=== PATIENT | female | born 1950 | race Caucasian/White ===

== ENCOUNTER 2019-05-14 11:18 | Emergency (ER) | payer OTHER ==
--- NOTE | 2019-05-14 11:37 | EDM.PDOC ---
ED HPI GENERAL MEDICAL PROBLEM - General Chief Complaint: Lower Extremity Injury/Pain Stated Complaint: RIGHT UPPER LEG/HIP AND BACK PAIN Time Seen by Provider: 05/14/19 11:37 Source of Information: Reports: Patient, Old Records, RN, RN Notes Reviewed History Limitations: Reports: No Limitations - History of Present Illness INITIAL COMMENTS - FREE TEXT/NARRATIVE: Pt is sent from the [facility] to the ER for x-rays of her low back and hip. Pt is not sure why she was sent to the emergency department for to obtain x-rays. Pt states she tripped 2 weeks ago and fell to the ground and since that time she has had increased pain in the low back, Rt hip, and Rt groin. Pt states that any movement of the right lower extremity seems to make the pain worse. Duration: Week(s): (2), Constant Quality: Reports: Ache Severity: Moderate Improves with: Reports: Immobilization, Rest Worsens with: Reports: Movement Context: Reports: Other (Fell 2 weeks ago.) Associated Symptoms: Reports: No Other Symptoms Right Hip Pain Score (Numeric/FACES): 10 Past Medical History Cardiovascular History: Reports: High Cholesterol, Hypertension Respiratory History: Reports: COPD Musculoskeletal History: Reports: Arthritis, Back Pain, Chronic Endocrine/Metabolic History: Reports: Diabetes, Type II, Obesity/BMI 30+ Social & Family History - Family History Family Medical History: Noncontributory - Tobacco Use Smoking Status *Q: Former Smoker Tobacco Use Within Last Twelve Months: Cigarettes - Living Situation & Occupation Living situation: Reports: with Family Occupation: Retired Review of Systems - Review of Systems Review Of Systems: ROS reveals no pertinent complaints other than HPI. ED EXAM, GENERAL - Physical Exam Exam: See Below Exam Limited By: No Limitations General Appearance: Alert, No Apparent Distress, Obese Head: Atraumatic, Normocephalic Neck: Normal Inspection, Non-Tender, Full Range of Motion Respiratory/Chest: No Respiratory Distress, No Accessory Muscle Use, Chest Non- Tender, Decreased Breath Sounds, Crackles. No: Rales, Rhonchi, Wheezing Cardiovascular: Regular Rate, Rhythm Peripheral Pulses: 0: Posterior Tibial (L), Posterior Tibial (R), 1+: Dorsalis Pedis (L), Dorsalis Pedis (R) GI/Abdominal: Normal Bowel Sounds, Soft, Non-Tender Back Exam: Decreased Range of Motion, Paraspinal Tenderness (lumbar). No: CVA Tenderness (L), CVA Tenderness (R), Muscle Spasm, Vertebral Tenderness Extremities: Pedal Edema (trace B/L), Limited Range of Motion (Rt hip), Other ( Tenderness overlying the Rt pubic rami). No: Joint Swelling, Blossom's Sign, Increased Warmth, Mottled, Pallor, Redness Neurological: Alert, Oriented, No Motor/Sensory Deficits Psychiatric: Normal Mood Skin Exam: Warm, Dry, Intact, Normal Color, No Rash Course - Vital Signs Last Recorded V/S: Last Vital Signs Temp 98.1 F 05/14/19 11:29 Pulse 83 05/14/19 11:29 Resp BP 139/65 05/14/19 11:29 Pulse Ox 92 L 05/14/19 11:29 - Radiology Interpretation Free Text/Narrative:: XR Rt hip and Pelvis: no fractures. XR L-spine: T12 compression fracture with anterior wedging (age uncertain), multilevel DDD, see Rad. report. Departure - Departure Time of Disposition: 12:38 Disposition: Home, Self-Care 01 Condition: Fair Clinical Impression: Right hip pain Wedge compression fracture of T12 vertebra Qualifiers: Encounter type: initial encounter Fracture type: closed Qualified Code(s): S22.080A - Wedge compression fracture of T11-T12 vertebra, initial encounter for closed fracture - Discharge Information *PRESCRIPTION DRUG MONITORING PROGRAM REVIEWED*: No *COPY OF PRESCRIPTION DRUG MONITORING REPORT IN PATIENT ALEJANDRA: No Instructions: Hip Pain, Spinal Compression Fracture Forms: ED Department Discharge Additional Instructions: [facility] for [facility] evaluation and treatment as needed.
--- NOTE | 2019-05-14 12:29 | CR ---
EXAMINATION: AP pelvis/hips and frog lateral view of the right hip SEX: Female AGE: 68 years CLINICAL HISTORY: 68-year-old female injured in fall (Fell 2wks ago) complaining of low back and R hip/groin pain. INTERPRETATION: 1. Homogeneous normal bone mineral density consistent with age and gender. 2. No sign of pathologic skeletal lesion, pelvic or either hip fracture/dislocation. 3. Symmetric spacing normal-appearing SI and hip joints without arthritic degenerative change. CONCLUSION: No fractures.
--- NOTE | 2019-05-14 12:35 | CR ---
EXAMINATION: Lumbar Spine 2 or 3V SEX: Female AGE: 68 years CLINICAL HISTORY: 68-year-old female injured fall 2wks ago, low back, R hip/groin pain. "Negative" pelvis and right hip films. INTERPRETATION: No comparison films immediately available. 1. Greater than 50% compression fracture T12 vertebral body (age of fracture uncertain). 2. Multilevel upper/mid/lower lumbar disc disease i.e. interspace narrowing, dense reactive endplate sclerosis and hypertrophic marginal spondylosis involving L1-2, L2-3, L3-4 and L4-5 levels. 3. No sign of compression fracture or spondylolisthesis lumbar vertebra. CONCLUSION: Abnormal. Compression FRACTURE T12 vertebral body. Chronic multilevel lumbar disc disease with reactive arthritic changes of the spine.
== END 2019-05-14 12:46 | disposition home or self-care (01) ==
LOC: DL.ED 11:18
DX: S22.080A Wedge compression fracture of T11-T12 vertebra, initial encounter for closed fracture (principal); M25.551 Pain in right hip; I10 Essential (primary) hypertension; E66.9 Obesity, unspecified; E11.9 Type 2 diabetes mellitus without complications; E78.00 Pure hypercholesterolemia, unspecified; Z68.34 Body mass index [BMI] 34.0-34.9, adult; Z87.891 Personal history of nicotine dependence; W01.0XXA Fall on same level from slipping, tripping and stumbling without subsequent striking against object, initial encounter
CPT/HCPCS: 72100; 99283-25

== ENCOUNTER 2019-08-16 14:02 | Inpatient (IN) | payer OTHER, MEDICARE ==
[2019-08-16] MEDS ORDERED: methylPREDNISolone Sodium Succinate 125 MG/2 ML SDV IVPUSH ONE (14:19)
[2019-08-16] MEDS ORDERED: Albuterol/Ipratropium 3.0-0.5 MG/3 ML Neb Soln NEB ONE (14:19)
--- NOTE | 2019-08-16 14:38 | CR ---
EXAMINATION: Chest 1V Frontal SEX: Female AGE: 69 years CLINICAL HISTORY: 69-year-old female cough, shortness of breath and COPD. No comparison films immediately available. INTERPRETATION: 1. Large hiatus hernia lower middle mediastinum. Dense calcifications arch of the aorta. 2. Normal cardiac silhouette without vascular congestion, cephalization of flow, alveolar edema or dependent effusion. 3. Coarse accentuation interstitial markings but no focal lobar pneumonia. No air trapping. 4. No lung mass or hilar/mediastinal lymphadenopathy. 5. No pneumothorax, pneumomediastinum or free subdiaphragmatic air. CONCLUSION: Abnormal interstitial pattern consistent with probable smoker. Bronchitis. No signs of heart failure or lobar pneumonia.
[2019-08-16] MEDS: Sodium Chloride 0.9% 10 ML Syringe FLUSH PRN (14:40)
[2019-08-16 15:26] LABS: ANION GAP 19.9
[2019-08-16] MEDS ORDERED: Potassium Chloride 10 MEQ Tab.ER PO ONE ×3 (15:47→21:15)
[2019-08-16] MEDS ORDERED: Potassium Chloride 10 MEQ in Premix Bag 1 BAG IV ONE (15:47)
[2019-08-16] MEDS ORDERED: Lidocaine 1% 30 ML SDV ONE (15:48)
--- NOTE | 2019-08-16 17:03 | EDM.PDOC ---
Scribed by Lashay Palacios 08/16/19 1602 for Ronal Denson MD ED HPI GENERAL MEDICAL PROBLEM - General Chief Complaint: Respiratory Problem Stated Complaint: COUGH Time Seen by Provider: 08/16/19 14:22 Source of Information: Reports: Patient, RN, RN Notes Reviewed History Limitations: Reports: No Limitations - History of Present Illness INITIAL COMMENTS - FREE TEXT/NARRATIVE: Patient presents to ER with increased shortness of breath, cough and fever at home 100.1. This started Saturday. Long-term smoker with history fo COPD and CHF, home oxygen dependent. Has routine Home Health Visits. She has been using nebulizer at home without relief. Denies chest pain or lower extremity edema. Onset: Gradual Onset Date: 08/12/19 Duration: Constant, Getting Worse Location: Reports: Chest Quality: Reports: Other (Denies pain) Severity: Moderate Improves with: Reports: None Worsens with: Reports: None Associated Symptoms: Reports: No Other Symptoms - Related Data Allergies Allergy/AdvReac Type Severity Reaction Status Date / Time allopurinol Allergy Anxiety Verified 08/16/19 14:15 atorvastatin Allergy Cannot Verified 08/16/19 14:15 Remember Home Meds: Home Meds Benzonatate 100 mg PO TID 05/14/19 [History] Citalopram Hydrobromide [Celexa] 20 mg PO DAILY 05/14/19 [History] Cyclobenzaprine HCl 10 mg PO TID 05/14/19 [History] Furosemide 80 mg PO BID 05/14/19 [History] Gabapentin [Neurontin] 200 mg PO BID 05/14/19 [History] Insulin Aspart [NovoLOG] 10 units SUBCUT TIDMEALS 05/14/19 [History] Insulin Glarg,Human.Rec.Analog [Lantus] 30 unit SQ 05/14/19 [History] Levothyroxine Sodium 0.088 mcg PO DAILY 05/14/19 [History] Melatonin/Pyridoxine HCl (B6) [Melatonin 3 mg Tablet] 1 each PO BEDTIME [History] Nicotine Polacrilex [Nicotine Gum] 2 mg PO PRN 05/14/19 [History] Pantoprazole [ProTONIX] 40 mg PO TIDMEALS 05/14/19 [History] Potassium Chloride 10 meq PO TID 05/14/19 [History] Pramipexole Di-HCl [Pramipexole Dihydrochloride] 0.5 mg PO TID 05/14/19 [History ] Pravastatin [Pravachol] 10 mg PO BEDTIME 05/14/19 [History] Sennosides/Docusate Sodium [Docusate Sodium-Senna Tablet] 1 tab PO BEDTIME 05/14 [History] Vit D3 & K/Berberine HCl/Hops [Ostera] 1,000 units PO 05/14/19 [History] metOLazone [Metolazone] 2.5 mg PO DAILY 05/14/19 [History] Past Medical History Cardiovascular History: Reports: High Cholesterol, Hypertension Respiratory History: Reports: Asthma, COPD Musculoskeletal History: Reports: Arthritis, Back Pain, Chronic Endocrine/Metabolic History: Reports: Diabetes, Type II, Obesity/BMI 30+ Social & Family History - Family History Family Medical History: Noncontributory - Caffeine Use Caffeine Use: Reports: Coffee - Living Situation & Occupation Living situation: Reports: with Family Occupation: Retired ED ROS GENERAL - Review of Systems Review Of Systems: Comprehensive ROS is negative, except as noted in HPI. ED EXAM, GENERAL - Physical Exam Exam: See Below Exam Limited By: No Limitations General Appearance: Alert, No Apparent Distress, Obese, Other (Chronically ill appearing) Eye Exam: Bilateral Eye: Normal Inspection Nose: Normal Inspection, Normal Mucosa, No Blood Throat/Mouth: Normal Inspection, Normal Lips, Normal Oropharynx, Normal Voice, No Airway Compromise Head: Atraumatic, Normocephalic Neck: Normal Inspection, Supple, Non-Tender, Full Range of Motion. No: Lymphadenopathy (L), Lymphadenopathy (R) Respiratory/Chest: No Respiratory Distress, No Accessory Muscle Use, Chest Non- Tender, Decreased Breath Sounds, Crackles, Wheezing. No: Rales, Rhonchi, Stridor Cardiovascular: Regular Rate, Rhythm GI/Abdominal: Normal Bowel Sounds, Soft, Non-Tender, No Organomegaly, No Distention, No Abnormal Bruit, No Mass Back Exam: Normal Inspection Extremities: Normal Inspection, Normal Capillary Refill, Pedal Edema Neurological: Alert, Oriented, CN II-XII Intact, Normal Cognition, No Motor/ Sensory Deficits Psychiatric: Normal Mood Skin Exam: Warm, Dry, Intact, Normal Color, No Rash Course - Vital Signs Last Recorded V/S: Last Vital Signs Temp 97.9 F 08/16/19 14:12 Pulse 96 08/16/19 14:12 Resp 24 H 08/16/19 14:12 BP 155/73 H 08/16/19 14:12 Pulse Ox 93 L 08/16/19 14:12 - Orders/Labs/Meds Orders: Active Orders 24 hr Category Date Time Status Peripheral IV Care [RC] . DIRECTED Care 08/16/19 14:20 Active RT Aerosol Therapy [RC] ASDIRECTED Care 08/16/19 14:19 Active CULTURE BLOOD [BC] Stat Lab 08/16/19 14:37 Received CULTURE BLOOD [BC] Stat Lab 08/16/19 14:47 Received UA RFX ALAN AND CULT IF INDIC [URIN] Stat Lab 08/16/19 14:20 Ordered Sodium Chloride 0.9% [Saline Flush] Med 08/16/19 14:19 Active 10 ml FLUSH ASDIRECTED PRN Blood Culture x2 Reflex Set [OM.PC] Stat Oth 08/16/19 14:20 Ordered Peripheral IV Insertion Adult [OM.PC] Stat Oth 08/16/19 14:19 Ordered Medication Orders Sodium Chloride (Saline Flush) 10 ml FLUSH ASDIRECTED PRN PRN Reason: Keep Vein Open Last Admin: 08/16/19 14:40 Dose: 10 ml Labs: Laboratory Tests 08/16/19 08/16/19 08/16/19 Range/Units 14:37 14:37 14:37 WBC 6.9 (5.0-10.0) 10^3/uL RBC 4.87 (4.2-5.4) 10^6/uL Hgb 13.6 (12.0-16.0) g/dL Hct 42.3 (37.0-47.0) % MCV 86.9 (80-100) fL MCH 27.9 (27.0-34.0) pg MCHC 32.2 L (33.0-35.0) g/dL Plt Count 341 (150-450) 10^3/uL Neut % (Auto) 63.6 (42.2-75.2) % Lymph % (Auto) 22.3 (20.5-50.1) % Hardy % (Auto) 12.7 H (2-8) % Eos % (Auto) 1.0 (1.0-3.0) % Baso % (Auto) 0.4 (0.0-1.0) % Sodium 137 (135-145) mmol/L Potassium 2.9 L (3.6-5.0) mmol/L Chloride 87 L (101-111) mmol/L Carbon Dioxide 33.0 H (21.0-31.0) mmol/L Anion Gap 19.9 BUN 42 H (7-18) mg/dL Creatinine 1.7 H (0.6-1.3) mg/dL Est Cr Clr Drug Dosing 22.12 mL/min Estimated GFR (MDRD) 30 BUN/Creatinine Ratio 24.70 Glucose 96 (74-105) mg/dL Lactic Acid 1.9 (0.5-2.0) mmol/L Calcium 9.0 (8.4-10.2) mg/dl Total Bilirubin 0.6 (0.2-1.0) mg/dL AST 31 (10-42) IU/L ALT 17 (10-60) IU/L Alkaline Phosphatase 75 (42-121) IU/L B-Natriuretic Peptide 28 (0-100) pg/ml Total Protein 8.1 (6.7-8.2) g/dl Albumin 4.3 (3.2-5.5) g/dl Globulin 3.8 Albumin/Globulin Ratio 1.13 Influenza A and B: Negative. Meds: Medications Generic Name Dose Route Start Last Admin Trade Name Megan PRN Reason Stop Dose Admin Sodium Chloride 10 ml 08/16/19 14:19 08/16/19 14:40 Saline Flush FLUSH 10 ml ASDIRECTED PRN Administration Keep Vein Open Discontinued Medications Generic Name Dose Route Start Last Admin Trade Name Megan PRN Reason Stop Dose Admin Albuterol/Ipratropium 3 ml 08/16/19 14:19 08/16/19 14:40 Duoneb 3.0-0.5 Mg/3 Ml NEB 08/16/19 14:20 3 ml ONETIME ONE Administration Potassium Chloride 10 meq/ 100 mls @ 100 mls/hr 08/16/19 15:47 08/16/19 16:00 Premix IV 08/16/19 16:46 100 mls/hr ONETIME ONE Administration Lidocaine HCl 1 ml 08/16/19 15:48 08/16/19 16:00 Xylocaine-Mpf 1% .XX 08/16/19 15:49 1 ml ONETIME ONE Administration Methylprednisolone Sodium Succinate 125 mg 08/16/19 14:19 08/16/19 14:40 Solu-Medrol IVPUSH 08/16/19 14:20 125 mg ONETIME ONE Administration Potassium Chloride 40 meq 08/16/19 15:47 08/16/19 16:00 Klor-Con 10 PO 08/16/19 15:48 40 meq ONETIME ONE Administration - Radiology Interpretation Free Text/Narrative:: Chest x-ray: Abnormal interstitial pattern consistent with probable smoker. Bronchitis. No signs of heart failure or lobar pneumonia. See rad report. Departure - Departure Time of Disposition: 17:02 (admitted to Dr. Wheatley) Disposition: Admitted As Inpatient 65 Condition: Fair Clinical Impression: Acute exacerbation of chronic obstructive pulmonary disease (COPD), Hypokalemia Acute on chronic respiratory failure Qualifiers: Respiratory failure complication: hypoxia Qualified Code(s): J96.21 - Acute and chronic respiratory failure with hypoxia - Discharge Information *PRESCRIPTION DRUG MONITORING PROGRAM REVIEWED*: Not Applicable *COPY OF PRESCRIPTION DRUG MONITORING REPORT IN PATIENT ALEJANDRA: Not Applicable Forms: ED Department Discharge Sepsis Event Note - Focused Exam Vital Signs: Vital Signs Temp Pulse Resp BP Pulse Ox 08/16/19 14:12 97.9 F 96 24 H 155/73 H 93 L Date Exam was Performed: 08/16/19 Time Exam was Performed: 17:02 - My Orders Last 24 Hours: My Active Orders 08/16/19 14:19 RT Aerosol Therapy [RC] ASDIRECTED Sodium Chloride 0.9% [Saline Flush] 10 ml FLUSH ASDIRECTED PRN Peripheral IV Insertion Adult [OM.PC] Stat 08/16/19 14:20 Peripheral IV Care [RC] . DIRECTED UA RFX ALAN AND CULT IF INDIC [URIN] Stat Blood Culture x2 Reflex Set [OM.PC] Stat 08/16/19 14:37 CULTURE BLOOD [BC] Stat 08/16/19 14:47 CULTURE BLOOD [BC] Stat - Assessment/Plan Last 24 Hours: My Active Orders 08/16/19 14:19 RT Aerosol Therapy [RC] ASDIRECTED Sodium Chloride 0.9% [Saline Flush] 10 ml FLUSH ASDIRECTED PRN Peripheral IV Insertion Adult [OM.PC] Stat 08/16/19 14:20 Peripheral IV Care [RC] . DIRECTED UA RFX ALAN AND CULT IF INDIC [URIN] Stat Blood Culture x2 Reflex Set [OM.PC] Stat 08/16/19 14:37 CULTURE BLOOD [BC] Stat 08/16/19 14:47 CULTURE BLOOD [BC] Stat I have read and agree with the documentation that has been completed regarding this visit. By signing this record, I attest that the documentation was completed in my physical presence and is an accurate record of the encounter.
[2019-08-16] MEDS ORDERED: Ondansetron 4 MG/2 ML SDV IVPUSH PRN (17:05)
[2019-08-16] MEDS ORDERED: Albuterol 0.083% 2.5 MG/3 ML Neb Soln NEB PRN (17:05)
[2019-08-16] MEDS ORDERED: Sodium Chloride 0.9% 1,000 ML IV SCH (17:15)
--- NOTE | 2019-08-16 17:37 | PCM.HP ---
H&P History of Present Illness - General Date of Service: 08/16/19 Admit Problem/Dx: Admission Diagnosis/Problem Admission Diagnosis/Problem COPD, Severe chronic obstructive pulmonary disease Source of Information: Patient History Limitations: Reports: No Limitations - History of Present Illness Initial Comments - Free Text/Narative: The patient is a 69-year-old female with medical history of diabetes mellitus type 2, hypothyroidism, gastric reflux disease, COPD, chronic hypoxemic respiratory failure. The patient presented to the emergency room with complaint of cough which has been going on for the past one week. It has gradually worsened over time. The cough is mostly dry and the patient has trouble expectorating. She has associated shortness of breath and intermittent fever with chills. Has not had nausea or vomiting. Appetite has been suboptimal. She came to the emergency room and was noted to have COPD exacerbation. - Related Data Allergies/Adverse Reactions: Allergies Allergy/AdvReac Type Severity Reaction Status Date / Time allopurinol Allergy Anxiety Verified 08/16/19 14:15 atorvastatin Allergy Cannot Verified 08/16/19 14:15 Remember Home Medications: Home Meds Benzonatate 100 mg PO TID 05/14/19 [History] Citalopram Hydrobromide [Celexa] 20 mg PO DAILY 05/14/19 [History] Cyclobenzaprine HCl 10 mg PO TID 05/14/19 [History] Furosemide 80 mg PO BID 05/14/19 [History] Gabapentin [Neurontin] 200 mg PO BID 05/14/19 [History] Insulin Aspart [NovoLOG] 10 units SUBCUT TIDMEALS 05/14/19 [History] Insulin Glarg,Human.Rec.Analog [Lantus] 30 unit SQ 05/14/19 [History] Levothyroxine Sodium 0.088 mcg PO DAILY 05/14/19 [History] Melatonin/Pyridoxine HCl (B6) [Melatonin 3 mg Tablet] 1 each PO BEDTIME [History] Nicotine Polacrilex [Nicotine Gum] 2 mg PO PRN 05/14/19 [History] Pantoprazole [ProTONIX] 40 mg PO TIDMEALS 05/14/19 [History] Potassium Chloride 10 meq PO TID 05/14/19 [History] Pramipexole Di-HCl [Pramipexole Dihydrochloride] 0.5 mg PO TID 10/03/19 [History ] Pravastatin [Pravachol] 10 mg PO BEDTIME 05/14/19 [History] Sennosides/Docusate Sodium [Docusate Sodium-Senna Tablet] 1 tab PO BEDTIME 05/14 [History] Vit D3 & K/Berberine HCl/Hops [Ostera] 1,000 units PO 05/14/19 [History] metOLazone [Metolazone] 2.5 mg PO DAILY 05/14/19 [History] Past Medical History HEENT History: Reports: None Cardiovascular History: Reports: High Cholesterol, Hypertension Respiratory History: Reports: Asthma, COPD Gastrointestinal History: Reports: None Genitourinary History: Reports: None [employer] History: Reports: None Musculoskeletal History: Reports: Arthritis, Back Pain, Chronic Neurological History: Reports: None Psychiatric History: Reports: None Endocrine/Metabolic History: Reports: Diabetes, Type II, Obesity/BMI 30+ Hematologic History: Reports: None Immunologic History: Reports: None Oncologic (Cancer) History: Reports: None Dermatologic History: Reports: None - Infectious Disease History Infectious Disease History: Reports: None - Past Surgical History Head Surgeries/Procedures: Reports: None Social & Family History - Family History Family Medical History: Noncontributory - Tobacco Use Smoking Status *Q: Former Smoker Used Tobacco, but Quit: Yes Month/Year Tobacco Last Used: ? - Caffeine Use Caffeine Use: Reports: Coffee - Recreational Drug Use Recreational Drug Use: No - Living Situation & Occupation Living situation: Reports: with Family Occupation: Retired H&P Review of Systems - Review of Systems: Review Of Systems: See Below General: Reports: Chills, Malaise, Weakness HEENT: Reports: Sinus Congestion Pulmonary: Reports: Shortness of Breath, Wheezing, Cough Cardiovascular: Reports: No Symptoms Gastrointestinal: Reports: No Symptoms Genitourinary: Reports: No Symptoms Skin: Reports: No Symptoms Psychiatric: Reports: No Symptoms Exam - Exam Exam: See Below - Vital Signs Vital Signs: Last Vital Signs Temp 36.6 C 08/16/19 14:12 Pulse 96 08/16/19 14:12 Resp 24 H 08/16/19 14:12 BP 155/73 H 08/16/19 14:12 Pulse Ox 93 L 08/16/19 14:12 Weight: 74.389 kg - Exam Quality Assessment: Supplemental Oxygen General: Alert, Oriented, Cooperative HEENT: PERRLA, Hearing Intact, Mucosa Moist & [place], Nares Patent, Normal Nasal Septum, Posterior Pharynx Clear, Conjunctiva Clear, EOMI, EACs Clear, TMs Clear Neck: Supple, Trachea Midline, 2 Lungs: Normal Respiratory Effort, Rales, Rhonchi Cardiovascular: Regular Rate, Regular Rhythm GI/Abdominal Exam: Normal Bowel Sounds, Soft, Non-Tender, No Organomegaly, No Distention, No Abnormal Bruit, No Mass, Pelvis Stable Back Exam: Normal Inspection, Full Range of Motion, NT Extremities: Normal Inspection, Normal Range of Motion, Non-Tender, No Pedal Edema, Normal Capillary Refill - Patient Data Lab Results Last 24 hrs: Laboratory Results - last 24 hr 08/16/19 08/16/19 08/16/19 Range/Units 14:37 14:37 14:37 WBC 6.9 (5.0-10.0) 10^3/uL RBC 4.87 (4.2-5.4) 10^6/uL Hgb 13.6 (12.0-16.0) g/dL Hct 42.3 (37.0-47.0) % MCV 86.9 (80-100) fL MCH 27.9 (27.0-34.0) pg MCHC 32.2 L (33.0-35.0) g/dL Plt Count 341 (150-450) 10^3/uL Neut % (Auto) 63.6 (42.2-75.2) % Lymph % (Auto) 22.3 (20.5-50.1) % Saline % (Auto) 12.7 H (2-8) % Eos % (Auto) 1.0 (1.0-3.0) % Baso % (Auto) 0.4 (0.0-1.0) % Sodium 137 (135-145) mmol/L Potassium 2.9 L (3.6-5.0) mmol/L Chloride 87 L (101-111) mmol/L Carbon Dioxide 33.0 H (21.0-31.0) mmol/L Anion Gap 19.9 BUN 42 H (7-18) mg/dL Creatinine 1.7 H (0.6-1.3) mg/dL Est Cr Clr Drug Dosing 22.12 mL/min Estimated GFR (MDRD) 30 BUN/Creatinine Ratio 24.70 Glucose 96 (74-105) mg/dL Lactic Acid 1.9 (0.5-2.0) mmol/L Calcium 9.0 (8.4-10.2) mg/dl Total Bilirubin 0.6 (0.2-1.0) mg/dL AST 31 (10-42) IU/L ALT 17 (10-60) IU/L Alkaline Phosphatase 75 (42-121) IU/L B-Natriuretic Peptide 28 (0-100) pg/ml Total Protein 8.1 (6.7-8.2) g/dl Albumin 4.3 (3.2-5.5) g/dl Globulin 3.8 Albumin/Globulin Ratio 1.13 Result Diagrams: 08/16/19 14:37 08/16/19 14:37 Yordan Results Last 24 hrs: Microbiology 08/16/19 14:30 Influenza Type A Antigen Screen - Final Nasal, Unspecified NEGATIVE INFLUENZA A VIRUS AG REFERENCE RANGE: NEGATIVE Influenza Type B Antigen Screen - Final NEGATIVE INFLUENZA B VIRUS AG REFERENCE RANGE: NEGATIVE Problem List Initiated/Reviewed/Updated: Yes Orders Last 24hrs: Active Orders 24 hr Category Date Time Status Admission Status [Patient Status] [ADT] Routine ADT 08/16/19 17:01 Active Patient Status [ADT] Routine ADT 08/16/19 17:05 Active Blood Glucose Check, Bedside [RC] QIDACANDBED Care 08/16/19 17:13 Active Oxygen Therapy [RC] PRN Care 08/16/19 17:05 Active Peripheral IV Care [RC] 08,20 Care 08/16/19 14:20 Active Pulse Oximetry [RC] PRN Care 08/16/19 17:07 Active RT Aerosol Therapy [RC] ASDIRECTED Care 08/16/19 14:19 Active RT Aerosol Therapy [RC] ASDIRECTED Care 08/16/19 17:08 Active Up ad Kathia [RC] ASDIRECTED Care 08/16/19 17:05 Active VTE/DVT Education [RC] PER UNIT ROUTINE Care 08/16/19 17:05 Active Vital Signs [RC] Q4H Care 08/16/19 17:05 Active Regular Diet [DIET] Diet 08/16/19 Dinner Active BASIC METABOLIC PANEL,BMP [CHEM] AM Lab 08/17/19 05:11 Ordered CBC W/O DIFF,HEMOGRAM [HEME] AM Lab 08/17/19 05:11 Ordered CULTURE BLOOD [BC] Stat Lab 08/16/19 14:37 Received CULTURE BLOOD [BC] Stat Lab 08/16/19 14:47 Received CULTURE SPUTUM + SMEAR [RM] Stat Lab 08/16/19 17:05 Ordered UA RFX YORDAN AND CULT IF INDIC [URIN] Stat Lab 08/16/19 14:20 Ordered Acetaminophen [Tylenol] Med 08/16/19 17:05 Active 650 mg PO Q4H PRN Albuterol [Proventil Neb Soln] Med 08/16/19 17:05 Active 2.5 mg NEB Q2H PRN Albuterol/Ipratropium [DuoNeb 3.0-0.5 MG/3 ML] Med 08/16/19 17:05 Active 3 ml NEB Q4H PRN Doxycycline [Vibramycin] Med 08/16/19 21:00 Active 100 mg PO BID Heparin Sodium Med 08/16/19 22:00 Ordered 5,000 units SUBCUT Q8HR Insulin Aspart [NovoLOG] Med 08/17/19 08:00 Ordered 10 units SUBCUT TIDMEALS Insulin Glarg,Human.Rec.Analog [LantUS] Med 08/16/19 21:00 Ordered 30 unit SUBCUT BEDTIME Ondansetron [Zofran] Med 08/16/19 17:05 Ordered 4 mg IVPUSH Q6H PRN Pantoprazole [ProTONIX] Med 08/17/19 08:00 Ordered 40 mg PO TIDMEALS Pramipexole Di-HCl [Pramipexole Dihydrochloride] Med 08/16/19 21:00 Ordered 0.5 mg PO TID Sodium Chloride 0.9% [Normal Saline] 1,000 ml Med 08/16/19 17:15 Ordered IV ASDIRECTED Sodium Chloride 0.9% [Saline Flush] Med 08/16/19 14:19 Active 10 ml FLUSH ASDIRECTED PRN methylPREDNISolone Sod Succ [Solu-MEDROL] Med 08/16/19 17:15 Ordered 20 mg IVPUSH Q8H Blood Culture x2 Reflex Set [OM.PC] Stat Oth 08/16/19 14:20 Ordered Peripheral IV Insertion Adult [OM.PC] Stat Oth 08/16/19 14:19 Ordered Resuscitation Status Routine Resus Stat 08/16/19 17:05 Ordered Medication Orders Acetaminophen (Tylenol) 650 mg PO Q4H PRN PRN Reason: Pain (Mild 1-3)/fever Albuterol (Proventil Neb Soln) 2.5 mg NEB Q2H PRN PRN Reason: shortness of breath/wheezing Albuterol/Ipratropium (Duoneb 3.0-0.5 Mg/3 Ml) 3 ml NEB Q4H PRN PRN Reason: shortness of breath/wheezing Doxycycline Hyclate (Vibramycin) 100 mg PO BID [facility] Heparin Sodium (Porcine) (Heparin Sodium) 5,000 units SUBCUT Q8HR [facility] Sodium Chloride (Normal Saline) 1,000 mls @ 50 mls/hr IV ASDIRECTED [facility] Insulin Glargine (Lantus) 30 unit SUBCUT BEDTIME [facility] Methylprednisolone Sodium Succinate (Solu-Medrol) 20 mg IVPUSH Q8H [facility] Non-Formulary Medication (Insulin Aspart [Novolog]) 10 units SUBCUT TIDMEALS [facility] Non-Formulary Medication (Pramipexole Di-Hcl [Pramipexole Dihydrochloride]) 0.5 mg PO TID [facility] Ondansetron HCl (Zofran) 4 mg IVPUSH Q6H PRN PRN Reason: Nausea/Vomiting Pantoprazole Sodium (Protonix) 40 mg PO TIDMEALS [facility] Sodium Chloride (Saline Flush) 10 ml FLUSH ASDIRECTED PRN PRN Reason: Keep Vein Open Last Admin: 08/16/19 14:40 Dose: 10 ml Assessment/Plan Comment:: #. Acute exacerbation of COPD The patient does have chronic COPD Wheezing significantly #. Hypokalemia This is probably due to use of bronchodilators #. Renal failure Serum creatinine is at 1.7 No previous value for comparison #. Diabetes mellitus type 2 On insulin therapy Blood sugar is 181 #. Hypothyroidism Continue levothyroxine #. Gastric surgery reflux disease She patient on proton pump inhibitor #. Chronic hypoxemic respiratory failure Continue supplemental oxygen #. Elevated blood pressure Send does a history of chronic hypertension Plan: Admit patient to medical floor Comments nebulization with DuoNeb every 4 hours Albuterol every 2 hours when necessary Start intravenous Solu Medrol 20 mg every 8 hours Empiric antibiotics with oral doxycycline 100 mg 2 times a day Supplemental oxygen as needed Monitor blood sugar before meals and at bedtime Start patient on insulin Lantus and insulin lispro Patient's medical chart reviewed.
[2019-08-16] MEDS ORDERED: Melatonin 3 MG Tab PO SCH (21:00)
[2019-08-16] MEDS ORDERED: Insulin Glarg,Human.Rec.Analog 100 Unit/ML SUBCUT SCH (21:00)
[2019-08-16] MEDS ORDERED: Cyclobenzaprine 10 MG Tab PO PRN (21:00)
[2019-08-16] MEDS: methylPREDNISolone Sodium Succinate 40 MG/1 ML SDV IVPUSH SCH (21:12)
[2019-08-16] MEDS: Doxycycline 100 MG Cap PO SCH (21:13)
[2019-08-16] MEDS: Albuterol/Ipratropium 3.0-0.5 MG/3 ML Neb Soln NEB PRN (21:13)
[2019-08-16] MEDS: Heparin Sodium 5,000 Units/ML Vial SUBCUT SCH (21:15)
[2019-08-16] MEDS: Gabapentin 100 MG Cap PO SCH ×2 (22:06→22:39)
[2019-08-16] MEDS: Pramipexole 0.125 MG Tab PO SCH (22:39)
[2019-08-16] MEDS: Pravastatin 20 MG Tab PO SCH (22:39)
[2019-08-16] MEDS: Benzonatate 100 MG Cap PO SCH (22:39)
[2019-08-16] MEDS: Insulin Lispro 100 Units/ML 3 ML Vial SUBCUT SCH (22:42)
[2019-08-17] MEDS: Heparin Sodium 5,000 Units/ML Vial SUBCUT SCH ×3 (05:11→22:24)
[2019-08-17] MEDS: methylPREDNISolone Sodium Succinate 40 MG/1 ML SDV IVPUSH SCH ×4 (06:01→22:24)
[2019-08-17] MEDS: Albuterol/Ipratropium 3.0-0.5 MG/3 ML Neb Soln NEB PRN ×2 (06:01→10:46)
[2019-08-17] MEDS: Acetaminophen 325 MG Tab PO PRN (06:08)
[2019-08-17 07:36] LABS: ANION GAP 16.9
[2019-08-17] MEDS ORDERED: Non-Formulary Medication 1 Each (Insulin Aspart [Novolog] 10 UNITS) SUBCUT SCH (08:00)
[2019-08-17] MEDS: Insulin Lispro 100 Units/ML 3 ML Vial SUBCUT SCH ×5 (08:42→22:17)
[2019-08-17] MEDS: Pramipexole 0.125 MG Tab PO SCH ×2 (08:45→16:31)
[2019-08-17] MEDS: Benzonatate 100 MG Cap PO SCH ×4 (08:46→22:23)
[2019-08-17] MEDS: Gabapentin 100 MG Cap PO SCH ×2 (08:46→22:22)
[2019-08-17] MEDS: Doxycycline 100 MG Cap PO SCH ×2 (08:47→22:23)
--- NOTE | 2019-08-17 10:29 | PCM.PN ---
- General Info Date of Service: 08/17/19 Subjective Update: No new complaint today. Still has some shortness of breath. Still has some wheezing Still coughing. Blood sugar has been inadequately controlled most of the values above 200 - Review of Systems General: Reports: Weakness, Malaise Pulmonary: Reports: Shortness of Breath, Cough Cardiovascular: Reports: No Symptoms Gastrointestinal: Reports: No Symptoms Skin: Reports: No Symptoms - Patient Data Vitals - Most Recent: Last Vital Signs Temp 36.6 C 08/17/19 07:43 Pulse 78 08/17/19 07:43 Resp 20 08/17/19 07:43 BP 90/56 L 08/17/19 07:43 Pulse Ox 93 L 08/17/19 07:43 Weight - Most Recent: 74.389 kg I&O - Last 24 Hours: Intake & Output 08/16/19 08/17/19 08/17/19 22:59 06:59 14:59 Intake Total 800 Output Total 100 400 Balance -100 400 Lab Results Last 24 Hours: Laboratory Results - last 24 hr 08/16/19 08/16/19 08/16/19 Range/Units 14:37 14:37 14:37 WBC 6.9 (5.0-10.0) 10^3/uL RBC 4.87 (4.2-5.4) 10^6/uL Hgb 13.6 (12.0-16.0) g/dL Hct 42.3 (37.0-47.0) % MCV 86.9 (80-100) fL MCH 27.9 (27.0-34.0) pg MCHC 32.2 L (33.0-35.0) g/dL Plt Count 341 (150-450) 10^3/uL Neut % (Auto) 63.6 (42.2-75.2) % Lymph % (Auto) 22.3 (20.5-50.1) % [place] % (Auto) 12.7 H (2-8) % Eos % (Auto) 1.0 (1.0-3.0) % Baso % (Auto) 0.4 (0.0-1.0) % Sodium 137 (135-145) mmol/L Potassium 2.9 L (3.6-5.0) mmol/L Chloride 87 L (101-111) mmol/L Carbon Dioxide 33.0 H (21.0-31.0) mmol/L Anion Gap 19.9 BUN 42 H (7-18) mg/dL Creatinine 1.7 H (0.6-1.3) mg/dL Est Cr Clr Drug Dosing 22.12 mL/min Estimated GFR (MDRD) 30 BUN/Creatinine Ratio 24.70 Glucose 96 (74-105) mg/dL POC Glucose (83-110) mg/dl Lactic Acid 1.9 (0.5-2.0) mmol/L Calcium 9.0 (8.4-10.2) mg/dl Total Bilirubin 0.6 (0.2-1.0) mg/dL AST 31 (10-42) IU/L ALT 17 (10-60) IU/L Alkaline Phosphatase 75 (42-121) IU/L B-Natriuretic Peptide 28 (0-100) pg/ml Total Protein 8.1 (6.7-8.2) g/dl Albumin 4.3 (3.2-5.5) g/dl Globulin 3.8 Albumin/Globulin Ratio 1.13 Urine Color (YELLOW) Urine Appearance (CLEAR) Urine pH (5.0-9.0) Ur Specific [place] (1.005-1.030) Urine Protein (NEGATIVE) Urine Glucose (UA) (NEGATIVE) Urine Ketones (NEGATIVE) Urine Occult Blood (NEGATIVE) Urine Nitrite (NEGATIVE) Urine Bilirubin (NEGATIVE) Urine Urobilinogen (0.2-1.0) mg/dL Ur Leukocyte Esterase (NEGATIVE) 08/16/19 08/16/19 08/17/19 Range/Units 21:20 21:27 06:20 WBC 6.8 (5.0-10.0) 10^3/uL RBC 4.69 (4.2-5.4) 10^6/uL Hgb 13.1 (12.0-16.0) g/dL Hct 40.6 (37.0-47.0) % MCV 86.6 (80-100) fL MCH 27.9 (27.0-34.0) pg MCHC 32.3 L (33.0-35.0) g/dL Plt Count 331 (150-450) 10^3/uL Neut % (Auto) (42.2-75.2) % Lymph % (Auto) (20.5-50.1) % [place] % (Auto) (2-8) % Eos % (Auto) (1.0-3.0) % Baso % (Auto) (0.0-1.0) % Sodium (135-145) mmol/L Potassium (3.6-5.0) mmol/L Chloride (101-111) mmol/L Carbon Dioxide (21.0-31.0) mmol/L Anion Gap BUN (7-18) mg/dL Creatinine (0.6-1.3) mg/dL Est Cr Clr Drug Dosing mL/min Estimated GFR (MDRD) BUN/Creatinine Ratio Glucose (74-105) mg/dL POC Glucose 366 H (83-110) mg/dl Lactic Acid (0.5-2.0) mmol/L Calcium (8.4-10.2) mg/dl Total Bilirubin (0.2-1.0) mg/dL AST (10-42) IU/L ALT (10-60) IU/L Alkaline Phosphatase (42-121) IU/L B-Natriuretic Peptide (0-100) pg/ml Total Protein (6.7-8.2) g/dl Albumin (3.2-5.5) g/dl Globulin Albumin/Globulin Ratio Urine Color Yellow (YELLOW) Urine Appearance Clear (CLEAR) Urine pH 7.0 (5.0-9.0) Ur Specific [place] 1.015 (1.005-1.030) Urine Protein Negative (NEGATIVE) Urine Glucose (UA) 500 H (NEGATIVE) Urine Ketones Negative (NEGATIVE) Urine Occult Blood Negative (NEGATIVE) Urine Nitrite Negative (NEGATIVE) Urine Bilirubin Negative (NEGATIVE) Urine Urobilinogen 0.2 (0.2-1.0) mg/dL Ur Leukocyte Esterase Negative (NEGATIVE) 08/17/19 08/17/19 Range/Units 06:20 07:34 WBC (5.0-10.0) 10^3/uL RBC (4.2-5.4) 10^6/uL Hgb (12.0-16.0) g/dL Hct (37.0-47.0) % MCV (80-100) fL MCH (27.0-34.0) pg MCHC (33.0-35.0) g/dL Plt Count (150-450) 10^3/uL Neut % (Auto) (42.2-75.2) % Lymph % (Auto) (20.5-50.1) % [place] % (Auto) (2-8) % Eos % (Auto) (1.0-3.0) % Baso % (Auto) (0.0-1.0) % Sodium 134 L (135-145) mmol/L Potassium 3.9 (3.6-5.0) mmol/L Chloride 90 L (101-111) mmol/L Carbon Dioxide 31.0 (21.0-31.0) mmol/L Anion Gap 16.9 BUN 44 H (7-18) mg/dL Creatinine 1.6 H (0.6-1.3) mg/dL Est Cr Clr Drug Dosing 23.50 mL/min Estimated GFR (MDRD) 32 BUN/Creatinine Ratio Glucose 270 H (74-105) mg/dL POC Glucose 273 H (83-110) mg/dl Lactic Acid (0.5-2.0) mmol/L Calcium 8.6 (8.4-10.2) mg/dl Total Bilirubin (0.2-1.0) mg/dL AST (10-42) IU/L ALT (10-60) IU/L Alkaline Phosphatase (42-121) IU/L B-Natriuretic Peptide (0-100) pg/ml Total Protein (6.7-8.2) g/dl Albumin (3.2-5.5) g/dl Globulin Albumin/Globulin Ratio Urine Color (YELLOW) Urine Appearance (CLEAR) Urine pH (5.0-9.0) Ur Specific [place] (1.005-1.030) Urine Protein (NEGATIVE) Urine Glucose (UA) (NEGATIVE) Urine Ketones (NEGATIVE) Urine Occult Blood (NEGATIVE) Urine Nitrite (NEGATIVE) Urine Bilirubin (NEGATIVE) Urine Urobilinogen (0.2-1.0) mg/dL Ur Leukocyte Esterase (NEGATIVE) Yordan Results Last 24 Hours: Microbiology 08/16/19 19:30 Gram Stain - Final Sputum - Expectorated 08/16/19 14:30 Influenza Type A Antigen Screen - Final Nasal, Unspecified NEGATIVE INFLUENZA A VIRUS AG REFERENCE RANGE: NEGATIVE Influenza Type B Antigen Screen - Final NEGATIVE INFLUENZA B VIRUS AG REFERENCE RANGE: NEGATIVE Med Orders - Current: Current Medications Acetaminophen (Tylenol) 650 mg PO Q4H PRN PRN Reason: Pain (Mild 1-3)/fever Last Admin: 08/17/19 06:08 Dose: 650 mg Albuterol (Proventil Neb Soln) 2.5 mg NEB Q2H PRN PRN Reason: shortness of breath/wheezing Last Admin: 08/16/19 18:35 Dose: 2.5 mg Albuterol/Ipratropium (Duoneb 3.0-0.5 Mg/3 Ml) 3 ml NEB Q4H PRN PRN Reason: shortness of breath/wheezing Last Admin: 08/17/19 06:01 Dose: 3 ml Benzonatate (Tessalon Perles) 100 mg PO TID [facility] Last Admin: 08/17/19 08:46 Dose: 100 mg Cyclobenzaprine HCl (Flexeril) 10 mg PO TID PRN PRN Reason: MUSCLE SPASMS Last Admin: 08/16/19 22:39 Dose: 10 mg Doxycycline Hyclate (Vibramycin) 100 mg PO BID [facility] Last Admin: 08/17/19 08:47 Dose: 100 mg Gabapentin (Neurontin) 200 mg PO BID [facility] Last Admin: 08/17/19 08:46 Dose: 200 mg Heparin Sodium (Porcine) (Heparin Sodium) 5,000 units SUBCUT Q8HR [facility] Last Admin: 08/17/19 05:11 Dose: Not Given Insulin Glargine (Lantus) 35 unit SUBCUT BEDTIME [facility] Insulin Human Lispro (Humalog) 0 unit SUBCUT WITHMEALSANDBED [facility]; Protocol Last Admin: 08/17/19 08:42 Dose: 6 units Levothyroxine Sodium (Synthroid) 0.088 mcg PO DAILY [facility] Melatonin (Melatonin) 3 mg PO BEDTIME [facility] Last Admin: 08/16/19 22:39 Dose: 3 mg Methylprednisolone Sodium Succinate (Solu-Medrol) 20 mg IVPUSH Q8H [facility] Last Admin: 08/17/19 06:01 Dose: 20 mg Non-Formulary Medication (Citalopram Hydrobromide [Celexa]) 20 mg PO DAILY [facility] Non-Formulary Medication (Potassium Chloride [Potassium Chloride]) 10 meq PO TID [facility] Non-Formulary Medication (Insulin Aspart [Novolog]) 14 units SUBCUT TIDMEALS [facility] Ondansetron HCl (Zofran) 4 mg IVPUSH Q6H PRN PRN Reason: Nausea/Vomiting Pantoprazole Sodium (Protonix) 40 mg PO TIDMEALS [facility] Pramipexole Dihydrochloride (Mirapex) 0.5 mg PO TID [facility] Last Admin: 08/17/19 08:45 Dose: 0.5 mg Pravastatin Sodium (Pravachol) 10 mg PO BEDTIME [facility] Last Admin: 08/16/19 22:39 Dose: 10 mg Sodium Chloride (Saline Flush) 10 ml FLUSH ASDIRECTED PRN PRN Reason: Keep Vein Open Last Admin: 08/16/19 14:40 Dose: 10 ml Discontinued Medications Albuterol/Ipratropium (Duoneb 3.0-0.5 Mg/3 Ml) 3 ml NEB ONETIME ONE Stop: 08/16/19 14:20 Last Admin: 08/16/19 14:40 Dose: 3 ml Potassium Chloride 10 meq/ (Premix) 100 mls @ 100 mls/hr IV ONETIME ONE Stop: 08/16/19 16:46 Last Admin: 08/16/19 16:00 Dose: 100 mls/hr Sodium Chloride (Normal Saline) 1,000 mls @ 50 mls/hr IV ASDIRECTED [facility] Last Admin: 08/16/19 20:32 Dose: 50 mls/hr Insulin Glargine (Lantus) 30 unit SUBCUT BEDTIME [facility] Last Admin: 08/16/19 22:39 Dose: 30 units Lidocaine HCl (Xylocaine-Mpf 1%) 1 ml .XX ONETIME ONE Stop: 08/16/19 15:49 Last Admin: 08/16/19 16:00 Dose: 1 ml Methylprednisolone Sodium Succinate (Solu-Medrol) 125 mg IVPUSH ONETIME ONE Stop: 08/16/19 14:20 Last Admin: 08/16/19 14:40 Dose: 125 mg Non-Formulary Medication (Insulin Aspart [Novolog]) 10 units SUBCUT TIDMEALS [facility] Potassium Chloride (Klor-Con 10) 40 meq PO ONETIME ONE Stop: 08/16/19 15:48 Last Admin: 08/16/19 16:00 Dose: 40 meq Potassium Chloride (Klor-Con 10) 40 meq PO ONETIME ONE Stop: 08/16/19 17:38 Last Admin: 08/16/19 21:03 Dose: Not Given Potassium Chloride (Klor-Con 10) 40 meq PO ONETIME ONE Stop: 08/16/19 21:16 Last Admin: 08/16/19 21:13 Dose: 40 meq - Exam Quality Assessment: Supplemental Oxygen General: Alert, Oriented, Cooperative HEENT: Pupils Equal, Pupils Reactive, EOMI, Mucous Membr. Moist/[place] Neck: Supple Lungs: Rhonchi Cardiovascular: Regular Rate, Regular Rhythm Extremities: Normal Inspection, Normal Range of Motion, Non-Tender, No Pedal Edema, Normal Capillary Refill Sepsis Event Note - Evaluation Sepsis Screening Result: No Definite Risk - Focused Exam Vital Signs: Vital Signs Temp Pulse Resp BP Pulse Ox 08/17/19 07:43 36.6 C 78 20 90/56 L 93 L 08/16/19 23:57 36.7 C 81 22 H 115/53 L 95 Date Exam was Performed: 08/17/19 Time Exam was Performed: 10:29 - Problem List Review Problem List Initiated/Reviewed/Updated: Yes - My Orders Last 24 Hours: My Active Orders 08/16/19 17:01 Admission Status [Patient Status] [ADT] Routine 08/16/19 17:05 Patient Status [ADT] Routine Oxygen Therapy [RC] PRN Up ad Kathia [RC] ASDIRECTED VTE/DVT Education [RC] Vital Signs [RC] 00,04,08,12,16,20 Acetaminophen [Tylenol] 650 mg PO Q4H PRN Albuterol [Proventil Neb Soln] 2.5 mg NEB Q2H PRN Albuterol/Ipratropium [DuoNeb 3.0-0.5 MG/3 ML] 3 ml NEB Q4H PRN Ondansetron [Zofran] 4 mg IVPUSH Q6H PRN Resuscitation Status Routine 08/16/19 17:07 Pulse Oximetry [RC] PRN 08/16/19 17:08 RT Aerosol Therapy [RC] ASDIRECTED 08/16/19 17:13 Blood Glucose Check, Bedside [RC] QIDACANDBED 08/16/19 17:38 Telemetry Monitoring [Cardiac Monitoring] [RC] 08,08/16/19 17:45 Citalopram Hydrobromide [Celexa] 20 mg PO DAILY Gabapentin [Neurontin] 200 mg PO BID Levothyroxine [Synthroid] 0.088 mcg PO DAILY 08/16/19 19:30 CULTURE SPUTUM + SMEAR [RM] Stat 08/16/19 21:00 Benzonatate [Tessalon Perles] 100 mg PO TID Cyclobenzaprine [Flexeril] 10 mg PO TID PRN Doxycycline [Vibramycin] 100 mg PO BID Melatonin 3 mg PO BEDTIME Potassium Chloride [Potassium Chloride] 10 meq PO TID Pravastatin [Pravachol] 10 mg PO BEDTIME 08/16/19 22:00 Heparin Sodium 5,000 units SUBCUT Q8HR Insulin Lispro [HumaLOG] See Protocol SUBCUT WITHMEALSANDBED Pramipexole [Mirapex] 0.5 mg PO TID methylPREDNISolone Sod Succ [Solu-MEDROL] 20 mg IVPUSH Q8H 08/16/19 Dinner Regular Diet [DIET] 08/17/19 08:00 Pantoprazole [ProTONIX] 40 mg PO TIDMEALS 08/17/19 12:00 Insulin Aspart [NovoLOG] 14 units SUBCUT TIDMEALS 08/17/19 21:00 Insulin Glarg,Human.Rec.Analog [LantUS] 35 unit SUBCUT BEDTIME - Plan Plan:: #. Acute exacerbation of COPD The patient does have chronic COPD Wheezing significantly #. Hypokalemia Resolved #. Renal failure Serum creatinine is at 1.7 No previous value for comparison #. Diabetes mellitus type 2 On insulin therapy #. Hypothyroidism Continue levothyroxine #. Gastric surgery reflux disease She patient on proton pump inhibitor #. Chronic hypoxemic respiratory failure Continue supplemental oxygen #. Elevated blood pressure Send does a history of chronic hypertension Plan: Patient continues to have hyperglycemia I'll go ahead and increase insulin Lantus to 35 units nightly Increase insulin NovoLog to 14 units 3 times with meals I hypoglycemic protocol Continue nebulization
[2019-08-17] MEDS ORDERED: LEVOTHYROXINE 88 MCG PO SCH (10:45)
[2019-08-17] MEDS ORDERED: DOCUSATE SODIUM 100 MG PO PRN (11:03)
[2019-08-17] MEDS ORDERED: INSULIN ASPART SUBCUT SCH (12:00)
[2019-08-17] MEDS ORDERED: ALBUTEROL NEB PRN ×2 (14:50→16:20)
[2019-08-17] MEDS ORDERED: GABAPENTIN 100 MG PO SCH (14:53)
[2019-08-17] MEDS ORDERED: MELATONIN 3 MG PO SCH (14:56)
[2019-08-17] MEDS ORDERED: CYCLOBENZAPRINE 10 MG PO PRN (15:01)
[2019-08-17] MEDS: CITALOPRAM 20 MG PO SCH ×2 (15:11→16:16)
[2019-08-17] MEDS ORDERED: Benzonatate 100 MG Cap PO SCH (15:30)
[2019-08-17] MEDS ORDERED: FUROSEMIDE 80 MG PO SCH ×2 (16:00→21:00)
[2019-08-17] MEDS ORDERED: NICOTINE POLACRILEX 2 MG PO PRN (16:02)
[2019-08-17] MEDS: Albuterol/Ipratropium 3.0-0.5 MG/3 ML Neb Soln NEB SCH ×2 (16:15→20:08)
[2019-08-17] MEDS ORDERED: Docusate Sodium 100 MG Cap PO PRN (16:24)
[2019-08-17] MEDS ORDERED: Cyclobenzaprine 10 MG Tab PO PRN (16:24)
[2019-08-17] MEDS: Potassium Chloride 10 MEQ Tab.ER PO SCH (18:17)
[2019-08-17] MEDS ORDERED: INSULIN GLARG HUMAN REC ANALOG 100 UNIT/ML SUBCUT SCH (21:00)
[2019-08-17] MEDS ORDERED: BUPROPION 100 MG PO SCH (21:00)
[2019-08-17] MEDS: Melatonin 3 MG Tab PO SCH (22:21)
[2019-08-17] MEDS: Pravastatin 20 MG Tab PO SCH (22:22)
[2019-08-17] MEDS: PRAMIPEXOLE 0.5 MG PO SCH (22:23)
[2019-08-18] MEDS: Albuterol/Ipratropium 3.0-0.5 MG/3 ML Neb Soln NEB SCH ×7 (00:26→23:05)
[2019-08-18] MEDS: Acetaminophen 325 MG Tab PO PRN ×2 (03:15→08:28)
[2019-08-18] MEDS: Pantoprazole 40 MG Tab.CR PO SCH (06:20)
[2019-08-18] MEDS: Heparin Sodium 5,000 Units/ML Vial SUBCUT SCH ×3 (06:21→21:35)
[2019-08-18] MEDS: methylPREDNISolone Sodium Succinate 40 MG/1 ML SDV IVPUSH SCH (06:21)
[2019-08-18] MEDS: Levothyroxine 88 MCG Tab PO SCH (06:21)
[2019-08-18] MEDS: Insulin Lispro 100 Units/ML 3 ML Vial SUBCUT SCH ×7 (08:22→21:30)
[2019-08-18] MEDS: Furosemide 80 MG Tab PO SCH (08:24)
[2019-08-18] MEDS: Gabapentin 100 MG Cap PO SCH ×2 (08:24→21:34)
[2019-08-18] MEDS: Doxycycline 100 MG Cap PO SCH ×2 (08:25→21:35)
[2019-08-18] MEDS: Potassium Chloride 10 MEQ Tab.ER PO SCH ×3 (08:26→17:18)
[2019-08-18] MEDS: Benzonatate 100 MG Cap PO SCH ×3 (08:26→21:34)
[2019-08-18] MEDS: Citalopram 20 MG Tab PO SCH (08:26)
[2019-08-18] MEDS: PRAMIPEXOLE 0.5 MG PO SCH ×3 (08:27→21:36)
[2019-08-18] MEDS: BUPROPION 100 MG PO SCH ×2 (08:28→14:34)
--- NOTE | 2019-08-18 09:44 | PCM.PN ---
- General Info Date of Service: 08/18/19 Subjective Update: The patient was admitted with COPD exacerbation. Has been coughing quite a bit Patient continues to cough a lot No improvement so far Has not been able to sleep well because of the cough It is mostly unproductive. No fever documented. Shortness of breath has improved - Patient Data Vitals - Most Recent: Last Vital Signs Temp 36.7 C 08/18/19 08:00 Pulse 89 08/18/19 08:00 Resp 20 08/18/19 08:00 BP 133/72 08/18/19 08:00 Pulse Ox 99 08/18/19 08:00 Weight - Most Recent: 74.389 kg I&O - Last 24 Hours: Intake & Output 08/17/19 08/18/19 08/18/19 22:59 06:59 14:59 Intake Total 665 325 Balance 665 325 Lab Results Last 24 Hours: Laboratory Results - last 24 hr 08/17/19 08/17/19 08/17/19 Range/Units 11:14 17:00 20:54 POC Glucose 236 H 263 H 281 H (83-110) mg/dl 08/18/19 Range/Units 07:42 POC Glucose 272 H (83-110) mg/dl Yordan Results Last 24 Hours: Microbiology 08/16/19 14:47 Aerobic Blood Culture - Preliminary Blood - Venous - Lab Draw NO GROWTH AFTER 1 DAY Anaerobic Blood Culture - Preliminary NO GROWTH AFTER 1 DAY 08/16/19 14:37 Aerobic Blood Culture - Preliminary Blood - Venous NO GROWTH AFTER 1 DAY Anaerobic Blood Culture - Preliminary NO GROWTH AFTER 1 DAY Med Orders - Current: Current Medications Acetaminophen (Tylenol) 650 mg PO Q4H PRN PRN Reason: Pain (Mild 1-3)/fever Last Admin: 08/18/19 08:28 Dose: 650 mg Albuterol (Proventil Neb Soln) 2.5 mg NEB Q2H PRN PRN Reason: shortness of breath/wheezing Albuterol/Ipratropium (Duoneb 3.0-0.5 Mg/3 Ml) 3 ml NEB Q4HRRT [facility] Last Admin: 08/18/19 07:30 Dose: 3 ml Benzonatate (Tessalon Perles) 200 mg PO TID [facility] Last Admin: 08/18/19 08:26 Dose: 200 mg Bupropion HCl (Wellbutrin Sr) 200 mg PO BID@0900,1400 [facility] Last Admin: 08/18/19 08:28 Dose: 200 mg Citalopram Hydrobromide (Celexa) 20 mg PO DAILY [facility] Last Admin: 08/18/19 08:26 Dose: 20 mg Cyclobenzaprine HCl (Flexeril) 10 mg PO TID PRN PRN Reason: MUSCLE SPASMS Docusate Sodium (Colace) 100 mg PO BID PRN PRN Reason: Constipation Doxycycline Hyclate (Vibramycin) 100 mg PO BID [facility] Last Admin: 08/18/19 08:25 Dose: 100 mg Furosemide (Lasix) 120 mg PO DAILY [facility] Last Admin: 08/18/19 08:24 Dose: 120 mg Gabapentin (Neurontin) 200 mg PO BID [facility] Last Admin: 08/18/19 08:24 Dose: 200 mg Guaifenesin/Codeine Phosphate (Robitussin Ac) 5 ml PO Q4H PRN PRN Reason: cough Heparin Sodium (Porcine) (Heparin Sodium) 5,000 units SUBCUT Q8HR [facility] Last Admin: 08/18/19 06:21 Dose: Not Given Insulin Glargine (Lantus) 40 unit SUBCUT BEDTIME [facility] Insulin Human Lispro (Humalog) 0 unit SUBCUT WITHMEALSANDBED [facility]; Protocol Last Admin: 08/18/19 08:22 Dose: 6 units Insulin Human Lispro (Humalog) 16 unit SUBCUT TIDMEALS [facility] Levothyroxine Sodium (Synthroid) 88 mcg PO [facility] Last Admin: 08/18/19 06:21 Dose: 88 mcg Melatonin (Melatonin) 3 mg PO BEDTIME [facility] Last Admin: 08/17/19 22:21 Dose: 3 mg Methylprednisolone Sodium Succinate (Solu-Medrol) 40 mg IVPUSH Q8HR [facility] Last Admin: 08/18/19 06:21 Dose: 40 mg Pantoprazole Sodium (Protonix) 40 mg PO ACBRK [facility] Last Admin: 08/18/19 06:20 Dose: 40 mg Pramipexole 0.5 Mg (Tab Pt's Own Med) 0 each PO TID [facility] Last Admin: 08/18/19 08:27 Dose: 1 each Nicotine Polacrilex 2 Mg Pt's Own Med* * 0 each PO QID PRN PRN Reason: nicotine cravings Potassium Chloride (Klor-Con 10) 10 meq PO TIDMEALS [facility] Last Admin: 08/18/19 08:26 Dose: 10 meq Pravastatin Sodium (Pravachol) 10 mg PO BEDTIME [facility] Last Admin: 08/17/19 22:22 Dose: 10 mg Prednisone (Prednisone) 40 mg PO WITHBREAKFAST [facility] Sodium Chloride (Saline Flush) 10 ml FLUSH ASDIRECTED PRN PRN Reason: Keep Vein Open Last Admin: 08/16/19 14:40 Dose: 10 ml Discontinued Medications Albuterol (Proventil Neb Soln) 2.5 mg NEB Q2H PRN PRN Reason: shortness of breath/wheezing Last Admin: 08/16/19 18:35 Dose: 2.5 mg Albuterol (Proventil Neb Soln) 2.5 mg NEB Q2H PRN PRN Reason: shortness of breath/wheezing Albuterol/Ipratropium (Duoneb 3.0-0.5 Mg/3 Ml) 3 ml NEB ONETIME ONE Stop: 08/16/19 14:20 Last Admin: 08/16/19 14:40 Dose: 3 ml Albuterol/Ipratropium (Duoneb 3.0-0.5 Mg/3 Ml) 3 ml NEB Q4H PRN PRN Reason: shortness of breath/wheezing Last Admin: 08/17/19 10:46 Dose: 3 ml Benzonatate (Tessalon Perles) 100 mg PO TID [facility] Last Admin: 08/17/19 16:32 Dose: Not Given Benzonatate (Tessalon Perles) 100 mg PO TID [facility] Last Admin: 08/17/19 16:32 Dose: Not Given Bupropion HCl (Wellbutrin Sr) 200 mg PO BID [facility] Last Admin: 08/17/19 22:24 Dose: Not Given Citalopram Hydrobromide (Celexa) 20 mg PO DAILY [facility] Last Admin: 08/17/19 16:16 Dose: 20 mg Cyclobenzaprine HCl (Flexeril) 10 mg PO TID PRN PRN Reason: MUSCLE SPASMS Last Admin: 08/16/19 22:39 Dose: 10 mg Cyclobenzaprine HCl (Flexeril) 10 mg PO TID PRN PRN Reason: MUSCLE SPASMS Docusate Sodium (Colace) 100 mg PO BID PRN PRN Reason: Constipation Furosemide (Lasix) 40 mg PO BEDTIME [facility] Furosemide (Lasix) 120 mg PO DAILY [facility] Last Admin: 08/17/19 16:32 Dose: Not Given Gabapentin (Neurontin) 200 mg PO BID [facility] Last Admin: 08/17/19 08:46 Dose: 200 mg Gabapentin (Neurontin) 200 mg PO BID [facility] Potassium Chloride 10 meq/ (Premix) 100 mls @ 100 mls/hr IV ONETIME ONE Stop: 08/16/19 16:46 Last Admin: 08/16/19 16:00 Dose: 100 mls/hr Sodium Chloride (Normal Saline) 1,000 mls @ 50 mls/hr IV ASDIRECTED [facility] Last Admin: 08/16/19 20:32 Dose: 50 mls/hr Insulin Glargine (Lantus) 30 unit SUBCUT BEDTIME [facility] Last Admin: 08/16/19 22:39 Dose: 30 units Insulin Glargine (Lantus) 35 unit SUBCUT BEDTIME [facility] Last Admin: 08/17/19 22:19 Dose: 35 units Insulin Human Lispro (Humalog) 14 unit SUBCUT TIDMEALS [facility] Last Admin: 08/18/19 08:23 Dose: 14 unit Levothyroxine Sodium (Synthroid) 88 mcg PO ACBRK [facility] Last Admin: 08/17/19 16:17 Dose: 88 mcg Lidocaine HCl (Xylocaine-Mpf 1%) 1 ml .XX ONETIME ONE Stop: 08/16/19 15:49 Last Admin: 08/16/19 16:00 Dose: 1 ml Melatonin (Melatonin) 3 mg PO BEDTIME [facility] Last Admin: 08/16/19 22:39 Dose: 3 mg Melatonin (Melatonin) 3 mg PO BEDTIME [facility] Methylprednisolone Sodium Succinate (Solu-Medrol) 125 mg IVPUSH ONETIME ONE Stop: 08/16/19 14:20 Last Admin: 08/16/19 14:40 Dose: 125 mg Methylprednisolone Sodium Succinate (Solu-Medrol) 20 mg IVPUSH Q8H [facility] Last Admin: 08/17/19 16:32 Dose: Not Given Non-Formulary Medication (Insulin Aspart [Novolog]) 10 units SUBCUT TIDMEALS [facility] Last Admin: 08/17/19 11:21 Dose: Not Given Ondansetron HCl (Zofran) 4 mg IVPUSH Q6H PRN PRN Reason: Nausea/Vomiting Insulin Aspart [ Novolog] Patient's Own Med 0 each SUBCUT TIDMEALS [facility] Last Admin: 08/17/19 16:31 Dose: Not Given Potassium Chloride (Klor-Con 10) 40 meq PO ONETIME ONE Stop: 08/16/19 15:48 Last Admin: 08/16/19 16:00 Dose: 40 meq Potassium Chloride (Klor-Con 10) 40 meq PO ONETIME ONE Stop: 08/16/19 17:38 Last Admin: 08/16/19 21:03 Dose: Not Given Potassium Chloride (Klor-Con 10) 40 meq PO ONETIME ONE Stop: 08/16/19 21:16 Last Admin: 08/16/19 21:13 Dose: 40 meq Pramipexole Dihydrochloride (Mirapex) 0.5 mg PO TID [facility] Last Admin: 08/17/19 16:31 Dose: Not Given - Exam Quality Assessment: Supplemental Oxygen General: Alert, Oriented, Cooperative, No Acute Distress Neck: Supple Lungs: Rhonchi Cardiovascular: Regular Rate, Regular Rhythm GI/Abdominal Exam: Normal Bowel Sounds, Soft, Non-Tender, No Organomegaly, No Distention, No Abnormal Bruit, No Mass, Pelvis Stable Sepsis Event Note - Evaluation Sepsis Screening Result: No Definite Risk - Focused Exam Vital Signs: Vital Signs Temp Pulse Resp BP Pulse Ox Pulse Ox 08/18/19 08:00 36.7 C 89 20 133/72 99 08/18/19 07:30 83 08/18/19 03:00 95 08/18/19 00:27 96 Date Exam was Performed: 08/18/19 Time Exam was Performed: 09:41 - Problem List Review Problem List Initiated/Reviewed/Updated: Yes - My Orders Last 24 Hours: My Active Orders 08/17/19 10:31 OT Evaluation and Treatment [CONS] Routine PT Evaluation and Treatment [CONS] Routine 08/17/19 15:00 Patient's Own Medication [Ptom] 0 each PO TID 08/17/19 15:58 Codeine/guaiFENesin [Robitussin AC] 5 ml PO Q4H PRN methylPREDNISolone Sod Succ [Solu-MEDROL] 40 mg IVPUSH Q8HR 08/17/19 16:02 Patient's Own Medication [Ptom] 0 each PO QID PRN 08/17/19 16:07 Patient Status [ADT] Routine 08/17/19 16:15 Albuterol/Ipratropium [DuoNeb 3.0-0.5 MG/3 ML] 3 ml NEB Q4HRRT 08/17/19 16:20 Albuterol [Proventil Neb Soln] 2.5 mg NEB Q2H PRN 08/17/19 16:22 Citalopram [Celexa] 20 mg PO DAILY 08/17/19 16:24 Cyclobenzaprine [Flexeril] 10 mg PO TID PRN Docusate Sodium [Colace] 100 mg PO BID PRN Furosemide [Lasix] 120 mg PO DAILY 08/17/19 16:25 Gabapentin [Neurontin] 200 mg PO BID Levothyroxine [Synthroid] 88 mcg PO ACBRK 08/17/19 16:26 Melatonin 3 mg PO BEDTIME 08/17/19 17:00 Potassium Chloride [Klor-Con 10] 10 meq PO TIDMEALS 08/17/19 21:00 Benzonatate [Tessalon Perles] 200 mg PO TID 08/17/19 Lunch Consistent Carbohydrate Diet [DIET] 08/18/19 06:00 Pantoprazole [ProTONIX] 40 mg PO ACBRK 08/18/19 08:00 predniSONE 40 mg PO WITHBREAKFAST 08/18/19 09:00 buPROPion [Wellbutrin SR] 200 mg PO BID@0900,1400 08/18/19 12:00 Insulin Lispro [HumaLOG] 16 unit SUBCUT TIDMEALS 08/18/19 21:00 Insulin Glarg,Human.Rec.Analog [LantUS] 40 unit SUBCUT BEDTIME - Plan Plan:: #. Acute exacerbation of COPD The patient does have chronic COPD Improving #. Hypokalemia Resolved #. Renal failure Serum creatinine is at 1.7 No previous value for comparison #. Diabetes mellitus type 2 On insulin therapy Suboptimal control due to steroid therapy #. Hypothyroidism Continue levothyroxine #. Gastric surgery reflux disease She patient on proton pump inhibitor #. Chronic hypoxemic respiratory failure Continue supplemental oxygen #. Elevated blood pressure Send does a history of chronic hypertension Plan: Increases insulin into his to 40 units nightly Increases insulin NovoLog to 16 units with meals Hypoglycemic protocol Wean down oxygen as tolerated Discontinue Solu Medrol Start patient on prednisone 40 mg daily
[2019-08-18] MEDS: predniSONE 20 MG Tab PO SCH (12:21)
[2019-08-18] MEDS: Codeine/guaiFENesin 100-10 MG/5 ML Syrup 5 ML Cup PO PRN ×2 (14:44→23:22)
[2019-08-18] MEDS: Insulin Glarg,Human.Rec.Analog 100 Unit/ML SUBCUT SCH (21:32)
[2019-08-18] MEDS: Melatonin 3 MG Tab PO SCH (21:33)
[2019-08-18] MEDS: Pravastatin 20 MG Tab PO SCH (21:34)
[2019-08-19] MEDS: Albuterol/Ipratropium 3.0-0.5 MG/3 ML Neb Soln NEB SCH ×6 (03:36→23:47)
[2019-08-19] MEDS: Heparin Sodium 5,000 Units/ML Vial SUBCUT SCH ×3 (06:09→22:40)
[2019-08-19] MEDS: Levothyroxine 88 MCG Tab PO SCH (06:11)
[2019-08-19] MEDS: Pantoprazole 40 MG Tab.CR PO SCH (06:11)
[2019-08-19 06:45] LABS: ANION GAP 18.7
[2019-08-19] MEDS: Insulin Lispro 100 Units/ML 3 ML Vial SUBCUT SCH ×7 (08:47→22:34)
[2019-08-19] MEDS: Doxycycline 100 MG Cap PO SCH ×2 (08:51→22:40)
[2019-08-19] MEDS: Gabapentin 100 MG Cap PO SCH ×2 (08:51→22:37)
[2019-08-19] MEDS: Benzonatate 100 MG Cap PO SCH ×3 (08:52→22:39)
[2019-08-19] MEDS: Potassium Chloride 10 MEQ Tab.ER PO SCH ×5 (08:53→23:46)
[2019-08-19] MEDS: predniSONE 20 MG Tab PO SCH (08:53)
[2019-08-19] MEDS: PRAMIPEXOLE 0.5 MG PO SCH ×3 (08:54→22:39)
[2019-08-19] MEDS: Furosemide 80 MG Tab PO SCH (08:55)
[2019-08-19] MEDS: BUPROPION 100 MG PO SCH ×2 (09:54→15:09)
[2019-08-19] MEDS: Citalopram 20 MG Tab PO SCH ×2 (09:55→22:34)
--- NOTE | 2019-08-19 11:24 | PCM.PN ---
- General Info Date of Service: 08/19/19 Subjective Update: The patient was admitted with COPD exacerbation. Has been still coughing quite a bit - non-productive No fever documented. Shortness of breath has improved but still has associated wheezing no abd pain feeling weak - Review of Systems General: Reports: Weakness. Denies: Fever Pulmonary: Reports: Shortness of Breath Cardiovascular: Reports: Edema. Denies: Chest Pain Genitourinary: Denies: Dysuria Musculoskeletal: Denies: Neck Pain Neurological: Denies: Confusion - Patient Data Vitals - Most Recent: Last Vital Signs Temp 36.5 C 08/19/19 07:55 Pulse 88 08/19/19 07:55 Resp 22 H 08/19/19 07:55 BP 113/86 08/19/19 07:55 Pulse Ox 100 08/19/19 07:55 Weight - Most Recent: 74.389 kg I&O - Last 24 Hours: Intake & Output 08/18/19 08/19/19 08/19/19 22:59 06:59 14:59 Intake Total 850 350 90 Balance 850 350 90 Lab Results Last 24 Hours: Laboratory Results - last 24 hr 08/18/19 08/18/19 08/18/19 Range/Units 11:18 16:49 20:50 Sodium (135-145) mmol/L Potassium (3.6-5.0) mmol/L Chloride (101-111) mmol/L Carbon Dioxide (21.0-31.0) mmol/L Anion Gap BUN (7-18) mg/dL Creatinine (0.6-1.3) mg/dL Est Cr Clr Drug Dosing mL/min Estimated GFR (MDRD) Glucose (74-105) mg/dL POC Glucose 251 H 103 136 H (83-110) mg/dl Calcium (8.4-10.2) mg/dl 08/19/19 08/19/19 Range/Units 05:55 07:37 Sodium 135 (135-145) mmol/L Potassium 2.7 L (3.6-5.0) mmol/L Chloride 89 L (101-111) mmol/L Carbon Dioxide 30.0 (21.0-31.0) mmol/L Anion Gap 18.7 BUN 53 H (7-18) mg/dL Creatinine 1.4 H (0.6-1.3) mg/dL Est Cr Clr Drug Dosing 26.86 mL/min Estimated GFR (MDRD) 37 Glucose 236 H (74-105) mg/dL POC Glucose 172 H (83-110) mg/dl Calcium 9.0 (8.4-10.2) mg/dl Yordan Results Last 24 Hours: Microbiology 08/16/19 19:30 Gram Stain - Final Sputum - Expectorated Sputum Culture - Final Normal Vesna 08/16/19 14:47 Aerobic Blood Culture - Preliminary Blood - Venous - Lab Draw NO GROWTH AFTER 2 DAYS Anaerobic Blood Culture - Preliminary NO GROWTH AFTER 2 DAYS 08/16/19 14:37 Aerobic Blood Culture - Preliminary Blood - Venous NO GROWTH AFTER 2 DAYS Anaerobic Blood Culture - Preliminary NO GROWTH AFTER 2 DAYS Med Orders - Current: Current Medications Acetaminophen (Tylenol) 650 mg PO Q4H PRN PRN Reason: Pain (Mild 1-3)/fever Last Admin: 08/18/19 08:28 Dose: 650 mg Albuterol (Proventil Neb Soln) 2.5 mg NEB Q2H PRN PRN Reason: shortness of breath/wheezing Albuterol/Ipratropium (Duoneb 3.0-0.5 Mg/3 Ml) 3 ml NEB Q4HRRT [facility] Last Admin: 08/19/19 07:22 Dose: 3 ml Benzonatate (Tessalon Perles) 200 mg PO TID [facility] Last Admin: 08/19/19 08:52 Dose: 200 mg Bupropion HCl (Wellbutrin Sr) 200 mg PO BID@0900,1400 [facility] Last Admin: 08/19/19 09:54 Dose: 200 mg Citalopram Hydrobromide (Celexa) 20 mg PO DAILY@2100 [facility] Cyclobenzaprine HCl (Flexeril) 10 mg PO TID PRN PRN Reason: MUSCLE SPASMS Docusate Sodium (Colace) 100 mg PO BID PRN PRN Reason: Constipation Doxycycline Hyclate (Vibramycin) 100 mg PO BID [facility] Last Admin: 08/19/19 08:51 Dose: 100 mg Furosemide (Lasix) 120 mg PO DAILY [facility] Last Admin: 08/19/19 08:55 Dose: 120 mg Gabapentin (Neurontin) 200 mg PO BID [facility] Last Admin: 08/19/19 08:51 Dose: 200 mg Guaifenesin/Codeine Phosphate (Robitussin Ac) 5 ml PO Q4H PRN PRN Reason: cough Last Admin: 08/18/19 23:22 Dose: 5 ml Heparin Sodium (Porcine) (Heparin Sodium) 5,000 units SUBCUT Q8HR [facility] Last Admin: 08/19/19 06:09 Dose: Not Given Insulin Glargine (Lantus) 40 unit SUBCUT BEDTIME [facility] Last Admin: 08/18/19 21:32 Dose: 40 units Insulin Human Lispro (Humalog) 0 unit SUBCUT WITHMEALSANDBED [facility]; Protocol Last Admin: 08/19/19 08:48 Dose: 2 units Insulin Human Lispro (Humalog) 16 unit SUBCUT TIDMEALS [facility] Last Admin: 08/19/19 08:47 Dose: 16 units Levothyroxine Sodium (Synthroid) 88 mcg PO [facility] Last Admin: 08/19/19 06:11 Dose: 88 mcg Melatonin (Melatonin) 3 mg PO BEDTIME [facility] Last Admin: 08/18/19 21:33 Dose: 3 mg Pantoprazole Sodium (Protonix) 40 mg PO ACBRK [facility] Last Admin: 08/19/19 06:11 Dose: 40 mg Pramipexole 0.5 Mg (Tab Pt's Own Med) 0 each PO TID [facility] Last Admin: 08/19/19 08:54 Dose: 1 each Nicotine Polacrilex 2 Mg Pt's Own Med* * 0 each PO QID PRN PRN Reason: nicotine cravings Potassium Chloride (Klor-Con 10) 10 meq PO TIDMEALS [facility] Last Admin: 08/19/19 08:53 Dose: 10 meq Potassium Chloride (Klor-Con 10) 40 meq PO .Q6H [facility] Pravastatin Sodium (Pravachol) 10 mg PO BEDTIME [facility] Last Admin: 08/18/19 21:34 Dose: 10 mg Prednisone (Prednisone) 40 mg PO WITHBREAKFAST [facility] Last Admin: 08/19/19 08:53 Dose: 40 mg Sodium Chloride (Saline Flush) 10 ml FLUSH ASDIRECTED PRN PRN Reason: Keep Vein Open Last Admin: 08/16/19 14:40 Dose: 10 ml Discontinued Medications Albuterol (Proventil Neb Soln) 2.5 mg NEB Q2H PRN PRN Reason: shortness of breath/wheezing Last Admin: 08/16/19 18:35 Dose: 2.5 mg Albuterol (Proventil Neb Soln) 2.5 mg NEB Q2H PRN PRN Reason: shortness of breath/wheezing Albuterol/Ipratropium (Duoneb 3.0-0.5 Mg/3 Ml) 3 ml NEB ONETIME ONE Stop: 08/16/19 14:20 Last Admin: 08/16/19 14:40 Dose: 3 ml Albuterol/Ipratropium (Duoneb 3.0-0.5 Mg/3 Ml) 3 ml NEB Q4H PRN PRN Reason: shortness of breath/wheezing Last Admin: 08/17/19 10:46 Dose: 3 ml Benzonatate (Tessalon Perles) 100 mg PO TID [facility] Last Admin: 08/17/19 16:32 Dose: Not Given Benzonatate (Tessalon Perles) 100 mg PO TID [facility] Last Admin: 08/17/19 16:32 Dose: Not Given Bupropion HCl (Wellbutrin Sr) 200 mg PO BID [facility] Last Admin: 08/17/19 22:24 Dose: Not Given Citalopram Hydrobromide (Celexa) 20 mg PO DAILY [facility] Last Admin: 08/17/19 16:16 Dose: 20 mg Citalopram Hydrobromide (Celexa) 20 mg PO DAILY [facility] Last Admin: 08/19/19 09:55 Dose: Not Given Cyclobenzaprine HCl (Flexeril) 10 mg PO TID PRN PRN Reason: MUSCLE SPASMS Last Admin: 08/16/19 22:39 Dose: 10 mg Cyclobenzaprine HCl (Flexeril) 10 mg PO TID PRN PRN Reason: MUSCLE SPASMS Docusate Sodium (Colace) 100 mg PO BID PRN PRN Reason: Constipation Furosemide (Lasix) 40 mg PO BEDTIME [facility] Furosemide (Lasix) 120 mg PO DAILY [facility] Last Admin: 08/17/19 16:32 Dose: Not Given Gabapentin (Neurontin) 200 mg PO BID [facility] Last Admin: 08/17/19 08:46 Dose: 200 mg Gabapentin (Neurontin) 200 mg PO BID [facility] Potassium Chloride 10 meq/ (Premix) 100 mls @ 100 mls/hr IV ONETIME ONE Stop: 08/16/19 16:46 Last Admin: 01/05/20 16:00 Dose: 100 mls/hr Sodium Chloride (Normal Saline) 1,000 mls @ 50 mls/hr IV ASDIRECTED [facility] Last Admin: 08/16/19 20:32 Dose: 50 mls/hr Insulin Glargine (Lantus) 30 unit SUBCUT BEDTIME [facility] Last Admin: 08/16/19 22:39 Dose: 30 units Insulin Glargine (Lantus) 35 unit SUBCUT BEDTIME [facility] Last Admin: 08/17/19 22:19 Dose: 35 units Insulin Human Lispro (Humalog) 14 unit SUBCUT TIDMEALS [facility] Last Admin: 08/18/19 08:23 Dose: 14 unit Levothyroxine Sodium (Synthroid) 88 mcg PO ACBRK [facility] Last Admin: 08/17/19 16:17 Dose: 88 mcg Lidocaine HCl (Xylocaine-Mpf 1%) 1 ml .XX ONETIME ONE Stop: 08/16/19 15:49 Last Admin: 08/16/19 16:00 Dose: 1 ml Melatonin (Melatonin) 3 mg PO BEDTIME [facility] Last Admin: 08/16/19 22:39 Dose: 3 mg Melatonin (Melatonin) 3 mg PO BEDTIME [facility] Methylprednisolone Sodium Succinate (Solu-Medrol) 125 mg IVPUSH ONETIME ONE Stop: 08/16/19 14:20 Last Admin: 08/16/19 14:40 Dose: 125 mg Methylprednisolone Sodium Succinate (Solu-Medrol) 20 mg IVPUSH Q8H [facility] Last Admin: 08/17/19 16:32 Dose: Not Given Methylprednisolone Sodium Succinate (Solu-Medrol) 40 mg IVPUSH Q8HR [facility] Last Admin: 08/18/19 06:21 Dose: 40 mg Non-Formulary Medication (Insulin Aspart [Novolog]) 10 units SUBCUT TIDMEALS [facility] Last Admin: 08/17/19 11:21 Dose: Not Given Ondansetron HCl (Zofran) 4 mg IVPUSH Q6H PRN PRN Reason: Nausea/Vomiting Insulin Aspart [ Novolog] Patient's Own Med 0 each SUBCUT TIDMEALS [facility] Last Admin: 08/17/19 16:31 Dose: Not Given Potassium Chloride (Klor-Con 10) 40 meq PO ONETIME ONE Stop: 08/16/19 15:48 Last Admin: 08/16/19 16:00 Dose: 40 meq Potassium Chloride (Klor-Con 10) 40 meq PO ONETIME ONE Stop: 08/16/19 17:38 Last Admin: 08/16/19 21:03 Dose: Not Given Potassium Chloride (Klor-Con 10) 40 meq PO ONETIME ONE Stop: 08/16/19 21:16 Last Admin: 08/16/19 21:13 Dose: 40 meq Pramipexole Dihydrochloride (Mirapex) 0.5 mg PO TID [facility] Last Admin: 08/17/19 16:31 Dose: Not Given - Exam Quality Assessment: Supplemental Oxygen General: Alert, Oriented Neck: Supple Lungs: Decreased Breath Sounds, Wheezing Cardiovascular: Regular Rate, Regular Rhythm GI/Abdominal Exam: Normal Bowel Sounds, Soft, Non-Tender Extremities: Pedal Edema (trace b/l ) Skin: Warm, Dry Neurological: No New Focal Deficit Psy/Mental Status: Alert, Normal Affect, Normal Mood Sepsis Event Note - Evaluation Sepsis Screening Result: No Definite Risk - Focused Exam Vital Signs: Vital Signs Temp Pulse Resp BP Pulse Ox Pulse Ox 08/19/19 07:55 36.5 C 88 22 H 113/86 100 08/19/19 07:24 88 100 08/19/19 03:00 95 Date Exam was Performed: 08/19/19 Time Exam was Performed: 11:19 - Problem List & Annotations (1) Acute exacerbation of chronic obstructive pulmonary disease (COPD) SNOMED Code(s): 858552746 Code(s): J44.1 - CHRONIC OBSTRUCTIVE PULMONARY DISEASE W (ACUTE) EXACERBATION Status: Acute Current Visit: No (2) Hypokalemia SNOMED Code(s): 68938899 Code(s): E87.6 - HYPOKALEMIA Status: Acute Current Visit: No - Problem List Review Problem List Initiated/Reviewed/Updated: Yes - My Orders Last 24 Hours: My Active Orders 08/19/19 11:15 Potassium Chloride [Klor-Con 10] 40 meq PO .Q6H 08/20/19 05:15 BASIC METABOLIC PANEL,BMP [CHEM] AM CBC WITH AUTO DIFF [HEME] AM - Plan Plan:: #. Acute exacerbation of COPD The patient does have chronic COPD Improving but still significant wheezing cont steroids acute on chronic hypoxemic respiratory failure back to baseline oxygen need at 3 l/min #. Hypokalemia severe resume supplement recheck in AM #. Renal failure Serum creatinine is at 1.7 follow elytes and renal fx. #. Diabetes mellitus type 2 treat with levemir taper steroids #. Hypothyroidism Continue levothyroxine #. Gastric surgery reflux disease She patient on proton pump inhibitor
[2019-08-19] MEDS: Codeine/guaiFENesin 100-10 MG/5 ML Syrup 5 ML Cup PO PRN (20:26)
[2019-08-19] MEDS: Insulin Glarg,Human.Rec.Analog 100 Unit/ML SUBCUT SCH (22:36)
[2019-08-19] MEDS: Melatonin 3 MG Tab PO SCH (22:37)
[2019-08-19] MEDS: Pravastatin 20 MG Tab PO SCH (22:38)
[2019-08-20 07:10] LABS: ANION GAP 14.2
[2019-08-20] MEDS: Albuterol/Ipratropium 3.0-0.5 MG/3 ML Neb Soln NEB SCH ×6 (07:15→23:14)
[2019-08-20] MEDS: Heparin Sodium 5,000 Units/ML Vial SUBCUT SCH ×4 (07:16→23:24)
[2019-08-20] MEDS: Levothyroxine 88 MCG Tab PO SCH (07:16)
[2019-08-20] MEDS: Pantoprazole 40 MG Tab.CR PO SCH (07:16)
[2019-08-20] MEDS: Gabapentin 100 MG Cap PO SCH ×2 (08:57→22:57)
[2019-08-20] MEDS: predniSONE 20 MG Tab PO SCH (08:57)
[2019-08-20] MEDS: Furosemide 80 MG Tab PO SCH (08:58)
[2019-08-20] MEDS: Doxycycline 100 MG Cap PO SCH ×2 (08:58→22:56)
[2019-08-20] MEDS: PRAMIPEXOLE 0.5 MG PO SCH ×3 (08:58→23:10)
[2019-08-20] MEDS: Benzonatate 100 MG Cap PO SCH ×3 (08:58→23:06)
[2019-08-20] MEDS: Insulin Lispro 100 Units/ML 3 ML Vial SUBCUT SCH ×7 (09:04→23:06)
[2019-08-20] MEDS: BUPROPION 100 MG PO SCH ×2 (09:08→14:15)
[2019-08-20] MEDS ORDERED: Potassium Chloride 10 MEQ Tab.ER PO ONE ×2 (12:23→18:00)
--- NOTE | 2019-08-20 12:28 | PCM.PN ---
- General Info Date of Service: 08/20/19 Admission Dx/Problem (Free Text): Admission Diagnosis/Problem Admission Diagnosis/Problem COPD, Severe chronic obstructive pulmonary disease Subjective Update: The patient was admitted with COPD exacerbation. Has been still coughing but improving - non-productive Shortness of breath has improved but still moderate. worse with activity has associated wheezing no abd pain Functional Status: Reports: Pain Controlled - Review of Systems General: Denies: Fever Pulmonary: Reports: Shortness of Breath Cardiovascular: Denies: Chest Pain, Edema Genitourinary: Denies: Dysuria Psychiatric: Denies: Confusion - Patient Data Vitals - Most Recent: Last Vital Signs Temp 36.2 C 08/20/19 11:45 Pulse 96 08/20/19 11:45 Resp 22 H 08/20/19 11:45 BP 143/82 H 08/20/19 11:45 Pulse Ox 97 08/20/19 11:45 Weight - Most Recent: 74.389 kg I&O - Last 24 Hours: Intake & Output 08/19/19 08/20/19 08/20/19 22:59 06:59 14:59 Intake Total 540 250 440 Output Total 200 Balance 540 50 440 Lab Results Last 24 Hours: Laboratory Results - last 24 hr 08/19/19 08/19/19 08/19/19 Range/Units 16:41 18:21 20:44 WBC (5.0-10.0) 10^3/uL RBC (4.2-5.4) 10^6/uL Hgb (12.0-16.0) g/dL Hct (37.0-47.0) % MCV (80-100) fL MCH (27.0-34.0) pg MCHC (33.0-35.0) g/dL Plt Count (150-450) 10^3/uL Neut % (Auto) (42.2-75.2) % Lymph % (Auto) (20.5-50.1) % Callaway % (Auto) (2-8) % Eos % (Auto) (1.0-3.0) % Baso % (Auto) (0.0-1.0) % Sodium (135-145) mmol/L Potassium (3.6-5.0) mmol/L Chloride (101-111) mmol/L Carbon Dioxide (21.0-31.0) mmol/L Anion Gap BUN (7-18) mg/dL Creatinine (0.6-1.3) mg/dL Est Cr Clr Drug Dosing mL/min Estimated GFR (MDRD) Glucose (74-105) mg/dL POC Glucose 78 L 180 H 179 H (83-110) mg/dl Calcium (8.4-10.2) mg/dl 08/20/19 08/20/19 08/20/19 Range/Units 05:48 05:48 07:47 WBC 10.5 H (5.0-10.0) 10^3/uL RBC 4.86 (4.2-5.4) 10^6/uL Hgb 13.8 (12.0-16.0) g/dL Hct 42.6 (37.0-47.0) % MCV 87.7 (80-100) fL MCH 28.4 (27.0-34.0) pg MCHC 32.4 L (33.0-35.0) g/dL Plt Count 381 (150-450) 10^3/uL Neut % (Auto) 74.9 (42.2-75.2) % Lymph % (Auto) 15.2 L (20.5-50.1) % Callaway % (Auto) 9.8 H (2-8) % Eos % (Auto) 0.0 L (1.0-3.0) % Baso % (Auto) 0.1 (0.0-1.0) % Sodium 140 (135-145) mmol/L Potassium 3.2 L (3.6-5.0) mmol/L Chloride 98 L (101-111) mmol/L Carbon Dioxide 31.0 (21.0-31.0) mmol/L Anion Gap 14.2 BUN 49 H (7-18) mg/dL Creatinine 1.3 (0.6-1.3) mg/dL Est Cr Clr Drug Dosing 28.92 mL/min Estimated GFR (MDRD) 40 Glucose 93 (74-105) mg/dL POC Glucose 106 (83-110) mg/dl Calcium 8.9 (8.4-10.2) mg/dl 08/20/19 Range/Units 11:40 WBC (5.0-10.0) 10^3/uL RBC (4.2-5.4) 10^6/uL Hgb (12.0-16.0) g/dL Hct (37.0-47.0) % MCV (80-100) fL MCH (27.0-34.0) pg MCHC (33.0-35.0) g/dL Plt Count (150-450) 10^3/uL Neut % (Auto) (42.2-75.2) % Lymph % (Auto) (20.5-50.1) % Callaway % (Auto) (2-8) % Eos % (Auto) (1.0-3.0) % Baso % (Auto) (0.0-1.0) % Sodium (135-145) mmol/L Potassium (3.6-5.0) mmol/L Chloride (101-111) mmol/L Carbon Dioxide (21.0-31.0) mmol/L Anion Gap BUN (7-18) mg/dL Creatinine (0.6-1.3) mg/dL Est Cr Clr Drug Dosing mL/min Estimated GFR (MDRD) Glucose (74-105) mg/dL POC Glucose 59 L (83-110) mg/dl Calcium (8.4-10.2) mg/dl Yordan Results Last 24 Hours: Microbiology 08/16/19 14:47 Aerobic Blood Culture - Preliminary Blood - Venous - Lab Draw NO GROWTH AFTER 3 DAYS Anaerobic Blood Culture - Preliminary NO GROWTH AFTER 3 DAYS 08/16/19 14:37 Aerobic Blood Culture - Preliminary Blood - Venous NO GROWTH AFTER 3 DAYS Anaerobic Blood Culture - Preliminary NO GROWTH AFTER 3 DAYS 08/16/19 19:30 Gram Stain - Final Sputum - Expectorated Sputum Culture - Final Normal [facility] Med Orders - Current: Current Medications Acetaminophen (Tylenol) 650 mg PO Q4H PRN PRN Reason: Pain (Mild 1-3)/fever Last Admin: 08/18/19 08:28 Dose: 650 mg Albuterol (Proventil Neb Soln) 2.5 mg NEB Q2H PRN PRN Reason: shortness of breath/wheezing Albuterol/Ipratropium (Duoneb 3.0-0.5 Mg/3 Ml) 3 ml NEB Q4HRRT [facility] Last Admin: 08/20/19 11:05 Dose: 3 ml Benzonatate (Tessalon Perles) 200 mg PO TID [facility] Last Admin: 08/20/19 08:58 Dose: 200 mg Budesonide (Pulmicort) 0.5 mg NEB BIDRT [facility] Bupropion HCl (Wellbutrin Sr) 200 mg PO BID@0900,1400 [facility] Last Admin: 08/20/19 09:08 Dose: 200 mg Citalopram Hydrobromide (Celexa) 20 mg PO DAILY@2100 [facility] Last Admin: 08/19/19 22:34 Dose: 20 mg Cyclobenzaprine HCl (Flexeril) 10 mg PO TID PRN PRN Reason: MUSCLE SPASMS Docusate Sodium (Colace) 100 mg PO BID PRN PRN Reason: Constipation Doxycycline Hyclate (Vibramycin) 100 mg PO BID [facility] Last Admin: 08/20/19 08:58 Dose: 100 mg Furosemide (Lasix) 120 mg PO DAILY [facility] Last Admin: 08/20/19 08:58 Dose: 120 mg Gabapentin (Neurontin) 200 mg PO BID [facility] Last Admin: 08/20/19 08:57 Dose: 200 mg Guaifenesin/Codeine Phosphate (Robitussin Ac) 5 ml PO Q4H PRN PRN Reason: cough Last Admin: 08/19/19 20:26 Dose: 5 ml Heparin Sodium (Porcine) (Heparin Sodium) 5,000 units SUBCUT Q8HR [facility] Last Admin: 08/20/19 07:16 Dose: Not Given Insulin Glargine (Lantus) 40 unit SUBCUT BEDTIME [facility] Last Admin: 08/19/19 22:36 Dose: 40 units Insulin Human Lispro (Humalog) 0 unit SUBCUT WITHMEALSANDBED [facility]; Protocol Last Admin: 08/20/19 12:09 Dose: Not Given Insulin Human Lispro (Humalog) 16 unit SUBCUT TIDMEALS [facility] Last Admin: 08/20/19 12:10 Dose: Not Given Levothyroxine Sodium (Synthroid) 88 mcg PO ACBRK [facility] Last Admin: 08/20/19 07:16 Dose: 88 mcg Melatonin (Melatonin) 3 mg PO BEDTIME [facility] Last Admin: 08/19/19 22:37 Dose: 3 mg Pantoprazole Sodium (Protonix) 40 mg PO ACBRK [facility] Last Admin: 08/20/19 07:16 Dose: 40 mg Pramipexole 0.5 Mg (Tab Pt's Own Med) 0 each PO TID [facility] Last Admin: 08/20/19 08:58 Dose: 1 each Nicotine Polacrilex 2 Mg Pt's Own Med* * 0 each PO QID PRN PRN Reason: nicotine cravings Pravastatin Sodium (Pravachol) 10 mg PO BEDTIME [facility] Last Admin: 08/19/19 22:38 Dose: 10 mg Prednisone (Prednisone) 40 mg PO WITHBREAKFAST [facility] Last Admin: 08/20/19 08:57 Dose: 40 mg Sodium Chloride (Saline Flush) 10 ml FLUSH ASDIRECTED PRN PRN Reason: Keep Vein Open Last Admin: 08/16/19 14:40 Dose: 10 ml Discontinued Medications Albuterol (Proventil Neb Soln) 2.5 mg NEB Q2H PRN PRN Reason: shortness of breath/wheezing Last Admin: 08/16/19 18:35 Dose: 2.5 mg Albuterol (Proventil Neb Soln) 2.5 mg NEB Q2H PRN PRN Reason: shortness of breath/wheezing Albuterol/Ipratropium (Duoneb 3.0-0.5 Mg/3 Ml) 3 ml NEB ONETIME ONE Stop: 08/16/19 14:20 Last Admin: 08/16/19 14:40 Dose: 3 ml Albuterol/Ipratropium (Duoneb 3.0-0.5 Mg/3 Ml) 3 ml NEB Q4H PRN PRN Reason: shortness of breath/wheezing Last Admin: 08/17/19 10:46 Dose: 3 ml Benzonatate (Tessalon Perles) 100 mg PO TID [facility] Last Admin: 08/17/19 16:32 Dose: Not Given Benzonatate (Tessalon Perles) 100 mg PO TID [facility] Last Admin: 08/17/19 16:32 Dose: Not Given Bupropion HCl (Wellbutrin Sr) 200 mg PO BID [facility] Last Admin: 08/17/19 22:24 Dose: Not Given Citalopram Hydrobromide (Celexa) 20 mg PO DAILY [facility] Last Admin: 08/17/19 16:16 Dose: 20 mg Citalopram Hydrobromide (Celexa) 20 mg PO DAILY [facility] Last Admin: 08/19/19 09:55 Dose: Not Given Cyclobenzaprine HCl (Flexeril) 10 mg PO TID PRN PRN Reason: MUSCLE SPASMS Last Admin: 08/16/19 22:39 Dose: 10 mg Cyclobenzaprine HCl (Flexeril) 10 mg PO TID PRN PRN Reason: MUSCLE SPASMS Docusate Sodium (Colace) 100 mg PO BID PRN PRN Reason: Constipation Furosemide (Lasix) 40 mg PO BEDTIME [facility] Furosemide (Lasix) 120 mg PO DAILY [facility] Last Admin: 08/17/19 16:32 Dose: Not Given Gabapentin (Neurontin) 200 mg PO BID [facility] Last Admin: 08/17/19 08:46 Dose: 200 mg Gabapentin (Neurontin) 200 mg PO BID [facility] Potassium Chloride 10 meq/ (Premix) 100 mls @ 100 mls/hr IV ONETIME ONE Stop: 08/16/19 16:46 Last Admin: 08/16/19 16:00 Dose: 100 mls/hr Sodium Chloride (Normal Saline) 1,000 mls @ 50 mls/hr IV ASDIRECTED [facility] Last Admin: 08/16/19 20:32 Dose: 50 mls/hr Insulin Glargine (Lantus) 30 unit SUBCUT BEDTIME [facility] Last Admin: 08/16/19 22:39 Dose: 30 units Insulin Glargine (Lantus) 35 unit SUBCUT BEDTIME [facility] Last Admin: 08/17/19 22:19 Dose: 35 units Insulin Human Lispro (Humalog) 14 unit SUBCUT TIDMEALS [facility] Last Admin: 08/18/19 08:23 Dose: 14 unit Levothyroxine Sodium (Synthroid) 88 mcg PO ACBRK [facility] Last Admin: 08/17/19 16:17 Dose: 88 mcg Lidocaine HCl (Xylocaine-Mpf 1%) 1 ml .XX ONETIME ONE Stop: 08/16/19 15:49 Last Admin: 08/16/19 16:00 Dose: 1 ml Melatonin (Melatonin) 3 mg PO BEDTIME [facility] Last Admin: 08/16/19 22:39 Dose: 3 mg Melatonin (Melatonin) 3 mg PO BEDTIME [facility] Methylprednisolone Sodium Succinate (Solu-Medrol) 125 mg IVPUSH ONETIME ONE Stop: 08/16/19 14:20 Last Admin: 08/16/19 14:40 Dose: 125 mg Methylprednisolone Sodium Succinate (Solu-Medrol) 20 mg IVPUSH Q8H [facility] Last Admin: 08/17/19 16:32 Dose: Not Given Methylprednisolone Sodium Succinate (Solu-Medrol) 40 mg IVPUSH Q8HR [facility] Last Admin: 08/18/19 06:21 Dose: 40 mg Non-Formulary Medication (Insulin Aspart [Novolog]) 10 units SUBCUT TIDMEALS [facility] Last Admin: 08/17/19 11:21 Dose: Not Given Ondansetron HCl (Zofran) 4 mg IVPUSH Q6H PRN PRN Reason: Nausea/Vomiting Insulin Aspart [ Novolog] Patient's Own Med 0 each SUBCUT TIDMEALS [facility] Last Admin: 08/17/19 16:31 Dose: Not Given Potassium Chloride (Klor-Con 10) 40 meq PO ONETIME ONE Stop: 08/16/19 15:48 Last Admin: 08/16/19 16:00 Dose: 40 meq Potassium Chloride (Klor-Con 10) 40 meq PO ONETIME ONE Stop: 08/16/19 17:38 Last Admin: 08/16/19 21:03 Dose: Not Given Potassium Chloride (Klor-Con 10) 10 meq PO TIDMEALS [facility] Last Admin: 08/19/19 14:38 Dose: Not Given Potassium Chloride (Klor-Con 10) 40 meq PO ONETIME ONE Stop: 08/16/19 21:16 Last Admin: 08/16/19 21:13 Dose: 40 meq Potassium Chloride (Klor-Con 10) 40 meq PO Q6HR [facility] Stop: 08/20/19 00:01 Last Admin: 08/19/19 23:46 Dose: 40 meq Potassium Chloride (Klor-Con 10) 40 meq PO ONETIME ONE Stop: 08/20/19 12:24 Pramipexole Dihydrochloride (Mirapex) 0.5 mg PO TID [facility] Last Admin: 08/17/19 16:31 Dose: Not Given - Exam Quality Assessment: Supplemental Oxygen General: Alert, Oriented Neck: Supple Lungs: Normal Respiratory Effort, Wheezing Cardiovascular: Regular Rate, Regular Rhythm GI/Abdominal Exam: Normal Bowel Sounds, Soft, Non-Tender Extremities: No Pedal Edema Skin: Warm, Dry Psy/Mental Status: Alert, Normal Affect, Normal Mood Sepsis Event Note - Evaluation Sepsis Screening Result: No Definite Risk - Focused Exam Vital Signs: Vital Signs Temp Pulse Resp BP Pulse Ox Pulse Ox 08/20/19 11:45 36.2 C 96 22 H 143/82 H 97 08/20/19 11:11 92 93 L 08/20/19 07:29 81 97 08/20/19 07:25 36.3 C 81 22 H 129/85 98 Date Exam was Performed: 08/20/19 Time Exam was Performed: 12:26 - Problem List & Annotations (1) Acute exacerbation of chronic obstructive pulmonary disease (COPD) SNOMED Code(s): 690282329 Code(s): J44.1 - CHRONIC OBSTRUCTIVE PULMONARY DISEASE W (ACUTE) EXACERBATION Status: Acute Current Visit: No (2) Hypokalemia SNOMED Code(s): 94199355 Code(s): E87.6 - HYPOKALEMIA Status: Acute Current Visit: No - Problem List Review Problem List Initiated/Reviewed/Updated: Yes - My Orders Last 24 Hours: My Active Orders 08/20/19 12:25 RT Aerosol Therapy [RC] ASDIRECTED 08/20/19 18:00 Budesonide [Pulmicort] 0.5 mg NEB BIDRT 08/21/19 05:15 BASIC METABOLIC PANEL,BMP [CHEM] AM CBC WITH AUTO DIFF [HEME] AM - Plan Plan:: #. Acute exacerbation of COPD The patient does have chronic COPD Improving but still significant wheezing cont PO steroids add pulmicort nebs cont scheduled and prn albuterol acute on chronic hypoxemic respiratory failure back to baseline oxygen need at 3 l/min #. Hypokalemia continue supplement recheck in AM #. Renal failure Serum creatinine is at 1.7 follow elytes and renal fx. #. Diabetes mellitus type 2 treat with levemir taper steroids #. Hypothyroidism Continue levothyroxine #. Gastric surgery reflux disease She patient on proton pump inhibitor
[2019-08-20] MEDS: Codeine/guaiFENesin 100-10 MG/5 ML Syrup 5 ML Cup PO PRN (12:35)
[2019-08-20] MEDS: Budesonide 0.5 MG/2 ML Neb Susp NEB SCH (18:39)
[2019-08-20] MEDS: Pravastatin 20 MG Tab PO SCH (22:56)
[2019-08-20] MEDS: Citalopram 20 MG Tab PO SCH (22:56)
[2019-08-20] MEDS: Melatonin 3 MG Tab PO SCH (23:07)
[2019-08-20] MEDS: Sodium Chloride 0.9% 10 ML Syringe FLUSH PRN (23:17)
[2019-08-20] MEDS: Insulin Glarg,Human.Rec.Analog 100 Unit/ML SUBCUT SCH (23:22)
[2019-08-21] MEDS: Albuterol/Ipratropium 3.0-0.5 MG/3 ML Neb Soln NEB SCH ×3 (03:42→11:51)
[2019-08-21] MEDS: Codeine/guaiFENesin 100-10 MG/5 ML Syrup 5 ML Cup PO PRN (03:55)
[2019-08-21] MEDS: Pantoprazole 40 MG Tab.CR PO SCH (05:55)
[2019-08-21] MEDS: Heparin Sodium 5,000 Units/ML Vial SUBCUT SCH (05:55)
[2019-08-21] MEDS: Levothyroxine 88 MCG Tab PO SCH (05:56)
[2019-08-21 07:00] LABS: ANION GAP 14.1
[2019-08-21] MEDS: Budesonide 0.5 MG/2 ML Neb Susp NEB SCH (07:11)
[2019-08-21] MEDS: Insulin Lispro 100 Units/ML 3 ML Vial SUBCUT SCH ×4 (08:05→12:16)
[2019-08-21] MEDS: Doxycycline 100 MG Cap PO SCH (08:18)
[2019-08-21] MEDS: predniSONE 20 MG Tab PO SCH (08:18)
[2019-08-21] MEDS: Gabapentin 100 MG Cap PO SCH (08:18)
[2019-08-21] MEDS: Benzonatate 100 MG Cap PO SCH (08:18)
[2019-08-21] MEDS: Furosemide 80 MG Tab PO SCH (08:19)
[2019-08-21] MEDS: BUPROPION 100 MG PO SCH (08:20)
[2019-08-21] MEDS: PRAMIPEXOLE 0.5 MG PO SCH (08:20)
[2019-08-21] MEDS ORDERED: Potassium Chloride 10 MEQ Tab.ER PO ONE (11:17)
--- NOTE | 2019-08-21 11:39 | PCM.DCSUM1 ---
Discharge Summary - Hospital Course Free Text/Narrative:: #. Acute exacerbation of COPD The patient does have chronic COPD Improving but still significant wheezing cont PO steroids use pulmicort nebs use duoneb scheduled and prn albuterol acute on chronic hypoxemic respiratory failure back to baseline oxygen need at 3 l/min #. Hypokalemia continue supplement #. Renal failure improved follow elytes and renal fx. #. Diabetes mellitus type 2 treat with levemir taper steroids #. Hypothyroidism Continue levothyroxine #. Gastric surgery reflux disease cont on proton pump inhibitor Diagnosis: Stroke: No - Discharge Data Discharge Date: 08/21/19 Discharge Disposition: Home, Self-Care 01 Condition: Good - Referral to Home Health Primary Care Physician: PCP Unobtainable - Discharge Diagnosis/Problem(s) (1) Acute exacerbation of chronic obstructive pulmonary disease (COPD) SNOMED Code(s): 244664602 ICD Code: J44.1 - CHRONIC OBSTRUCTIVE PULMONARY DISEASE W (ACUTE) EXACERBATION Status: Acute Current Visit: No (2) Hypokalemia SNOMED Code(s): 23095826 ICD Code: E87.6 - HYPOKALEMIA Status: Acute Current Visit: No - Patient Summary/Data Consults: Consultations 08/17/19 10:31 OT Evaluation and Treatment [CONS] Routine PT Evaluation and Treatment [CONS] Routine - Patient Instructions Diet: Heart Healthy Diet, Diabetic Diet Activity: As Tolerated - Discharge Plan *PRESCRIPTION DRUG MONITORING PROGRAM REVIEWED*: Not Applicable *COPY OF PRESCRIPTION DRUG MONITORING REPORT IN PATIENT ALEJANDRA: Not Applicable Prescriptions/Med Rec: Albuterol/Ipratropium [DuoNeb 3.0-0.5 MG/3 ML] 3 ml NEB TID #90 neb Budesonide [Pulmicort] 0.5 mg NEB BIDRT #60 neb Doxycycline [Vibramycin] 100 mg PO BID #10 cap predniSONE 40 mg PO WITHBREAKFAST #6 tablet Home Medications: Home Meds Benzonatate 200 mg PO TID PRN 05/14/19 [History] Citalopram Hydrobromide [Celexa] 30 mg PO BEDTIME 05/14/19 [History] Cyclobenzaprine HCl 10 mg PO TID PRN 05/14/19 [History] Furosemide 120 mg PO DAILY 05/14/19 [History] Gabapentin [Neurontin] 200 mg PO TID 05/14/19 [History] Insulin Aspart [NovoLOG] 10 units SUBCUT TIDMEALS 05/14/19 [History] Insulin Glarg,Human.Rec.Analog [Lantus] 30 unit SQ BEDTIME 05/14/19 [History] Levothyroxine Sodium 88 mcg PO DAILY 05/14/19 [History] Nicotine Polacrilex [Nicotine Gum] 2 mg PO QID PRN 05/14/19 [History] Pantoprazole [ProTONIX] 40 mg PO Q24H 05/14/19 [History] Potassium Chloride 20 meq PO TID 05/14/19 [History] Pramipexole Di-HCl [Pramipexole Dihydrochloride] 0.5 mg PO TID 05/14/19 [History ] Pravastatin [Pravachol] 10 mg PO BEDTIME 05/14/19 [History] Albuterol Sulfate [Proair Digihaler] 2 puff IH Q6H PRN 08/16/19 [History] Alendronate Sodium 70 mg PO WEEKLY 08/16/19 [History] buPROPion [Wellbutrin] 200 mg PO BID 08/16/19 [History] Docusate Sodium [Dulcolax Stool Softener] 100 mg PO BID PRN 08/17/19 [History] Furosemide 40 mg PO BEDTIME 08/17/19 [History] Melatonin/Lemon [place] Extr [Melatonin-Lemon [place] Tablet] 10 mg PO BEDTIME [History] metOLazone [Metolazone] 2.5 mg PO Q48H 08/17/19 [History] Albuterol/Ipratropium [DuoNeb 3.0-0.5 MG/3 ML] 3 ml NEB TID #90 neb 08/21/19 [Rx ] Budesonide [Pulmicort] 0.5 mg NEB BIDRT #60 neb 08/21/19 [Rx] Doxycycline [Vibramycin] 100 mg PO BID #10 cap 08/21/19 [Rx] predniSONE 40 mg PO WITHBREAKFAST #6 tablet 08/21/19 [Rx] Oxygen Therapy Mode: Nasal Cannula Patient Handouts: Chronic Obstructive Pulmonary Disease Exacerbation, Easy-to- Read, Hypokalemia, Potassium Content of Foods Forms: ED Department Discharge Referrals: PCP,Unobtain [Primary Care Provider] - (in clinic in 2-3 days) - Discharge Summary/Plan Comment DC Time >30 min.: No - General Info Date of Service: 08/21/19 Functional Status: Reports: Tolerating Diet - Review of Systems General: Denies: Fever Pulmonary: Reports: Shortness of Breath, Wheezing Cardiovascular: Denies: Chest Pain Gastrointestinal: Denies: Abdominal Pain Neurological: Denies: Confusion - Patient Data Vitals - Most Recent: Last Vital Signs Temp 36.6 C 08/21/19 08:00 Pulse 77 08/21/19 08:00 Resp 22 H 08/21/19 08:00 BP 128/72 08/21/19 08:00 Pulse Ox 94 L 08/21/19 08:00 Weight - Most Recent: 74.389 kg I&O - Last 24 hours: Intake & Output 08/20/19 08/21/19 08/21/19 22:59 06:59 14:59 Intake Total 300 500 150 Output Total 1000 Balance 300 -500 150 Lab Results - Last 24 hrs: Laboratory Results - last 24 hr 08/20/19 08/20/19 08/20/19 Range/Units 11:40 12:02 17:05 WBC (5.0-10.0) 10^3/uL RBC (4.2-5.4) 10^6/uL Hgb (12.0-16.0) g/dL Hct (37.0-47.0) % MCV (80-100) fL MCH (27.0-34.0) pg MCHC (33.0-35.0) g/dL Plt Count (150-450) 10^3/uL Neut % (Auto) (42.2-75.2) % Lymph % (Auto) (20.5-50.1) % [place] % (Auto) (2-8) % Eos % (Auto) (1.0-3.0) % Baso % (Auto) (0.0-1.0) % Add Manual Diff Neutrophils % (Manual) (42-75) % Band Neutrophils % % Lymphocytes % (Manual) (20-50) % Monocytes % (Manual) (2-8) % Sodium (135-145) mmol/L Potassium (3.6-5.0) mmol/L Chloride (101-111) mmol/L Carbon Dioxide (21.0-31.0) mmol/L Anion Gap BUN (7-18) mg/dL Creatinine (0.6-1.3) mg/dL Est Cr Clr Drug Dosing mL/min Estimated GFR (MDRD) Glucose (74-105) mg/dL POC Glucose 59 L 113 H 259 H (83-110) mg/dl Calcium (8.4-10.2) mg/dl 08/20/19 08/21/19 08/21/19 Range/Units 21:29 06:15 06:15 WBC 11.6 H (5.0-10.0) 10^3/uL RBC 5.07 (4.2-5.4) 10^6/uL Hgb 14.1 (12.0-16.0) g/dL Hct 44.4 (37.0-47.0) % MCV 87.6 (80-100) fL MCH 27.8 (27.0-34.0) pg MCHC 31.8 L (33.0-35.0) g/dL Plt Count 397 (150-450) 10^3/uL Neut % (Auto) 70.1 (42.2-75.2) % Lymph % (Auto) 20.3 L (20.5-50.1) % [place] % (Auto) 9.1 H (2-8) % Eos % (Auto) 0.4 L (1.0-3.0) % Baso % (Auto) 0.1 (0.0-1.0) % Add Manual Diff Yes Neutrophils % (Manual) 69 (42-75) % Band Neutrophils % 5 % Lymphocytes % (Manual) 19 L (20-50) % Monocytes % (Manual) 7 (2-8) % Sodium 139 (135-145) mmol/L Potassium 3.1 L (3.6-5.0) mmol/L Chloride 94 L (101-111) mmol/L Carbon Dioxide 34.0 H (21.0-31.0) mmol/L Anion Gap 14.1 BUN 43 H (7-18) mg/dL Creatinine 1.3 (0.6-1.3) mg/dL Est Cr Clr Drug Dosing 28.92 mL/min Estimated GFR (MDRD) 40 Glucose 113 H (74-105) mg/dL POC Glucose 117 H (83-110) mg/dl Calcium 9.0 (8.4-10.2) mg/dl 08/21/19 08/21/19 Range/Units 07:54 10:18 WBC (5.0-10.0) 10^3/uL RBC (4.2-5.4) 10^6/uL Hgb (12.0-16.0) g/dL Hct (37.0-47.0) % MCV (80-100) fL MCH (27.0-34.0) pg MCHC (33.0-35.0) g/dL Plt Count (150-450) 10^3/uL Neut % (Auto) (42.2-75.2) % Lymph % (Auto) (20.5-50.1) % [place] % (Auto) (2-8) % Eos % (Auto) (1.0-3.0) % Baso % (Auto) (0.0-1.0) % Add Manual Diff Neutrophils % (Manual) (42-75) % Band Neutrophils % % Lymphocytes % (Manual) (20-50) % Monocytes % (Manual) (2-8) % Sodium (135-145) mmol/L Potassium (3.6-5.0) mmol/L Chloride (101-111) mmol/L Carbon Dioxide (21.0-31.0) mmol/L Anion Gap BUN (7-18) mg/dL Creatinine (0.6-1.3) mg/dL Est Cr Clr Drug Dosing mL/min Estimated GFR (MDRD) Glucose (74-105) mg/dL POC Glucose 105 38 L* (83-110) mg/dl Calcium (8.4-10.2) mg/dl ALAN Results - Last 24 hrs: Microbiology 08/16/19 14:47 Aerobic Blood Culture - Preliminary Blood - Venous - Lab Draw NO GROWTH AFTER 4 DAYS Anaerobic Blood Culture - Preliminary NO GROWTH AFTER 4 DAYS 08/16/19 14:37 Aerobic Blood Culture - Preliminary Blood - Venous NO GROWTH AFTER 4 DAYS Anaerobic Blood Culture - Preliminary NO GROWTH AFTER 4 DAYS Med Orders - Current: Current Medications Acetaminophen (Tylenol) 650 mg PO Q4H PRN PRN Reason: Pain (Mild 1-3)/fever Last Admin: 08/18/19 08:28 Dose: 650 mg Albuterol (Proventil Neb Soln) 2.5 mg NEB Q2H PRN PRN Reason: shortness of breath/wheezing Albuterol/Ipratropium (Duoneb 3.0-0.5 Mg/3 Ml) 3 ml NEB Q4HRRT [facility] Last Admin: 08/21/19 07:11 Dose: 3 ml Benzonatate (Tessalon Perles) 200 mg PO TID [facility] Last Admin: 08/21/19 08:18 Dose: 200 mg Budesonide (Pulmicort) 0.5 mg NEB BIDRT [facility] Last Admin: 08/21/19 07:11 Dose: 0.5 mg Bupropion HCl (Wellbutrin Sr) 200 mg PO BID@0900,1400 [facility] Last Admin: 08/21/19 08:20 Dose: 200 mg Citalopram Hydrobromide (Celexa) 20 mg PO DAILY@2100 [facility] Last Admin: 08/20/19 22:56 Dose: 20 mg Cyclobenzaprine HCl (Flexeril) 10 mg PO TID PRN PRN Reason: MUSCLE SPASMS Docusate Sodium (Colace) 100 mg PO BID PRN PRN Reason: Constipation Doxycycline Hyclate (Vibramycin) 100 mg PO BID [facility] Last Admin: 08/21/19 08:18 Dose: 100 mg Furosemide (Lasix) 120 mg PO DAILY [facility] Last Admin: 08/21/19 08:19 Dose: 120 mg Gabapentin (Neurontin) 200 mg PO BID [facility] Last Admin: 08/21/19 08:18 Dose: 200 mg Guaifenesin/Codeine Phosphate (Robitussin Ac) 5 ml PO Q4H PRN PRN Reason: cough Last Admin: 08/21/19 03:55 Dose: 5 ml Heparin Sodium (Porcine) (Heparin Sodium) 5,000 units SUBCUT Q8HR [facility] Last Admin: 08/21/19 05:55 Dose: Not Given Insulin Glargine (Lantus) 40 unit SUBCUT BEDTIME [facility] Last Admin: 08/20/19 23:22 Dose: 40 units Insulin Human Lispro (Humalog) 0 unit SUBCUT WITHMEALSANDBED [facility]; Protocol Last Admin: 08/21/19 08:05 Dose: Not Given Insulin Human Lispro (Humalog) 16 unit SUBCUT TIDMEALS [facility] Last Admin: 08/21/19 08:22 Dose: 16 units Levothyroxine Sodium (Synthroid) 88 mcg PO ACBRK [facility] Last Admin: 08/21/19 05:56 Dose: 88 mcg Melatonin (Melatonin) 3 mg PO BEDTIME [facility] Last Admin: 08/20/19 23:07 Dose: 3 mg Pantoprazole Sodium (Protonix) 40 mg PO ACBRK [facility] Last Admin: 08/21/19 05:55 Dose: 40 mg Pramipexole 0.5 Mg (Tab Pt's Own Med) 0 each PO TID [facility] Last Admin: 08/21/19 08:20 Dose: 1 each Nicotine Polacrilex 2 Mg Pt's Own Med* * 0 each PO QID PRN PRN Reason: nicotine cravings Potassium Chloride (Klor-Con 10) 40 meq PO BEDTIME [facility] Pravastatin Sodium (Pravachol) 10 mg PO BEDTIME [facility] Last Admin: 08/20/19 22:56 Dose: 10 mg Prednisone (Prednisone) 40 mg PO WITHBREAKFAST [facility] Last Admin: 08/21/19 08:18 Dose: 40 mg Sodium Chloride (Saline Flush) 10 ml FLUSH ASDIRECTED PRN PRN Reason: Keep Vein Open Last Admin: 08/20/19 23:17 Dose: 10 ml Discontinued Medications Albuterol (Proventil Neb Soln) 2.5 mg NEB Q2H PRN PRN Reason: shortness of breath/wheezing Last Admin: 08/16/19 18:35 Dose: 2.5 mg Albuterol (Proventil Neb Soln) 2.5 mg NEB Q2H PRN PRN Reason: shortness of breath/wheezing Albuterol/Ipratropium (Duoneb 3.0-0.5 Mg/3 Ml) 3 ml NEB ONETIME ONE Stop: 08/16/19 14:20 Last Admin: 08/16/19 14:40 Dose: 3 ml Albuterol/Ipratropium (Duoneb 3.0-0.5 Mg/3 Ml) 3 ml NEB Q4H PRN PRN Reason: shortness of breath/wheezing Last Admin: 08/17/19 10:46 Dose: 3 ml Benzonatate (Tessalon Perles) 100 mg PO TID [facility] Last Admin: 08/17/19 16:32 Dose: Not Given Benzonatate (Tessalon Perles) 100 mg PO TID [facility] Last Admin: 08/17/19 16:32 Dose: Not Given Bupropion HCl (Wellbutrin Sr) 200 mg PO BID [facility] Last Admin: 08/17/19 22:24 Dose: Not Given Citalopram Hydrobromide (Celexa) 20 mg PO DAILY [facility] Last Admin: 08/17/19 16:16 Dose: 20 mg Citalopram Hydrobromide (Celexa) 20 mg PO DAILY [facility] Last Admin: 08/19/19 09:55 Dose: Not Given Cyclobenzaprine HCl (Flexeril) 10 mg PO TID PRN PRN Reason: MUSCLE SPASMS Last Admin: 08/16/19 22:39 Dose: 10 mg Cyclobenzaprine HCl (Flexeril) 10 mg PO TID PRN PRN Reason: MUSCLE SPASMS Docusate Sodium (Colace) 100 mg PO BID PRN PRN Reason: Constipation Furosemide (Lasix) 40 mg PO BEDTIME [facility] Furosemide (Lasix) 120 mg PO DAILY [facility] Last Admin: 08/17/19 16:32 Dose: Not Given Gabapentin (Neurontin) 200 mg PO BID [facility] Last Admin: 08/17/19 08:46 Dose: 200 mg Gabapentin (Neurontin) 200 mg PO BID [facility] Potassium Chloride 10 meq/ (Premix) 100 mls @ 100 mls/hr IV ONETIME ONE Stop: 08/16/19 16:46 Last Admin: 08/16/19 16:00 Dose: 100 mls/hr Sodium Chloride (Normal Saline) 1,000 mls @ 50 mls/hr IV ASDIRECTED [facility] Last Admin: 08/16/19 20:32 Dose: 50 mls/hr Insulin Glargine (Lantus) 30 unit SUBCUT BEDTIME [facility] Last Admin: 08/16/19 22:39 Dose: 30 units Insulin Glargine (Lantus) 35 unit SUBCUT BEDTIME [facility] Last Admin: 08/17/19 22:19 Dose: 35 units Insulin Human Lispro (Humalog) 14 unit SUBCUT TIDMEALS [facility] Last Admin: 08/18/19 08:23 Dose: 14 unit Levothyroxine Sodium (Synthroid) 88 mcg PO ACBRK [facility] Last Admin: 08/17/19 16:17 Dose: 88 mcg Lidocaine HCl (Xylocaine-Mpf 1%) 1 ml .XX ONETIME ONE Stop: 08/16/19 15:49 Last Admin: 08/16/19 16:00 Dose: 1 ml Melatonin (Melatonin) 3 mg PO BEDTIME [facility] Last Admin: 08/16/19 22:39 Dose: 3 mg Melatonin (Melatonin) 3 mg PO BEDTIME [facility] Methylprednisolone Sodium Succinate (Solu-Medrol) 125 mg IVPUSH ONETIME ONE Stop: 08/16/19 14:20 Last Admin: 08/16/19 14:40 Dose: 125 mg Methylprednisolone Sodium Succinate (Solu-Medrol) 20 mg IVPUSH Q8H [facility] Last Admin: 08/17/19 16:32 Dose: Not Given Methylprednisolone Sodium Succinate (Solu-Medrol) 40 mg IVPUSH Q8HR [facility] Last Admin: 08/18/19 06:21 Dose: 40 mg Non-Formulary Medication (Insulin Aspart [Novolog]) 10 units SUBCUT TIDMEALS [facility] Last Admin: 08/17/19 11:21 Dose: Not Given Ondansetron HCl (Zofran) 4 mg IVPUSH Q6H PRN PRN Reason: Nausea/Vomiting Insulin Aspart [ Novolog] Patient's Own Med 0 each SUBCUT TIDMEALS [facility] Last Admin: 08/17/19 16:31 Dose: Not Given Potassium Chloride (Klor-Con 10) 40 meq PO ONETIME ONE Stop: 08/16/19 15:48 Last Admin: 08/16/19 16:00 Dose: 40 meq Potassium Chloride (Klor-Con 10) 40 meq PO ONETIME ONE Stop: 08/16/19 17:38 Last Admin: 08/16/19 21:03 Dose: Not Given Potassium Chloride (Klor-Con 10) 10 meq PO TIDMEALS [facility] Last Admin: 08/19/19 14:38 Dose: Not Given Potassium Chloride (Klor-Con 10) 40 meq PO ONETIME ONE Stop: 08/16/19 21:16 Last Admin: 08/16/19 21:13 Dose: 40 meq Potassium Chloride (Klor-Con 10) 40 meq PO Q6HR [facility] Stop: 08/20/19 00:01 Last Admin: 08/19/19 23:46 Dose: 40 meq Potassium Chloride (Klor-Con 10) 40 meq PO ONETIME ONE Stop: 08/20/19 12:24 Last Admin: 08/20/19 12:35 Dose: 40 meq Potassium Chloride (Klor-Con 10) 20 meq PO ONETIME ONE Stop: 08/20/19 18:01 Last Admin: 08/20/19 17:42 Dose: 20 meq Potassium Chloride (Klor-Con 10) 40 meq PO ONETIME ONE Stop: 08/21/19 11:18 Pramipexole Dihydrochloride (Mirapex) 0.5 mg PO TID [facility] Last Admin: 08/17/19 16:31 Dose: Not Given - Exam General: Reports: Alert, Oriented Neck: Reports: Supple Lungs: Reports: Normal Respiratory Effort, Rhonchi, Wheezing Cardiovascular: Reports: Regular Rate, Regular Rhythm Extremities: No Pedal Edema Skin: Reports: Warm, Dry Neurological: Reports: No New Focal Deficit
[2019-08-21] MEDS ORDERED: Potassium Chloride 10 MEQ Tab.ER PO SCH (21:00)
== END 2019-08-21 13:05 | disposition home or self-care (01) | DRG 190 ==
LOC: DL.ED 14:02 → DL.MS 17:05 → OBSVTOIN 08-17 16:07
PROVIDERS: ADMIT Hospitalist; ATTEND Internal Medicine
DX: J44.1 Chronic obstructive pulmonary disease with (acute) exacerbation (principal); J96.21 Acute and chronic respiratory failure with hypoxia; E87.6 Hypokalemia; E03.9 Hypothyroidism, unspecified; K21.9 Gastro-esophageal reflux disease without esophagitis; I10 Essential (primary) hypertension; M19.90 Unspecified osteoarthritis, unspecified site; M54.9 Dorsalgia, unspecified; G89.29 Other chronic pain; N19 Unspecified kidney failure; E11.9 Type 2 diabetes mellitus without complications; E78.00 Pure hypercholesterolemia, unspecified; Z99.81 Dependence on supplemental oxygen; E66.9 Obesity, unspecified; I11.0 Hypertensive heart disease with heart failure; Z79.890 Hormone replacement therapy; I50.9 Heart failure, unspecified; Z87.891 Personal history of nicotine dependence; Z28.82 Immunization not carried out because of caregiver refusal; Z88.8 Allergy status to other drugs, medicaments and biological substances; Z79.4 Long term (current) use of insulin; Z79.899 Other long term (current) drug therapy; Z68.34 Body mass index [BMI] 34.0-34.9, adult
CPT/HCPCS: 36415 ×2; 71045; 80048; 80053; 81003; 82962 ×3; 83605; 83880; 85025; 85027; 87040 ×2; 87070; 87205; 87804 ×2; 94640; 97161; 97165; 99219; 99284; A9270 ×14; J1815 ×2; J2001; J2920 ×2; J2930; J3480; J7030; 96365; 96375; 99285-25; J1644; J7613-GY; J7620-GY

== ENCOUNTER 2019-10-08 17:52 | Observation (INO) | payer OTHER, MEDICARE ==
--- NOTE | 2019-10-08 18:20 | EDM.PDOC ---
<Andrea Mancuso M - Last Filed: 10/08/19 19:16> ED HPI GENERAL MEDICAL PROBLEM - General Chief Complaint: Cardiovascular Problem Stated Complaint: [facility] Time Seen by Provider: 10/08/19 18:05 Source of Information: Reports: Patient History Limitations: Reports: No Limitations - History of Present Illness INITIAL COMMENTS - FREE TEXT/NARRATIVE: This 69 yo female patient reports [facility]. The patient reports she was told by the clinic to come to the ED to be evaluated. There was no report called to the ED from the [facility]. The patient reports she has had numerous episodes of near syncope. The patient also reports increased shortness of breath over the past couple of weeks. The patient reports she does have a history of COPD. The patient also reported to nursing staff that she has had blood sugar levels in the 40's for which she has been drinking orange juice. Onset: Unknown/Unsure Duration: Week(s):, Constant, Getting Worse Location: Reports: Chest, Generalized Quality: Reports: Other Severity: Moderate Improves with: Reports: None Worsens with: Reports: None Context: Reports: Other Associated Symptoms: Reports: No Other Symptoms Back Pain Score (Numeric/FACES): 5 - Related Data Allergies Allergy/AdvReac Type Severity Reaction Status Date / Time allopurinol Allergy Anxiety Verified 10/08/19 18:16 atorvastatin Allergy Cannot Verified 10/08/19 18:16 Remember Home Meds: Home Meds Benzonatate 200 mg PO TID PRN 05/14/19 [History] Citalopram Hydrobromide [Celexa] 30 mg PO BEDTIME 05/14/19 [History] Cyclobenzaprine HCl 10 mg PO TID PRN 05/14/19 [History] Furosemide 120 mg PO DAILY 05/14/19 [History] Gabapentin [Neurontin] 200 mg PO TID 05/14/19 [History] Insulin Aspart [NovoLOG] 10 units SUBCUT TIDMEALS 05/14/19 [History] Insulin Glarg,Human.Rec.Analog [Lantus] 30 unit SQ BEDTIME 05/14/19 [History] Levothyroxine Sodium 88 mcg PO DAILY 05/14/19 [History] Nicotine Polacrilex [Nicotine Gum] 2 mg PO QID PRN 05/14/19 [History] Pantoprazole [ProTONIX] 40 mg PO Q24H 05/14/19 [History] Potassium Chloride 20 meq PO TID 05/14/19 [History] Pramipexole Di-HCl [Pramipexole Dihydrochloride] 0.5 mg PO TID 05/14/19 [History ] Pravastatin [Pravachol] 10 mg PO BEDTIME 05/14/19 [History] Albuterol Sulfate [Proair Digihaler] 2 puff IH Q6H PRN 08/16/19 [History] Alendronate Sodium 70 mg PO WEEKLY 08/16/19 [History] buPROPion [Wellbutrin] 200 mg PO BID 08/16/19 [History] Docusate Sodium [Dulcolax Stool Softener] 100 mg PO BID PRN 08/17/19 [History] Furosemide 40 mg PO BEDTIME 08/17/19 [History] Melatonin/Lemon [place] Toluca Extr [Melatonin-Lemon [place] Tablet] 10 mg PO BEDTIME [History] metOLazone [Metolazone] 2.5 mg PO Q48H 08/17/19 [History] Albuterol/Ipratropium [DuoNeb 3.0-0.5 MG/3 ML] 3 ml NEB TID #90 neb 08/21/19 [Rx ] Budesonide [Pulmicort] 0.5 mg NEB BIDRT #60 neb 08/21/19 [Rx] Doxycycline [Vibramycin] 100 mg PO BID #10 cap 08/21/19 [Rx] predniSONE 40 mg PO WITHBREAKFAST #6 tablet 08/21/19 [Rx] Past Medical History HEENT History: Reports: None Cardiovascular History: Reports: High Cholesterol, Hypertension Respiratory History: Reports: Asthma, COPD Gastrointestinal History: Reports: None Genitourinary History: Reports: None [employer] History: Reports: None Musculoskeletal History: Reports: Arthritis, Back Pain, Chronic Neurological History: Reports: None Psychiatric History: Reports: None Endocrine/Metabolic History: Reports: Diabetes, Type II, Obesity/BMI 30+ Hematologic History: Reports: None Immunologic History: Reports: None Oncologic (Cancer) History: Reports: None Dermatologic History: Reports: None - Infectious Disease History Infectious Disease History: Reports: None - Past Surgical History Head Surgeries/Procedures: Reports: None Social & Family History - Family History Family Medical History: Noncontributory - Caffeine Use Caffeine Use: Reports: Coffee - Living Situation & Occupation Living situation: Reports: with Family Occupation: Retired ED ROS GENERAL - Review of Systems Review Of Systems: Comprehensive ROS is negative, except as noted in HPI. ED EXAM, GENERAL - Physical Exam Exam: See Below Exam Limited By: No Limitations General Appearance: Alert, WD/WN, Moderate Distress, Obese Eye Exam: Bilateral Eye: EOMI, Normal Inspection, PERRL Ears: Normal External Exam, Normal Canal, Hearing Grossly Normal, Normal TMs Nose: Normal Inspection, Normal Mucosa, No Blood Throat/Mouth: Normal Inspection, Normal Lips, Normal Teeth, Normal Gums, Normal Oropharynx, Normal Voice, No Airway Compromise, Other (dry) Head: Atraumatic, Normocephalic Neck: Normal Inspection, Supple, Non-Tender, Full Range of Motion Respiratory/Chest: Decreased Breath Sounds Cardiovascular: Normal Peripheral Pulses, Regular Rate, Rhythm, No Edema, No Gallop, No JVD, No Murmur, No Rub GI/Abdominal: Normal Bowel Sounds, Soft, Non-Tender, No Organomegaly, No Distention, No Abnormal Bruit, No Mass, Other (obese) (Female) Exam: Deferred Rectal (Female) Exam: Deferred Back Exam: Normal Inspection, Full Range of Motion, NT Extremities: Normal Inspection, Normal Range of Motion, Non-Tender, Normal Capillary Refill, No Pedal Edema Neurological: Alert, Oriented, CN II-XII Intact, Normal Cognition, Normal Gait, Normal Reflexes, No Motor/Sensory Deficits Psychiatric: Normal Affect, Normal Mood Skin Exam: Warm, Dry, Intact, Normal Color, No Rash Lymphatic: No Adenopathy Course - Vital Signs Last Recorded V/S: Last Vital Signs Temp 96.4 F L 10/08/19 20:29 Pulse 89 10/08/19 20:29 Resp 20 10/08/19 20:29 BP 125/75 10/08/19 20:29 Pulse Ox 95 10/08/19 20:29 - Orders/Labs/Meds Orders: Active Orders 24 hr Category Date Time Status Implanted Port Access [RC] ONETIME Care 10/08/19 20:13 Inactive CULTURE BLOOD [BC] Stat Lab 10/08/19 18:40 Received CULTURE URINE [RM] Urgent Lab 02/27/20 18:53 Received Sodium Chloride 0.9% [Normal Saline] 1,000 ml Med 10/08/19 19:58 Active IV .BOLUS Sodium Chloride 0.9% [Saline Flush] Med 10/08/19 19:57 Active 10 ml FLUSH ASDIRECTED PRN Peripheral IV Insertion Adult [OM.PC] Stat Oth 10/08/19 19:57 Ordered Medication Orders Sodium Chloride (Normal Saline) 1,000 mls @ 200 mls/hr IV .BOLUS ONE Stop: 10/09/19 00:57 Last Admin: 10/08/19 20:15 Dose: 200 mls/hr Sodium Chloride (Saline Flush) 10 ml FLUSH ASDIRECTED PRN PRN Reason: Keep Vein Open Last Admin: 10/08/19 20:13 Dose: 10 ml Labs: Laboratory Tests 10/08/19 10/08/19 10/08/19 Range/Units 18:40 18:40 18:40 WBC 9.3 (5.0-10.0) 10^3/uL RBC 4.72 (4.2-5.4) 10^6/uL Hgb 13.0 (12.0-16.0) g/dL Hct 41.0 (37.0-47.0) % MCV 86.9 (80-100) fL MCH 27.5 (27.0-34.0) pg MCHC 31.7 L (33.0-35.0) g/dL Plt Count 320 D (150-450) 10^3/uL Neut % (Auto) 74.9 (42.2-75.2) % Lymph % (Auto) 13.2 L (20.5-50.1) % Mcmullen % (Auto) 8.4 H (2-8) % Eos % (Auto) 2.8 (1.0-3.0) % Baso % (Auto) 0.7 (0.0-1.0) % D-Dimer, Quantitative 691 H (0-400) ng/mL Sodium (135-145) mmol/L Potassium (3.6-5.0) mmol/L Chloride (101-111) mmol/L Carbon Dioxide (21.0-31.0) mmol/L Anion Gap BUN (7-18) mg/dL Creatinine (0.6-1.3) mg/dL Est Cr Clr Drug Dosing mL/min Estimated GFR (MDRD) BUN/Creatinine Ratio Glucose (74-105) mg/dL Lactic Acid 1.3 (0.5-2.0) mmol/L Calcium (8.4-10.2) mg/dl Total Bilirubin (0.2-1.0) mg/dL AST (10-42) IU/L ALT (10-60) IU/L Alkaline Phosphatase (42-121) IU/L Troponin I (0.00-0.02) ng/ml Total Protein (6.7-8.2) g/dl Albumin (3.2-5.5) g/dl Globulin Albumin/Globulin Ratio Urine Color (YELLOW) Urine Appearance (CLEAR) Urine pH (5.0-9.0) Ur Specific Guy (1.005-1.030) Urine Protein (NEGATIVE) Urine Glucose (UA) (NEGATIVE) Urine Ketones (NEGATIVE) Urine Occult Blood (NEGATIVE) Urine Nitrite (NEGATIVE) Urine Bilirubin (NEGATIVE) Urine Urobilinogen (0.2-1.0) mg/dL Ur Leukocyte Esterase (NEGATIVE) Urine RBC /HPF Urine WBC (0-5/HPF) /HPF Ur Epithelial Cells (NOT SEEN) /HPF Urine Bacteria (0-FEW/HPF) /HPF Urine Mucus (NOT SEEN) /LPF 10/08/19 10/08/19 Range/Units 18:40 18:53 WBC (5.0-10.0) 10^3/uL RBC (4.2-5.4) 10^6/uL Hgb (12.0-16.0) g/dL Hct (37.0-47.0) % MCV (80-100) fL MCH (27.0-34.0) pg MCHC (33.0-35.0) g/dL Plt Count (150-450) 10^3/uL Neut % (Auto) (42.2-75.2) % Lymph % (Auto) (20.5-50.1) % Mcmullen % (Auto) (2-8) % Eos % (Auto) (1.0-3.0) % Baso % (Auto) (0.0-1.0) % D-Dimer, Quantitative (0-400) ng/mL Sodium 138 (135-145) mmol/L Potassium 2.8 L (3.6-5.0) mmol/L Chloride 91 L (101-111) mmol/L Carbon Dioxide 37.0 H (21.0-31.0) mmol/L Anion Gap 12.8 BUN 39 H (7-18) mg/dL Creatinine 1.3 (0.6-1.3) mg/dL Est Cr Clr Drug Dosing 28.92 mL/min Estimated GFR (MDRD) 40 BUN/Creatinine Ratio 30.00 Glucose 104 (74-105) mg/dL Lactic Acid (0.5-2.0) mmol/L Calcium 9.2 (8.4-10.2) mg/dl Total Bilirubin 0.6 (0.2-1.0) mg/dL AST 24 (10-42) IU/L ALT 17 (10-60) IU/L Alkaline Phosphatase 63 (42-121) IU/L Troponin I < 0.02 (0.00-0.02) ng/ml Total Protein 7.2 (6.7-8.2) g/dl Albumin 4.1 (3.2-5.5) g/dl Globulin 3.1 Albumin/Globulin Ratio 1.32 Urine Color Yellow (YELLOW) Urine Appearance Slightly cloudy (CLEAR) Urine pH 7.0 (5.0-9.0) Ur Specific Guy 1.020 (1.005-1.030) Urine Protein Negative (NEGATIVE) Urine Glucose (UA) Negative (NEGATIVE) Urine Ketones Negative (NEGATIVE) Urine Occult Blood Trace-intact H (NEGATIVE) Urine Nitrite Negative (NEGATIVE) Urine Bilirubin Negative (NEGATIVE) Urine Urobilinogen 0.2 (0.2-1.0) mg/dL Ur Leukocyte Esterase Small H (NEGATIVE) Urine RBC 5-10 H /HPF Urine WBC 5-10 H (0-5/HPF) /HPF Ur Epithelial Cells Rare (NOT SEEN) /HPF Urine Bacteria Moderate H (0-FEW/HPF) /HPF Urine Mucus Few H (NOT SEEN) /LPF Meds: Medications Generic Name Dose Route Start Last Admin Trade Name Freq PRN Reason Stop Dose Admin Sodium Chloride 1,000 mls @ 200 mls/hr 10/08/19 19:58 10/08/19 20:15 Normal Saline IV 10/09/19 00:57 200 mls/hr .BOLUS ONE Administration Sodium Chloride 10 ml 10/08/19 19:57 10/08/19 20:13 Saline Flush FLUSH 10 ml ASDIRECTED PRN Administration Keep Vein Open Discontinued Medications Generic Name Dose Route Start Last Admin Trade Name Freq PRN Reason Stop Dose Admin Potassium Chloride 20 meq/ 100 mls @ 50 mls/hr 10/08/19 19:58 10/08/19 20:26 Premix IV 10/08/19 21:57 50 mls/hr ONETIME ONE Administration Iopamidol 100 ml 10/08/19 20:17 10/08/19 20:25 Isovue-370 (76%) IVPUSH 10/08/19 20:18 100 ml ONETIME ONE Administration Potassium Chloride 40 meq 10/08/19 19:57 10/08/19 20:10 Klor-Con 10 PO 10/08/19 19:58 40 meq ONETIME ONE Administration Departure - Departure Disposition: Refer to Observation Clinical Impression: Shortness of breath, Hypokalemia Fall at home Qualifiers: Encounter type: initial encounter Qualified Code(s): W19.XXXA - Unspecified fall, initial encounter; Y92.009 - Unspecified place in unspecified non- institutional (private) residence as the place of occurrence of the external cause Sepsis Event Note - Focused Exam Vital Signs: Vital Signs Temp Pulse Resp BP Pulse Ox 10/08/19 20:29 96.4 F L 89 20 125/75 95 10/08/19 19:11 94 21 H 122/68 99 10/08/19 18:02 96.6 F L 93 22 H 126/81 98 Date Exam was Performed: 10/08/19 Time Exam was Performed: 19:16 - My Orders Last 24 Hours: My Active Orders 10/08/19 19:57 Sodium Chloride 0.9% [Saline Flush] 10 ml FLUSH ASDIRECTED PRN Peripheral IV Insertion Adult [OM.PC] Stat 10/08/19 19:58 Sodium Chloride 0.9% [Normal Saline] 1,000 ml IV .BOLUS 10/08/19 20:13 Implanted Port Access [RC] ONETIME - Assessment/Plan Last 24 Hours: My Active Orders 10/08/19 19:57 Sodium Chloride 0.9% [Saline Flush] 10 ml FLUSH ASDIRECTED PRN Peripheral IV Insertion Adult [OM.PC] Stat 10/08/19 19:58 Sodium Chloride 0.9% [Normal Saline] 1,000 ml IV .BOLUS 10/08/19 20:13 Implanted Port Access [RC] ONETIME <Erma Hutton - Last Filed: 10/08/19 22:27> Course - Orders/Labs/Meds Meds: Medications Generic Name Dose Route Start Last Admin Trade Name Freq PRN Reason Stop Dose Admin Sodium Chloride 1,000 mls @ 200 mls/hr 10/08/19 19:58 10/08/19 20:15 Normal Saline IV 10/09/19 00:57 200 mls/hr .BOLUS ONE Administration Sodium Chloride 10 ml 10/08/19 19:57 10/08/19 20:13 Saline Flush FLUSH 10 ml ASDIRECTED PRN Administration Keep Vein Open Discontinued Medications Generic Name Dose Route Start Last Admin Trade Name Freq PRN Reason Stop Dose Admin Potassium Chloride 20 meq/ 100 mls @ 50 mls/hr 10/08/19 19:58 10/08/19 20:26 Premix IV 10/08/19 21:57 50 mls/hr ONETIME ONE Administration Iopamidol 100 ml 10/08/19 20:17 10/08/19 20:25 Isovue-370 (76%) IVPUSH 10/08/19 20:18 100 ml ONETIME ONE Administration Potassium Chloride 40 meq 10/08/19 19:57 10/08/19 20:10 Klor-Con 10 PO 10/08/19 19:58 40 meq ONETIME ONE Administration - Radiology Interpretation Free Text/Narrative:: Chest xray: FINDINGS: Lungs: Clear lungs bilaterally. No infiltrates or edema. Pleural space: No pleural effusions. Heart/Mediastinum: Moderate size hiatal hernia. Bones/joints: Degenerative thoracic spine change. Anterior wedge compression fracture chronic in appearance at approximately T12.. Other findings: No significant change since 08/16/2019. IMPRESSION: 1. No infiltrates or edema. No pleural effusions. 2. Moderate size hiatal hernia. 3. Degenerative thoracic spine disease. Previous wedge compression fracture in the region of T12. Thank you for allowing us to participate in the care of your patient. Dictated and Authenticated by: Fred Llanes MD 10/08/2019 7:10 PM Central Time ([place] & [place] Chest CT with contrast/PE Study FINDINGS: Lungs: Emphysematous lung disease. No acute infiltrates. No suspicious nodular features or masslike changes. Some atelectatic changes are seen in the left lingula. There is minor scarring in the superior left lower lobe. Pleural space: No pleural effusion. Heart: Unremarkable. No cardiomegaly. No pericardial effusion. Mediastinum: Large paraesophageal hernia. No evidence of strangulation or esophageal obstruction. Pulmonary arteries: Pulmonary artery is not optimally opacified for diagnosis of pulmonary embolism. The main pulmonary artery and the central right and left branches show no filling defect. Aorta: Minor atherosclerosis.. No aortic aneurysm. Lymph nodes: Unremarkable. No enlarged lymph nodes. Bones/joints: Degenerative thoracic spine disease. Old T12 compression fracture. Soft tissues: Unremarkable. IMPRESSION: 1. Emphysematous lung disease. 2. No acute infiltrates. No suspicious nodules. 3. Moderate to large paraesophageal hernia. No evidence of acute strangulation. 4. No pulmonary arterial embolism suggested, although pulmonary artery is not optimally opacified. Thank you for allowing us to participate in the care of your patient. Dictated and Authenticated by: Fred Llanes MD 10/08/2019 9:19 PM Central Time ([place] & [place]) See rad report - Re-Assessments/Exams Free Text/Narrative Re-Assessment/Exam: 10/08/19 22:23 Discussed patient case with Dr. Ward who agreed to accept the patient for observation admission. Discussed patient case with Dr. Quinonez at the [facility] who states it is appropriate and reasonable for the patient to stay here rather than travel to the [facility] in [place]. Reevaluation will be discussed with [facility] tomorrow. Departure - Departure Time of Disposition: 22:27 Reason for Transfer *Q: Other Condition: Fair Sepsis Event Note - Focused Exam Date Exam was Performed: 10/08/19 Time Exam was Performed: 22:23 - My Orders Last 24 Hours: My Active Orders 10/08/19 19:57 Sodium Chloride 0.9% [Saline Flush] 10 ml FLUSH ASDIRECTED PRN Peripheral IV Insertion Adult [OM.PC] Stat 10/08/19 19:58 Sodium Chloride 0.9% [Normal Saline] 1,000 ml IV .BOLUS 10/08/19 20:13 Implanted Port Access [RC] ONETIME - Assessment/Plan Last 24 Hours: My Active Orders 10/08/19 19:57 Sodium Chloride 0.9% [Saline Flush] 10 ml FLUSH ASDIRECTED PRN Peripheral IV Insertion Adult [OM.PC] Stat 10/08/19 19:58 Sodium Chloride 0.9% [Normal Saline] 1,000 ml IV .BOLUS 10/08/19 20:13 Implanted Port Access [RC] ONETIME
[2019-10-08 19:08] LABS: ANION GAP 12.8; CHLORIDE,CL 91 mmol/L (101-111); SODIUM,NA 138 mmol/L (135-145)
[2019-10-08] MEDS ORDERED: Sodium Chloride 0.9% 10 ML Syringe FLUSH PRN (19:57)
[2019-10-08] MEDS ORDERED: Potassium Chloride 10 MEQ Tab.ER PO ONE (19:57)
[2019-10-08] MEDS ORDERED: Sodium Chloride 0.9% 1,000 ML IV ONE (19:58)
[2019-10-08] MEDS ORDERED: Potassium Chloride 20 MEQ in Premix Bag 1 BAG IV ONE (19:58)
[2019-10-08] MEDS ORDERED: Heparin Sodium 5,000 Units/ML Vial IVPUSH ONE (20:14)
[2019-10-08] MEDS ORDERED: Heparin Sodium/0.45% NaCl 25,000 UNITS/500 ML BAG IV SCH (20:15)
[2019-10-08] MEDS ORDERED: Iopamidol 755 Mg/ML 100 ML Bottle IVPUSH ONE (20:17)
[2019-10-08] MEDS ORDERED: Benzonatate 100 MG Cap PO PRN (23:32)
[2019-10-08] MEDS ORDERED: CANNABIDIOL PO PRN (23:32)
[2019-10-08] MEDS ORDERED: Docusate Sodium 100 MG Cap PO PRN (23:32)
[2019-10-08] MEDS ORDERED: NICOTINE POLACRILEX 2 MG PO PRN (23:32)
[2019-10-08] MEDS ORDERED: 50% Dextrose in Water 50 ML Syringe IVPUSH PRN (23:35)
[2019-10-08] MEDS ORDERED: Sodium Chloride 0.9% 1,000 ML IV SCH (23:45)
[2019-10-09] MEDS ORDERED: Insulin Glarg,Human.Rec.Analog 100 Unit/ML SUBCUT ONE (00:30)
[2019-10-09] MEDS ORDERED: Albuterol 6.7 GM Inhaler INH PRN (00:31)
[2019-10-09] MEDS: Cyclobenzaprine 10 MG Tab PO PRN ×3 (01:11→22:55)
--- NOTE | 2019-10-09 02:58 | HP ---
CHIEF COMPLAINT: Frequent falls, difficulty in memory. HISTORY OF PRESENTING ILLNESS: Ms. Amanda Serrano is a 69-year-old female with a medical history significant for hypertension, hyperlipidemia, type 2 diabetes mellitus, history of depression, chronic obstructive pulmonary disease, chronic hypoxic respiratory failure requiring home oxygen, obstructive sleep apnea requiring CPAP at night, presented to the ER after she was noticed to have frequent falls. Home health care nurse was at her home and noticed that she was noted to have possible edema to the lower extremities and she has been complaining of having frequent falls and so was brought to the emergency room. While in the emergency room, the patient had further workup, which showed evidence of elevated D-dimer, and the patient was complaining of shortness of breath. Given her syncopal episode, there was high suspicion for pulmonary embolism. So, the patient underwent a CT scan of the chest with PE protocol, which did not show any acute PE, but given her syncopal episode, the patient is being admitted to the hospital. At this time, the patient says that she has been falling frequently for the last 1 month. She does not have any warning signs before she falls. She thinks her legs are giving away and feels weak and hence having some falls. She denies any loss of consciousness. Denies any chest pains or shortness of breath during or after the fall. She denies any lightheadedness. She denied any fevers or chills for the last few days. No complaints of nausea, vomiting, or diarrhea in the last few days. No complaints of chest pain. No complaints of abdominal pain. No complaints of cough with sputum in the last few days. No complaints of fevers or chills in the last few days. The patient denied any history of chest pains on exertion, but has mild dyspnea on exertion. No history of orthopnea or paroxysmal nocturnal dyspnea. The patient denied any history of hematemesis, hematochezia, or melenic stools. Normal bowel and bladder habits otherwise. REVIEW OF SYSTEMS: A complete review of system including skin, ear, nose, and throat, cardiovascular system, respiratory system, gastrointestinal system, genitourinary system, hematology, oncology, neurology, allergy, immunology, constitutional were all evaluated and were negative except for the above-said notes. PAST MEDICAL HISTORY: Significant for hypertension, hyperlipidemia, type 2 diabetes mellitus, history of depression, chronic obstructive pulmonary disease, chronic hypoxic respiratory failure, spinal stenosis. PAST SURGICAL HISTORY: Significant for toe amputation, cataract extraction, back surgery. FAMILY HISTORY: Significant for schizophrenia in her mother, COPD in her father, alcohol abuse in her sister, COPD in her brother. SOCIAL HISTORY: The patient had history of smoking in the past, but quit smoking. No history of alcohol intake. Uses CBD for pain relief at times. ALLERGIES: The patient noted to have allergies to ciprofloxacin, levofloxacin, allopurinol, atorvastatin, erythromycin, metformin, rifampin. HOME MEDICATIONS: Include cannabinoid extract 17 mg as needed for pain, albuterol 2 puffs inhalation every 6 hours as needed, alendronate 70 mg q.weekly, DuoNeb 3 mL nebulizer twice a day, Pulmicort twice a day, cyclobenzaprine 10 mg 3 times a day as needed, furosemide 120 mg daily, doxycycline 100 mg twice a day, Neurontin 200 mg 3 times a day, NovoLog 10 units with each meals, Lantus 30 units at bedtime, levothyroxine 88 mcg daily, nicotine as needed, potassium chloride 20 mEq 3 times a day, Wellbutrin 200 mg twice a day, pravastatin 10 mg at bedtime, metolazone 2.5 mg every other day, prednisone 40 mg with breakfast. PHYSICAL EXAMINATION: Vital signs: Temperature of 96.4, pulse of 89, blood pressure 125/75, respiratory rate of 20, saturating at 95% on 3 L of oxygen. General appearance: The patient is well oriented to time, place, and person. Follows commands spontaneously. Cardiovascular system: S1, S2 heard with normal intensity. No gallops. Respiratory system: Clear to auscultation bilaterally. No wheeze. No crepitations. Abdomen: Soft. Bowel sounds positive. Nontender. No rigidity. Extremities: No edema in bilateral lower extremities. Neurology: No gross focal neurological deficit. LABORATORY DATA: 1. WBC 9.3, hemoglobin 13, hematocrit 41, platelet count 320. 2. D-dimer 691. 3. Sodium 138, potassium 2.8, chloride 91, bicarb 37, BUN 39, creatinine 1.3, glucose 104, lactic acid 1.3, AST 24, ALT is 17, alkaline phosphatase 63. Troponin less than 0.02. Urinalysis: Small leukocyte esterase, rare epithelial cells, moderate bacteria. ASSESSMENT: 1. Syncopal episode. 2. Type 2 diabetes mellitus. 3. Hypertension. 4. Hyperlipidemia. 5. Chronic obstructive pulmonary disease. 6. Chronic hypoxic respiratory failure. 7. Obstructive sleep apnea, requiring continuous positive airway pressure at night. PLAN: 1. Syncopal episode. The patient presents with syncopal episode. She does not lose her consciousness. Exact etiology not clear. She denied any fevers or chills. She denied any nausea, vomiting, or diarrhea. Unsure if this is resulting from dehydration versus from poorly controlled diabetes. The patient will be admitted to the hospital. We will check her orthostatic vitals. We will keep her hydrated with IV fluids for now. We will have her on telemetry unit. We will get a 2D echocardiogram in a.m. to rule out any cardiac causes. Closely follow. 2. Elevated D-dimer. The patient was noted to have elevated D-dimer. Given her syncopal episode, shortness of breath, and hypoxia, there was high suspicion for pulmonary embolism. So, we did get a CT scan of the chest with the PE protocol, which did not show any evidence of PE. 3. Chronic obstructive pulmonary disease, remains stable. No wheeze noted on the lung exam. The patient is currently on nebulizer treatment. Continue the same. 4. Chronic hypoxic respiratory failure. Continue supplemental oxygen to maintain a saturation of 95%. 5. Hypertension. The patient's blood pressure seems to be in acceptable range. Continue with current antihypertensive medication. 6. Chronic kidney disease, remains stable. Try to avoid nephrotoxic agents. Since the patient received contrast dye, we will continue with IV fluids. For now, recheck a basic metabolic panel in a.m. 7. DVT prophylaxis. We will have her on heparin for DVT prophylaxis. 8. Type 2 diabetes mellitus. The patient had accounts of accidentally taking 30 units of Humalog thinking that is a long-acting insulin and resulting in hypoglycemic episodes. Will be cautious. Check her fingersticks with each meals. Have her on supplemental scale insulin if needed. 9. Code status. The patient wants to be full code. 10.Discussed with the ER staff regarding the plan of care. Reviewed the labs and medications. Reviewed the old charts for medical history and summarized as above. [facility] /[id number]
[2019-10-09] MEDS: Heparin Sodium 5,000 Units/ML Vial SUBCUT SCH ×3 (05:42→22:48)
[2019-10-09] MEDS: Levothyroxine 88 MCG Tab PO SCH (05:43)
[2019-10-09] MEDS: Pantoprazole 40 MG Tab.CR PO SCH (05:43)
[2019-10-09 06:53] LABS: ANION GAP 11.1; CHLORIDE,CL 98 mmol/L (101-111); SODIUM,NA 138 mmol/L (135-145)
[2019-10-09] MEDS ORDERED: predniSONE 20 MG Tab PO SCH (08:00)
[2019-10-09] MEDS: Potassium Chloride 10 MEQ Tab.ER PO SCH ×3 (09:00→17:30)
[2019-10-09] MEDS: Pramipexole 0.125 MG Tab PO SCH ×3 (09:00→22:45)
[2019-10-09] MEDS ORDERED: buPROPion 100 MG Tab.SR PO SCH ×2 (09:00→21:00)
[2019-10-09] MEDS: Furosemide 80 MG Tab PO SCH (09:01)
[2019-10-09] MEDS: Gabapentin 100 MG Cap PO SCH ×3 (09:01→22:46)
[2019-10-09] MEDS ORDERED: Potassium Chloride 10 MEQ Tab.ER PO ONE (09:20)
[2019-10-09] MEDS: Insulin Lispro 100 Units/ML 3 ML Vial SUBCUT SCH ×8 (09:52→22:47)
[2019-10-09] MEDS: predniSONE 20 MG Tab PO SCH (09:54)
[2019-10-09] MEDS ORDERED: Albuterol/Ipratropium 3.0-0.5 MG/3 ML Neb Soln ONE (11:09)
--- NOTE | 2019-10-09 13:42 | PN ---
DATE: 10/09/2019 HISTORY OF PRESENTING ILLNESS: Ms. Amanda Serrano is a 69-year-old female with a medical history significant for hypertension, hyperlipidemia, type 2 diabetes mellitus, chronic obstructive pulmonary disease chronic hypoxic respiratory failure requiring home oxygen, admitted to the hospital having syncopal episodes. For the last 24 hours, the patient denies any complaints of chest pain. No shortness of breath. No abdominal pain. No nausea. No vomiting. No diarrhea. We did orthostatic vitals which were negative. She was continued on IV fluids. REVIEW OF SYSTEMS: Cardiovascular, respiratory, gastrointestinal, neurology, constitutional were all evaluated. PHYSICAL EXAMINATION: Vital Signs: Temperature of 97.9, pulse of 74, blood pressure 118/55, respiratory rate of 20, saturating at 98% on 2 L of oxygen. General Appearance: The patient is well oriented to time, place, and person. Follows commands spontaneously. Cardiovascular System: S1 and S2 heard with normal intensity. No gallops. Respiratory System: Clear to auscultation bilaterally. No wheeze. No crepitations. Abdomen: Soft. Bowel sounds positive. Nontender. No rigidity. Extremities: No edema in bilateral lower extremities. Neurology: No gross focal neurological deficits. MEDICATIONS: Reviewed. Continue with DuoNeb and Pulmicort nebulizer. She has been on Celexa 30 mg daily, Flexeril 10 mg 3 times a day as needed, Lasix 40 mg and 120 mg, Neurontin 200 mg 3 times a day, Lantus 30 units at bedtime and Humalog 10 units with each meals, levothyroxine 88 mcg daily, bupropion 200 mg twice a day, potassium chloride 20 mEq 3 times a day, pravastatin 10 mg at bedtime, prednisone daily. LABORATORY DATA: 1. Sodium 138, potassium 3.1, chloride 98, bicarb 32, BUN 30, creatinine 1, and glucose 130. 2. Urinalysis: Small leukocyte esterase, wbc's 5 to 10, rare epithelial cells, bacteria moderate. 3. Microbiology: Tested negative for influenza. ASSESSMENT: 1. Syncopal episode. Exact etiology not clear. 2. Hypertension. 3. Type 2 diabetes mellitus. 4. Chronic obstructive pulmonary disease. 5. Chronic hypoxic respiratory failure. 6. Chronic kidney disease. 7. Questionable urinary tract infection. 8. Obstructive sleep apnea. PLAN: 1. Syncopal episode. The patient presents with a syncopal episode. She has been having frequent episodes in the last one month. She is currently on telemetry unit which does not show any acute arrhythmia. Troponin has been negative. Ordered for 2D echocardiogram and carotid Dopplers. We will also get a CT scan of the head for further evaluation. The patient also complaining of having hallucinations. She would need further workup as an outpatient with psychiatry and neurology appointment this will be scheduled at the [facility]. The patient did not have any further episodes of syncope here. She had orthostatic vitals checked which were negative. 2. Elevated D-dimer. The patient had a CT scan of the chest with PE protocol which was negative for any acute PE. She was continued on IV fluids. We will discontinue IV fluids today. 3. Chronic obstructive pulmonary disease, remains stable. Continue with current nebulizer treatment. 4. Chronic hypoxic respiratory failure. Continue with supplemental oxygen to maintain a saturation of 95%. 5. Chronic kidney disease, remains stable. Avoid any nephrotoxic agents. Avoid any hypotensive episodes. 6. Type 2 diabetes mellitus. The patient has been on insulin regimen. Continue the same. Check her fingersticks with each meals have her on supplemental scale insulin as needed. 7. We will have Physical Therapy and Occupational Therapy evaluate and treat the patient. [facility] /[id number]
[2019-10-09] MEDS ORDERED: Furosemide 80 MG Tab PO SCH (14:00)
[2019-10-09] MEDS: Albuterol/Ipratropium 3.0-0.5 MG/3 ML Neb Soln NEB SCH ×2 (14:07→22:46)
[2019-10-09] MEDS: Budesonide 0.5 MG/2 ML Neb Susp NEB SCH ×3 (14:08→22:47)
--- NOTE | 2019-10-09 15:51 | US ---
EXAMINATION: Carotid Comp SEX: Female AGE: 69 years CLINICAL HISTORY: 69-year-old ex-smoker with dizziness, syncopal episode and "microvascular ischemic changes" (CT scan of the head). Interpretation: Technically difficult exam (breathing and "sleeping" during examination) revealed tortuous internal carotid arteries; and, abnormally elevated peak systolic flow velocities in both internal and common carotid arteries. Isolated large atheromatous plaque proximally in the left common carotid artery and calcifications bilaterally. Peak systolic flow velocity right common carotid artery 143 cm/s; right internal carotid artery 129 cm/s; and right external carotid artery 192 cm/s. IC/CC ratio 0.9. No spectral broadening indicating vascular turbulence. Peak systolic flow velocity left common carotid artery 199 cm/s; left internal carotid artery 122 cm/s; and left external carotid artery 116 cm/s. IC/CC ratio on the left 0.54. Conclusion: Generalized atheromatous disease and signs of mild-moderate severe stenosis carotid circulation (see above). No critical or surgical stenosis.
--- NOTE | 2019-10-09 18:23 | CT ---
EXAMINATION: Head wo Cont SEX: Female AGE: 69 years CLINICAL HISTORY: 69-year-old hypertensive 153 pound ex-smoker who experienced SYNCOPE. Scan technique: Volume acquisition of data unenhanced CT scan of the head and brain obtained with patient lying supine on the Siemens multislice scanner [place], [place]. All data archived in the PACS system for storage, reformatting axial/sagittal/coronal planes and study (bone/brain windows). No comparison exams immediately available. Interpretation: 1. Generalized atrophy pattern age-appropriate and symmetrically mild with underlying mirror-image normal ventricular system. 2. No supratentorial or posterior fossa mass lesion. 3. Cerebellum and brainstem unremarkable. 4. Scattered tiny areas of decreased attenuation throughout the periventricular white matter particularly parietal lobe on the right characteristic of microvascular ischemic change i.e. infarcts. No associated edema. 5. No sign of acute intracerebral/intraventricular/subarachnoid bleed. 6. Uniformly thick bony calvarium with symmetric clear pneumatization of the paranasal and mastoid sinuses. 7. No sign of skull fracture, underlying brain contusion or abnormal extracerebral/intracranial epidural or subdural hematoma. CONCLUSION: Chronic microvascular ischemic changes. Diabetic? Hypertension? Carotid vascular disease? No intracranial mass, hydrocephalus or bleed.
[2019-10-09] MEDS ORDERED: Pravastatin 20 MG Tab PO SCH (21:00)
[2019-10-09] MEDS ORDERED: Citalopram 20 MG Tab PO SCH (21:00)
[2019-10-09] MEDS ORDERED: Melatonin 3 MG Tab PO SCH (21:00)
[2019-10-09] MEDS ORDERED: Insulin Glarg,Human.Rec.Analog 100 Unit/ML SUBCUT SCH ×2 (21:00)
[2019-10-09] MEDS: BUPROPION 100 MG PO SCH (22:48)
[2019-10-10] MEDS: Heparin Sodium 5,000 Units/ML Vial SUBCUT SCH ×2 (06:07→14:24)
[2019-10-10] MEDS: Pantoprazole 40 MG Tab.CR PO SCH (06:08)
[2019-10-10] MEDS: Levothyroxine 88 MCG Tab PO SCH (06:08)
[2019-10-10] MEDS: Albuterol/Ipratropium 3.0-0.5 MG/3 ML Neb Soln NEB SCH ×2 (07:23→15:27)
[2019-10-10] MEDS: Insulin Lispro 100 Units/ML 3 ML Vial SUBCUT SCH ×6 (08:57→17:25)
[2019-10-10] MEDS: Pramipexole 0.125 MG Tab PO SCH ×2 (08:58→13:21)
[2019-10-10] MEDS: Gabapentin 100 MG Cap PO SCH ×2 (08:58→13:20)
[2019-10-10] MEDS: Potassium Chloride 10 MEQ Tab.ER PO SCH ×4 (08:58→16:17)
[2019-10-10] MEDS: predniSONE 20 MG Tab PO SCH (08:58)
[2019-10-10] MEDS: BUPROPION 100 MG PO SCH (08:59)
[2019-10-10] MEDS: Furosemide 80 MG Tab PO SCH (09:02)
[2019-10-10 11:06] LABS: ANION GAP 14.9
[2019-10-10] MEDS: Potassium Chloride 10 MEQ in Premix Bag 1 BAG IV SCH ×6 (11:54→18:24)
[2019-10-10] MEDS ORDERED: Lidocaine 1% 50 MG/5 ML Syringe ONE (12:10)
[2019-10-10] MEDS: Budesonide 0.5 MG/2 ML Neb Susp NEB SCH (15:22)
--- NOTE | 2019-10-10 21:14 | DISCH ---
ADMITTING DIAGNOSES: 1. Syncopal episode. 2. Hypokalemia. DISCHARGE DIAGNOSES: 1. Syncopal episode. Exact etiology not clear. Could be from polypharmacy and drug interactions. 2. Hypokalemia, improved. 3. Hypertension. 4. Type 2 diabetes mellitus. HISTORY OF PRESENTING ILLNESS: Ms. Amanda Serrano is a 69-year-old female with a medical history significant for hypertension, hyperlipidemia, type 2 diabetes mellitus, history of depression, chronic obstructive pulmonary disease, chronic hypoxic respiratory failure requiring home oxygen, and obstructive sleep apnea, on CPAP at night; admitted to the hospital after having frequent falls and noted to have hypokalemia. The patient was admitted and had extensive workup done on this admission. She was closely monitored in the telemetry, which did not show any acute arrhythmia. She had a CT scan of the head, which showed some chronic microvascular changes but no acute intracranial pathology identified at this time. Carotid Dopplers did not show any acute stenosis. A 2-D echocardiogram was also done. Preliminary report of which suggested no evidence of valvular heart disease or any systolic dysfunction. She remained hemodynamically stable. She was noted to be on multiple medications including high dose Lasix 120 mg in a.m. and 80 mg in p.m., unsure if this was leading to her hypotensive episodes and also she was noted to be on high dose insulin regimen. She was on Levemir 30 units and Humalog 10 units with each meals, so we have modified these medications. We decreased the Lasix to 80 mg in a.m. and 40 mg in p.m. as needed and also decreased the insulin regimen to 23 units long-acting insulin and 8 units short-acting insulin. The patient did not have any further syncopal episode in the hospital. She also had orthostatic vitals checked, which was within normal limits. She required IV and oral potassium chloride supplement for her hypokalemia. She is discharged home in stable condition. DISCHARGE MEDICATIONS: Include albuterol 2 puffs inhalation every 4 hours as needed, albuterol nebulizer 3 times daily, Combivent 1 puff inhalation 4 times daily, alendronate 70 mg oral weekly, benzonatate 100 mg 3 times daily as needed for cough, CBD 10 drops sublingual as needed for pain, citalopram 30 mg at bedtime, cyclobenzaprine 10 mg 3 times a day as needed, doxycycline 100 mg twice daily, Febuxostat 40 mg daily, Lasix 40 mg at night and 80 mg in the morning, Neurontin 200 mg 3 times daily, Lantus 23 units subcutaneous at bedtime, Humalog 8 units 3 times a day with each meals, levothyroxine 88 mcg daily, milk of magnesia 30 mL as needed for constipation, melatonin 10 mg at bedtime, nicotine gum 2 mg oral 4 times daily as needed, Protonix 40 mg daily, potassium chloride 20 mEq 3 times a day, Mirapex 0.5 mg oral 3 times daily, Pravachol 10 mg at bedtime, Wellbutrin 200 mg twice daily, guaifenesin 400 mg twice daily as needed for congestion, and metolazone 2.5 mg every other day. PHYSICAL EXAMINATION: On the day of discharge: Vital Signs: Temperature of 96.9, pulse of 81, blood pressure 123/74, and saturating at 95% on 3 L of oxygen. General Appearance: The patient is well oriented to time, place, and person. Follows commands spontaneously. Cardiovascular System: S1, S2 heard with normal intensity. No gallops. Respiratory System: Clear to auscultation bilaterally. No wheeze. No crepitations. Abdomen: Soft. Bowel sounds positive. Nontender. No rigidity. No guarding. No rebound tenderness. Extremities: No edema in bilateral lower extremities. CONDITION ON ADMISSION: Poor. CONDITION ON DISCHARGE: Stable. DISPOSITION: Discharged to home. DIET: Cardiac healthy diet and consistent carbohydrate diet. ACTIVITY: As tolerated. FOLLOWUP: Follow with primary care physician in next 1 week of time. Follow with Neurology Clinic in next 1 week of time. I spent over 35 minutes of time in evaluating and treating this patient and making discharge plans. [facility] /[id number]
[2019-10-11] MEDS ORDERED: Furosemide 40 MG Tab PO SCH (09:00)
[2019-10-12] MEDS ORDERED: predniSONE 20 MG Tab PO SCH (08:00)
[2019-10-16] MEDS ORDERED: predniSONE 10 MG Tab PO SCH (08:00)
== END 2019-10-10 19:30 | disposition home or self-care (01) ==
LOC: DL.ED 17:52 → DL.MS 21:37
PROVIDERS: ADMIT Internal Medicine; ATTEND Internal Medicine
DX: R55 Syncope and collapse (principal); E87.6 Hypokalemia; J44.9 Chronic obstructive pulmonary disease, unspecified; J96.11 Chronic respiratory failure with hypoxia; I10 Essential (primary) hypertension; E11.9 Type 2 diabetes mellitus without complications; E78.5 Hyperlipidemia, unspecified; F32.9 Major depressive disorder, single episode, unspecified; G47.33 Obstructive sleep apnea (adult) (pediatric); R29.6 Repeated falls; R79.89 Other specified abnormal findings of blood chemistry; M19.90 Unspecified osteoarthritis, unspecified site; G89.29 Other chronic pain; E66.9 Obesity, unspecified; Z99.89 Dependence on other enabling machines and devices; Z99.81 Dependence on supplemental oxygen; Z79.4 Long term (current) use of insulin; Z87.891 Personal history of nicotine dependence; Z88.8 Allergy status to other drugs, medicaments and biological substances; Z88.1 Allergy status to other antibiotic agents; Z79.899 Other long term (current) drug therapy; Z68.31 Body mass index [BMI] 31.0-31.9, adult
CPT/HCPCS: 36415; 70450; 71046; 71260; 80048; 80053; 81001; 82962; 83605; 84132; 84484; 85025; 85379; 87040; 87086; 87088; 87186; 87804; 93005; 93306; 93880; 94640; 96365; 96366; 97162; 99285; A9270; J1815; J3480; J7030; Q9967; 96361; G0378; J7620-GY

== ENCOUNTER 2020-06-30 10:12 | Inpatient (IN) | payer OTHER, MEDICARE ==
--- NOTE | 2020-06-30 12:17 | EDM.PDOC ---
ED HPI GENERAL MEDICAL PROBLEM - General Chief Complaint: General Stated Complaint: COVID POSITIVE Time Seen by Provider: 06/30/20 12:00 Source of Information: Reports: Patient History Limitations: Reports: No Limitations - History of Present Illness INITIAL COMMENTS - FREE TEXT/NARRATIVE: This 69 yo female patient reports to the ED due to a cough, shortness of breath and just not feeling well. The patient reports she has a history of COPD, Asthma and has been feeling more short of breath over the past 3-4 days. The patient reports she has been using her nebulizer and inhaler with little to no symptom improvement. 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 Generalized Pain Score (Numeric/FACES): 8 - Related Data Allergies Allergy/AdvReac Type Severity Reaction Status Date / Time allopurinol Allergy Anxiety Verified 06/30/20 11:22 atorvastatin Allergy Cannot Verified 06/30/20 11:22 Remember levofloxacin [From Levaquin] Allergy Other Verified 06/30/20 14:58 Home Meds: Home Meds Benzonatate 100 mg PO TID PRN 05/14/19 [History] Citalopram Hydrobromide [Celexa] 30 mg PO BEDTIME 05/14/19 [History] Levothyroxine Sodium 88 mcg PO DAILY 05/14/19 [History] Nicotine Polacrilex [Nicotine Gum] 2 mg PO QID PRN 05/14/19 [History] Pantoprazole [ProTONIX] 40 mg PO Q24H 05/14/19 [History] Pravastatin [Pravachol] 10 mg PO BEDTIME 05/14/19 [History] Albuterol Sulfate [Proair Digihaler] 2 puff IH Q4H PRN 08/16/19 [History] Alendronate Sodium 70 mg PO WEEKLY 08/16/19 [History] buPROPion [Wellbutrin] 150 mg PO DAILY 08/16/19 [History] metOLazone [Metolazone] 2.5 mg PO Q48H 08/17/19 [History] Cannabidiol (Cbd) Extract [CBD Oil] 10 drop SL ASDIRECTED PRN 10/08/19 [History] Albuterol [Proventil Neb Soln] 3 ml NEB QID 10/09/19 [History] Albuterol/Ipratropium [Combivent Respimat] 1 puff IH QID 10/09/19 [History] Febuxostat [Uloric] 40 mg PO DAILY 10/09/19 [History] Magnesium Hydroxide [Milk of Magnesia] 30 ml PO DAILY PRN 10/09/19 [History] Melatonin 10 mg PO BEDTIME 10/09/19 [History] Pramipexole [Mirapex] 0.5 mg PO TID 10/09/19 [History] guaiFENesin [Guaifenesin] 400 mg PO BID PRN 10/09/19 [History] Furosemide [Lasix] 40 mg PO DAILY #30 tab 10/10/19 [Rx] Furosemide [Lasix] 80 mg PO DAILY #30 tab 10/10/19 [Rx] Insulin Glarg,Human.Rec.Analog [Lantus] 23 unit SUBCUT BEDTIME ml 10/10/19 [Rx] Potassium Chloride [K-Tab ER] 20 meq PO TID #90 tablet.er 10/10/19 [Rx] Insulin Lispro [HumaLOG] 13 unit SUBCUT TIDMEALS 06/20/20 [History] Past Medical History HEENT History: Reports: Cataract Other HEENT History: wear glasses Cardiovascular History: Reports: High Cholesterol, Hypertension Respiratory History: Reports: Asthma, COPD, Other (See Below) Other Respiratory History: emphysema, home oxygen et CPAP Gastrointestinal History: Reports: GERD Genitourinary History: Reports: Other (See Below) Other Genitourinary History: stress incont cough CHEF CONCIERGE History: Reports: Musculoskeletal History: Reports: Arthritis, Back Pain, Chronic Other Musculoskeletal History: T12 compression fx Neurological History: Reports: None Psychiatric History: Reports: Depression Endocrine/Metabolic History: Reports: Diabetes, Type II, Obesity/BMI 30+ Hematologic History: Reports: None Immunologic History: Reports: None Oncologic (Cancer) History: Reports: None Dermatologic History: Reports: None - Infectious Disease History Infectious Disease History: Reports: None - Past Surgical History Head Surgeries/Procedures: Reports: None HEENT Surgical History: Reports: Cataract Surgery Other HEENT Surgeries/Procedures: bilat eyes Cardiovascular Surgical History: Reports: None GI Surgical History: Reports: Colonoscopy Female Surgical History: Reports: None Musculoskeletal Surgical History: Reports: Other (See Below) Other Musculoskeletal Surgeries/Procedures:: back surgery many years ago Social & Family History - Family History Family Medical History: No Pertinent Family History - Tobacco Use Tobacco Use Status *Q: Never Tobacco User Second Hand Smoke Exposure: No - Caffeine Use Caffeine Use: Reports: Soda - Recreational Drug Use Recreational Drug Use: No - Living Situation & Occupation Living situation: Reports: with Family Occupation: Retired ED ROS GENERAL - Review of Systems Review Of Systems: Comprehensive ROS is negative, except as noted in HPI. ED EXAM, GENERAL - Physical Exam Exam: See Below Exam Limited By: No Limitations General Appearance: Alert, WD/WN, Moderate Distress, Obese Eye Exam: Bilateral Eye: EOMI, Normal Inspection, PERRL Ears: Normal External Exam, Normal Canal, Hearing Grossly Normal, Normal TMs Nose: Normal Inspection, Normal Mucosa, No Blood Throat/Mouth: Normal Inspection, Normal Lips, Normal Teeth, Normal Gums, Normal Oropharynx, Normal Voice, No Airway Compromise Head: Atraumatic, Normocephalic Neck: Normal Inspection, Supple, Non-Tender, Full Range of Motion Respiratory/Chest: Decreased Breath Sounds, Rhonchi, Wheezing Cardiovascular: Normal Peripheral Pulses, Regular Rate, Rhythm, No Edema, No Gallop, No JVD, No Murmur, No Rub GI/Abdominal: Normal Bowel Sounds, Soft, Non-Tender, No Organomegaly, No Distention, No Abnormal Bruit, No Mass (Female) Exam: Deferred Rectal (Female) Exam: Deferred Back Exam: Normal Inspection, Full Range of Motion, NT Extremities: Normal Inspection, Normal Range of Motion, Non-Tender, Normal Capillary Refill, No Pedal Edema Neurological: Alert, Oriented, CN II-XII Intact, Normal Cognition, Normal Gait, Normal Reflexes, No Motor/Sensory Deficits Psychiatric: Normal Affect, Normal Mood Skin Exam: Warm, Dry, Intact, No Rash, Other (Bruising to her lower jaw from recent dental extraction) Lymphatic: No Adenopathy Course - Vital Signs Last Recorded V/S: Last Vital Signs Temp 36.3 C 06/30/20 11:29 Pulse 85 06/30/20 11:29 Resp 10 L 06/30/20 11:29 BP 103/53 L 06/30/20 11:29 Pulse Ox 96 06/30/20 11:29 - Orders/Labs/Meds Orders: Active Orders 24 hr Category Date Time Status EKG Documentation Completion [RC] STAT Care 06/30/20 11:20 Active CULTURE BLOOD [BC] Stat Lab 06/30/20 11:37 Received CULTURE BLOOD [BC] Stat Lab 06/30/20 13:05 Received Labs: Laboratory Tests 06/30/20 06/30/20 06/30/20 Range/Units 11:30 11:37 11:37 WBC 19.1 H (5.0-10.0) 10^3/uL RBC 4.64 (4.2-5.4) 10^6/uL Hgb 14.8 D (12.0-16.0) g/dL Hct 42.2 (37.0-47.0) % MCV 90.9 D (80-100) fL MCH 31.9 (27.0-34.0) pg MCHC 35.1 H (33.0-35.0) g/dL Plt Count 277 (150-450) 10^3/uL Neut % (Auto) 85.3 H (42.2-75.2) % Lymph % (Auto) 6.3 L (20.5-50.1) % Jenkins % (Auto) 7.7 (2-8) % Eos % (Auto) 0.3 L (1.0-3.0) % Baso % (Auto) 0.4 (0.0-1.0) % Add Manual Diff Yes Neutrophils % (Manual) 88 H (42-75) % Lymphocytes % (Manual) 7 L (20-50) % Monocytes % (Manual) 5 (2-8) % D-Dimer, Quantitative 782 H (0-400) ng/mL Sodium (136-145) mmol/L Potassium (3.5-5.1) mmol/L Chloride (98-107) mmol/L Carbon Dioxide (21-32) mmol/L Anion Gap (7-13) mEq/L BUN (7-18) mg/dL Creatinine (0.55-1.02) mg/dL Est Cr Clr Drug Dosing mL/min Estimated GFR (MDRD) BUN/Creatinine Ratio (No establ ref range) Glucose (74-99) mg/dL Lactic Acid (0.4-2.0) mmol/L Calcium (8.5-10.1) mg/dL Total Bilirubin (0.2-1.0) mg/dL AST (15-37) U/L ALT (14-59) U/L Alkaline Phosphatase (46-116) U/L Troponin I (0.000-0.056) ng/mL C-Reactive Protein (0.0-0.9) mg/dL B-Natriuretic Peptide (0-100) pg/ml Total Protein (6.4-8.2) g/dL Albumin (3.4-5.0) g/dL Globulin Albumin/Globulin Ratio SARS CoV-2 RNA Rapid BASSAM Negative (NEGATIVE) 06/30/20 06/30/20 Range/Units 11:37 11:37 WBC (5.0-10.0) 10^3/uL RBC (4.2-5.4) 10^6/uL Hgb (12.0-16.0) g/dL Hct (37.0-47.0) % MCV (80-100) fL MCH (27.0-34.0) pg MCHC (33.0-35.0) g/dL Plt Count (150-450) 10^3/uL Neut % (Auto) (42.2-75.2) % Lymph % (Auto) (20.5-50.1) % Jenkins % (Auto) (2-8) % Eos % (Auto) (1.0-3.0) % Baso % (Auto) (0.0-1.0) % Add Manual Diff Neutrophils % (Manual) (42-75) % Lymphocytes % (Manual) (20-50) % Monocytes % (Manual) (2-8) % D-Dimer, Quantitative (0-400) ng/mL Sodium 133 L (136-145) mmol/L Potassium 2.4 L* (3.5-5.1) mmol/L Chloride 90 L (98-107) mmol/L Carbon Dioxide 35 H (21-32) mmol/L Anion Gap 10.4 (7-13) mEq/L BUN 55 H (7-18) mg/dL Creatinine 1.66 H (0.55-1.02) mg/dL Est Cr Clr Drug Dosing 22.65 mL/min Estimated GFR (MDRD) 31 BUN/Creatinine Ratio 33.1 (No establ ref range) Glucose 197 H (74-99) mg/dL Lactic Acid 1.2 (0.4-2.0) mmol/L Calcium 9.1 (8.5-10.1) mg/dL Total Bilirubin 0.7 (0.2-1.0) mg/dL AST 27 (15-37) U/L ALT 26 (14-59) U/L Alkaline Phosphatase 77 (46-116) U/L Troponin I < 0.017 (0.000-0.056) ng/mL C-Reactive Protein 7.1 H (0.0-0.9) mg/dL B-Natriuretic Peptide 46 (0-100) pg/ml Total Protein 7.5 (6.4-8.2) g/dL Albumin 3.7 (3.4-5.0) g/dL Globulin 3.8 Albumin/Globulin Ratio 1.0 SARS CoV-2 RNA Rapid BASSAM (NEGATIVE) Meds: Medications Discontinued Medications Generic Name Dose Route Start Last Admin Trade Name Freq PRN Reason Stop Dose Admin Potassium Chloride 10 meq/ 100 mls @ 100 mls/hr 06/30/20 12:35 06/30/20 12:49 Premix IV 06/30/20 13:34 100 mls/hr ONETIME ONE Administration Ceftriaxone Sodium 1 gm/ 50 mls @ 100 mls/hr 06/30/20 13:06 06/30/20 14:27 Sodium Chloride IV 06/30/20 13:35 Not Given ONETIME ONE Ceftriaxone Sodium 1 gm/ 50 mls @ 100 mls/hr 06/30/20 14:30 06/30/20 14:45 Sodium Chloride IV 06/30/20 14:59 100 mls/hr ONETIME ONE Administration Iopamidol 100 ml 06/30/20 13:34 Isovue-370 (76%) IVPUSH 06/30/20 13:35 ONETIME ONE Departure - Departure Time of Disposition: 15:07 Disposition: Admitted As Inpatient 65 Condition: Poor Clinical Impression: Hypokalemia, Acute exacerbation of chronic obstructive pulmonary disease (COPD) - Discharge Information *PRESCRIPTION DRUG MONITORING PROGRAM REVIEWED*: Not Applicable *COPY OF PRESCRIPTION DRUG MONITORING REPORT IN PATIENT ALEJANDRA: Not Applicable Care Plan Goals: Discussed the patient's history, examination, lab, CT and treatments with Dr. Alberts. Dr. Alberts accepted the patient for continued evaluation and management as an inpatient at [facility]. Sepsis Event Note (ED) - Evaluation Sepsis Screening Result: No Definite Risk - Focused Exam Vital Signs: Vital Signs Temp Pulse Resp BP Pulse Ox 06/30/20 11:29 36.3 C 85 10 L 103/53 L 96 - My Orders Last 24 Hours: My Active Orders 06/30/20 11:20 EKG Documentation Completion [RC] STAT 06/30/20 11:37 CULTURE BLOOD [BC] Stat 06/30/20 13:05 CULTURE BLOOD [BC] Stat - Assessment/Plan Last 24 Hours: My Active Orders 06/30/20 11:20 EKG Documentation Completion [RC] STAT 06/30/20 11:37 CULTURE BLOOD [BC] Stat 06/30/20 13:05 CULTURE BLOOD [BC] Stat
[2020-06-30 12:20] LABS: ANION GAP 10.4 mEq/L (7-13); CHLORIDE,CL 90 mmol/L (98-107); SODIUM,NA 133 mmol/L (136-145)
[2020-06-30] MEDS ORDERED: Potassium Chloride 10 MEQ in Premix Bag 1 BAG IV ONE (12:35)
--- NOTE | 2020-06-30 12:51 | CR ---
EXAMINATION: Chest 2V SEX: Female AGE: 69 years CLINICAL HISTORY: 69-year-old female experiencing short of breath. INTERPRETATION: 1. Huge hiatus hernia incarcerated in the middle mediastinum as noted back on comparison exam 28 April 2020. 2. Prominent costochondral cartilage calcification first ribs and some chronic lingular/middle lobe scarring. 3. Normal cardiac silhouette without signs of pulmonary vascular congestion, cephalization of flow, alveolar edema or dependent new pleural fluid accumulation. 4. No new lung mass, hilar lymphadenopathy or focal lobar consolidation (infiltrate/atelectasis). 5. No new peripheral "groundglass" lung densities. 6. No pneumothorax or pneumomediastinum. Midline tracheobronchial airway unremarkable. CONCLUSION: No acute new cardiopulmonary abnormality. Large hiatus hernia.
[2020-06-30] MEDS ORDERED: cefTRIAXone 1 GM in Sodium Chloride 0.9% 50 ML IV ONE ×2 (13:06→14:30)
[2020-06-30] MEDS ORDERED: Iopamidol 755 Mg/ML 100 ML Bottle IVPUSH ONE ×2 (13:34→14:03)
--- NOTE | 2020-06-30 14:56 | CT ---
EXAMINATION: Chest w Cont SEX: Female AGE: 69 years CLINICAL HISTORY: 69-year-old hypertensive 157 pound diabetic female, nonsmoker, complaining of shortness of breath (SOB) and abnormally elevated serum D dimer (782). CT scan chest September, revealed "emphysematous lung disease; no pulmonary artery embolism; paraesophageal hernia." Scan technique: Volume acquisition of data from the chest (bony thorax, lungs and mediastinum) obtained during the intravenous administration of 60 cc nonionic Isovue 370 contrast at 4.6 cc/s via injector while patient was lying supine on the Siemens multislice scanner [place], [place]. All data archived in the PACS system for storage, reformatting axial/sagittal/coronal planes and study (lung/mediastinal windows). Interpretation: 1. Huge para esophageal hernia (most of the stomach in the lower middle mediastinum). 2. Peribronchial "cuffing", scattered lung cysts, and some RML/lingula atelectasis or fibrosis. 3. No new evidence of intraluminal filling defect or thrombus pulmonary artery circulation. No focal lobar oligemia, peripheral pleural-based wedge shaped infarcts ([place] sign), or pleural effusions. 4. No new lung mass or hilar/mediastinal lymphadenopathy. 5. No focal lobar consolidation (infiltrate), air bronchograms, or peripheral "groundglass" lung densities. 6. No pneumothorax or pneumomediastinum. Normal-appearing midline tracheal bronchial airway. CONCLUSION: No acute new cardiopulmonary abnormality (compared [address] chest). Large hiatus hernia. Emphysematous disease. Low probability pulmonary artery thrombosis/embolism.
[2020-06-30] MEDS ORDERED: Bisacodyl 5 MG Tab PO PRN (15:20)
[2020-06-30] MEDS ORDERED: Magnesium Hydroxide 400 MG/5 ML Susp 30 ML Cup PO PRN (15:20)
[2020-06-30] MEDS ORDERED: Docusate Sodium 100 MG Cap PO PRN (15:20)
--- NOTE | 2020-06-30 15:36 | PCM.HP ---
H&P History of Present Illness - General Date of Service: 06/30/20 Admit Problem/Dx: Admission Diagnosis/Problem Admission Diagnosis/Problem Hypokalemia Source of Information: Patient History Limitations: Reports: No Limitations - History of Present Illness Initial Comments - Free Text/Narative: Zach is 69-year-old female with past medical history significant for COPD/as thma, type 2 diabetes, hyperlipidemia, hypothyroidism, depression who presented to the ED for evaluation of increasing cough, shortness of breath and general feeling of unwell onset yesterday. Per patient she was okay until yesterday in the afternoon but started after she swallowed a pill. She was eventually able to expel the tablet. But following this she has been having increasing shortness of breath both at rest and with activity. This associated with cough productive of greenish sputum. She also has chest pain with cough. She denies fever, chills. No sick contact. No recent travel. She had all her tooth extracted 4 days ago and was not given antibiotics. She denies abdominal pain, nausea, vomiting. In the ED she was hypoxic requiring supplemental oxygen at 2 L. Labs signifi cant for WBC 19.1, hemoglobin 15, potassium 2.4, sodium 133, creatinine 1 1.66 at baseline, BNP 46, elevated D-dimer at 750. COVID-19 test was negative. CTA chest PE protocol was negative. Did not show any acute infiltrate. Chest x-ray was negative. She was started on IV antibiotics and admission requested for further management. Onset of Symptoms: Reports: Gradual Duration of Symptoms: Reports: Day(s): Location: Reports: Chest Quality: Reports: Ache Severity: Mild Improves with: Reports: None Worsens with: Reports: None Associated Symptoms: Reports: Cough, Loss of Appetite, Malaise, Shortness of Breath Generalized Pain Score (Numeric/FACES): 8 Headache Pain Score (Numeric/FACES): 6 - Related Data Allergies/Adverse Reactions: Allergies Allergy/AdvReac Type Severity Reaction Status Date / Time allopurinol Allergy Anxiety Verified 06/30/20 16:25 atorvastatin Allergy Cannot Verified 06/30/20 16:25 Remember levofloxacin [From Levaquin] Allergy Other Verified 06/30/20 16:25 Home Medications: Home Meds Benzonatate 100 mg PO TID PRN 05/14/19 [History] Citalopram Hydrobromide [Celexa] 30 mg PO BEDTIME 05/14/19 [History] Levothyroxine Sodium 88 mcg PO DAILY 05/14/19 [History] Nicotine Polacrilex [Nicotine Gum] 2 mg PO QID PRN 05/14/19 [History] Pantoprazole [ProTONIX] 40 mg PO Q24H 05/14/19 [History] Pravastatin [Pravachol] 10 mg PO BEDTIME 05/14/19 [History] Albuterol Sulfate [Proair Digihaler] 2 puff IH Q4H PRN 08/16/19 [History] Alendronate Sodium 70 mg PO WEEKLY 08/16/19 [History] buPROPion [Wellbutrin] 150 mg PO DAILY 08/16/19 [History] metOLazone [Metolazone] 2.5 mg PO Q48H 08/17/19 [History] Cannabidiol (Cbd) Extract [CBD Oil] 10 drop SL ASDIRECTED PRN 10/08/19 [History] Albuterol [Proventil Neb Soln] 3 ml NEB QID 10/09/19 [History] Albuterol/Ipratropium [Combivent Respimat] 1 puff IH QID 10/09/19 [History] Febuxostat [Uloric] 40 mg PO DAILY 10/09/19 [History] Magnesium Hydroxide [Milk of Magnesia] 30 ml PO DAILY PRN 10/09/19 [History] Melatonin 10 mg PO BEDTIME 10/09/19 [History] Pramipexole [Mirapex] 0.5 mg PO BEDTIME 10/09/19 [History] guaiFENesin [Guaifenesin] 400 mg PO BID PRN 10/09/19 [History] Furosemide [Lasix] 40 mg PO DAILY #30 tab 10/10/19 [Rx] Furosemide [Lasix] 80 mg PO DAILY #30 tab 10/10/19 [Rx] Insulin Glarg,Human.Rec.Analog [Lantus] 23 unit SUBCUT BEDTIME ml 10/10/19 [Rx] Potassium Chloride [K-Tab ER] 20 meq PO TID #90 tablet.er 10/10/19 [Rx] Insulin Lispro [HumaLOG] 13 unit SUBCUT TIDMEALS 06/20/20 [History] Past Medical History HEENT History: Reports: Cataract Other HEENT History: wear glasses Cardiovascular History: Reports: High Cholesterol, Hypertension Respiratory History: Reports: Asthma, COPD, Other (See Below) Other Respiratory History: emphysema, home oxygen et CPAP Gastrointestinal History: Reports: GERD Genitourinary History: Reports: Other (See Below) Other Genitourinary History: stress incont cough [employer] History: Reports: Musculoskeletal History: Reports: Arthritis, Back Pain, Chronic Other Musculoskeletal History: T12 compression fx Neurological History: Reports: None Psychiatric History: Reports: Depression Endocrine/Metabolic History: Reports: Diabetes, Type II, Obesity/BMI 30+ Hematologic History: Reports: None Immunologic History: Reports: None Oncologic (Cancer) History: Reports: None Dermatologic History: Reports: None - Infectious Disease History Infectious Disease History: Reports: None - Past Surgical History Head Surgeries/Procedures: Reports: None HEENT Surgical History: Reports: Cataract Surgery Other HEENT Surgeries/Procedures: bilat eyes Cardiovascular Surgical History: Reports: None GI Surgical History: Reports: Colonoscopy Female Surgical History: Reports: None Musculoskeletal Surgical History: Reports: Other (See Below) Other Musculoskeletal Surgeries/Procedures:: back surgery many years ago Social & Family History - Family History Family Medical History: No Pertinent Family History - Tobacco Use Tobacco Use Status *Q: Never Tobacco User Second Hand Smoke Exposure: No - Caffeine Use Caffeine Use: Reports: Soda - Recreational Drug Use Recreational Drug Use: No - Living Situation & Occupation Living situation: Reports: with Family Occupation: Retired H&P Review of Systems - Review of Systems: Review Of Systems: See Below General: Reports: Decreased Appetite HEENT: Reports: No Symptoms Pulmonary: Reports: Shortness of Breath, Cough Cardiovascular: Reports: No Symptoms Gastrointestinal: Reports: No Symptoms Genitourinary: Reports: No Symptoms Musculoskeletal: Reports: No Symptoms Skin: Reports: No Symptoms Psychiatric: Reports: No Symptoms Neurological: Reports: No Symptoms Hematologic/Lymphatic: Reports: No Symptoms Immunologic: Reports: No Symptoms Exam - Exam Exam: See Below - Vital Signs Vital Signs: Last Vital Signs Temp 97.4 F 06/30/20 11:29 Pulse 85 06/30/20 11:29 Resp 10 L 06/30/20 11:29 BP 103/53 L 06/30/20 11:29 Pulse Ox 96 06/30/20 11:29 Weight: 152 lb - Exam Quality Assessment: Supplemental Oxygen, DVT Prophylaxis General: Alert, Oriented, 4 HEENT: PERRLA, Hearing Intact, Mucosa Moist & Coker, Nares Patent, Normal Nasal Septum, Posterior Pharynx Clear, Conjunctiva Clear, EOMI, EACs Clear, TMs Clear Neck: Supple, Trachea Midline, 2 Lungs: Clear to Auscultation, Normal Respiratory Effort Cardiovascular: Regular Rate, Regular Rhythm GI/Abdominal Exam: Normal Bowel Sounds, Soft, Non-Tender, No Organomegaly, No Distention, No Abnormal Bruit, No Mass, Pelvis Stable (Female) Exam: Normal External Exam, Normal Speculum Exam, Normal Bimanual Ex am Rectal (Female) Exam: Normal Exam, Normal Rectal Tone Back Exam: Normal Inspection, Full Range of Motion, NT Extremities: Normal Inspection, Normal Range of Motion, Non-Tender, No Pedal Edema, Normal Capillary Refill Skin: Warm, Dry, Intact Neurological: Cranial Nerves Intact, Reflexes Equal Bilateral Neuro Extensive - Mental Status: Alert, Oriented x3, Normal Mood/Affect, Normal Cognition Neuro Extensive - Motor, Sensory, Reflexes: CN II-XII Intact, Normal Gait, Normal Reflexes Psychiatric: Alert, Normal Affect, Normal Mood - Patient Data Lab Results Last 24 hrs: Laboratory Results - last 24 hr 06/30/20 06/30/20 06/30/20 Range/Units 11:30 11:37 11:37 WBC 19.1 H (5.0-10.0) 10^3/uL RBC 4.64 (4.2-5.4) 10^6/uL Hgb 14.8 D (12.0-16.0) g/dL Hct 42.2 (37.0-47.0) % MCV 90.9 D (80-100) fL MCH 31.9 (27.0-34.0) pg MCHC 35.1 H (33.0-35.0) g/dL Plt Count 277 (150-450) 10^3/uL Neut % (Auto) 85.3 H (42.2-75.2) % Lymph % (Auto) 6.3 L (20.5-50.1) % [place] % (Auto) 7.7 (2-8) % Eos % (Auto) 0.3 L (1.0-3.0) % Baso % (Auto) 0.4 (0.0-1.0) % Add Manual Diff Yes Neutrophils % (Manual) 88 H (42-75) % Lymphocytes % (Manual) 7 L (20-50) % Monocytes % (Manual) 5 (2-8) % D-Dimer, Quantitative 782 H (0-400) ng/mL Sodium (136-145) mmol/L Potassium (3.5-5.1) mmol/L Chloride (98-107) mmol/L Carbon Dioxide (21-32) mmol/L Anion Gap (7-13) mEq/L BUN (7-18) mg/dL Creatinine (0.55-1.02) mg/dL Est Cr Clr Drug Dosing mL/min Estimated GFR (MDRD) BUN/Creatinine Ratio (No establ ref range) Glucose (74-99) mg/dL Lactic Acid (0.4-2.0) mmol/L Calcium (8.5-10.1) mg/dL Total Bilirubin (0.2-1.0) mg/dL AST (15-37) U/L ALT (14-59) U/L Alkaline Phosphatase (46-116) U/L Troponin I (0.000-0.056) ng/mL C-Reactive Protein (0.0-0.9) mg/dL B-Natriuretic Peptide (0-100) pg/ml Total Protein (6.4-8.2) g/dL Albumin (3.4-5.0) g/dL Globulin Albumin/Globulin Ratio SARS CoV-2 RNA Rapid BASSAM Negative (NEGATIVE) 06/30/20 06/30/20 Range/Units 11:37 11:37 WBC (5.0-10.0) 10^3/uL RBC (4.2-5.4) 10^6/uL Hgb (12.0-16.0) g/dL Hct (37.0-47.0) % MCV (80-100) fL MCH (27.0-34.0) pg MCHC (33.0-35.0) g/dL Plt Count (150-450) 10^3/uL Neut % (Auto) (42.2-75.2) % Lymph % (Auto) (20.5-50.1) % [place] % (Auto) (2-8) % Eos % (Auto) (1.0-3.0) % Baso % (Auto) (0.0-1.0) % Add Manual Diff Neutrophils % (Manual) (42-75) % Lymphocytes % (Manual) (20-50) % Monocytes % (Manual) (2-8) % D-Dimer, Quantitative (0-400) ng/mL Sodium 133 L (136-145) mmol/L Potassium 2.4 L* (3.5-5.1) mmol/L Chloride 90 L (98-107) mmol/L Carbon Dioxide 35 H (21-32) mmol/L Anion Gap 10.4 (7-13) mEq/L BUN 55 H (7-18) mg/dL Creatinine 1.66 H (0.55-1.02) mg/dL Est Cr Clr Drug Dosing 22.65 mL/min Estimated GFR (MDRD) 31 BUN/Creatinine Ratio 33.1 (No establ ref range) Glucose 197 H (74-99) mg/dL Lactic Acid 1.2 (0.4-2.0) mmol/L Calcium 9.1 (8.5-10.1) mg/dL Total Bilirubin 0.7 (0.2-1.0) mg/dL AST 27 (15-37) U/L ALT 26 (14-59) U/L Alkaline Phosphatase 77 (46-116) U/L Troponin I < 0.017 (0.000-0.056) ng/mL C-Reactive Protein 7.1 H (0.0-0.9) mg/dL B-Natriuretic Peptide 46 (0-100) pg/ml Total Protein 7.5 (6.4-8.2) g/dL Albumin 3.7 (3.4-5.0) g/dL Globulin 3.8 Albumin/Globulin Ratio 1.0 SARS CoV-2 RNA Rapid BASSAM (NEGATIVE) Result Diagrams: 07/01/20 06:22 07/01/20 06:22 - Problem List (1) Hyponatremia SNOMED Code(s): 60792892 ICD Code: E87.1 - HYPO-OSMOLALITY AND HYPONATREMIA Status: Acute Current Visit: Yes (2) Hypo-osmolality and hyponatremia SNOMED Code(s): 273368498 ICD Code: E87.1 - HYPO-OSMOLALITY AND HYPONATREMIA Status: Acute Current Visit: Yes (3) SIRS (systemic inflammatory response syndrome) SNOMED Code(s): 935704233 ICD Code: R65.10 - SIRS OF NON-INFECTIOUS ORIGIN W/O ACUTE ORGAN DYSFUNCTION Status: Acute Current Visit: Yes Problem List Initiated/Reviewed/Updated: Yes Orders Last 24hrs: Active Orders 24 hr Category Date Time Status Admission Diagnosis [ADT] Urgent ADT 06/30/20 15:04 Ordered Patient Status [ADT] Routine ADT 06/30/20 15:04 Active Ambulate [RC] ASDIRECTED Care 06/30/20 15:20 Active Cardiac Monitoring [RC] CONTINUOUS Care 06/30/20 15:21 Active EKG Documentation Completion [RC] STAT Care 06/30/20 11:20 Active Intake and Output [RC] QSHIFT Care 06/30/20 15:21 Active Notify Provider Vital Signs [RC] ASDIRECTED Care 06/30/20 15:21 Active Oxygen Therapy [RC] PRN Care 06/30/20 15:21 Active VTE/DVT Education [RC] PER UNIT ROUTINE Care 06/30/20 15:21 Active Vital Signs [RC] Q4H Care 06/30/20 15:21 Active PT Evaluation and Treatment [CONS] Routine Cons 06/30/20 15:20 Active Respiratory Care Assess and Treatment [CONS] Routine Cons 06/30/20 15:20 Active BASIC METABOLIC PANEL,BMP [CHEM] DAILY Lab 07/01/20 07:00 Ordered BASIC METABOLIC PANEL,BMP [CHEM] DAILY Lab 07/02/20 07:00 Ordered BASIC METABOLIC PANEL,BMP [CHEM] DAILY Lab 07/03/20 07:00 Ordered BASIC METABOLIC PANEL,BMP [CHEM] DAILY Lab 07/04/20 07:00 Ordered CBC W/O DIFF,HEMOGRAM [HEME] DAILY Lab 07/01/20 07:00 Ordered CBC W/O DIFF,HEMOGRAM [HEME] DAILY Lab 07/02/20 07:00 Ordered CBC W/O DIFF,HEMOGRAM [HEME] DAILY Lab 07/03/20 07:00 Ordered CBC W/O DIFF,HEMOGRAM [HEME] DAILY Lab 07/04/20 07:00 Ordered CULTURE BLOOD [BC] Stat Lab 06/30/20 11:37 Received CULTURE BLOOD [BC] Stat Lab 06/30/20 13:05 Received CULTURE SPUTUM + SMEAR [RM] Routine Lab 06/30/20 15:26 Ordered CULTURE URINE [RM] Stat Lab 06/30/20 15:20 Ordered GRAM STAIN [RM] Routine Lab 06/30/20 15:20 Ordered MAGNESIUM [CHEM] Routine Lab 06/30/20 15:20 Ordered PHOSPHORUS [CHEM] Routine Lab 06/30/20 15:20 Ordered Azithromycin [Zithromax] 500 mg Med 07/01/20 15:30 Ordered Sodium Chloride 0.9% [Normal Saline (AdvBag)] 250 ml IV Q24H Docusate Sodium [Colace] Med 06/30/20 15:20 Ordered 100 mg PO BID PRN Heparin Sodium Med 06/30/20 21:00 Ordered 5,000 units SUBCUT Q12HR Magnesium Hydroxide [Milk of Magnesia] Med 06/30/20 15:20 Ordered 30 ml PO Q12H PRN bisacodyL [Dulcolax] Med 06/30/20 15:20 Ordered 5 mg PO DAILY PRN cefTRIAXone [Rocephin] 1 gm Med 06/30/20 15:30 Ordered Sodium Chloride 0.9% [Normal Saline] 50 ml IV Q24H Blood Culture x2 Reflex Set [OM.PC] Stat Oth 06/30/20 15:20 Ordered Resuscitation Status Routine Resus Stat 06/30/20 15:20 Ordered Medication Orders Bisacodyl (Dulcolax) 5 mg PO DAILY PRN PRN Reason: Constipation Docusate Sodium (Colace) 100 mg PO BID PRN PRN Reason: Constipation Heparin Sodium (Porcine) (Heparin Sodium) 5,000 units SUBCUT Q12HR TASHI Ceftriaxone Sodium 1 gm/ (Sodium Chloride) 50 mls @ 100 mls/hr IV Q24H TASHI Azithromycin 500 mg/ Sodium (Chloride) 250 mls @ 250 mls/hr IV Q24H TASHI Magnesium Hydroxide (Milk Of Magnesia) 30 ml PO Q12H PRN PRN Reason: Constipation Assessment/Plan Comment:: #Acute on chronic respiratory failure #Probable COPD exacerbation #Probable pneumonia Patient brought to the ED for evaluation of increasing shortness of breath COVID-19 test was negative CTA chest was negative for PE. Was negative for infiltrate WBC elevated at 19 She received ceftriaxone azithromycin in the ED Admit to medical floor Continue supplemental oxygen and wean off as able Procalcitonin Continue ceftriaxone and azithromycin for now DuoNebs every 4 hourly Continue remainder of home breathing treatment Solu-Medrol 40 mg every 8 hourly #Leukocytosis likely due to pneumonia Continue antibiotics Follow-up on CBC #Systemic inflammatory response syndrome Follow-up #Severe hypokalemia Replace IV Recheck potassium level #Hyponatremia This is mild Follow-up #Hyperlipidemia Continue statin #Hypothyroidism Patient on Synthroid. Continue
[2020-06-30] MEDS: methylPREDNISolone Sodium Succinate 40 MG/1 ML SDV IVPUSH SCH (16:33)
[2020-06-30] MEDS ORDERED: Azithromycin 500 MG in Sodium Chloride 0.9% 250 ML IV ONE (17:00)
[2020-06-30] MEDS: Potassium Chloride 10 MEQ in Premix Bag 1 BAG IV SCH ×5 (18:05→23:41)
[2020-06-30] MEDS ORDERED: GUAIFENESIN 200 MG PO PRN (18:56)
[2020-06-30] MEDS ORDERED: 50% Dextrose in Water 50 ML Syringe IV PRN (18:56)
[2020-06-30] MEDS ORDERED: NICOTINE POLACRILEX 2 MG PO PRN (18:56)
[2020-06-30] MEDS ORDERED: Glucagon,Human Recombinant 1 MG Vial IM PRN (18:56)
[2020-06-30] MEDS ORDERED: ALBUTEROL SULFATE INH PRN (18:56)
[2020-06-30] MEDS: traMADol 50 MG Tab PO PRN (20:25)
[2020-06-30] MEDS: Pantoprazole 40 MG Tab.CR PO SCH (20:32)
[2020-06-30] MEDS: Benzonatate 100 MG Cap PO PRN (20:35)
[2020-06-30] MEDS ORDERED: Albuterol 0.083% 2.5 MG/3 ML Neb Soln NEB SCH (21:00)
[2020-06-30] MEDS ORDERED: Insulin Glarg,Human.Rec.Analog 100 Unit/ML SUBCUT SCH (21:00)
[2020-06-30] MEDS: Albuterol/Ipratropium 3.0-0.5 MG/3 ML Neb Soln INH SCH ×2 (21:08→22:00)
[2020-06-30] MEDS: Pravastatin 20 MG Tab PO SCH (21:08)
[2020-06-30] MEDS: CITALOPRAM 20 MG PO SCH ×4 (21:16→23:58)
[2020-06-30] MEDS: Potassium Chloride 10 MEQ Tab.ER ** OWN MED PO SCH (21:24)
[2020-06-30] MEDS: PRAMIPEXOLE 1 MG PO SCH (21:27)
[2020-06-30] MEDS: Nicotine 14 MG/24 Hr Patch TRDERM SCH (21:29)
[2020-06-30] MEDS: Heparin Sodium 5,000 Units/ML Vial SUBCUT SCH (21:55)
[2020-06-30] MEDS: MELATONIN 10 MG PO SCH ×4 (23:47→23:59)
[2020-07-01] MEDS: Sodium Chloride 0.9% 10 ML Syringe FLUSH PRN ×2 (00:17→00:23)
[2020-07-01] MEDS: methylPREDNISolone Sodium Succinate 40 MG/1 ML SDV IVPUSH SCH ×4 (00:17→23:34)
[2020-07-01] MEDS: Potassium Chloride 10 MEQ in Premix Bag 1 BAG IV SCH ×2 (02:46→06:10)
[2020-07-01 07:02] LABS: ANION GAP 10.8 mEq/L (7-13)
[2020-07-01] MEDS ORDERED: Potassium Chloride 10 MEQ Tab.ER PO ONE ×3 (08:00→20:00)
[2020-07-01] MEDS ORDERED: buPROPion 150 MG Tab.ER PO ONE (08:00)
[2020-07-01] MEDS: Albuterol/Ipratropium 3.0-0.5 MG/3 ML Neb Soln INH SCH ×5 (08:32→23:33)
[2020-07-01] MEDS: Metolazone 2.5 MG Tab PO SCH (08:49)
[2020-07-01] MEDS: Potassium Chloride 10 MEQ Tab.ER ** OWN MED PO SCH ×3 (08:49→21:11)
[2020-07-01] MEDS: BUPROPION 150 MG PO SCH (08:49)
[2020-07-01] MEDS: Nicotine 14 MG/24 Hr Patch TRDERM SCH (08:50)
[2020-07-01] MEDS: Heparin Sodium 5,000 Units/ML Vial SUBCUT SCH ×2 (08:55→21:11)
[2020-07-01] MEDS: FEBUXOSTAT 40 MG PO SCH (08:56)
[2020-07-01] MEDS: Levothyroxine 88 MCG Tab PO SCH (09:01)
[2020-07-01] MEDS: Insulin Lispro 100 Units/ML 3 ML Vial SUBCUT SCH ×2 (09:02→12:40)
[2020-07-01] MEDS: Furosemide 80 MG Tab PO SCH (10:40)
[2020-07-01] MEDS: Benzonatate 100 MG Cap PO PRN ×2 (10:40→16:36)
[2020-07-01] MEDS: traMADol 50 MG Tab PO PRN ×2 (10:40→21:12)
[2020-07-01] MEDS: Potassium Chloride 10 MEQ, Lidocaine 1% 1 ML in Premix Bag 1 BAG IV SCH ×6 (10:42→22:20)
--- NOTE | 2020-07-01 10:50 | PCM.PN ---
- General Info Date of Service: 07/01/20 Admission Dx/Problem (Free Text): Admission Diagnosis/Problem Admission Diagnosis/Problem Hypokalemia, acute on chronic respiratory failure Subjective Update: Holliser is 69-year-old female with past medical history significant for COPD/asthma on home oxygen 2 L, type 2 diabetes, hyperlipidemia, hypothyroidism, depression who presented to the ED for evaluation of increasing cough, shortness of breath and general feeling of unwell onset 1 day. She was admitted for possible pneumonia and COPD exacerbation. Patient was also severely hypokalemic on admit. CTA chest PE protocol was negative. Did not show any acute infilt rate. Chest x-ray was negative. She was started on antibiotics and Solu- Medrol. Potassium was replaced IV. Today patient is doing okay. She reports feeling a lot better. Shortness of breath has improved. She denies any new symptoms or new complaint of headache this morning. She remained afebrile overnight. No abdominal pain, nausea, vomiting. Labs reviewed this morning. WBC trended down to 11. Potassium 2.9. Functional Status: Reports: Pain Controlled - Review of Systems General: Reports: No Symptoms HEENT: Reports: No Symptoms Pulmonary: Reports: No Symptoms Cardiovascular: Reports: No Symptoms Gastrointestinal: Reports: No Symptoms Genitourinary: Reports: No Symptoms Musculoskeletal: Reports: No Symptoms Skin: Reports: No Symptoms Neurological: Reports: No Symptoms Psychiatric: Reports: No Symptoms - Patient Data Vitals - Most Recent: Last Vital Signs Temp 96.9 F 07/01/20 05:45 Pulse 69 07/01/20 09:00 Resp 20 07/01/20 05:45 BP 94/47 L 07/01/20 05:45 Pulse Ox 93 L 07/01/20 05:45 Weight - Most Recent: 158 lb 3.2 oz I&O - Last 24 Hours: Intake & Output 06/30/20 07/01/20 07/01/20 22:59 06:59 14:59 Intake Total 612 312 Output Total 300 Balance 312 312 Lab Results Last 24 Hours: Laboratory Results - last 24 hr 06/30/20 06/30/20 06/30/20 Range/Units 11:30 11:37 11:37 WBC 19.1 H (5.0-10.0) 10^3/uL RBC 4.64 (4.2-5.4) 10^6/uL Hgb 14.8 D (12.0-16.0) g/dL Hct 42.2 (37.0-47.0) % MCV 90.9 D (80-100) fL MCH 31.9 (27.0-34.0) pg MCHC 35.1 H (33.0-35.0) g/dL Plt Count 277 (150-450) 10^3/uL Neut % (Auto) 85.3 H (42.2-75.2) % Lymph % (Auto) 6.3 L (20.5-50.1) % [place] % (Auto) 7.7 (2-8) % Eos % (Auto) 0.3 L (1.0-3.0) % Baso % (Auto) 0.4 (0.0-1.0) % Add Manual Diff Yes Neutrophils % (Manual) 88 H (42-75) % Lymphocytes % (Manual) 7 L (20-50) % Monocytes % (Manual) 5 (2-8) % D-Dimer, Quantitative 782 H (0-400) ng/mL Sodium (136-145) mmol/L Potassium (3.5-5.1) mmol/L Chloride (98-107) mmol/L Carbon Dioxide (21-32) mmol/L Anion Gap (7-13) mEq/L BUN (7-18) mg/dL Creatinine (0.55-1.02) mg/dL Est Cr Clr Drug Dosing mL/min Estimated GFR (MDRD) BUN/Creatinine Ratio (No establ ref range) Glucose (74-99) mg/dL POC Glucose (83-110) mg/dl Lactic Acid (0.4-2.0) mmol/L Calcium (8.5-10.1) mg/dL Phosphorus (2.6-4.7) mg/dL Magnesium (1.8-2.4) mg/dL Total Bilirubin (0.2-1.0) mg/dL AST (15-37) U/L ALT (14-59) U/L Alkaline Phosphatase (46-116) U/L Troponin I (0.000-0.056) ng/mL C-Reactive Protein (0.0-0.9) mg/dL B-Natriuretic Peptide (0-100) pg/ml Total Protein (6.4-8.2) g/dL Albumin (3.4-5.0) g/dL Globulin Albumin/Globulin Ratio SARS CoV-2 RNA Rapid BASSAM Negative (NEGATIVE) 06/30/20 06/30/20 06/30/20 Range/Units 11:37 11:37 11:43 WBC (5.0-10.0) 10^3/uL RBC (4.2-5.4) 10^6/uL Hgb (12.0-16.0) g/dL Hct (37.0-47.0) % MCV (80-100) fL MCH (27.0-34.0) pg MCHC (33.0-35.0) g/dL Plt Count (150-450) 10^3/uL Neut % (Auto) (42.2-75.2) % Lymph % (Auto) (20.5-50.1) % [place] % (Auto) (2-8) % Eos % (Auto) (1.0-3.0) % Baso % (Auto) (0.0-1.0) % Add Manual Diff Neutrophils % (Manual) (42-75) % Lymphocytes % (Manual) (20-50) % Monocytes % (Manual) (2-8) % D-Dimer, Quantitative (0-400) ng/mL Sodium 133 L (136-145) mmol/L Potassium 2.4 L* (3.5-5.1) mmol/L Chloride 90 L (98-107) mmol/L Carbon Dioxide 35 H (21-32) mmol/L Anion Gap 10.4 (7-13) mEq/L BUN 55 H (7-18) mg/dL Creatinine 1.66 H (0.55-1.02) mg/dL Est Cr Clr Drug Dosing 22.65 mL/min Estimated GFR (MDRD) 31 BUN/Creatinine Ratio 33.1 (No establ ref range) Glucose 197 H (74-99) mg/dL POC Glucose (83-110) mg/dl Lactic Acid 1.2 (0.4-2.0) mmol/L Calcium 9.1 (8.5-10.1) mg/dL Phosphorus 4.1 (2.6-4.7) mg/dL Magnesium 2.4 (1.8-2.4) mg/dL Total Bilirubin 0.7 (0.2-1.0) mg/dL AST 27 (15-37) U/L ALT 26 (14-59) U/L Alkaline Phosphatase 77 (46-116) U/L Troponin I < 0.017 (0.000-0.056) ng/mL C-Reactive Protein 7.1 H (0.0-0.9) mg/dL B-Natriuretic Peptide 46 (0-100) pg/ml Total Protein 7.5 (6.4-8.2) g/dL Albumin 3.7 (3.4-5.0) g/dL Globulin 3.8 Albumin/Globulin Ratio 1.0 SARS CoV-2 RNA Rapid BASSAM (NEGATIVE) 06/30/20 06/30/20 07/01/20 Range/Units 17:10 21:32 06:22 WBC 11.3 H (5.0-10.0) 10^3/uL RBC 4.25 (4.2-5.4) 10^6/uL Hgb 13.5 (12.0-16.0) g/dL Hct 39.2 (37.0-47.0) % MCV 92.2 (80-100) fL MCH 31.8 (27.0-34.0) pg MCHC 34.4 (33.0-35.0) g/dL Plt Count 255 (150-450) 10^3/uL Neut % (Auto) (42.2-75.2) % Lymph % (Auto) (20.5-50.1) % [place] % (Auto) (2-8) % Eos % (Auto) (1.0-3.0) % Baso % (Auto) (0.0-1.0) % Add Manual Diff Neutrophils % (Manual) (42-75) % Lymphocytes % (Manual) (20-50) % Monocytes % (Manual) (2-8) % D-Dimer, Quantitative (0-400) ng/mL Sodium (136-145) mmol/L Potassium (3.5-5.1) mmol/L Chloride (98-107) mmol/L Carbon Dioxide (21-32) mmol/L Anion Gap (7-13) mEq/L BUN (7-18) mg/dL Creatinine (0.55-1.02) mg/dL Est Cr Clr Drug Dosing mL/min Estimated GFR (MDRD) BUN/Creatinine Ratio (No establ ref range) Glucose (74-99) mg/dL POC Glucose 176 H 253 H (83-110) mg/dl Lactic Acid (0.4-2.0) mmol/L Calcium (8.5-10.1) mg/dL Phosphorus (2.6-4.7) mg/dL Magnesium (1.8-2.4) mg/dL Total Bilirubin (0.2-1.0) mg/dL AST (15-37) U/L ALT (14-59) U/L Alkaline Phosphatase (46-116) U/L Troponin I (0.000-0.056) ng/mL C-Reactive Protein (0.0-0.9) mg/dL B-Natriuretic Peptide (0-100) pg/ml Total Protein (6.4-8.2) g/dL Albumin (3.4-5.0) g/dL Globulin Albumin/Globulin Ratio SARS CoV-2 RNA Rapid BASSAM (NEGATIVE) 07/01/20 07/01/20 Range/Units 06:22 08:36 WBC (5.0-10.0) 10^3/uL RBC (4.2-5.4) 10^6/uL Hgb (12.0-16.0) g/dL Hct (37.0-47.0) % MCV (80-100) fL MCH (27.0-34.0) pg MCHC (33.0-35.0) g/dL Plt Count (150-450) 10^3/uL Neut % (Auto) (42.2-75.2) % Lymph % (Auto) (20.5-50.1) % [place] % (Auto) (2-8) % Eos % (Auto) (1.0-3.0) % Baso % (Auto) (0.0-1.0) % Add Manual Diff Neutrophils % (Manual) (42-75) % Lymphocytes % (Manual) (20-50) % Monocytes % (Manual) (2-8) % D-Dimer, Quantitative (0-400) ng/mL Sodium 133 L (136-145) mmol/L Potassium 2.8 L (3.5-5.1) mmol/L Chloride 94 L (98-107) mmol/L Carbon Dioxide 31 (21-32) mmol/L Anion Gap 10.8 (7-13) mEq/L BUN 44 H (7-18) mg/dL Creatinine 1.57 H (0.55-1.02) mg/dL Est Cr Clr Drug Dosing 23.95 mL/min Estimated GFR (MDRD) 33 BUN/Creatinine Ratio (No establ ref range) Glucose 267 H (74-99) mg/dL POC Glucose 275 H (83-110) mg/dl Lactic Acid (0.4-2.0) mmol/L Calcium 8.3 L (8.5-10.1) mg/dL Phosphorus (2.6-4.7) mg/dL Magnesium (1.8-2.4) mg/dL Total Bilirubin (0.2-1.0) mg/dL AST (15-37) U/L ALT (14-59) U/L Alkaline Phosphatase (46-116) U/L Troponin I (0.000-0.056) ng/mL C-Reactive Protein (0.0-0.9) mg/dL B-Natriuretic Peptide (0-100) pg/ml Total Protein (6.4-8.2) g/dL Albumin (3.4-5.0) g/dL Globulin Albumin/Globulin Ratio SARS CoV-2 RNA Rapid BASSAM (NEGATIVE) Med Orders - Current: Current Medications Albuterol/Ipratropium (Duoneb 3.0-0.5 Mg/3 Ml) 3 ml INH QID [facility] Last Admin: 07/01/20 08:32 Dose: 3 ml Documented by: Benzonatate (Tessalon Perles) 100 mg PO TID PRN PRN Reason: Cough Last Admin: 06/30/20 20:35 Dose: 100 mg Documented by: Bisacodyl (Dulcolax) 5 mg PO DAILY PRN PRN Reason: Constipation Bupropion HCl (Wellbutrin Xl) 150 mg PO DAILY [facility] Last Admin: 07/01/20 08:49 Dose: 150 mg Documented by: Citalopram Hydrobromide (Celexa) 30 mg PO BEDTIME@0000 [facility] Last Admin: 06/30/20 23:58 Dose: 30 mg Documented by: Dextrose/Water (Dextrose 50% In Water) 50 ml IV ASDIRECTED PRN PRN Reason: Hypoglycemia Docusate Sodium (Colace) 100 mg PO BID PRN PRN Reason: Constipation Furosemide (Lasix) 40 mg PO DAILY@1400 [facility] Furosemide (Lasix) 80 mg PO DAILY [facility] Glucagon (Glucagen) 1 mg IM ASDIRECTED PRN PRN Reason: Hypoglycemia Heparin Sodium (Porcine) (Heparin Sodium) 5,000 units SUBCUT Q12HR [facility] Last Admin: 07/01/20 08:55 Dose: 5,000 units Documented by: Ceftriaxone Sodium 1 gm/ (Sodium Chloride) 50 mls @ 100 mls/hr IV Q24H [facility] Azithromycin 500 mg/ Sodium (Chloride) 250 mls @ 250 mls/hr IV Q24H [facility] Potassium Chloride 10 meq/ (Lidocaine HCl 1 ml/ Premix) 101 mls @ 101 mls/hr IV Q2H [facility] Stop: 07/01/20 21:29 Insulin Glargine (Lantus) 23 unit SUBCUT BEDTIME [facility] Last Admin: 06/30/20 21:45 Dose: 23 units Documented by: Insulin Human Lispro (Humalog) 13 unit SUBCUT TIDMEALS [facility] Last Admin: 07/01/20 09:02 Dose: 13 units Documented by: Levothyroxine Sodium (Synthroid) 88 mcg PO DAILY [facility] Last Admin: 07/01/20 09:01 Dose: 88 mcg Documented by: Magnesium Hydroxide (Milk Of Magnesia) 30 ml PO Q12H PRN PRN Reason: Constipation Methylprednisolone Sodium Succinate (Solu-Medrol) 40 mg IVPUSH Q8H [facility] Last Admin: 07/01/20 08:44 Dose: 40 mg Documented by: Metolazone (Zaroxolyn) 2.5 mg PO Q48H [facility] Last Admin: 07/01/20 08:49 Dose: 2.5 mg Documented by: Nicotine (Habitrol) 14 mg TRDERM DAILY [facility] Last Admin: 07/01/20 08:50 Dose: Not Given Documented by: Febuxostat [Uloric] (40mg Own Med ) 40 mg PO DAILY [facility] Last Admin: 07/01/20 08:56 Dose: 40 mg Documented by: Guaifenesin [ Guaifenesin] 200mg * * Own Med 400 mg PO BID PRN PRN Reason: Congestion Pramipexole [Mirapex (] 1mg Own Med ) 0.5 mg PO BEDTIME [facility] Last Admin: 06/30/20 21:27 Dose: 0.5 mg Documented by: Melatonin [Melatonin (] 10mg Own Med ) 10 mg PO BEDTIME@0000 [facility] Last Admin: 06/30/20 23:58 Dose: 10 mg Documented by: Pantoprazole Sodium (Protonix) 40 mg PO Q24H [facility] Last Admin: 06/30/20 20:32 Dose: 40 mg Documented by: Potassium Chloride (Klor-Con 10) 20 meq PO TID [facility] Last Admin: 07/01/20 08:49 Dose: 20 meq Documented by: Pravastatin Sodium (Pravachol) 10 mg PO BEDTIME [facility] Last Admin: 06/30/20 21:08 Dose: 10 mg Documented by: Sodium Chloride (Saline Flush) 10 ml FLUSH ASDIRECTED PRN PRN Reason: Keep Vein Open Last Admin: 07/01/20 00:23 Dose: 10 ml Documented by: Tramadol HCl (Ultram) 50 mg PO Q8H PRN PRN Reason: Pain Last Admin: 06/30/20 20:25 Dose: 50 mg Documented by: Discontinued Medications Albuterol (Proventil Neb Soln) 2.5 mg NEB QID [facility] Last Admin: 06/30/20 23:45 Dose: Not Given Documented by: Citalopram Hydrobromide (Celexa) 30 mg PO BEDTIME [facility] Last Admin: 06/30/20 23:52 Dose: Not Given Documented by: Potassium Chloride 10 meq/ (Premix) 100 mls @ 100 mls/hr IV ONETIME ONE Stop: 06/30/20 13:34 Last Admin: 06/30/20 12:49 Dose: 100 mls/hr Documented by: Ceftriaxone Sodium 1 gm/ (Sodium Chloride) 50 mls @ 100 mls/hr IV ONETIME ONE Stop: 06/30/20 13:35 Last Admin: 06/30/20 14:27 Dose: Not Given Documented by: Ceftriaxone Sodium 1 gm/ (Sodium Chloride) 50 mls @ 100 mls/hr IV ONETIME ONE Stop: 06/30/20 14:59 Last Admin: 06/30/20 14:45 Dose: 100 mls/hr Documented by: Potassium Chloride 10 meq/ (Premix) 100 mls @ 100 mls/hr IV Q2H [facility] Stop: 07/01/20 00:59 Last Admin: 06/30/20 19:57 Dose: Not Given Documented by: Azithromycin 500 mg/ Sodium (Chloride) 250 mls @ 250 mls/hr IV ONETIME ONE Stop: 06/30/20 17:59 Last Infusion: 06/30/20 18:04 Dose: Infused Documented by: Potassium Chloride 10 meq/ (Premix) 100 mls @ 100 mls/hr IV Q3H [facility] Stop: 07/01/20 04:29 Last Admin: 07/01/20 06:10 Dose: 100 mls/hr Documented by: Iopamidol (Isovue-370 (76%)) 100 ml IVPUSH ONETIME ONE Stop: 06/30/20 13:35 Melatonin [Melatonin (] 10mg Own Med ) 10 mg PO BEDTIME [facility] Last Admin: 06/30/20 23:53 Dose: Not Given Documented by: Non-Formulary Medication (Albuterol Sulfate [Proair Digihaler]) 2 puff INH Q4H PRN PRN Reason: Wheezing Nicotine Polacrilex (2mg) 2 mg PO QID PRN PRN Reason: nicotine cravings Potassium Chloride (Klor-Con 10) 40 meq PO BID [facility] - Exam Quality Assessment: Supplemental Oxygen, DVT Prophylaxis General: Alert, Oriented HEENT: Pupils Equal, Pupils Reactive, EOMI, Mucous Membr. Moist/[place] Neck: Supple Lungs: Clear to Auscultation, Normal Respiratory Effort Cardiovascular: Regular Rate, Regular Rhythm GI/Abdominal Exam: Normal Bowel Sounds, Soft, Non-Tender, No Organomegaly, No Distention, No Abnormal Bruit, No Mass, Pelvis Stable (Female) Exam: Normal External Exam, Normal Speculum Exam, Normal Bimanual Ex am Back Exam: Normal Inspection, Full Range of Motion Extremities: Normal Inspection, Normal Range of Motion, Non-Tender, No Pedal Edema, Normal Capillary Refill Skin: Warm, Dry, Intact Wound/Incisions: Healing Well Neurological: No New Focal Deficit Psy/Mental Status: Alert, Normal Affect, Normal Mood Sepsis Event Note - Evaluation Sepsis Screening Result: No Definite Risk - Focused Exam Vital Signs: Vital Signs Temp Pulse Resp BP Pulse Ox 07/01/20 09:00 69 07/01/20 05:45 96.9 F 65 20 94/47 L 93 L 07/01/20 00:10 98.2 F 77 20 109/48 L 93 L - Problem List & Annotations (1) Hyponatremia SNOMED Code(s): 25676334 Code(s): E87.1 - HYPO-OSMOLALITY AND HYPONATREMIA Status: Acute Current Visit: Yes (2) Hypo-osmolality and hyponatremia SNOMED Code(s): 027763736 Code(s): E87.1 - HYPO-OSMOLALITY AND HYPONATREMIA Status: Acute Current Visit: Yes (3) SIRS (systemic inflammatory response syndrome) SNOMED Code(s): 058395741 Code(s): R65.10 - SIRS OF NON-INFECTIOUS ORIGIN W/O ACUTE ORGAN DYSFUNCTION Status: Acute Current Visit: Yes - Problem List Review Problem List Initiated/Reviewed/Updated: Yes - My Orders Last 24 Hours: My Active Orders 06/30/20 15:20 Ambulate [RC] ASDIRECTED PT Evaluation and Treatment [CONS] Routine Respiratory Care Assess and Treatment [CONS] Routine GRAM STAIN [RM] Routine Docusate Sodium [Colace] 100 mg PO BID PRN Magnesium Hydroxide [Milk of Magnesia] 30 ml PO Q12H PRN bisacodyL [Dulcolax] 5 mg PO DAILY PRN Blood Culture x2 Reflex Set [OM.PC] Stat Resuscitation Status Routine 06/30/20 15:21 Cardiac Monitoring [RC] 08,20 Intake and Output [RC] QSHIFT Notify Provider Vital Signs [RC] ASDIRECTED Oxygen Therapy [RC] .PRN VTE/DVT Education [RC] PER UNIT ROUTINE Vital Signs [RC] Q4H 06/30/20 16:00 methylPREDNISolone Sod Succ [Solu-MEDROL] 40 mg IVPUSH Q8H 06/30/20 17:45 CULTURE URINE [RM] Stat 06/30/20 17:58 Sodium Chloride 0.9% [Saline Flush] 10 ml FLUSH ASDIRECTED PRN Saline Lock Insert [OM.PC] Routine 06/30/20 18:36 Blood Glucose Check, Bedside [RC] QIDACANDBED 06/30/20 18:56 Benzonatate [Tessalon Perles] 100 mg PO TID PRN Dextrose 50% in Water 50 ml IV ASDIRECTED PRN Glucagon,Human Recombinant [GlucaGen] 1 mg IM ASDIRECTED PRN guaiFENesin [Guaifenesin] 400 mg PO BID PRN 06/30/20 19:00 RT Aerosol Therapy [RC] ,,17,21 Pantoprazole [ProTONIX] 40 mg PO Q24H 06/30/20 21:00 Albuterol/Ipratropium [DuoNeb 3.0-0.5 MG/3 ML] 3 ml INH QID Heparin Sodium 5,000 units SUBCUT Q12HR Insulin Glarg,Human.Rec.Analog [LantUS] 23 unit SUBCUT BEDTIME Potassium Chloride [Klor-Con 10] 20 meq PO TID Pramipexole [Mirapex] 0.5 mg PO BEDTIME Pravastatin [Pravachol] 10 mg PO BEDTIME 06/30/20 21:04 traMADol [Ultram] 50 mg PO Q8H PRN 06/30/20 21:15 Nicotine [Habitrol] 14 mg TRDERM DAILY 07/01/20 00:00 Citalopram [Celexa] 30 mg PO BEDTIME@0000 Melatonin [Melatonin] 10 mg PO BEDTIME@0000 07/01/20 Breakfast Regular Diet [DIET] 07/01/20 08:00 Insulin Lispro [HumaLOG] 13 unit SUBCUT TIDMEALS 07/01/20 08:46 Antiembolic Devices [RC] FROYLAN Hose [Antiembolic Hose] [OM.PC] Routine 07/01/20 09:00 Febuxostat [Uloric] 40 mg PO DAILY Levothyroxine [Synthroid] 88 mcg PO DAILY buPROPion [Wellbutrin XL] 150 mg PO DAILY metOLazone [Zaroxolyn] 2.5 mg PO Q48H 07/01/20 09:15 Furosemide [Lasix] 80 mg PO DAILY 07/01/20 10:30 Potassium Chloride [KCl 10 MEQ in Water 100 ML] 10 meq Lidocaine 1% [Xylocaine- MPF 1%] 1 ml Premix Bag 1 bag IV Q2H 07/01/20 14:00 Furosemide [Lasix] 40 mg PO DAILY@1400 07/01/20 15:30 cefTRIAXone [Rocephin] 1 gm Sodium Chloride 0.9% [Normal Saline] 50 ml IV Q24H 07/01/20 16:00 Azithromycin [Zithromax] 500 mg Sodium Chloride 0.9% [Normal Saline (AdvBag)] 250 ml IV Q24H 07/02/20 07:00 BASIC METABOLIC PANEL,BMP [CHEM] DAILY CBC W/O DIFF,HEMOGRAM [HEME] DAILY 07/03/20 07:00 BASIC METABOLIC PANEL,BMP [CHEM] DAILY CBC W/O DIFF,HEMOGRAM [HEME] DAILY 07/04/20 07:00 BASIC METABOLIC PANEL,BMP [CHEM] DAILY CBC W/O DIFF,HEMOGRAM [HEME] DAILY - Plan Plan:: #Probable COPD exacerbation #Probable pneumonia COVID-19 test was negative CTA chest was negative for PE. Was negative for infiltrate Continue supplemental oxygen and wean off as able Continue ceftriaxone and azithromycin for now DuoNebs every 4 hourly Continue remainder of home breathing treatment Solu-Medrol 40 mg every 8 hourly #Leukocytosis likely due to pneumonia versus reaction WBC trended down #Systemic inflammatory response syndrome Resolved #Severe hypokalemia. All results Continue IV replacement Recheck potassium level #Mild hyponatremia Improved #Type 2 diabetes Continue current Accu-Cheks Hypoglycemic protocol #Hyperlipidemia Continue statin #Hypothyroidism Patient on Synthroid. Continue
[2020-07-01] MEDS ORDERED: Furosemide 40 MG Tab PO SCH (14:00)
[2020-07-01] MEDS: cefTRIAXone 1 GM in Sodium Chloride 0.9% 50 ML IV SCH (15:49)
[2020-07-01] MEDS: Azithromycin 500 MG in Sodium Chloride 0.9% 250 ML IV SCH (16:26)
[2020-07-01] MEDS: INSULIN ASPART 100 UNIT/ML SUBCUT SCH (17:09)
[2020-07-01] MEDS: Pantoprazole 40 MG Tab.CR PO SCH (19:02)
[2020-07-01] MEDS ORDERED: Potassium Chloride 10 MEQ Tab.ER PO SCH (21:00)
[2020-07-01] MEDS: Pravastatin 20 MG Tab PO SCH (21:11)
[2020-07-01] MEDS: PRAMIPEXOLE 1 MG PO SCH (21:15)
[2020-07-01] MEDS: CITALOPRAM 20 MG PO SCH (23:33)
[2020-07-01] MEDS: MELATONIN 10 MG PO SCH (23:34)
[2020-07-02] MEDS: Potassium Chloride 10 MEQ in Premix Bag 1 BAG IV SCH ×3 (02:52→07:09)
[2020-07-02] MEDS: Albuterol/Ipratropium 3.0-0.5 MG/3 ML Neb Soln INH SCH ×4 (05:59→23:24)
[2020-07-02 07:01] LABS: ANION GAP 11.1 mEq/L (7-13)
[2020-07-02] MEDS: Sodium Chloride 0.9% 10 ML Syringe FLUSH PRN (07:17)
[2020-07-02] MEDS: traMADol 50 MG Tab PO PRN ×2 (07:46→17:53)
[2020-07-02] MEDS ORDERED: buPROPion 150 MG Tab.ER PO ONE (09:00)
[2020-07-02] MEDS ORDERED: Potassium Chloride 10 MEQ Tab.ER PO ONE (09:00)
[2020-07-02] MEDS: Nicotine 14 MG/24 Hr Patch TRDERM SCH (10:28)
[2020-07-02] MEDS ORDERED: 50% Dextrose in Water 50 ML Syringe IV PRN (10:33)
[2020-07-02] MEDS ORDERED: Glucagon,Human Recombinant 1 MG Vial IM PRN (10:33)
[2020-07-02] MEDS ORDERED: Acetaminophen 325 MG Tab PO PRN (10:36)
[2020-07-02] MEDS: FEBUXOSTAT 40 MG PO SCH (10:43)
[2020-07-02] MEDS: methylPREDNISolone Sodium Succinate 40 MG/1 ML SDV IVPUSH SCH ×3 (10:43→23:21)
[2020-07-02] MEDS: INSULIN ASPART 100 UNIT/ML SUBCUT SCH ×3 (10:43→17:54)
[2020-07-02] MEDS: BUPROPION 150 MG PO SCH (10:44)
[2020-07-02] MEDS: Potassium Chloride 10 MEQ Tab.ER ** OWN MED PO SCH (10:44)
[2020-07-02] MEDS: Levothyroxine 88 MCG Tab PO SCH (10:44)
[2020-07-02] MEDS: Heparin Sodium 5,000 Units/ML Vial SUBCUT SCH ×2 (10:44→21:06)
[2020-07-02] MEDS: Furosemide 80 MG Tab PO SCH (10:46)
--- NOTE | 2020-07-02 11:02 | PCM.PN ---
- General Info Date of Service: 07/02/20 Admission Dx/Problem (Free Text): Admission Diagnosis/Problem Admission Diagnosis/Problem Hypokalemia Subjective Update: Schooler is 69-year-old female with past medical history significant for COPD/asthma on home oxygen 2 L, type 2 diabetes, hyperlipidemia, hypothyroidism, depression who presented to the ED for evaluation of increasing cough, shortness of breath and general feeling of unwell onset 1 day. She was admitted for possible pneumonia and COPD exacerbation. Patient was also severely hypokalemic on admit. CTA chest PE protocol was negative. Did not show any acute infiltrate. Chest x-ray was negative. She was started on antibiotics and Solu- Medrol. Potassium was replaced IV. Today patient is doing okay. Patient indicates she is not doing okay this morning. She has increasing shortness of breath. Associated when she walks around. She says she was very short of breath when she walked to the bathroom. She continued to have increased cough. She remained afebrile overnight. She denies chest pain. Labs reviewed. Hypokalemia are resolved Functional Status: Reports: Pain Controlled - Review of Systems General: Reports: No Symptoms HEENT: Reports: No Symptoms Pulmonary: Reports: No Symptoms Cardiovascular: Reports: No Symptoms Gastrointestinal: Reports: No Symptoms Genitourinary: Reports: No Symptoms Musculoskeletal: Reports: No Symptoms Skin: Reports: No Symptoms Neurological: Reports: No Symptoms Psychiatric: Reports: No Symptoms - Patient Data Vitals - Most Recent: Last Vital Signs Temp 97.7 F 07/02/20 08:27 Pulse 85 07/02/20 08:27 Resp 24 H 07/02/20 08:27 BP 104/55 L 07/02/20 08:27 Pulse Ox 96 07/02/20 08:27 Weight - Most Recent: 158 lb 3.2 oz I&O - Last 24 Hours: Intake & Output 07/01/20 07/02/20 07/02/20 22:59 06:59 14:59 Intake Total 650 1100 Balance 650 1100 Lab Results Last 24 Hours: Laboratory Results - last 24 hr 07/01/20 07/01/20 07/01/20 Range/Units 11:48 16:45 18:55 WBC (5.0-10.0) 10^3/uL RBC (4.2-5.4) 10^6/uL Hgb (12.0-16.0) g/dL Hct (37.0-47.0) % MCV (80-100) fL MCH (27.0-34.0) pg MCHC (33.0-35.0) g/dL Plt Count (150-450) 10^3/uL Sodium (136-145) mmol/L Potassium 2.8 L (3.5-5.1) mmol/L Chloride (98-107) mmol/L Carbon Dioxide (21-32) mmol/L Anion Gap (7-13) mEq/L BUN (7-18) mg/dL Creatinine (0.55-1.02) mg/dL Est Cr Clr Drug Dosing mL/min Estimated GFR (MDRD) Glucose (74-99) mg/dL POC Glucose 221 H 358 H (83-110) mg/dl Calcium (8.5-10.1) mg/dL 07/01/20 07/02/20 07/02/20 Range/Units 20:36 01:29 06:16 WBC 14.4 H (5.0-10.0) 10^3/uL RBC 3.90 L (4.2-5.4) 10^6/uL Hgb 12.4 (12.0-16.0) g/dL Hct 36.8 L (37.0-47.0) % MCV 94.4 (80-100) fL MCH 31.8 (27.0-34.0) pg MCHC 33.7 (33.0-35.0) g/dL Plt Count 237 (150-450) 10^3/uL Sodium (136-145) mmol/L Potassium 3.0 L (3.5-5.1) mmol/L Chloride (98-107) mmol/L Carbon Dioxide (21-32) mmol/L Anion Gap (7-13) mEq/L BUN (7-18) mg/dL Creatinine (0.55-1.02) mg/dL Est Cr Clr Drug Dosing mL/min Estimated GFR (MDRD) Glucose (74-99) mg/dL POC Glucose 318 H (83-110) mg/dl Calcium (8.5-10.1) mg/dL 07/02/20 07/02/20 Range/Units 06:16 07:50 WBC (5.0-10.0) 10^3/uL RBC (4.2-5.4) 10^6/uL Hgb (12.0-16.0) g/dL Hct (37.0-47.0) % MCV (80-100) fL MCH (27.0-34.0) pg MCHC (33.0-35.0) g/dL Plt Count (150-450) 10^3/uL Sodium 136 (136-145) mmol/L Potassium 3.1 L (3.5-5.1) mmol/L Chloride 98 (98-107) mmol/L Carbon Dioxide 30 (21-32) mmol/L Anion Gap 11.1 (7-13) mEq/L BUN 42 H (7-18) mg/dL Creatinine 1.44 H (0.55-1.02) mg/dL Est Cr Clr Drug Dosing 26.11 mL/min Estimated GFR (MDRD) 36 Glucose 335 H (74-99) mg/dL POC Glucose 347 H (83-110) mg/dl Calcium 8.0 L (8.5-10.1) mg/dL Yordan Results Last 24 Hours: Microbiology 06/30/20 17:45 Urine Culture - Preliminary Urine, Clean Catch MIXED POSITIVE SHYANN DAY 1 06/30/20 13:05 Aerobic Blood Culture - Preliminary Blood - Arm, Right NO GROWTH AFTER 1 DAY Anaerobic Blood Culture - Preliminary NO GROWTH AFTER 1 DAY 06/30/20 11:37 Aerobic Blood Culture - Preliminary Blood NO GROWTH AFTER 1 DAY Anaerobic Blood Culture - Preliminary NO GROWTH AFTER 1 DAY Med Orders - Current: Current Medications Acetaminophen (Tylenol) 650 mg PO Q6H PRN PRN Reason: Pain Albuterol/Ipratropium (Duoneb 3.0-0.5 Mg/3 Ml) 3 ml INH 0000,0600,1200,1800 [facility] Last Admin: 07/02/20 05:59 Dose: 3 ml Documented by: Benzonatate (Tessalon Perles) 100 mg PO TID PRN PRN Reason: Cough Last Admin: 07/01/20 16:36 Dose: 100 mg Documented by: Bisacodyl (Dulcolax) 5 mg PO DAILY PRN PRN Reason: Constipation Bupropion HCl (Wellbutrin Xl) 150 mg PO DAILY [facility] Last Admin: 07/02/20 10:44 Dose: 150 mg Documented by: Citalopram Hydrobromide (Celexa) 30 mg PO BEDTIME@0000 [facility] Last Admin: 07/01/20 23:33 Dose: 30 mg Documented by: Dextrose/Water (Dextrose 50% In Water) 50 ml IV ASDIRECTED PRN PRN Reason: Hypoglycemia Docusate Sodium (Colace) 100 mg PO BID PRN PRN Reason: Constipation Furosemide (Lasix) 40 mg PO BIDDIURETIC TASHI Glucagon (Glucagen) 1 mg IM ASDIRECTED PRN PRN Reason: Hypoglycemia Heparin Sodium (Porcine) (Heparin Sodium) 5,000 units SUBCUT Q12HR [facility] Last Admin: 07/02/20 10:44 Dose: 5,000 units Documented by: Ceftriaxone Sodium 1 gm/ (Sodium Chloride) 50 mls @ 100 mls/hr IV Q24H [facility] Last Admin: 07/01/20 15:49 Dose: 100 mls/hr Documented by: Azithromycin 500 mg/ Sodium (Chloride) 250 mls @ 250 mls/hr IV Q24H [facility] Last Admin: 07/01/20 16:26 Dose: 250 mls/hr Documented by: Insulin Glargine (Lantus) 23 unit SUBCUT BEDTIME [facility] Last Admin: 07/01/20 21:15 Dose: 23 units Documented by: Insulin Human Lispro (Humalog) 0 unit SUBCUT WITHMEALSANDBED [facility]; Protocol Levothyroxine Sodium (Synthroid) 88 mcg PO DAILY [facility] Last Admin: 07/02/20 10:44 Dose: 88 mcg Documented by: Magnesium Hydroxide (Milk Of Magnesia) 30 ml PO Q12H PRN PRN Reason: Constipation Methylprednisolone Sodium Succinate (Solu-Medrol) 40 mg IVPUSH Q8H [facility] Last Admin: 07/02/20 10:43 Dose: 40 mg Documented by: Metolazone (Zaroxolyn) 2.5 mg PO Q48H [facility] Last Admin: 07/01/20 08:49 Dose: 2.5 mg Documented by: Nicotine (Habitrol) 14 mg TRDERM DAILY [facility] Last Admin: 07/02/20 10:28 Dose: Not Given Documented by: Febuxostat [Uloric] (40mg Own Med ) 40 mg PO DAILY [facility] Last Admin: 07/02/20 10:43 Dose: 40 mg Documented by: Guaifenesin [ Guaifenesin] 200mg * * Own Med 400 mg PO BID PRN PRN Reason: Congestion Pramipexole [Mirapex (] 1mg Own Med ) 0.5 mg PO BEDTIME [facility] Last Admin: 07/01/20 21:15 Dose: 0.5 mg Documented by: Melatonin [Melatonin (] 10mg Own Med ) 10 mg PO BEDTIME@0000 [facility] Last Admin: 07/01/20 23:34 Dose: 10 mg Documented by: Pantoprazole Sodium (Protonix) 40 mg PO Q24H [facility] Last Admin: 07/01/20 19:02 Dose: 40 mg Documented by: Insulin Aspart 100 Units/Ml 3 Ml Pen Pt Own Med 0 each SUBCUT TIDMEALS [facility] Last Admin: 07/02/20 10:43 Dose: 13 each Documented by: Potassium Chloride (Klor-Con 10) 20 meq PO TID [facility] Last Admin: 07/02/20 10:44 Dose: 20 meq Documented by: Pravastatin Sodium (Pravachol) 10 mg PO BEDTIME [facility] Last Admin: 07/01/20 21:11 Dose: 10 mg Documented by: Sodium Chloride (Saline Flush) 10 ml FLUSH ASDIRECTED PRN PRN Reason: Keep Vein Open Last Admin: 07/02/20 07:17 Dose: 10 ml Documented by: Tramadol HCl (Ultram) 50 mg PO Q8H PRN PRN Reason: Pain Last Admin: 07/02/20 07:46 Dose: 50 mg Documented by: Discontinued Medications Albuterol (Proventil Neb Soln) 2.5 mg NEB QID [facility] Last Admin: 06/30/20 23:45 Dose: Not Given Documented by: Albuterol/Ipratropium (Duoneb 3.0-0.5 Mg/3 Ml) 3 ml INH QID [facility] Last Admin: 07/01/20 21:10 Dose: 3 ml Documented by: Citalopram Hydrobromide (Celexa) 30 mg PO BEDTIME [facility] Last Admin: 06/30/20 23:52 Dose: Not Given Documented by: Dextrose/Water (Dextrose 50% In Water) 50 ml IV ASDIRECTED PRN PRN Reason: Hypoglycemia Furosemide (Lasix) 40 mg PO DAILY@1400 [facility] Last Admin: 07/01/20 15:47 Dose: 40 mg Documented by: Furosemide (Lasix) 80 mg PO DAILY [facility] Last Admin: 07/02/20 10:46 Dose: Not Given Documented by: Glucagon (Glucagen) 1 mg IM ASDIRECTED PRN PRN Reason: Hypoglycemia Potassium Chloride 10 meq/ (Premix) 100 mls @ 100 mls/hr IV ONETIME ONE Stop: 06/30/20 13:34 Last Admin: 06/30/20 12:49 Dose: 100 mls/hr Documented by: Ceftriaxone Sodium 1 gm/ (Sodium Chloride) 50 mls @ 100 mls/hr IV ONETIME ONE Stop: 06/30/20 13:35 Last Admin: 06/30/20 14:27 Dose: Not Given Documented by: Ceftriaxone Sodium 1 gm/ (Sodium Chloride) 50 mls @ 100 mls/hr IV ONETIME ONE Stop: 06/30/20 14:59 Last Admin: 06/30/20 14:45 Dose: 100 mls/hr Documented by: Potassium Chloride 10 meq/ (Premix) 100 mls @ 100 mls/hr IV Q2H [facility] Stop: 07/01/20 00:59 Last Admin: 06/30/20 19:57 Dose: Not Given Documented by: Azithromycin 500 mg/ Sodium (Chloride) 250 mls @ 250 mls/hr IV ONETIME ONE Stop: 06/30/20 17:59 Last Infusion: 06/30/20 18:04 Dose: Infused Documented by: Potassium Chloride 10 meq/ (Premix) 100 mls @ 100 mls/hr IV Q3H [facility] Stop: 07/01/20 04:29 Last Admin: 07/01/20 06:10 Dose: 100 mls/hr Documented by: Potassium Chloride 10 meq/ (Lidocaine HCl 1 ml/ Premix) 101 mls @ 101 mls/hr IV Q2H [facility] Stop: 07/01/20 21:29 Last Admin: 07/01/20 22:20 Dose: 50 mls/hr Documented by: Potassium Chloride 10 meq/ (Premix) 0 mls @ 100 mls/hr IV Q1H [facility] Stop: 07/02/20 04:31 Last Admin: 07/02/20 07:09 Dose: 100 mls/hr Documented by: Insulin Glargine (Lantus) 23 unit SUBCUT BEDTIME [facility] Last Admin: 06/30/20 21:45 Dose: 23 units Documented by: Insulin Human Lispro (Humalog) 13 unit SUBCUT TIDMEALS [facility] Last Admin: 07/01/20 12:40 Dose: 13 units Documented by: Iopamidol (Isovue-370 (76%)) 100 ml IVPUSH ONETIME ONE Stop: 06/30/20 13:35 Melatonin [Melatonin (] 10mg Own Med ) 10 mg PO BEDTIME [facility] Last Admin: 06/30/20 23:53 Dose: Not Given Documented by: Non-Formulary Medication (Albuterol Sulfate [Proair Digihaler]) 2 puff INH Q4H PRN PRN Reason: Wheezing Nicotine Polacrilex (2mg) 2 mg PO QID PRN PRN Reason: nicotine cravings Potassium Chloride (Klor-Con 10) 40 meq PO BID TASHI - Exam Quality Assessment: Supplemental Oxygen, DVT Prophylaxis General: Alert, Oriented HEENT: Pupils Equal, Pupils Reactive, EOMI, Mucous Membr. Moist/[place] Neck: Supple Lungs: Clear to Auscultation, Normal Respiratory Effort Cardiovascular: Regular Rate, Regular Rhythm GI/Abdominal Exam: Normal Bowel Sounds, Soft, Non-Tender, No Organomegaly, No Distention, No Abnormal Bruit, No Mass, Pelvis Stable (Female) Exam: Normal External Exam, Normal Speculum Exam, Normal Bimanual Exam Back Exam: Normal Inspection, Full Range of Motion Extremities: Normal Inspection, Normal Range of Motion, Non-Tender, No Pedal Edema, Normal Capillary Refill Skin: Warm, Dry, Intact Wound/Incisions: Healing Well Neurological: No New Focal Deficit Psy/Mental Status: Alert, Normal Affect, Normal Mood Sepsis Event Note - Evaluation Sepsis Screening Result: No Definite Risk - Focused Exam Vital Signs: Vital Signs Temp Pulse Resp BP Pulse Ox 07/02/20 08:27 97.7 F 85 24 H 104/55 L 96 07/02/20 06:15 100 07/02/20 06:01 99 07/02/20 05:00 97.8 F 80 20 99/50 L 93 L 07/02/20 01:00 20 93 L - Problem List & Annotations (1) Hyponatremia SNOMED Code(s): 89382638 Code(s): E87.1 - HYPO-OSMOLALITY AND HYPONATREMIA Status: Acute Current Visit: Yes (2) Hypo-osmolality and hyponatremia SNOMED Code(s): 048789830 Code(s): E87.1 - HYPO-OSMOLALITY AND HYPONATREMIA Status: Acute Current Visit: Yes (3) SIRS (systemic inflammatory response syndrome) SNOMED Code(s): 515058588 Code(s): R65.10 - SIRS OF NON-INFECTIOUS ORIGIN W/O ACUTE ORGAN DYSFUNCTION Status: Acute Current Visit: Yes - Problem List Review Problem List Initiated/Reviewed/Updated: Yes - My Orders Last 24 Hours: My Active Orders 07/01/20 15:20 Insulin Glarg,Human.Rec.Analog [LantUS] 23 unit SUBCUT BEDTIME 07/01/20 15:30 cefTRIAXone [Rocephin] 1 gm Sodium Chloride 0.9% [Normal Saline] 50 ml IV Q24H 07/01/20 16:00 Azithromycin [Zithromax] 500 mg Sodium Chloride 0.9% [Normal Saline (AdvBag)] 250 ml IV Q24H 07/01/20 17:00 Patient's Own Medication [Ptom] 0 each SUBCUT TIDMEALS 07/02/20 00:00 Albuterol/Ipratropium [DuoNeb 3.0-0.5 MG/3 ML] 3 ml INH 0000,0600,1200,1800 07/02/20 02:13 Communication Order [RC] ROUTINE 07/02/20 10:30 CXR [Chest 1V Frontal] [CR] Routine 07/02/20 10:35 POC Glucose [Blood Glucose Check, Bedside] [RC] WITHMEALSANDBED 07/02/20 10:36 Acetaminophen [TylenoL] 650 mg PO Q6H PRN 07/02/20 11:30 POTASSIUM,K [CHEM] Routine 07/02/20 12:00 Insulin Lispro [HumaLOG] See Protocol SUBCUT WITHMEALSANDBED 07/02/20 14:00 Furosemide [Lasix] 40 mg PO BIDDIURETIC 07/03/20 07:00 BASIC METABOLIC PANEL,BMP [CHEM] DAILY CBC W/O DIFF,HEMOGRAM [HEME] DAILY 07/04/20 07:00 BASIC METABOLIC PANEL,BMP [CHEM] DAILY CBC W/O DIFF,HEMOGRAM [HEME] DAILY - Plan Plan:: #Acute on chronic respiratory failure #Probable COPD exacerbation #Probable pneumonia CTA chest was negative for PE. Was negative for infiltrate Patient still reports increasing shortness of breath. We will repeat chest x-ray this morning Continue supplemental oxygen and wean off as able Continue ceftriaxone and azithromycin DuoNebs every 4 hourly Continue remainder of home breathing treatment Solu-Medrol 40 mg every 8 hourly #Leukocytosis likely due to pneumonia WBC trending up #Systemic inflammatory response syndrome Resolved #Severe hypokalemia. Unresolved Continue IV replacement Recheck potassium level #Hyponatremia This is mild Follow-up #Hyperlipidemia Continue statin #Hypothyroidism Patient on Synthroid. Continue #Physical debility Ambulate patient.
--- NOTE | 2020-07-02 11:16 | CR ---
PROCEDURE INFORMATION: Exam: XR Chest, 1 View Exam date and time: 07/02/2020 10:41 AM Age: 69 years old Clinical indication: Shortness of breath; Additional info: Increaing SOB TECHNIQUE: Imaging protocol: XR of the chest Views: 1 view. COMPARISON: CT Chest w Cont 06/30/2020 2:03 PM FINDINGS: Lungs: No lobar consolidation. Hazy appearance of bilateral lung bases demonstrated as no acute findings on comparison CT chest and compatible with body habitus. Pleural space: Unremarkable. No pleural effusion. No pneumothorax. Heart/Mediastinum: Unremarkable. No cardiomegaly. Bones/joints: Unremarkable. IMPRESSION: 1. No acute cardiac or pulmonary findings.
[2020-07-02] MEDS: Benzonatate 100 MG Cap PO PRN ×2 (11:52→21:05)
[2020-07-02] MEDS ORDERED: Insulin Lispro 100 Units/ML 3 ML Vial SUBCUT SCH (12:00)
[2020-07-02] MEDS ORDERED: NOVOLOG FLEX SUBCUT SCH (12:15)
[2020-07-02] MEDS: Potassium Chloride 10 MEQ Tab.ER PO SCH ×2 (12:53→16:28)
[2020-07-02] MEDS: Furosemide 40 MG Tab PO SCH ×2 (12:54→13:00)
[2020-07-02] MEDS: NOVOLOG SUBCUT SCH ×3 (12:55→20:50)
[2020-07-02] MEDS: cefTRIAXone 1 GM in Sodium Chloride 0.9% 50 ML IV SCH (15:37)
[2020-07-02] MEDS: Azithromycin 500 MG in Sodium Chloride 0.9% 250 ML IV SCH (16:27)
[2020-07-02] MEDS: Pantoprazole 40 MG Tab.CR PO SCH (17:54)
[2020-07-02] MEDS: Pravastatin 20 MG Tab PO SCH (21:04)
[2020-07-02] MEDS: PRAMIPEXOLE 1 MG PO SCH (21:22)
[2020-07-02] MEDS: CITALOPRAM 20 MG PO SCH (23:22)
[2020-07-02] MEDS: MELATONIN 10 MG PO SCH (23:37)
[2020-07-03] MEDS: traMADol 50 MG Tab PO PRN ×2 (05:33→22:28)
[2020-07-03] MEDS: Benzonatate 100 MG Cap PO PRN ×2 (05:34→16:42)
[2020-07-03] MEDS: Albuterol/Ipratropium 3.0-0.5 MG/3 ML Neb Soln INH SCH ×4 (05:34→23:25)
[2020-07-03 07:18] LABS: ANION GAP 12.1 mEq/L (7-13)
[2020-07-03] MEDS ORDERED: buPROPion 150 MG Tab.ER PO ONE (08:30)
[2020-07-03] MEDS: BUPROPION 150 MG PO SCH (08:31)
[2020-07-03] MEDS: Metolazone 2.5 MG Tab PO SCH (08:32)
[2020-07-03] MEDS: Potassium Chloride 10 MEQ Tab.ER PO SCH ×3 (08:32→16:42)
[2020-07-03] MEDS: Furosemide 40 MG Tab PO SCH ×2 (08:32→15:04)
[2020-07-03] MEDS: FEBUXOSTAT 40 MG PO SCH (08:33)
[2020-07-03] MEDS: Levothyroxine 88 MCG Tab PO SCH (08:34)
[2020-07-03] MEDS: INSULIN ASPART 100 UNIT/ML SUBCUT SCH ×3 (08:36→17:28)
[2020-07-03] MEDS: NOVOLOG SUBCUT SCH ×4 (08:36→23:26)
[2020-07-03] MEDS: methylPREDNISolone Sodium Succinate 40 MG/1 ML SDV IVPUSH SCH (08:39)
[2020-07-03] MEDS: Heparin Sodium 5,000 Units/ML Vial SUBCUT SCH ×2 (08:42→20:29)
[2020-07-03] MEDS: Nicotine 14 MG/24 Hr Patch TRDERM SCH (08:44)
--- NOTE | 2020-07-03 09:47 | PCM.PN ---
- General Info Date of Service: 07/03/20 Admission Dx/Problem (Free Text): Admission Diagnosis/Problem Admission Diagnosis/Problem Hypokalemia Subjective Update: Schooler is 69-year-old female with past medical history significant for COPD/asthma on home oxygen 2 L, type 2 diabetes, hyperlipidemia, hypothyroidism, depression who presented to the ED for evaluation of increasing cough, shortness of breath and general feeling of unwell onset 1 day. She was admitted for possible pneumonia and COPD exacerbation. Patient was also severely hypokalemic on admit. CTA chest PE protocol was negative. Did not show any acute infiltrate. Chest x-ray was negative. She was started on antibiotics and Solu- Medrol. Potassium was replaced IV. Today patient is doing okay. Patient reports she is feeling okay this morning. Better than yesterday. However she still has significant shortness of breath with exertion. Patient short of breath when she walks to the bathroom and back to her bed. She said is so but she also gets more oxygen. She still has cough. She remained afebrile. No nausea or vomiting. No chest pain. Chest x-ray repeated yesterday was negative. Blood cultures remain negative. Functional Status: Reports: Pain Controlled - Review of Systems General: Reports: No Symptoms HEENT: Reports: No Symptoms Pulmonary: Reports: No Symptoms Cardiovascular: Reports: No Symptoms Gastrointestinal: Reports: No Symptoms Genitourinary: Reports: No Symptoms Musculoskeletal: Reports: No Symptoms Skin: Reports: No Symptoms Neurological: Reports: No Symptoms Psychiatric: Reports: No Symptoms - Patient Data Vitals - Most Recent: Last Vital Signs Temp 98.3 F 07/03/20 07:25 Pulse 84 07/03/20 07:25 Resp 20 07/03/20 07:25 BP 115/66 07/03/20 07:25 Pulse Ox 96 07/03/20 07:25 Weight - Most Recent: 158 lb 3.2 oz I&O - Last 24 Hours: Intake & Output 07/02/20 07/03/20 07/03/20 22:59 06:59 14:59 Intake Total 1500 Balance 1500 Lab Results Last 24 Hours: Laboratory Results - last 24 hr 07/02/20 07/02/20 07/02/20 Range/Units 11:36 11:42 16:28 WBC (5.0-10.0) 10^3/uL RBC (4.2-5.4) 10^6/uL Hgb (12.0-16.0) g/dL Hct (37.0-47.0) % MCV (80-100) fL MCH (27.0-34.0) pg MCHC (33.0-35.0) g/dL Plt Count (150-450) 10^3/uL Sodium (136-145) mmol/L Potassium 3.3 L (3.5-5.1) mmol/L Chloride (98-107) mmol/L Carbon Dioxide (21-32) mmol/L Anion Gap (7-13) mEq/L BUN (7-18) mg/dL Creatinine (0.55-1.02) mg/dL Est Cr Clr Drug Dosing mL/min Estimated GFR (MDRD) Glucose (74-99) mg/dL POC Glucose 268 H 127 H (83-110) mg/dl Calcium (8.5-10.1) mg/dL 07/03/20 07/03/20 Range/Units 06:34 06:34 WBC 12.2 H (5.0-10.0) 10^3/uL RBC 3.86 L (4.2-5.4) 10^6/uL Hgb 12.2 (12.0-16.0) g/dL Hct 36.9 L (37.0-47.0) % MCV 95.6 (80-100) fL MCH 31.6 (27.0-34.0) pg MCHC 33.1 (33.0-35.0) g/dL Plt Count 240 (150-450) 10^3/uL Sodium 139 (136-145) mmol/L Potassium 3.1 L (3.5-5.1) mmol/L Chloride 100 (98-107) mmol/L Carbon Dioxide 30 (21-32) mmol/L Anion Gap 12.1 (7-13) mEq/L BUN 35 H (7-18) mg/dL Creatinine 1.27 H (0.55-1.02) mg/dL Est Cr Clr Drug Dosing 29.61 mL/min Estimated GFR (MDRD) 42 Glucose 268 H (74-99) mg/dL POC Glucose (83-110) mg/dl Calcium 8.0 L (8.5-10.1) mg/dL Yordan Results Last 24 Hours: Microbiology 06/30/20 17:45 Urine Culture - Final Urine, Clean Catch MIXED SHYANN SUGGESTIVE OF CONTAMINATION. 06/30/20 13:05 Aerobic Blood Culture - Preliminary Blood - Arm, Right NO GROWTH AFTER 2 DAYS Anaerobic Blood Culture - Preliminary NO GROWTH AFTER 2 DAYS 06/30/20 11:37 Aerobic Blood Culture - Preliminary Blood NO GROWTH AFTER 2 DAYS Anaerobic Blood Culture - Preliminary NO GROWTH AFTER 2 DAYS Med Orders - Current: Current Medications Acetaminophen (Tylenol) 650 mg PO Q6H PRN PRN Reason: Pain Last Admin: 07/02/20 12:53 Dose: 650 mg Documented by: Albuterol/Ipratropium (Duoneb 3.0-0.5 Mg/3 Ml) 3 ml INH 0000,0600,1200,1800 [facility] Last Admin: 07/03/20 05:34 Dose: 3 ml Documented by: Benzonatate (Tessalon Perles) 100 mg PO TID PRN PRN Reason: Cough Last Admin: 07/03/20 05:34 Dose: 100 mg Documented by: Bisacodyl (Dulcolax) 5 mg PO DAILY PRN PRN Reason: Constipation Bupropion HCl (Wellbutrin Xl) 150 mg PO DAILY [facility] Last Admin: 07/03/20 08:31 Dose: 150 mg Documented by: Citalopram Hydrobromide (Celexa) 30 mg PO BEDTIME@0000 [facility] Last Admin: 07/02/20 23:22 Dose: 30 mg Documented by: Dextrose/Water (Dextrose 50% In Water) 50 ml IV ASDIRECTED PRN PRN Reason: Hypoglycemia Docusate Sodium (Colace) 100 mg PO BID PRN PRN Reason: Constipation Furosemide (Lasix) 40 mg PO BIDDIURETIC [facility] Last Admin: 07/03/20 08:32 Dose: 40 mg Documented by: Glucagon (Glucagen) 1 mg IM ASDIRECTED PRN PRN Reason: Hypoglycemia Heparin Sodium (Porcine) (Heparin Sodium) 5,000 units SUBCUT Q12HR [facility] Last Admin: 07/03/20 08:42 Dose: 5,000 units Documented by: Ceftriaxone Sodium 1 gm/ (Sodium Chloride) 50 mls @ 100 mls/hr IV Q24H [facility] Last Infusion: 07/02/20 16:33 Dose: Infused Documented by: Azithromycin 500 mg/ Sodium (Chloride) 250 mls @ 250 mls/hr IV Q24H [facility] Last Infusion: 07/02/20 17:44 Dose: Infused Documented by: Insulin Glargine (Lantus) 23 unit SUBCUT BEDTIME [facility] Last Admin: 07/02/20 20:48 Dose: 23 units Documented by: Levothyroxine Sodium (Synthroid) 88 mcg PO DAILY [facility] Last Admin: 07/03/20 08:34 Dose: 88 mcg Documented by: Magnesium Hydroxide (Milk Of Magnesia) 30 ml PO Q12H PRN PRN Reason: Constipation Methylprednisolone Sodium Succinate (Solu-Medrol) 40 mg IVPUSH Q8H [facility] Last Admin: 07/03/20 08:39 Dose: 40 mg Documented by: Metolazone (Zaroxolyn) 2.5 mg PO Q48H [facility] Last Admin: 07/03/20 08:32 Dose: 2.5 mg Documented by: Nicotine (Habitrol) 14 mg TRDERM DAILY [facility] Last Admin: 07/03/20 08:44 Dose: Not Given Documented by: Febuxostat [Uloric] (40mg Own Med ) 40 mg PO DAILY [facility] Last Admin: 07/03/20 08:33 Dose: 40 mg Documented by: Guaifenesin [ Guaifenesin] 200mg * * Own Med 400 mg PO BID PRN PRN Reason: Congestion Pramipexole [Mirapex (] 1mg Own Med ) 0.5 mg PO BEDTIME [facility] Last Admin: 07/02/20 21:22 Dose: 0.5 mg Documented by: Melatonin [Melatonin (] 10mg Own Med ) 10 mg PO BEDTIME@0000 [facility] Last Admin: 07/02/20 23:37 Dose: 10 mg Documented by: Pantoprazole Sodium (Protonix) 40 mg PO Q24H [facility] Insulin Aspart 100 Units/Ml 3 Ml Pen Pt Own Med 0 each SUBCUT TIDMEALS [facility] Last Admin: 07/03/20 08:36 Dose: 1 each Documented by: Novolog Flexpen *Pt (Own Med*) 0 each SUBCUT WITHMEALSANDBED [facility]; Protocol Last Admin: 07/03/20 08:36 Dose: 1 each Documented by: Potassium Chloride (Klor-Con 10) 40 meq PO TIDMEALS [facility] Last Admin: 07/03/20 08:32 Dose: 40 meq Documented by: Pravastatin Sodium (Pravachol) 10 mg PO BEDTIME [facility] Last Admin: 07/02/20 21:04 Dose: 10 mg Documented by: Sodium Chloride (Saline Flush) 10 ml FLUSH ASDIRECTED PRN PRN Reason: Keep Vein Open Last Admin: 07/02/20 07:17 Dose: 10 ml Documented by: Tramadol HCl (Ultram) 50 mg PO Q8H PRN PRN Reason: Pain Last Admin: 07/03/20 05:33 Dose: 50 mg Documented by: Discontinued Medications Albuterol (Proventil Neb Soln) 2.5 mg NEB QID [facility] Last Admin: 06/30/20 23:45 Dose: Not Given Documented by: Albuterol/Ipratropium (Duoneb 3.0-0.5 Mg/3 Ml) 3 ml INH QID [facility] Last Admin: 07/01/20 21:10 Dose: 3 ml Documented by: Citalopram Hydrobromide (Celexa) 30 mg PO BEDTIME [facility] Last Admin: 06/30/20 23:52 Dose: Not Given Documented by: Dextrose/Water (Dextrose 50% In Water) 50 ml IV ASDIRECTED PRN PRN Reason: Hypoglycemia Furosemide (Lasix) 40 mg PO DAILY@1400 [facility] Last Admin: 07/01/20 15:47 Dose: 40 mg Documented by: Furosemide (Lasix) 80 mg PO DAILY [facility] Last Admin: 07/02/20 10:46 Dose: Not Given Documented by: Glucagon (Glucagen) 1 mg IM ASDIRECTED PRN PRN Reason: Hypoglycemia Potassium Chloride 10 meq/ (Premix) 100 mls @ 100 mls/hr IV ONETIME ONE Stop: 06/30/20 13:34 Last Admin: 06/30/20 12:49 Dose: 100 mls/hr Documented by: Ceftriaxone Sodium 1 gm/ (Sodium Chloride) 50 mls @ 100 mls/hr IV ONETIME ONE Stop: 06/30/20 13:35 Last Admin: 06/30/20 14:27 Dose: Not Given Documented by: Ceftriaxone Sodium 1 gm/ (Sodium Chloride) 50 mls @ 100 mls/hr IV ONETIME ONE Stop: 06/30/20 14:59 Last Admin: 06/30/20 14:45 Dose: 100 mls/hr Documented by: Potassium Chloride 10 meq/ (Premix) 100 mls @ 100 mls/hr IV Q2H [facility] Stop: 07/01/20 00:59 Last Admin: 06/30/20 19:57 Dose: Not Given Documented by: Azithromycin 500 mg/ Sodium (Chloride) 250 mls @ 250 mls/hr IV ONETIME ONE Stop: 06/30/20 17:59 Last Infusion: 06/30/20 18:04 Dose: Infused Documented by: Potassium Chloride 10 meq/ (Premix) 100 mls @ 100 mls/hr IV Q3H [facility] Stop: 07/01/20 04:29 Last Admin: 07/01/20 06:10 Dose: 100 mls/hr Documented by: Potassium Chloride 10 meq/ (Lidocaine HCl 1 ml/ Premix) 101 mls @ 101 mls/hr IV Q2H [facility] Stop: 07/01/20 21:29 Last Admin: 07/01/20 22:20 Dose: 50 mls/hr Documented by: Potassium Chloride 10 meq/ (Premix) 0 mls @ 100 mls/hr IV Q1H [facility] Stop: 07/02/20 04:31 Last Admin: 07/02/20 07:09 Dose: 100 mls/hr Documented by: Insulin Glargine (Lantus) 23 unit SUBCUT BEDTIME [facility] Last Admin: 06/30/20 21:45 Dose: 23 units Documented by: Insulin Human Lispro (Humalog) 13 unit SUBCUT TIDMEALS [facility] Last Admin: 07/01/20 12:40 Dose: 13 units Documented by: Insulin Human Lispro (Humalog) 0 unit SUBCUT WITHMEALSANDBED [facility]; Protocol Last Admin: 07/02/20 12:39 Dose: Not Given Documented by: Iopamidol (Isovue-370 (76%)) 100 ml IVPUSH ONETIME ONE Stop: 06/30/20 13:35 Melatonin [Melatonin (] 10mg Own Med ) 10 mg PO BEDTIME [facility] Last Admin: 06/30/20 23:53 Dose: Not Given Documented by: Non-Formulary Medication (Albuterol Sulfate [Proair Digihaler]) 2 puff INH Q4H PRN PRN Reason: Wheezing Nicotine Polacrilex (2mg) 2 mg PO QID PRN PRN Reason: nicotine cravings Pantoprazole Sodium (Protonix) 40 mg PO Q24H [facility] Last Admin: 07/02/20 17:54 Dose: 40 mg Documented by: Novolog Flex Pen *Pt (Own Med*) 0 each SUBCUT WITHMEALSANDBED [facility]; Protocol Potassium Chloride (Klor-Con 10) 20 meq PO TID [facility] Last Admin: 07/02/20 10:44 Dose: 20 meq Documented by: Potassium Chloride (Klor-Con 10) 40 meq PO BID [facility] - Exam Quality Assessment: Supplemental Oxygen, DVT Prophylaxis General: Alert, Oriented HEENT: Pupils Equal, Pupils Reactive, EOMI, Mucous Membr. Moist/[place] Neck: Supple Lungs: Clear to Auscultation, Normal Respiratory Effort Cardiovascular: Regular Rate, Regular Rhythm GI/Abdominal Exam: Normal Bowel Sounds, Soft, Non-Tender, No Organomegaly, No Distention, No Abnormal Bruit, No Mass, Pelvis Stable (Female) Exam: Normal External Exam, Normal Speculum Exam, Normal Bimanual Exam Back Exam: Normal Inspection, Full Range of Motion Extremities: Normal Inspection, Normal Range of Motion, Non-Tender, No Pedal Edema, Normal Capillary Refill Skin: Warm, Dry, Intact Wound/Incisions: Healing Well Neurological: No New Focal Deficit Psy/Mental Status: Alert, Normal Affect, Normal Mood Sepsis Event Note - Evaluation Sepsis Screening Result: No Definite Risk - Focused Exam Vital Signs: Vital Signs Temp Pulse Resp BP Pulse Ox 07/03/20 07:25 98.3 F 84 20 115/66 96 07/03/20 05:52 78 07/03/20 04:00 98.1 F 78 18 129/61 91 L 07/03/20 00:00 80 07/02/20 23:38 97.8 F 80 18 108/47 L 97 - Problem List & Annotations (1) Hyponatremia SNOMED Code(s): 13199255 Code(s): E87.1 - HYPO-OSMOLALITY AND HYPONATREMIA Status: Acute Current Visit: Yes (2) Hypo-osmolality and hyponatremia SNOMED Code(s): 399825498 Code(s): E87.1 - HYPO-OSMOLALITY AND HYPONATREMIA Status: Acute Current Visit: Yes (3) SIRS (systemic inflammatory response syndrome) SNOMED Code(s): 817184843 Code(s): R65.10 - SIRS OF NON-INFECTIOUS ORIGIN W/O ACUTE ORGAN DYSFUNCTION Status: Acute Current Visit: Yes - Problem List Review Problem List Initiated/Reviewed/Updated: Yes - My Orders Last 24 Hours: My Active Orders 07/02/20 10:36 Acetaminophen [TylenoL] 650 mg PO Q6H PRN 07/02/20 12:00 Potassium Chloride [Klor-Con 10] 40 meq PO TIDMEALS 07/02/20 12:30 Patient's Own Medication [Ptom] See Protocol SUBCUT WITHMEALSANDBED 07/02/20 14:00 Furosemide [Lasix] 40 mg PO BIDDIURETIC 07/03/20 16:00 Pantoprazole [ProTONIX] 40 mg PO Q24H 07/04/20 07:00 BASIC METABOLIC PANEL,BMP [CHEM] DAILY CBC W/O DIFF,HEMOGRAM [HEME] DAILY - Plan Plan:: #Acute on chronic respiratory failure #Probable COPD exacerbation #Probable pneumonia CTA chest was negative for PE. Was negative for infiltrate Patient still reports increasing shortness of breath. Repeat chest x-ray yesterday was negative Continue supplemental oxygen and wean off as able Continue ceftriaxone and azithromycin DuoNebs every 4 hourly Continue remainder of home breathing treatment Solu-Medrol 40 mg every 8 hourly Ambulate patient Physical therapy #Leukocytosis likely due to pneumonia Resolved #Systemic inflammatory response syndrome Resolved #Severe hypokalemia. Unresolved Continue IV replacement Recheck potassium level #Hyponatremia This is mild Follow-up #Hyperlipidemia Continue statin #Hypothyroidism Patient on Synthroid. Continue #Physical debility Physical therapy and Occupational Therapy
[2020-07-03] MEDS ORDERED: PRAMIPEXOLE 0.5 MG PO SCH (10:00)
[2020-07-03] MEDS: Potassium Chloride 10 MEQ in Premix Bag 1 BAG IV SCH ×4 (10:04→17:17)
[2020-07-03] MEDS: Pramipexole 0.125 MG Tab PO SCH ×2 (10:19→17:25)
[2020-07-03] MEDS ORDERED: Pantoprazole 40 MG Tab.CR PO SCH (16:00)
[2020-07-03] MEDS: Pravastatin 20 MG Tab PO SCH (20:28)
[2020-07-03] MEDS ORDERED: Citalopram 20 MG Tab PO ONE (23:00)
[2020-07-03] MEDS: CITALOPRAM 20 MG PO SCH (23:25)
[2020-07-03] MEDS: MELATONIN 10 MG PO SCH (23:27)
[2020-07-04] MEDS: Pramipexole 0.125 MG Tab PO SCH ×2 (03:09→10:24)
[2020-07-04] MEDS: Albuterol/Ipratropium 3.0-0.5 MG/3 ML Neb Soln INH SCH ×2 (05:59→11:26)
[2020-07-04 07:04] LABS: ANION GAP 10.6 mEq/L (7-13)
[2020-07-04] MEDS ORDERED: predniSONE 20 MG Tab PO SCH (08:00)
[2020-07-04] MEDS ORDERED: Azithromycin 250 MG Tab PO SCH (09:00)
[2020-07-04] MEDS: INSULIN ASPART 100 UNIT/ML SUBCUT SCH (09:10)
[2020-07-04] MEDS: BUPROPION 150 MG PO SCH (09:11)
[2020-07-04] MEDS: Furosemide 40 MG Tab PO SCH (09:11)
[2020-07-04] MEDS: Levothyroxine 88 MCG Tab PO SCH (09:11)
[2020-07-04] MEDS: Potassium Chloride 10 MEQ Tab.ER PO SCH (09:11)
[2020-07-04] MEDS: Heparin Sodium 5,000 Units/ML Vial SUBCUT SCH (09:11)
[2020-07-04] MEDS: traMADol 50 MG Tab PO PRN (09:11)
[2020-07-04] MEDS: NOVOLOG SUBCUT SCH (09:12)
[2020-07-04] MEDS: Nicotine 14 MG/24 Hr Patch TRDERM SCH (09:12)
[2020-07-04] MEDS: FEBUXOSTAT 40 MG PO SCH (09:13)
[2020-07-04] MEDS: Sodium Chloride 0.9% 10 ML Syringe FLUSH PRN (09:17)
--- NOTE | 2020-07-04 10:17 | PCM.DCSUM1 ---
Discharge Summary - Hospital Course Free Text/Narrative:: Schooler is 69-year-old female with past medical history significant for COPD/asthma on home oxygen 2 L, type 2 diabetes, hyperlipidemia, hypothyroidism, depression who presented to the ED for evaluation of increasing cough, shortness of breath and general feeling of unwell onset 1 day. She was admitted for possible pneumonia and COPD exacerbation. CTA chest PE protocol was negative. Did not show any acute infiltrate. Chest x-ray was negative. She was started on antibiotics and Solu-Medrol. Patient was also severely hypokalemic on admit. Potassium was replaced IV. COVID-19 screen was negative. She responded to treatment. Her overall symptoms improved and she was discharged back home stable condition. Diagnosis: Stroke: No - Discharge Data Discharge Date: 07/04/20 Discharge Disposition: Home, Self-Care 01 Condition: Good - Referral to Home Health Primary Care Physician: PCP None - Discharge Diagnosis/Problem(s) (1) Hyponatremia SNOMED Code(s): 77676570 ICD Code: E87.1 - HYPO-OSMOLALITY AND HYPONATREMIA Status: Acute Current Visit: Yes (2) Hypo-osmolality and hyponatremia SNOMED Code(s): 546685193 ICD Code: E87.1 - HYPO-OSMOLALITY AND HYPONATREMIA Status: Acute Current Visit: Yes (3) SIRS (systemic inflammatory response syndrome) SNOMED Code(s): 812179071 ICD Code: R65.10 - SIRS OF NON-INFECTIOUS ORIGIN W/O ACUTE ORGAN DYSFUNCTION Status: Acute Current Visit: Yes - Patient Summary/Data Consults: Consultations 06/30/20 15:20 PT Evaluation and Treatment [CONS] Routine Respiratory Care Assess and Treatment [CONS] Routine - Patient Instructions Diet: Heart Healthy Diet Fluid Restriction: 1500 mL Activity: As Tolerated Showering/Bathing: May Shower Notify Provider of: Fever, Increased Pain, Swelling and Redness, Nausea and/or Vomiting - Discharge Plan *PRESCRIPTION DRUG MONITORING PROGRAM REVIEWED*: Not Applicable *COPY OF PRESCRIPTION DRUG MONITORING REPORT IN PATIENT ALEJANDRA: Not Applicable Prescriptions/Med Rec: Furosemide [Lasix] 40 mg PO BIDDIURETIC #60 tablet Pramipexole [Mirapex] 0.5 mg PO Q8H #90 tablet Potassium Chloride 40 meq PO Q8H #180 tablet.er predniSONE 40 mg PO WITHBREAKFAST 5 Days #10 tablet Azithromycin [Zithromax] 250 mg PO DAILY #4 tablet Home Medications: Home Meds Benzonatate 100 mg PO TID PRN 05/14/19 [History] Citalopram Hydrobromide [Celexa] 30 mg PO BEDTIME 05/14/19 [History] Levothyroxine Sodium 88 mcg PO DAILY 05/14/19 [History] Nicotine Polacrilex [Nicotine Gum] 2 mg PO QID PRN 05/14/19 [History] Pantoprazole [ProTONIX] 40 mg PO Q24H 05/14/19 [History] Pravastatin [Pravachol] 10 mg PO BEDTIME 05/14/19 [History] Albuterol Sulfate [Proair Digihaler] 2 puff IH Q4H PRN 08/16/19 [History] Alendronate Sodium 70 mg PO WEEKLY 08/16/19 [History] buPROPion [Wellbutrin] 150 mg PO DAILY 08/16/19 [History] metOLazone [Metolazone] 2.5 mg PO Q48H 08/17/19 [History] Cannabidiol (Cbd) Extract [CBD Oil] 10 drop SL ASDIRECTED PRN 10/08/19 [History] Albuterol [Proventil Neb Soln] 3 ml NEB QID 10/09/19 [History] Albuterol/Ipratropium [Combivent Respimat] 1 puff IH QID 10/09/19 [History] Febuxostat [Uloric] 40 mg PO DAILY 10/09/19 [History] Magnesium Hydroxide [Milk of Magnesia] 30 ml PO DAILY PRN 10/09/19 [History] Melatonin 10 mg PO BEDTIME 10/09/19 [History] guaiFENesin [Guaifenesin] 400 mg PO BID PRN 10/09/19 [History] Insulin Glarg,Human.Rec.Analog [Lantus] 23 unit SUBCUT BEDTIME ml 10/10/19 [Rx] Insulin Lispro [HumaLOG] 13 unit SUBCUT TIDMEALS 06/20/20 [History] Azithromycin [Zithromax] 250 mg PO DAILY #4 tablet 07/04/20 [Rx] Furosemide [Lasix] 40 mg PO BIDDIURETIC #60 tablet 07/04/20 [Rx] Potassium Chloride 40 meq PO Q8H #180 tablet.er 07/04/20 [Rx] Pramipexole [Mirapex] 0.5 mg PO Q8H #90 tablet 07/04/20 [Rx] predniSONE 40 mg PO WITHBREAKFAST 5 Days #10 tablet 07/04/20 [Rx] Oxygen Therapy Mode: Nasal Cannula Referrals: Candy Mott PA [Ordering Only Provider] - - Discharge Summary/Plan Comment DC Time >30 min.: Yes - General Info Date of Service: 07/04/20 Admission Dx/Problem (Free Text: Admission Diagnosis/Problem Admission Diagnosis/Problem Hypokalemia/SOB Subjective Update: Patient doing okay today. Denies any symptoms. Functional Status: Reports: Pain Controlled - Review of Systems General: Reports: No Symptoms HEENT: Reports: No Symptoms Pulmonary: Reports: No Symptoms Cardiovascular: Reports: No Symptoms Gastrointestinal: Reports: No Symptoms Genitourinary: Reports: No Symptoms Musculoskeletal: Reports: No Symptoms Skin: Reports: No Symptoms Neurological: Reports: No Symptoms Psychiatric: Reports: No Symptoms - Patient Data Vitals - Most Recent: Last Vital Signs Temp 98.4 F 07/04/20 08:11 Pulse 83 07/04/20 08:11 Resp 22 H 07/04/20 08:11 BP 105/43 L 07/04/20 08:11 Pulse Ox 95 07/04/20 08:11 Weight - Most Recent: 158 lb 3.2 oz I&O - Last 24 hours: Intake & Output 07/03/20 07/04/20 07/04/20 22:59 06:59 14:59 Intake Total 450 Balance 450 Lab Results - Last 24 hrs: Laboratory Results - last 24 hr 07/02/20 07/03/20 07/03/20 Range/Units 20:37 07:25 11:19 WBC (5.0-10.0) 10^3/uL RBC (4.2-5.4) 10^6/uL Hgb (12.0-16.0) g/dL Hct (37.0-47.0) % MCV (80-100) fL MCH (27.0-34.0) pg MCHC (33.0-35.0) g/dL Plt Count (150-450) 10^3/uL Sodium (136-145) mmol/L Potassium (3.5-5.1) mmol/L Chloride (98-107) mmol/L Carbon Dioxide (21-32) mmol/L Anion Gap (7-13) mEq/L BUN (7-18) mg/dL Creatinine (0.55-1.02) mg/dL Est Cr Clr Drug Dosing mL/min Estimated GFR (MDRD) Glucose (74-99) mg/dL POC Glucose 156 H 277 H 234 H (83-110) mg/dl Calcium (8.5-10.1) mg/dL 07/03/20 07/03/20 07/04/20 Range/Units 16:36 21:12 06:07 WBC 7.1 (5.0-10.0) 10^3/uL RBC 3.82 L (4.2-5.4) 10^6/uL Hgb 10.5 L D (12.0-16.0) g/dL Hct 32.8 L (37.0-47.0) % MCV 85.9 D (80-100) fL MCH 27.5 (27.0-34.0) pg MCHC 32.0 L (33.0-35.0) g/dL Plt Count 351 D (150-450) 10^3/uL Sodium (136-145) mmol/L Potassium (3.5-5.1) mmol/L Chloride (98-107) mmol/L Carbon Dioxide (21-32) mmol/L Anion Gap (7-13) mEq/L BUN (7-18) mg/dL Creatinine (0.55-1.02) mg/dL Est Cr Clr Drug Dosing mL/min Estimated GFR (MDRD) Glucose (74-99) mg/dL POC Glucose 173 H 101 (83-110) mg/dl Calcium (8.5-10.1) mg/dL 07/04/20 Range/Units 06:15 WBC (5.0-10.0) 10^3/uL RBC (4.2-5.4) 10^6/uL Hgb (12.0-16.0) g/dL Hct (37.0-47.0) % MCV (80-100) fL MCH (27.0-34.0) pg MCHC (33.0-35.0) g/dL Plt Count (150-450) 10^3/uL Sodium 140 (136-145) mmol/L Potassium 3.6 (3.5-5.1) mmol/L Chloride 100 (98-107) mmol/L Carbon Dioxide 33 H (21-32) mmol/L Anion Gap 10.6 (7-13) mEq/L BUN 33 H (7-18) mg/dL Creatinine 1.33 H (0.55-1.02) mg/dL Est Cr Clr Drug Dosing 28.27 mL/min Estimated GFR (MDRD) 39 Glucose 95 (74-99) mg/dL POC Glucose (83-110) mg/dl Calcium 8.3 L (8.5-10.1) mg/dL ALAN Results - Last 24 hrs: Microbiology 06/30/20 13:05 Aerobic Blood Culture - Preliminary Blood - Arm, Right NO GROWTH AFTER 3 DAYS Anaerobic Blood Culture - Preliminary NO GROWTH AFTER 3 DAYS 06/30/20 11:37 Aerobic Blood Culture - Preliminary Blood NO GROWTH AFTER 3 DAYS Anaerobic Blood Culture - Preliminary NO GROWTH AFTER 3 DAYS 06/30/20 17:45 Urine Culture - Final Urine, Clean Catch MIXED SHYANN SUGGESTIVE OF CONTAMINATION. Med Orders - Current: Current Medications Acetaminophen (Tylenol) 650 mg PO Q6H PRN PRN Reason: Pain Last Admin: 07/02/20 12:53 Dose: 650 mg Documented by: Albuterol/Ipratropium (Duoneb 3.0-0.5 Mg/3 Ml) 3 ml INH 0000,0600,1200,1800 [facility] Last Admin: 07/04/20 05:59 Dose: 3 ml Documented by: Azithromycin (Zithromax) 250 mg PO DAILY [facility] Last Admin: 07/04/20 09:12 Dose: 250 mg Documented by: Benzonatate (Tessalon Perles) 100 mg PO TID PRN PRN Reason: Cough Last Admin: 07/03/20 16:42 Dose: 100 mg Documented by: Bisacodyl (Dulcolax) 5 mg PO DAILY PRN PRN Reason: Constipation Bupropion HCl (Wellbutrin Xl) 150 mg PO DAILY [facility] Last Admin: 07/04/20 09:11 Dose: 150 mg Documented by: Citalopram Hydrobromide (Celexa) 30 mg PO BEDTIME@0000 [facility] Last Admin: 07/03/20 23:25 Dose: 30 mg Documented by: Dextrose/Water (Dextrose 50% In Water) 50 ml IV ASDIRECTED PRN PRN Reason: Hypoglycemia Docusate Sodium (Colace) 100 mg PO BID PRN PRN Reason: Constipation Furosemide (Lasix) 40 mg PO BIDDIURETIC [facility] Last Admin: 07/04/20 09:11 Dose: 40 mg Documented by: Glucagon (Glucagen) 1 mg IM ASDIRECTED PRN PRN Reason: Hypoglycemia Heparin Sodium (Porcine) (Heparin Sodium) 5,000 units SUBCUT Q12HR [facility] Last Admin: 07/04/20 09:11 Dose: 5,000 units Documented by: Insulin Glargine (Lantus) 23 unit SUBCUT BEDTIME [facility] Last Admin: 07/03/20 22:29 Dose: 23 units Documented by: Levothyroxine Sodium (Synthroid) 88 mcg PO DAILY [facility] Last Admin: 07/04/20 09:11 Dose: 88 mcg Documented by: Magnesium Hydroxide (Milk Of Magnesia) 30 ml PO Q12H PRN PRN Reason: Constipation Metolazone (Zaroxolyn) 2.5 mg PO Q48H [facility] Last Admin: 07/03/20 08:32 Dose: 2.5 mg Documented by: Nicotine (Habitrol) 14 mg TRDERM DAILY [facility] Last Admin: 07/04/20 09:12 Dose: Not Given Documented by: Febuxostat [Uloric] (40mg Own Med ) 40 mg PO DAILY [facility] Last Admin: 07/04/20 09:13 Dose: 40 mg Documented by: Guaifenesin [ Guaifenesin] 200mg * * Own Med 400 mg PO BID PRN PRN Reason: Congestion Last Admin: 07/03/20 17:21 Dose: 400 mg Documented by: Melatonin [Melatonin (] 10mg Own Med ) 10 mg PO BEDTIME@0000 [facility] Last Admin: 07/03/20 23:27 Dose: 10 mg Documented by: Pantoprazole Sodium (Protonix) 40 mg PO Q24H [facility] Last Admin: 07/03/20 16:42 Dose: 40 mg Documented by: Insulin Aspart 100 Units/Ml 3 Ml Pen Pt Own Med 0 each SUBCUT TIDMEALS [facility] Last Admin: 07/04/20 09:10 Dose: 1 each Documented by: Novolog Flexpen *Pt (Own Med*) 0 each SUBCUT WITHMEALSANDBED [facility]; Protocol Last Admin: 07/04/20 09:12 Dose: Not Given Documented by: Potassium Chloride (Klor-Con 10) 40 meq PO TIDMEALS [facility] Last Admin: 07/04/20 09:11 Dose: 40 meq Documented by: Pramipexole Dihydrochloride (Mirapex) 0.5 mg PO Q8H [facility] Last Admin: 07/04/20 03:09 Dose: 0.5 mg Documented by: Pravastatin Sodium (Pravachol) 10 mg PO BEDTIME [facility] Last Admin: 07/03/20 20:28 Dose: 10 mg Documented by: Prednisone (Prednisone) 40 mg PO WITHBREAKFAST [facility] Last Admin: 07/04/20 09:11 Dose: 40 mg Documented by: Sodium Chloride (Saline Flush) 10 ml FLUSH ASDIRECTED PRN PRN Reason: Keep Vein Open Last Admin: 07/04/20 09:17 Dose: 10 ml Documented by: Tramadol HCl (Ultram) 50 mg PO Q8H PRN PRN Reason: Pain Last Admin: 07/04/20 09:11 Dose: 50 mg Documented by: Discontinued Medications Albuterol (Proventil Neb Soln) 2.5 mg NEB QID [facility] Last Admin: 06/30/20 23:45 Dose: Not Given Documented by: Albuterol/Ipratropium (Duoneb 3.0-0.5 Mg/3 Ml) 3 ml INH QID [facility] Last Admin: 07/01/20 21:10 Dose: 3 ml Documented by: Citalopram Hydrobromide (Celexa) 30 mg PO BEDTIME [facility] Last Admin: 06/30/20 23:52 Dose: Not Given Documented by: Dextrose/Water (Dextrose 50% In Water) 50 ml IV ASDIRECTED PRN PRN Reason: Hypoglycemia Furosemide (Lasix) 40 mg PO DAILY@1400 [facility] Last Admin: 07/01/20 15:47 Dose: 40 mg Documented by: Furosemide (Lasix) 80 mg PO DAILY [facility] Last Admin: 07/02/20 10:46 Dose: Not Given Documented by: Glucagon (Glucagen) 1 mg IM ASDIRECTED PRN PRN Reason: Hypoglycemia Potassium Chloride 10 meq/ (Premix) 100 mls @ 100 mls/hr IV ONETIME ONE Stop: 06/30/20 13:34 Last Admin: 06/30/20 12:49 Dose: 100 mls/hr Documented by: Ceftriaxone Sodium 1 gm/ (Sodium Chloride) 50 mls @ 100 mls/hr IV ONETIME ONE Stop: 06/30/20 13:35 Last Admin: 06/30/20 14:27 Dose: Not Given Documented by: Ceftriaxone Sodium 1 gm/ (Sodium Chloride) 50 mls @ 100 mls/hr IV ONETIME ONE Stop: 06/30/20 14:59 Last Admin: 06/30/20 14:45 Dose: 100 mls/hr Documented by: Ceftriaxone Sodium 1 gm/ (Sodium Chloride) 50 mls @ 100 mls/hr IV Q24H [facility] Last Infusion: 07/02/20 16:33 Dose: Infused Documented by: Azithromycin 500 mg/ Sodium (Chloride) 250 mls @ 250 mls/hr IV Q24H [facility] Last Infusion: 07/02/20 17:44 Dose: Infused Documented by: Potassium Chloride 10 meq/ (Premix) 100 mls @ 100 mls/hr IV Q2H [facility] Stop: 07/01/20 00:59 Last Admin: 06/30/20 19:57 Dose: Not Given Documented by: Azithromycin 500 mg/ Sodium (Chloride) 250 mls @ 250 mls/hr IV ONETIME ONE Stop: 06/30/20 17:59 Last Infusion: 06/30/20 18:04 Dose: Infused Documented by: Potassium Chloride 10 meq/ (Premix) 100 mls @ 100 mls/hr IV Q3H [facility] Stop: 07/01/20 04:29 Last Admin: 07/01/20 06:10 Dose: 100 mls/hr Documented by: Potassium Chloride 10 meq/ (Lidocaine HCl 1 ml/ Premix) 101 mls @ 101 mls/hr IV Q2H [facility] Stop: 07/01/20 21:29 Last Admin: 07/01/20 22:20 Dose: 50 mls/hr Documented by: Potassium Chloride 10 meq/ (Premix) 0 mls @ 100 mls/hr IV Q1H [facility] Stop: 07/02/20 04:31 Last Admin: 07/02/20 07:09 Dose: 100 mls/hr Documented by: Potassium Chloride 10 meq/ (Premix) 100 mls @ 100 mls/hr IV Q2H [facility] Stop: 07/03/20 16:59 Last Admin: 07/03/20 17:17 Dose: 100 mls/hr Documented by: Insulin Glargine (Lantus) 23 unit SUBCUT BEDTIME [facility] Last Admin: 06/30/20 21:45 Dose: 23 units Documented by: Insulin Human Lispro (Humalog) 13 unit SUBCUT TIDMEALS [facility] Last Admin: 07/01/20 12:40 Dose: 13 units Documented by: Insulin Human Lispro (Humalog) 0 unit SUBCUT WITHMEALSANDBED [facility]; Protocol Last Admin: 07/02/20 12:39 Dose: Not Given Documented by: Iopamidol (Isovue-370 (76%)) 100 ml IVPUSH ONETIME ONE Stop: 06/30/20 13:35 Last Admin: 07/03/20 12:36 Dose: Not Given Documented by: Methylprednisolone Sodium Succinate (Solu-Medrol) 40 mg IVPUSH Q8H [facility] Last Admin: 07/03/20 08:39 Dose: 40 mg Documented by: Melatonin [Melatonin (] 10mg Own Med ) 10 mg PO BEDTIME [facility] Last Admin: 06/30/20 23:53 Dose: Not Given Documented by: Non-Formulary Medication (Albuterol Sulfate [Proair Digihaler]) 2 puff INH Q4H PRN PRN Reason: Wheezing Nicotine Polacrilex (2mg) 2 mg PO QID PRN PRN Reason: nicotine cravings Pramipexole [Mirapex (] 1mg Own Med ) 0.5 mg PO BEDTIME [facility] Last Admin: 07/02/20 21:22 Dose: 0.5 mg Documented by: Pantoprazole Sodium (Protonix) 40 mg PO Q24H [facility] Last Admin: 07/02/20 17:54 Dose: 40 mg Documented by: Novolog Flex Pen *Pt (Own Med*) 0 each SUBCUT WITHMEALSANDBED [facility]; Protocol Potassium Chloride (Klor-Con 10) 20 meq PO TID [facility] Last Admin: 07/02/20 10:44 Dose: 20 meq Documented by: Potassium Chloride (Klor-Con 10) 40 meq PO BID [facility] - Exam Quality Assessment: Reports: Supplemental Oxygen General: Reports: Alert, Oriented HEENT: Reports: Pupils Equal, Pupils Reactive, EOMI, Mucous Membr. Moist/[place] Neck: Reports: Supple Lungs: Reports: Clear to Auscultation, Normal Respiratory Effort Cardiovascular: Reports: Regular Rate, Regular Rhythm GI/Abdominal Exam: Normal Bowel Sounds, Soft, Non-Tender, No Organomegaly, No Distention, No Abnormal Bruit, No Mass, Pelvis Stable (Female) Exam: Normal External Exam, Normal Speculum Exam, Normal Bimanual Exam Rectal (Female) Exam: Normal Exam, Normal Rectal Tone Back Exam: Reports: Normal Inspection, Full Range of Motion Extremities: Normal Inspection, Normal Range of Motion, Non-Tender, No Pedal Edema, Normal Capillary Refill Skin: Reports: Warm, Dry, Intact Wound/Incisions: Reports: Healing Well Neurological: Reports: No New Focal Deficit Psy/Mental Status: Reports: Alert, Normal Affect, Normal Mood
== END 2020-07-04 11:35 | disposition home or self-care (01) | DRG 640 ==
LOC: DL.ED 10:12 → DL.MS 15:04 → UNDOADMIN 15:16 → DL.MS 15:45
PROVIDERS: ADMIT Student in an Organized Health Care Education/Training Program; ATTEND Student in an Organized Health Care Education/Training Program
DX: E87.6 Hypokalemia (principal); Z86.19 Personal history of other infectious and parasitic diseases; J96.21 Acute and chronic respiratory failure with hypoxia; Z88.1 Allergy status to other antibiotic agents; Z88.8 Allergy status to other drugs, medicaments and biological substances; Z79.890 Hormone replacement therapy; R65.10 Systemic inflammatory response syndrome (SIRS) of non-infectious origin without acute organ dysfunction; Z79.899 Other long term (current) drug therapy; Z99.81 Dependence on supplemental oxygen; K21.9 Gastro-esophageal reflux disease without esophagitis; N39.3 Stress incontinence (female) (male); M19.90 Unspecified osteoarthritis, unspecified site; G89.29 Other chronic pain; M54.9 Dorsalgia, unspecified; E78.5 Hyperlipidemia, unspecified; E11.9 Type 2 diabetes mellitus without complications; E66.9 Obesity, unspecified; Z79.4 Long term (current) use of insulin; F32.9 Major depressive disorder, single episode, unspecified; E03.9 Hypothyroidism, unspecified; Z20.828 Contact with and (suspected) exposure to other viral communicable diseases; E87.1 Hypo-osmolality and hyponatremia; I10 Essential (primary) hypertension; J43.9 Emphysema, unspecified
CPT/HCPCS: 36415; 71046; 71260; 80053; 83605; 83735; 83880; 84100; 84484; 85025; 85379; 86140; 87040 ×2; 87635; 93005; 96365; 96366; 96375; 99285; J0696; J3480; J7050; 71045; 80048; 82962; 84132; 85027; 87086; 94640; 97161-GP; 99284; A9270-GY; J0456; J1644; J1815-GY; J2001; J2920; J7512; J7620-GY; U0002

== ENCOUNTER 2021-02-16 12:12 | Emergency (ER) | payer MEDICARE, OTHER ==
[2021-02-16] MEDS ORDERED: Potassium Chloride 10% 20 MEQ/15 ML Soln 15 ML UD Cup PO STA (12:18)
[2021-02-16 12:41] LABS: ANION GAP 9.3 mEq/L (7-13)
--- NOTE | 2021-02-16 13:01 | EDM.PDOC ---
ED HPI GENERAL MEDICAL PROBLEM - General Chief Complaint: General Stated Complaint: LOW POTASSIUM Time Seen by Provider: 02/16/21 12:30 Source of Information: Reports: Patient History Limitations: Reports: No Limitations - History of Present Illness INITIAL COMMENTS - FREE TEXT/NARRATIVE: Patient comes emergency department today from with concerns of hypokalemia. Patient has a history of COPD as well as congestive heart failure and chronic renal disease. She was seen at the [facility] yesterday and was contacted this morning because her potassium was noted to be 2.6. She comes emergency department for further evaluation as they were unable to treat her in the clinic today at the [facility]. Upon arrival the patient really does not have much for complaints other than some episodic headedness. She has no vertigo. She has no headache or visual acuity changes. She has no increased shortness of breath from her baseline of COPD. She has no cough congestion outside of the norm. No fever no chills. She has a chest pain pressure heaviness. Notations. No syncope vertigo. No abdominal pain nausea or vomiting. No hematuria dysuria or urinary frequency. No black or tarry stools. 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 She has had to take her potassium as she has in the past. - Related Data Allergies Allergy/AdvReac Type Severity Reaction Status Date / Time allopurinol Allergy Anxiety Verified 06/30/20 16:25 atorvastatin Allergy Cannot Verified 06/30/20 16:25 Remember levofloxacin [From Levaquin] Allergy Other Verified 06/30/20 16:25 Home Meds: Home Meds Benzonatate 100 mg PO TID PRN 05/14/19 [History] Citalopram Hydrobromide [Celexa] 30 mg PO BEDTIME 05/14/19 [History] Levothyroxine Sodium 88 mcg PO DAILY 05/14/19 [History] Nicotine Polacrilex [Nicotine Gum] 2 mg PO QID PRN 05/14/19 [History] Pantoprazole [ProTONIX] 40 mg PO Q24H 05/14/19 [History] Pravastatin [Pravachol] 10 mg PO BEDTIME 05/14/19 [History] Albuterol Sulfate [Proair Digihaler] 2 puff IH Q4H PRN 08/16/19 [History] Alendronate Sodium 70 mg PO WEEKLY 08/16/19 [History] buPROPion [Wellbutrin] 150 mg PO DAILY 08/16/19 [History] metOLazone [Metolazone] 2.5 mg PO Q48H 08/17/19 [History] Cannabidiol (Cbd) Extract [CBD Oil] 10 drop SL ASDIRECTED PRN 10/08/19 [History] Albuterol [Proventil Neb Soln] 3 ml NEB QID 10/09/19 [History] Albuterol/Ipratropium [Combivent Respimat] 1 puff IH QID 10/09/19 [History] Febuxostat [Uloric] 40 mg PO DAILY 10/09/19 [History] Magnesium Hydroxide [Milk of Magnesia] 30 ml PO DAILY PRN 10/09/19 [History] Melatonin 10 mg PO BEDTIME 10/09/19 [History] guaiFENesin [Guaifenesin] 400 mg PO BID PRN 10/09/19 [History] Insulin Glarg,Human.Rec.Analog [Lantus] 23 unit SUBCUT BEDTIME ml 10/10/19 [Rx] Insulin Lispro [HumaLOG] 13 unit SUBCUT TIDMEALS 06/20/20 [History] Azithromycin [Zithromax] 250 mg PO DAILY #4 tablet 07/04/20 [Rx] Furosemide [Lasix] 40 mg PO BIDDIURETIC #60 tablet 07/04/20 [Rx] Potassium Chloride 40 meq PO Q8H #180 tablet.er 07/04/20 [Rx] Pramipexole [Mirapex] 0.5 mg PO Q8H #90 tablet 07/04/20 [Rx] predniSONE 40 mg PO WITHBREAKFAST 5 Days #10 tablet 07/04/20 [Rx] Past Medical History HEENT History: Reports: Cataract Other HEENT History: wear glasses Cardiovascular History: Reports: High Cholesterol, Hypertension Respiratory History: Reports: Asthma, COPD, Other (See Below) Other Respiratory History: emphysema, home oxygen et CPAP Gastrointestinal History: Reports: GERD Genitourinary History: Reports: Other (See Below) Other Genitourinary History: stress 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: Musculoskeletal History: Reports: Arthritis, Back Pain, Chronic Other Musculoskeletal History: T12 compression fx Neurological History: Reports: None Psychiatric History: Reports: Depression Endocrine/Metabolic History: Reports: Diabetes, Type II, Obesity/BMI 30+ Hematologic History: Reports: None Immunologic History: Reports: None Oncologic (Cancer) History: Reports: None Dermatologic History: Reports: None - Infectious Disease History Infectious Disease History: Reports: None - Past Surgical History Head Surgeries/Procedures: Reports: None HEENT Surgical History: Reports: Cataract Surgery Other HEENT Surgeries/Procedures: bilat eyes Cardiovascular Surgical History: Reports: None GI Surgical History: Reports: Colonoscopy Female Surgical History: Reports: None Musculoskeletal Surgical History: Reports: Other (See Below) Other Musculoskeletal Surgeries/Procedures:: back surgery many years ago Social & Family History - Family History Family Medical History: No Pertinent Family History - Tobacco Use Tobacco Use Status *Q: Never Tobacco User - Caffeine Use Caffeine Use: Reports: Soda - Recreational Drug Use Recreational Drug Use: No - Living Situation & Occupation Living situation: Reports: with Family Occupation: Retired ED ROS GENERAL - Review of Systems Review Of Systems: Comprehensive ROS is negative, except as noted in HPI. ED EXAM, GENERAL - Physical Exam Exam: See Below Exam Limited By: No Limitations General Appearance: Alert, WD/WN, No Apparent Distress Eye Exam: Bilateral Eye: EOMI, PERRL Ears: Normal External Exam Nose: Normal Inspection Throat/Mouth: Normal Inspection Head: Atraumatic Neck: Normal Inspection, Supple, Non-Tender, Full Range of Motion Respiratory/Chest: No Respiratory Distress, No Accessory Muscle Use, Chest Non- Tender, Decreased Breath Sounds. No: Crackles, Rales, Rhonchi, Wheezing Cardiovascular: Normal Peripheral Pulses, Regular Rate, Rhythm Peripheral Pulses: 2+: Radial (L), Radial (R), Posterior Tibial (L), Posterior Tibial (R), Dorsalis Pedis (L), Dorsalis Pedis (R) GI/Abdominal: Normal Bowel Sounds, Soft, Non-Tender (Female) Exam: Deferred Rectal (Female) Exam: Deferred Back Exam: Normal Inspection, Full Range of Motion Extremities: Normal Inspection, Normal Range of Motion, Normal Capillary Refill Neurological: Alert, Oriented, Normal Cognition, No Motor/Sensory Deficits Psychiatric: Normal Affect, Normal Mood Skin Exam: Warm, Dry, Intact, Normal Color, No Rash Course - Vital Signs Last Recorded V/S: Last Vital Signs Temp 97.5 F 02/16/21 12:29 Pulse 84 02/16/21 12:29 Resp 18 02/16/21 12:29 BP 98/63 02/16/21 12:29 Pulse Ox 91 L 02/16/21 12:29 - Orders/Labs/Meds Labs: Laboratory Tests 02/16/21 02/16/21 Range/Units 12:23 12:23 WBC 8.0 (5.0-10.0) 10^3/uL RBC 5.21 (4.2-5.4) 10^6/uL Hgb 16.3 H D (12.0-16.0) g/dL Hct 48.8 H (37.0-47.0) % MCV 93.7 D (80-100) fL MCH 31.3 (27.0-34.0) pg MCHC 33.4 (33.0-35.0) g/dL Plt Count 300 (150-450) 10^3/uL Neut % (Auto) 70.4 (42.2-75.2) % Lymph % (Auto) 19.8 L (20.5-50.1) % [place] % (Auto) 7.8 (2-8) % Eos % (Auto) 1.5 (1.0-3.0) % Baso % (Auto) 0.5 (0.0-1.0) % Sodium 143 (136-145) mmol/L Potassium 3.3 L (3.5-5.1) mmol/L Chloride 100 (98-107) mmol/L Carbon Dioxide 37 H (21-32) mmol/L Anion Gap 9.3 (7-13) mEq/L BUN 43 H (7-18) mg/dL Creatinine 1.60 H (0.55-1.02) mg/dL Est Cr Clr Drug Dosing 23.16 mL/min Estimated GFR (MDRD) 32 Glucose 163 H (70-99) mg/dL Calcium 8.7 (8.5-10.1) mg/dL Magnesium 2.1 (1.8-2.4) mg/dL Meds: Medications Discontinued Medications Generic Name Dose Route Start Last Admin Trade Name Freq PRN Reason Stop Dose Admin Magnesium Oxide 250 mg 02/16/21 12:20 02/16/21 13:01 Magnesium Oxide 250 Mg Tab PO 02/16/21 12:21 250 mg ONETIME ONE Administration Potassium Chloride 40 meq 02/16/21 12:18 02/16/21 13:01 Potassium Chloride 10% 20 Meq/15 Ml Soln 15 Ml Ud Cup PO 02/16/21 12:19 40 meq NOW STA Administration Potassium Chloride 20 meq 02/16/21 15:00 Potassium Chloride 10% 20 Meq/15 Ml Soln 15 Ml Ud Cup PO NOW TASHI Potassium Chloride 20 meq 02/16/21 17:00 Potassium Chloride 10% 20 Meq/15 Ml Soln 15 Ml Ud Cup PO NOW TASHI - Re-Assessments/Exams Free Text/Narrative Re-Assessment/Exam: EKG was completed. Please see EKG completed report. I did review the laboratory evaluations from the [place] [facility] it was noted that she not only had a quite low potassium that she also had an acute kidney injury up from her baseline of 1.3-1.6. The patient was given 40 mEq of oral liquid potassium. Her labs are drawn. My plan was going to be to give her 20 mEq of oral potassium every 2 hours until we see her potassium getting close to baseline. She is with this plan. CBC with a WBC of 8.03 which is quite higher than it typically has been and I have concerns for dehydration with her usage of her legs recently. CMP with a sodium of 143, potassium of 3.3 which is just minimally low. Her creatinine is elevated at 1.6 and a BUN of 3 with acute kidney injury pattern mo st likely due to her usage of Lasix. Her magnesium is normal at 2.1. With this finding of her potassium being almost normal. We will change our therapy for this patient at this time. I will increase her by 20 mEq daily of her potassium for the next 5 days and have her repotassium in the clinic. I also spoke with her that I think that she is being a little aggressive with her Lasix. I think she is somewhat dry from the large amount of Lasix that she has been taking. She is doubling her Lasix anywhere from 2 to 3 weeks. This is not only injuring her kidneys but also causing hemoconcentration with an elevated hemoglobin and most likely leading to her lightheadedness. I think that adjusting it daily by a 2 pound weight change is a little aggressive as this can be normal weight changes from day-to-day. I advised her to increase her Lasix only if she is seeing more peripheral edema if she is having increase shortness of breath or difficulty breathing and she has about a 5 pound weight gain in approximately 2 days total she is comfortable with this plan and her questions were answered Departure - Departure Time of Disposition: 13:33 Disposition: Home, Self-Care 01 Clinical Impression: Hypokalemia, YINA (acute kidney injury), Elevated hemoglobin, Diuretic-induced hypokalemia - Discharge Information Referrals: PCP,None [Primary Care Provider] - Forms: ED Department Discharge Additional Instructions: Increase your potassium to 4 tablet daily for the next 4 days and then see your PCP for recheck of labs. I would not use your lasix as you have been. You are really dehydrated and its hurting your kidneys. Instead of 2 lbs change I would change to 5 lbs of weight change before I added any extra lasix. Return to the ED if new or worsening symptoms. Follow up with PCP as above. Sepsis Event Note (ED) - Evaluation Sepsis Screening Result: No Definite Risk
--- NOTE | 2021-02-16 13:02 | PCM.EKG ---
#1 Interpretation EKG Date: 02/16/21 Time: 12:42 Rhythm: NSR Rate (Beats/Min): 68 [place]: Normal P-Wave: Present QRS: Normal ST-T: Normal QT: Normal
[2021-02-16] MEDS ORDERED: Potassium Chloride 10% 20 MEQ/15 ML Soln 15 ML UD Cup PO SCH ×2 (15:00→17:00)
== END 2021-02-16 14:15 | disposition home or self-care (01) ==
LOC: DL.ED 12:12
DX: E87.6 Hypokalemia (principal); T50.2X5A Adverse effect of carbonic-anhydrase inhibitors, benzothiadiazides and other diuretics, initial encounter; N17.9 Acute kidney failure, unspecified; D64.9 Anemia, unspecified; E78.00 Pure hypercholesterolemia, unspecified; I10 Essential (primary) hypertension; J44.9 Chronic obstructive pulmonary disease, unspecified; K21.9 Gastro-esophageal reflux disease without esophagitis; E11.9 Type 2 diabetes mellitus without complications; E66.9 Obesity, unspecified; Z79.4 Long term (current) use of insulin; Z79.899 Other long term (current) drug therapy; Z88.1 Allergy status to other antibiotic agents; Z88.8 Allergy status to other drugs, medicaments and biological substances; Z68.31 Body mass index [BMI] 31.0-31.9, adult
CPT/HCPCS: 36415; 80048; 83735; 85025; 93005; 99283; A9270

== ENCOUNTER 2021-07-21 13:38 | Emergency (ER) | payer OTHER, MEDICARE ==
--- NOTE | 2021-07-21 14:44 | EDM.PDOC ---
ED HPI GENERAL MEDICAL PROBLEM - General Stated Complaint: [facility] / CHEST IS FULL / BAD COUGH Time Seen by Provider: 07/21/21 14:05 Source of Information: Reports: Patient History Limitations: Reports: No Limitations - History of Present Illness INITIAL COMMENTS - FREE TEXT/NARRATIVE: This 70 yo female patient reports to the ED under the [facility] of the [facility] due to increased shortness of breath and a cough. The patient reports her symptoms started about 1 1/2 weeks ago and have been getting worse. The patient reports she has a history of COPD. The patient did attempt to talk to her primary care facility about getting her started on antibiotics, but they would not give her a prescription. The patient reports she got amoxicillin from the [facility]" and has been taking 500 mg twice per day for the past 3 days with no relief. The patient reports at the beginning of her symptoms, she lost the sense of taste and smell, but those things have reversed at this time. The patient reports she is normally on oxygen (2-3 lpm) while at home. Duration: Week(s): Location: Reports: Chest Quality: Reports: Other Severity: Moderate Improves with: Reports: None Worsens with: Reports: None Context: Reports: Other Associated Symptoms: Reports: Cough, Shortness of Breath - Related Data Allergies Allergy/AdvReac Type Severity Reaction Status Date / Time allopurinol Allergy Anxiety Verified 07/21/21 14:15 atorvastatin Allergy Cannot Verified 07/21/21 14:15 Remember levofloxacin [From Levaquin] Allergy Other Verified 07/21/21 14:15 Home Meds: Home Meds Benzonatate 100 mg PO TID PRN 05/14/19 [History] Citalopram Hydrobromide [Celexa] 30 mg PO BEDTIME 05/14/19 [History] Levothyroxine Sodium 88 mcg PO DAILY 05/14/19 [History] Nicotine Polacrilex [Nicotine Gum] 2 mg PO QID PRN 05/14/19 [History] Pantoprazole [ProTONIX] 40 mg PO Q24H 05/14/19 [History] Pravastatin [Pravachol] 10 mg PO BEDTIME 05/14/19 [History] Albuterol Sulfate [Proair Digihaler] 2 puff IH Q4H PRN 08/16/19 [History] Alendronate Sodium 70 mg PO WEEKLY 08/16/19 [History] buPROPion [Wellbutrin] 150 mg PO DAILY 08/16/19 [History] metOLazone [Metolazone] 2.5 mg PO Q48H 08/17/19 [History] Cannabidiol (Cbd) Extract [CBD Oil] 10 drop SL ASDIRECTED PRN 10/08/19 [History] Albuterol [Proventil Neb Soln] 3 ml NEB QID 10/09/19 [History] Albuterol/Ipratropium [Combivent Respimat] 1 puff IH QID 10/09/19 [History] Febuxostat [Uloric] 40 mg PO DAILY 10/09/19 [History] Magnesium Hydroxide [Milk of Magnesia] 30 ml PO DAILY PRN 10/09/19 [History] Melatonin 10 mg PO BEDTIME 10/09/19 [History] guaiFENesin [Guaifenesin] 400 mg PO BID PRN 10/09/19 [History] Insulin Glarg,Human.Rec.Analog [Lantus] 23 unit SUBCUT BEDTIME ml 10/10/19 [Rx] Insulin Lispro [HumaLOG] 13 unit SUBCUT TIDMEALS 06/20/20 [History] Azithromycin [Zithromax] 250 mg PO DAILY #4 tablet 07/04/20 [Rx] Furosemide [Lasix] 40 mg PO BIDDIURETIC #60 tablet 07/04/20 [Rx] Potassium Chloride 40 meq PO Q8H #180 tablet.er 07/04/20 [Rx] Pramipexole [Mirapex] 0.5 mg PO Q8H #90 tablet 07/04/20 [Rx] predniSONE 40 mg PO WITHBREAKFAST 5 Days #10 tablet 07/04/20 [Rx] Past Medical History HEENT History: Reports: Cataract Other HEENT History: wear glasses Cardiovascular History: Reports: High Cholesterol, Hypertension Respiratory History: Reports: Asthma, COPD, Other (See Below) Other Respiratory History: emphysema, home oxygen et CPAP Gastrointestinal History: Reports: GERD Genitourinary History: Reports: Other (See Below) Other Genitourinary History: 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: Musculoskeletal History: Reports: Arthritis, Back Pain, Chronic Other Musculoskeletal History: T12 compression fx Neurological History: Reports: None Psychiatric History: Reports: Depression Endocrine/Metabolic History: Reports: Diabetes, Type II, Obesity/BMI 30+ Hematologic History: Reports: None Immunologic History: Reports: None Oncologic (Cancer) History: Reports: None Dermatologic History: Reports: None - Infectious Disease History Infectious Disease History: Reports: None - Past Surgical History Head Surgeries/Procedures: Reports: None HEENT Surgical History: Reports: Cataract Surgery Other HEENT Surgeries/Procedures: bilat eyes Cardiovascular Surgical History: Reports: None GI Surgical History: Reports: Colonoscopy Female Surgical History: Reports: None Musculoskeletal Surgical History: Reports: Other (See Below) Other Musculoskeletal Surgeries/Procedures:: back surgery many years ago Social & Family History - Family History Family Medical History: No Pertinent Family History - Tobacco Use Tobacco Use Status *Q: Never Tobacco User - Caffeine Use Caffeine Use: Reports: None - Recreational Drug Use Recreational Drug Use: No - Living Situation & Occupation Living situation: Reports: with Family Occupation: Retired ED ROS GENERAL - Review of Systems Review Of Systems: Comprehensive ROS is negative, except as noted in HPI. ED EXAM, GENERAL - Physical Exam Exam: See Below Exam Limited By: No Limitations General Appearance: Alert, WD/WN, Moderate Distress Eye Exam: Bilateral Eye: EOMI, Normal Inspection, PERRL Ears: Normal External Exam, Normal Canal, Hearing Grossly Normal, Normal TMs Nose: Normal Inspection, Normal Mucosa, No Blood Throat/Mouth: Normal Inspection, Normal Lips, Normal Teeth, Normal Gums, Normal Oropharynx, Normal Voice, No Airway Compromise Head: Atraumatic, Normocephalic Neck: Normal Inspection, Supple, Non-Tender, Full Range of Motion Respiratory/Chest: Decreased Breath Sounds, Rhonchi Cardiovascular: Normal Peripheral Pulses, Regular Rate, Rhythm, No Edema, No Gallop, No JVD, No Murmur, No Rub GI/Abdominal: Normal Bowel Sounds, Soft, Non-Tender, No Organomegaly, No Distention, No Abnormal Bruit, No Mass (Female) Exam: Deferred Rectal (Female) Exam: Deferred Back Exam: Normal Inspection, Full Range of Motion, NT Extremities: Normal Inspection, Normal Range of Motion, Non-Tender, Normal Capillary Refill, No Pedal Edema Neurological: Alert, Oriented, CN II-XII Intact, Normal Cognition, Normal Gait, Normal Reflexes, No Motor/Sensory Deficits Psychiatric: Normal Affect, Normal Mood Skin Exam: Warm, Dry, Intact, Normal Color, No Rash Lymphatic: No Adenopathy Course - Vital Signs Last Recorded V/S: Last Vital Signs Temp 98.3 F 07/21/21 14:16 Pulse 96 07/21/21 14:16 Resp 24 H 07/21/21 14:16 BP 142/87 H 07/21/21 14:16 Pulse Ox 89 L 07/21/21 14:16 - Orders/Labs/Meds Orders: Active Orders 24 hr Category Date Time Status CULTURE BLOOD [BC] Stat Lab 07/21/21 14:30 Received Labs: Laboratory Tests 07/21/21 07/21/21 07/21/21 Range/Units 14:01 14:30 14:30 WBC 9.0 (5.0-10.0) 10^3/uL RBC 5.33 (4.2-5.4) 10^6/uL Hgb 16.5 H (12.0-16.0) g/dL Hct 49.5 H (37.0-47.0) % MCV 92.9 (80-100) fL MCH 31.0 (27.0-34.0) pg MCHC 33.3 (33.0-35.0) g/dL Plt Count 331 (150-450) 10^3/uL Neut % (Auto) 68.0 (42.2-75.2) % Lymph % (Auto) 18.1 L (20.5-50.1) % [place] % (Auto) 9.9 H (2-8) % Eos % (Auto) 3.2 H (1.0-3.0) % Baso % (Auto) 0.8 (0.0-1.0) % Add Manual Diff Yes Neutrophils % (Manual) 69 (42-75) % Lymphocytes % (Manual) 16 L (20-50) % Atypical Lymphs % 7 % Monocytes % (Manual) 6 (2-8) % Eosinophils % (Manual) 2 (1-3) % Sodium 142 (136-145) mmol/L Potassium 4.0 (3.5-5.1) mmol/L Chloride 100 (98-107) mmol/L Carbon Dioxide 30 (21-32) mmol/L Anion Gap 16.0 H (7-13) mEq/L BUN 41 H (7-18) mg/dL Creatinine 1.64 H (0.55-1.02) mg/dL Est Cr Clr Drug Dosing 22.60 mL/min Estimated GFR (MDRD) 31 BUN/Creatinine Ratio 25.0 (No establ ref range) Glucose 105 H (70-99) mg/dL Lactic Acid (0.4-2.0) mmol/L Calcium 9.1 (8.5-10.1) mg/dL Total Bilirubin 0.3 (0.2-1.0) mg/dL AST 26 (15-37) U/L ALT 32 (14-59) U/L Alkaline Phosphatase 82 (46-116) U/L B-Natriuretic Peptide 14 (0-100) pg/ml Total Protein 7.9 (6.4-8.2) g/dL Albumin 3.9 (3.4-5.0) g/dL Globulin 4.0 Albumin/Globulin Ratio 1.0 Influenza Type A RNA Negative (NEGATIVE) Influenza Type B RNA Negative (NEGATIVE) SARS-CoV-2 RNA (BASSAM) Negative (NEGATIVE) 07/21/21 Range/Units 14:30 WBC (5.0-10.0) 10^3/uL RBC (4.2-5.4) 10^6/uL Hgb (12.0-16.0) g/dL Hct (37.0-47.0) % MCV (80-100) fL MCH (27.0-34.0) pg MCHC (33.0-35.0) g/dL Plt Count (150-450) 10^3/uL Neut % (Auto) (42.2-75.2) % Lymph % (Auto) (20.5-50.1) % [place] % (Auto) (2-8) % Eos % (Auto) (1.0-3.0) % Baso % (Auto) (0.0-1.0) % Add Manual Diff Neutrophils % (Manual) (42-75) % Lymphocytes % (Manual) (20-50) % Atypical Lymphs % % Monocytes % (Manual) (2-8) % Eosinophils % (Manual) (1-3) % Sodium (136-145) mmol/L Potassium (3.5-5.1) mmol/L Chloride (98-107) mmol/L Carbon Dioxide (21-32) mmol/L Anion Gap (7-13) mEq/L BUN (7-18) mg/dL Creatinine (0.55-1.02) mg/dL Est Cr Clr Drug Dosing mL/min Estimated GFR (MDRD) BUN/Creatinine Ratio (No establ ref range) Glucose (70-99) mg/dL Lactic Acid 1.4 (0.4-2.0) mmol/L Calcium (8.5-10.1) mg/dL Total Bilirubin (0.2-1.0) mg/dL AST (15-37) U/L ALT (14-59) U/L Alkaline Phosphatase (46-116) U/L B-Natriuretic Peptide (0-100) pg/ml Total Protein (6.4-8.2) g/dL Albumin (3.4-5.0) g/dL Globulin Albumin/Globulin Ratio Influenza Type A RNA (NEGATIVE) Influenza Type B RNA (NEGATIVE) SARS-CoV-2 RNA ([place]ASS[place]) (NEGATIVE) Meds: Medications Discontinued Medications Generic Name Dose Route Start Last Admin Trade Name Freq PRN Reason Stop Dose Admin Methylprednisolone Sodium Succinate 125 mg 07/21/21 15:25 Methylprednisolone Sodium Succinate 125 Mg/2 Ml Sdv IM 07/21/21 15:26 ONETIME ONE Departure - Departure Time of Disposition: 15:27 Disposition: Home, Self-Care 01 Condition: Fair Clinical Impression: Acute exacerbation of chronic obstructive pulmonary disease (COPD) - Discharge Information *PRESCRIPTION DRUG MONITORING PROGRAM REVIEWED*: Not Applicable *COPY OF PRESCRIPTION DRUG MONITORING REPORT IN PATIENT ALEJANDRA: Not Applicable Instructions: Chronic Obstructive Pulmonary Disease, [id number] Forms: ED Department Discharge Care Plan Goals: The patient was advised of the examination and lab results during the visit. The patient was given an injection of SoluMedrol while in the ED. The patient was discharged with scripts for 1) Keflex (500 mg) #30 to take 1 by mouth three times per day for 10 days and Prednisone (20 mg) #10 to take 2 by mouth daily for 5 days (starting 07/22/21). If the patient has any additional symptoms or concerns, the patient should either return to the emergency department or visit her primary care facility. Sepsis Event Note (ED) - Evaluation Sepsis Screening Result: No Definite Risk - Focused Exam Vital Signs: Vital Signs Temp Pulse Resp BP Pulse Ox 07/21/21 14:16 98.3 F 96 24 H 142/87 H 89 L - My Orders Last 24 Hours: My Active Orders 07/21/21 14:30 CULTURE BLOOD [BC] Stat - Assessment/Plan Last 24 Hours: My Active Orders 07/21/21 14:30 CULTURE BLOOD [BC] Stat
[2021-07-21 14:57] LABS: CORONAVIRUS COVID-19 NAA NEGATIVE (NEGATIVE)
[2021-07-21] MEDS ORDERED: methylPREDNISolone Sodium Succinate 125 MG/2 ML SDV IM ONE (15:25)
== END 2021-07-21 15:35 | disposition home or self-care (01) ==
LOC: DL.ED 13:38
DX: J44.1 Chronic obstructive pulmonary disease with (acute) exacerbation (principal); E78.00 Pure hypercholesterolemia, unspecified; I10 Essential (primary) hypertension; K21.9 Gastro-esophageal reflux disease without esophagitis; E11.9 Type 2 diabetes mellitus without complications; E66.9 Obesity, unspecified; Z68.31 Body mass index [BMI] 31.0-31.9, adult; Z88.1 Allergy status to other antibiotic agents; Z88.8 Allergy status to other drugs, medicaments and biological substances; Z79.4 Long term (current) use of insulin; Z79.899 Other long term (current) drug therapy; Z20.822 Contact with and (suspected) exposure to COVID-19
CPT/HCPCS: 0240U; 36415; 80053; 83605; 83880; 85025; 87040; 96372; 99284; J2930

== ENCOUNTER 2022-07-26 14:08 | Emergency (ER) | payer OTHER ==
[2022-07-26 15:20] LABS: CORONAVIRUS COVID-19 NAA NEGATIVE (NEGATIVE)
[2022-07-26] MEDS ORDERED: Albuterol/Ipratropium 3.0-0.5 MG/3 ML Neb Soln NEB ONE ×2 (16:11→17:37)
[2022-07-26] MEDS ORDERED: cefTRIAXone 1 GM Vial IVPUSH ONE (16:12)
[2022-07-26] MEDS ORDERED: methylPREDNISolone Sodium Succinate 125 MG/2 ML SDV IVPUSH ONE (16:12)
[2022-07-26 16:25] LABS: ANION GAP 13.1 mEq/L (7-13)
[2022-07-26] MEDS ORDERED: Codeine/guaiFENesin 10-100 MG/5 ML Syrup 5 ML Cup PO ONE (17:23)
== END 2022-07-26 18:32 | disposition home or self-care (01) ==
LOC: DL.ED 14:08
DX: J44.1 Chronic obstructive pulmonary disease with (acute) exacerbation (principal); E78.00 Pure hypercholesterolemia, unspecified; I10 Essential (primary) hypertension; E11.9 Type 2 diabetes mellitus without complications; E66.9 Obesity, unspecified; Z68.31 Body mass index [BMI] 31.0-31.9, adult; Z88.1 Allergy status to other antibiotic agents; Z88.8 Allergy status to other drugs, medicaments and biological substances; Z79.899 Other long term (current) drug therapy; Z79.4 Long term (current) use of insulin; Z20.822 Contact with and (suspected) exposure to COVID-19
CPT/HCPCS: 0240U; 36415; 71045; 80053; 83605; 85025; 87040; 94640; 96374; 96375; 99285; A9270; J0696; J2930; J7620-GY

== ENCOUNTER 2023-07-06 12:43 | Inpatient (IN) | payer MEDICARE, OTHER ==
[2023-07-06] MEDS ORDERED: Albuterol/Ipratropium 3.0-0.5 MG/3 ML Neb Soln NEB ONE (13:19)
[2023-07-06] MEDS ORDERED: predniSONE 20 MG Tab PO ONE (13:20)
[2023-07-06 15:11] LABS: CORONAVIRUS COVID-19 NAA NEGATIVE (NEGATIVE); INFLUENZA A NAA NEGATIVE (NEGATIVE); INFLUENZA B NAA NEGATIVE (NEGATIVE); RESPIRATORY SYNCYTIAL VIR NAA NEGATIVE (NEGATIVE)
[2023-07-06 16:41] LABS: HEMATOCRIT 44.2 % (37.0-47.0); HEMOGLOBIN 13.6 g/dL (12.0-16.0); MEAN CORPUSCULAR HEMOGLOBIN 25.8 pg (27.0-34.0); MEAN CORPUSCULAR HGB CONC 30.8 g/dL (33.0-35.0); MEAN CORPUSCULAR VOLUME 83.7 fL (80-100); PLATELET COUNT,PLT 275 10^3/uL (150-450); RED BLOOD CELL COUNT 5.28 10^6/uL (4.2-5.4)
[2023-07-06 16:46] LABS: BASOPHILS PERCENT AUTO 0.5 % (0.0-1.0); EOSINOPHILS PERCENT AUTO 0.4 % (1.0-3.0); LYMPHOCYTES PERCENT AUTO 3.6 % (20.5-50.1); MONOCYTES PERCENT AUTO 1.9 % (2-8); NEUTROPHILS PERCENT AUTO 93.6 % (42.2-75.2)
[2023-07-06 17:02] LABS: ALBUMIN 4.3 g/dL (3.4-5.0); ANION GAP 5.6 mEq/L (7-13); BILIRUBIN TOTAL 0.3 mg/dL (0.2-1.0); BUN/CREATININE RATIO 17.9 (No establ ref range); C-REACTIVE PROTEIN 0.5 ng/dL (<=0.50); CALCIUM 9.3 mg/dL (8.5-10.1); CREATININE 1.84 mg/dL (0.55-1.02); EST CRCL DRUG DOSING (CG) 19.56 mL/min; MAGNESIUM 2.4 mg/dL (1.8-2.4); POTASSIUM,K 3.6 mmol/L (3.5-5.1); PROTEIN TOTAL,TP 8.4 g/dL (6.4-8.2)
[2023-07-06] MEDS ORDERED: HYDROmorphone 0.5 MG/0.5 ML Syringe IVPUSH PRN (17:05)
[2023-07-06] MEDS ORDERED: Polyethylene Glycol 3350 Powder 17 GM Packet PO PRN (17:05)
[2023-07-06] MEDS ORDERED: Naloxone 2 MG/2 ML Syringe IVPUSH PRN (17:05)
[2023-07-06] MEDS ORDERED: Acetaminophen/oxyCODONE 325-5 MG Tab PO PRN (17:05)
[2023-07-06] MEDS ORDERED: Sodium Chloride 0.9% 10 ML Syringe FLUSH PRN (17:05)
[2023-07-06] MEDS ORDERED: Ondansetron 4 MG/2 ML SDV IVPUSH PRN (17:05)
[2023-07-06] MEDS ORDERED: Azithromycin 500 MG in Sodium Chloride 0.9% 250 ML IV ONE (17:08)
[2023-07-06] MEDS ORDERED: Ondansetron 4 MG/2 ML SDV IVPUSH ONE (17:09)
[2023-07-06] MEDS ORDERED: cefTRIAXone 2 GM Vial IVPUSH ONE (17:09)
[2023-07-06] MEDS ORDERED: Metoprolol Tartrate 5 MG/5 ML SDV IVPUSH PRN (17:11)
[2023-07-06] MEDS ORDERED: Glucagon,Human Recombinant 1 MG Vial IM PRN (17:11)
[2023-07-06] MEDS ORDERED: 50% Dextrose in Water 50 ML Syringe IVPUSH PRN (17:11)
[2023-07-06] MEDS ORDERED: hydrALAZINE 20 MG/ML SDV IVPUSH PRN (17:11)
[2023-07-06] MEDS ORDERED: traZODone 50 MG Tab PO PRN ×2 (17:13→17:22)
[2023-07-06] MEDS ORDERED: diphenhydrAMINE 50 MG/ML SDV IVPUSH ONE (17:17)
[2023-07-06 17:25] LABS: LYMPHOCYTES PERCENT MAN 2 % (20-50); MONOCYTES PERCENT MAN 1 % (2-8); SEG NEUTROPHILS PERCENT MAN 97 % (42-75)
[2023-07-06] MEDS: Pantoprazole 40 MG Tab.CR PO SCH (18:09)
[2023-07-06] MEDS ORDERED: guaiFENesin/Dextromethorphan 100-10 MG/5 ML Soln 5 ML Cup PO PRN (18:52)
[2023-07-06] MEDS: Melatonin 3 MG Tab PO PRN (19:04)
[2023-07-06] MEDS ORDERED: methylPREDNISolone Sodium Succinate 40 MG/1 ML SDV IVPUSH ONE (21:00)
[2023-07-06] MEDS ORDERED: Zolpidem 5 MG Tab PO SCH (21:00)
[2023-07-06] MEDS ORDERED: Sodium Chloride 0.9% 1,000 ML IV SCH (21:15)
[2023-07-06] MEDS: Colchicine 0.6 MG Tab PO SCH (22:00)
[2023-07-06] MEDS: Spironolactone 25 MG Tab PO SCH (22:00)
[2023-07-06] MEDS: guaiFENesin 600 MG Tab.ER PO SCH (22:00)
[2023-07-06] MEDS: Pramipexole 0.5 MG Tab PO SCH (22:00)
[2023-07-06] MEDS: Ascorbic Acid 500 MG Tab PO SCH (22:01)
[2023-07-06] MEDS: Sodium Chloride 0.9% 10 ML Syringe FLUSH SCH (22:01)
[2023-07-06] MEDS: Saccharomyces Boulardii (Probiotic) 250 MG Cap PO SCH (22:01)
[2023-07-06] MEDS ORDERED: Non-Formulary Medication 1 Each (Nicotine Polacrilex 2 MG Gum) PO PRN (22:08)
[2023-07-06] MEDS ORDERED: Insulin Lispro 100 Units/ML 3 ML Vial ONE (22:08)
[2023-07-06] MEDS ORDERED: METHOCARBAMOL 500 MG PO PRN (22:08)
[2023-07-06] MEDS ORDERED: Diclofenac Sodium 1% Gel 100 GM Tube TOP PRN (22:08)
[2023-07-06] MEDS ORDERED: Benzonatate 100 MG Cap PO PRN (22:08)
[2023-07-07] MEDS: Potassium Chloride 10 MEQ Tab.ER PO SCH ×4 (00:27→21:16)
[2023-07-07] MEDS ORDERED: methylPREDNISolone Sodium Succinate 40 MG/1 ML SDV IVPUSH SCH (06:00)
[2023-07-07] MEDS: Levothyroxine 88 MCG Tab PO SCH (06:45)
[2023-07-07 06:51] LABS: BASOPHILS PERCENT AUTO 0.2 % (0.0-1.0); HEMATOCRIT 38.8 % (37.0-47.0); HEMOGLOBIN 12.1 g/dL (12.0-16.0); LYMPHOCYTES PERCENT AUTO 3.2 % (20.5-50.1); MEAN CORPUSCULAR HEMOGLOBIN 26.2 pg (27.0-34.0); MEAN CORPUSCULAR HGB CONC 31.2 g/dL (33.0-35.0); MEAN CORPUSCULAR VOLUME 84.2 fL (80-100); MONOCYTES PERCENT AUTO 0.5 % (2-8); NEUTROPHILS PERCENT AUTO 96.1 % (42.2-75.2); PLATELET COUNT,PLT 253 10^3/uL (150-450); RED BLOOD CELL COUNT 4.61 10^6/uL (4.2-5.4); WHITE BLOOD CELL COUNT,WBC 10.7 10^3/uL (5.0-10.0)
[2023-07-07] MEDS: Formoterol/Mometasone 200-5 MCG 8.8 GM Inhaler IH SCH ×2 (06:52→17:50)
[2023-07-07 07:14] LABS: ALANINE AMINOTRANSFERASE,ALT 25 U/L (14-59); ALBUMIN 3.3 g/dL (3.4-5.0); ALKALINE PHOSPHATASE 72 U/L (46-116); ASPARTATE AMNIOTRANSFERASE,AST 18 U/L (15-37); BILIRUBIN TOTAL 0.4 mg/dL (0.2-1.0); BLOOD UREA NITROGEN,BUN 39 mg/dL (7-18); BUN/CREATININE RATIO 19.8 (No establ ref range); CALCIUM 8.3 mg/dL (8.5-10.1); CARBON DIOXIDE,CO2 33 mmol/L (21-32); CHLORIDE,CL 94 mmol/L (98-107); CREATININE 1.97 mg/dL (0.55-1.02); EST CRCL DRUG DOSING (CG) 18.27 mL/min; GLUCOSE RANDOM 269 mg/dL (70-99); MAGNESIUM 2.9 mg/dL (1.8-2.4); PROTEIN TOTAL,TP 7.1 g/dL (6.4-8.2); SODIUM,NA 133 mmol/L (136-145)
[2023-07-07 07:15] LABS: A/G RATIO 0.87; C-REACTIVE PROTEIN < 0.50 ng/dL (<=0.50); ESTIMATED GFR 26 mL/min (>=60)
[2023-07-07] MEDS ORDERED: Insulin Lispro 100 Units/ML 3 ML Vial SUBCUT SCH (08:00)
[2023-07-07] MEDS: Insulin Lispro 100 Units/ML 3 ML Vial SUBCUT SCH ×4 (08:30→21:12)
[2023-07-07] MEDS: cefTRIAXone 1 GM Vial IVPUSH SCH (08:30)
[2023-07-07] MEDS: Calcitriol 0.25 MCG Cap PO SCH (08:31)
[2023-07-07] MEDS: guaiFENesin 600 MG Tab.ER PO SCH ×2 (08:31→21:16)
[2023-07-07] MEDS: Insulin Glarg,Human.Rec.Analog 100 Unit/ML 10 ML Vial SUBCUT SCH ×2 (08:31→21:13)
[2023-07-07] MEDS: Ascorbic Acid 500 MG Tab PO SCH ×2 (08:32→21:16)
[2023-07-07] MEDS: Colchicine 0.6 MG Tab PO SCH ×2 (08:32→21:16)
[2023-07-07] MEDS: Saccharomyces Boulardii (Probiotic) 250 MG Cap PO SCH ×2 (08:32→21:16)
[2023-07-07] MEDS: Modafinil 100 MG Tab PO SCH (08:32)
[2023-07-07] MEDS: Pramipexole 0.5 MG Tab PO SCH ×3 (08:32→21:16)
[2023-07-07] MEDS: Cholecalciferol (Vitamin D3) 25 MCG Tab PO SCH (08:32)
[2023-07-07] MEDS: amLODIPine 5 MG Tab PO SCH (08:32)
[2023-07-07] MEDS: Aspirin 81 MG Tab.Chew PO SCH (08:32)
[2023-07-07] MEDS: Escitalopram 10 MG Tab PO SCH (08:32)
[2023-07-07] MEDS: Spironolactone 25 MG Tab PO SCH ×2 (08:32→21:16)
[2023-07-07] MEDS: Tiotropium Bromide 4 GM Inhalation Spray (2.5mcg/1 dose; 10 doses) INH SCH (08:34)
[2023-07-07] MEDS: Azithromycin 500 MG in Sodium Chloride 0.9% 250 ML IV SCH (08:34)
[2023-07-07] MEDS: Sodium Chloride 0.9% 10 ML Syringe FLUSH SCH ×2 (08:41→21:17)
[2023-07-07] MEDS ORDERED: Non-Formulary Medication 1 Each (Febuxostat [Febuxostat] 40 MG Tablet) PO SCH (09:00)
[2023-07-07] MEDS ORDERED: Metolazone 2.5 MG Tab PO SCH (09:00)
[2023-07-07] MEDS ORDERED: buPROPion 150 MG Tab.ER PO SCH (09:00)
[2023-07-07] MEDS: Albuterol/Ipratropium 3.0-0.5 MG/3 ML Neb Soln NEB SCH ×4 (09:51→21:20)
[2023-07-07] MEDS: methylPREDNISolone Sodium Succinate 40 MG/1 ML SDV IVPUSH SCH ×2 (14:09→21:10)
[2023-07-07] MEDS: Pantoprazole 40 MG Tab.CR PO SCH (17:10)
[2023-07-07] MEDS: Melatonin 3 MG Tab PO PRN (21:16)
[2023-07-07] MEDS: buPROPion 150 MG Tab.ER PO SCH (21:25)
[2023-07-08] MEDS: Albuterol/Ipratropium 3.0-0.5 MG/3 ML Neb Soln NEB SCH ×7 (02:41→21:56)
[2023-07-08] MEDS: Sennosides/Docusate Sodium 50-8.6 MG Tab PO PRN ×2 (03:14→21:55)
[2023-07-08] MEDS: methylPREDNISolone Sodium Succinate 40 MG/1 ML SDV IVPUSH SCH ×3 (05:25→21:56)
[2023-07-08] MEDS: Formoterol/Mometasone 200-5 MCG 8.8 GM Inhaler IH SCH ×3 (05:26→17:47)
[2023-07-08] MEDS: Tiotropium Bromide 4 GM Inhalation Spray (2.5mcg/1 dose; 10 doses) INH SCH ×2 (05:27→10:48)
[2023-07-08 07:25] LABS: BASOPHILS PERCENT AUTO 0.3 % (0.0-1.0); HEMATOCRIT 38.4 % (37.0-47.0); HEMOGLOBIN 11.8 g/dL (12.0-16.0); LYMPHOCYTES PERCENT AUTO 2.4 % (20.5-50.1); MEAN CORPUSCULAR HEMOGLOBIN 26.2 pg (27.0-34.0); MEAN CORPUSCULAR HGB CONC 30.7 g/dL (33.0-35.0); MEAN CORPUSCULAR VOLUME 85.1 fL (80-100); MONOCYTES PERCENT AUTO 2.5 % (2-8); NEUTROPHILS PERCENT AUTO 94.8 % (42.2-75.2); PLATELET COUNT,PLT 270 10^3/uL (150-450); RED BLOOD CELL COUNT 4.51 10^6/uL (4.2-5.4); WHITE BLOOD CELL COUNT,WBC 21.3 10^3/uL (5.0-10.0)
[2023-07-08 07:43] LABS: A/G RATIO 1.1; ALANINE AMINOTRANSFERASE,ALT 30 U/L (14-59); ALBUMIN 3.8 g/dL (3.4-5.0); ALKALINE PHOSPHATASE 72 U/L (46-116); ANION GAP 13.9 mEq/L (7-13); ASPARTATE AMNIOTRANSFERASE,AST 22 U/L (15-37); BILIRUBIN TOTAL 0.3 mg/dL (0.2-1.0); BLOOD UREA NITROGEN,BUN 51 mg/dL (7-18); BUN/CREATININE RATIO 23.4 (No establ ref range); CALCIUM 8.6 mg/dL (8.5-10.1); CARBON DIOXIDE,CO2 28 mmol/L (21-32); CHLORIDE,CL 95 mmol/L (98-107); CREATININE 2.18 mg/dL (0.55-1.02); EST CRCL DRUG DOSING (CG) 16.51 mL/min; GLUCOSE RANDOM 317 mg/dL (70-99); MAGNESIUM 2.8 mg/dL (1.8-2.4); POTASSIUM,K 4.9 mmol/L (3.5-5.1); PROTEIN TOTAL,TP 7.4 g/dL (6.4-8.2); SODIUM,NA 132 mmol/L (136-145)
[2023-07-08] MEDS: Levothyroxine 88 MCG Tab PO SCH (07:45)
[2023-07-08] MEDS: Potassium Chloride 10 MEQ Tab.ER PO SCH ×3 (07:46→21:56)
[2023-07-08 07:49] LABS: C-REACTIVE PROTEIN < 0.50 ng/dL (<=0.50); ESTIMATED GFR 23 mL/min (>=60)
[2023-07-08] MEDS: Insulin Lispro 100 Units/ML 3 ML Vial SUBCUT SCH ×4 (08:05→22:01)
[2023-07-08] MEDS: Cholecalciferol (Vitamin D3) 25 MCG Tab PO SCH (10:38)
[2023-07-08] MEDS: Aspirin 81 MG Tab.Chew PO SCH (10:38)
[2023-07-08] MEDS: Pramipexole 0.5 MG Tab PO SCH ×3 (10:38→21:54)
[2023-07-08] MEDS: Spironolactone 25 MG Tab PO SCH ×2 (10:38→21:54)
[2023-07-08] MEDS: Modafinil 100 MG Tab PO SCH (10:39)
[2023-07-08] MEDS: Calcitriol 0.25 MCG Cap PO SCH (10:39)
[2023-07-08] MEDS: guaiFENesin 600 MG Tab.ER PO SCH ×2 (10:39→21:55)
[2023-07-08] MEDS: Colchicine 0.6 MG Tab PO SCH ×2 (10:39→21:56)
[2023-07-08] MEDS: Ascorbic Acid 500 MG Tab PO SCH ×2 (10:39→21:56)
[2023-07-08] MEDS: Saccharomyces Boulardii (Probiotic) 250 MG Cap PO SCH ×2 (10:39→21:55)
[2023-07-08] MEDS: Insulin Glarg,Human.Rec.Analog 100 Unit/ML 10 ML Vial SUBCUT SCH ×2 (10:40→21:59)
[2023-07-08] MEDS: Escitalopram 10 MG Tab PO SCH (10:40)
[2023-07-08] MEDS: amLODIPine 5 MG Tab PO SCH (10:41)
[2023-07-08] MEDS: cefTRIAXone 1 GM Vial IVPUSH SCH (10:41)
[2023-07-08] MEDS: Sodium Chloride 0.9% 10 ML Syringe FLUSH SCH ×2 (10:42→21:56)
[2023-07-08] MEDS: Azithromycin 500 MG in Sodium Chloride 0.9% 250 ML IV SCH (11:03)
[2023-07-08] MEDS: Pantoprazole 40 MG Tab.CR PO SCH (17:21)
[2023-07-08] MEDS: Magnesium Hydroxide 400 MG/5 ML Susp 30 ML Cup PO PRN (17:21)
[2023-07-08] MEDS: Melatonin 3 MG Tab PO PRN (21:54)
[2023-07-08] MEDS: buPROPion 150 MG Tab.ER PO SCH (21:54)
[2023-07-09] MEDS: Albuterol/Ipratropium 3.0-0.5 MG/3 ML Neb Soln NEB SCH ×7 (01:46→18:24)
[2023-07-09] MEDS: Formoterol/Mometasone 200-5 MCG 8.8 GM Inhaler IH SCH ×3 (05:13→18:24)
[2023-07-09] MEDS: Tiotropium Bromide 4 GM Inhalation Spray (2.5mcg/1 dose; 10 doses) INH SCH (05:13)
[2023-07-09 06:28] LABS: HEMOGLOBIN 11.1 g/dL (12.0-16.0); MEAN CORPUSCULAR HEMOGLOBIN 26.2 pg (27.0-34.0); MEAN CORPUSCULAR HGB CONC 30.8 g/dL (33.0-35.0); MEAN CORPUSCULAR VOLUME 84.9 fL (80-100); PLATELET COUNT,PLT 281 10^3/uL (150-450); RED BLOOD CELL COUNT 4.24 10^6/uL (4.2-5.4); WHITE BLOOD CELL COUNT,WBC 15.5 10^3/uL (5.0-10.0)
[2023-07-09] MEDS: Levothyroxine 88 MCG Tab PO SCH (06:30)
[2023-07-09] MEDS: methylPREDNISolone Sodium Succinate 40 MG/1 ML SDV IVPUSH SCH ×3 (06:30→21:41)
[2023-07-09 06:51] LABS: A/G RATIO 1.1; ALANINE AMINOTRANSFERASE,ALT 34 U/L (14-59); ALBUMIN 3.7 g/dL (3.4-5.0); ALKALINE PHOSPHATASE 68 U/L (46-116); ASPARTATE AMNIOTRANSFERASE,AST 25 U/L (15-37); BILIRUBIN TOTAL 0.4 mg/dL (0.2-1.0); BLOOD UREA NITROGEN,BUN 59 mg/dL (7-18); BUN/CREATININE RATIO 31.2 (No establ ref range); CALCIUM 8.3 mg/dL (8.5-10.1); CARBON DIOXIDE,CO2 29 mmol/L (21-32); CHLORIDE,CL 96 mmol/L (98-107); CREATININE 1.89 mg/dL (0.55-1.02); EST CRCL DRUG DOSING (CG) 19.04 mL/min; GLUCOSE RANDOM 294 mg/dL (70-99); PROTEIN TOTAL,TP 7.2 g/dL (6.4-8.2); SODIUM,NA 132 mmol/L (136-145)
[2023-07-09 06:55] LABS: C-REACTIVE PROTEIN < 0.50 ng/dL (<=0.50); ESTIMATED GFR 28 mL/min (>=60)
[2023-07-09 06:57] LABS: BASOPHILS PERCENT AUTO 0.3 % (0.0-1.0); EOSINOPHILS PERCENT AUTO 0.1 % (1.0-3.0); MONOCYTES PERCENT AUTO 2.3 % (2-8); NEUTROPHILS PERCENT AUTO 95.3 % (42.2-75.2)
[2023-07-09 07:56] LABS: BAND PERCENT MAN 1 %; LYMPHOCYTES PERCENT MAN 4 % (20-50); MONOCYTES PERCENT MAN 4 % (2-8); SEG NEUTROPHILS PERCENT MAN 91 % (42-75)
[2023-07-09] MEDS: Insulin Lispro 100 Units/ML 3 ML Vial SUBCUT SCH ×4 (08:23→21:49)
[2023-07-09] MEDS: Cholecalciferol (Vitamin D3) 25 MCG Tab PO SCH (08:25)
[2023-07-09] MEDS: Escitalopram 10 MG Tab PO SCH (08:25)
[2023-07-09] MEDS: Aspirin 81 MG Tab.Chew PO SCH (08:25)
[2023-07-09] MEDS: Saccharomyces Boulardii (Probiotic) 250 MG Cap PO SCH ×2 (08:26→21:38)
[2023-07-09] MEDS: Pramipexole 0.5 MG Tab PO SCH ×3 (08:26→21:38)
[2023-07-09] MEDS: Ascorbic Acid 500 MG Tab PO SCH ×2 (08:26→21:38)
[2023-07-09] MEDS: Calcitriol 0.25 MCG Cap PO SCH (08:26)
[2023-07-09] MEDS: Spironolactone 25 MG Tab PO SCH ×2 (08:26→14:17)
[2023-07-09] MEDS: Potassium Chloride 10 MEQ Tab.ER PO SCH ×3 (08:26→21:39)
[2023-07-09] MEDS: guaiFENesin 600 MG Tab.ER PO SCH ×2 (08:27→21:40)
[2023-07-09] MEDS: Modafinil 100 MG Tab PO SCH (08:27)
[2023-07-09] MEDS: amLODIPine 5 MG Tab PO SCH (08:27)
[2023-07-09] MEDS: Colchicine 0.6 MG Tab PO SCH ×2 (08:28→21:39)
[2023-07-09] MEDS: Sodium Chloride 0.9% 10 ML Syringe FLUSH SCH ×2 (08:28→21:46)
[2023-07-09] MEDS: Insulin Glarg,Human.Rec.Analog 100 Unit/ML 10 ML Vial SUBCUT SCH ×2 (08:32→21:46)
[2023-07-09] MEDS: cefTRIAXone 1 GM Vial IVPUSH SCH (08:39)
[2023-07-09] MEDS: Azithromycin 500 MG in Sodium Chloride 0.9% 250 ML IV SCH (08:43)
[2023-07-09] MEDS: FEBUXOSTAT 40 MG PO SCH (12:29)
[2023-07-09] MEDS: Pantoprazole 40 MG Tab.CR PO SCH (17:06)
[2023-07-09] MEDS ORDERED: Zolpidem 5 MG Tab PO PRN (18:55)
[2023-07-09] MEDS ORDERED: rOPINIRole 0.25 MG Tab PO SCH (21:00)
[2023-07-09] MEDS: Magnesium Hydroxide 400 MG/5 ML Susp 30 ML Cup PO PRN (21:38)
[2023-07-09] MEDS: Melatonin 3 MG Tab PO PRN (21:38)
[2023-07-09] MEDS: buPROPion 150 MG Tab.ER PO SCH (21:41)
[2023-07-10] MEDS: Albuterol/Ipratropium 3.0-0.5 MG/3 ML Neb Soln NEB SCH ×6 (00:39→17:46)
[2023-07-10] MEDS: Albuterol/Ipratropium 3.0-0.5 MG/3 ML Neb Soln NEB PRN ×2 (01:31→16:22)
[2023-07-10] MEDS: Tiotropium Bromide 4 GM Inhalation Spray (2.5mcg/1 dose; 10 doses) INH SCH (05:28)
[2023-07-10] MEDS: Formoterol/Mometasone 200-5 MCG 8.8 GM Inhaler IH SCH ×2 (05:29→16:57)
[2023-07-10 06:01] LABS: HEMATOCRIT 36.1 % (37.0-47.0); MEAN CORPUSCULAR HGB CONC 30.5 g/dL (33.0-35.0); MEAN CORPUSCULAR VOLUME 85.3 fL (80-100); PLATELET COUNT,PLT 253 10^3/uL (150-450); RED BLOOD CELL COUNT 4.23 10^6/uL (4.2-5.4); WHITE BLOOD CELL COUNT,WBC 13.3 10^3/uL (5.0-10.0)
[2023-07-10] MEDS: methylPREDNISolone Sodium Succinate 40 MG/1 ML SDV IVPUSH SCH ×4 (06:07→21:02)
[2023-07-10 06:13] LABS: BASOPHILS PERCENT AUTO 0.2 % (0.0-1.0); EOSINOPHILS PERCENT AUTO 0.1 % (1.0-3.0); LYMPHOCYTES PERCENT AUTO 1.7 % (20.5-50.1); MONOCYTES PERCENT AUTO 3.1 % (2-8); NEUTROPHILS PERCENT AUTO 94.9 % (42.2-75.2)
[2023-07-10 06:14] LABS: ALANINE AMINOTRANSFERASE,ALT 48 U/L (14-59); ALBUMIN 3.4 g/dL (3.4-5.0); ALKALINE PHOSPHATASE 63 U/L (46-116); ANION GAP 10.3 mEq/L (7-13); ASPARTATE AMNIOTRANSFERASE,AST 27 U/L (15-37); BILIRUBIN TOTAL 0.4 mg/dL (0.2-1.0); BLOOD UREA NITROGEN,BUN 58 mg/dL (7-18); BUN/CREATININE RATIO 34.1 (No establ ref range); CALCIUM 8.3 mg/dL (8.5-10.1); CARBON DIOXIDE,CO2 31 mmol/L (21-32); CHLORIDE,CL 101 mmol/L (98-107); EST CRCL DRUG DOSING (CG) 21.17 mL/min; GLUCOSE RANDOM 166 mg/dL (70-99); MAGNESIUM 3.1 mg/dL (1.8-2.4); POTASSIUM,K 5.3 mmol/L (3.5-5.1); PROTEIN TOTAL,TP 6.7 g/dL (6.4-8.2); SODIUM,NA 137 mmol/L (136-145)
[2023-07-10] MEDS: Levothyroxine 88 MCG Tab PO SCH (06:16)
[2023-07-10 06:19] LABS: C-REACTIVE PROTEIN < 0.50 ng/dL (<=0.50); ESTIMATED GFR 31 mL/min (>=60)
[2023-07-10 07:28] LABS: BAND PERCENT MAN 1 %; LYMPHOCYTES PERCENT MAN 4 % (20-50); MONOCYTES PERCENT MAN 4 % (2-8); SEG NEUTROPHILS PERCENT MAN 91 % (42-75)
[2023-07-10] MEDS: Azithromycin 500 MG in Sodium Chloride 0.9% 250 ML IV SCH (09:34)
[2023-07-10] MEDS: Calcitriol 0.25 MCG Cap PO SCH (09:35)
[2023-07-10] MEDS: Ascorbic Acid 500 MG Tab PO SCH ×2 (09:35→20:26)
[2023-07-10] MEDS: cefTRIAXone 1 GM Vial IVPUSH SCH (09:35)
[2023-07-10] MEDS: Aspirin 81 MG Tab.Chew PO SCH (09:35)
[2023-07-10] MEDS: Pramipexole 0.5 MG Tab PO SCH ×3 (09:35→20:27)
[2023-07-10] MEDS: Modafinil 100 MG Tab PO SCH (09:35)
[2023-07-10] MEDS: Spironolactone 25 MG Tab PO SCH ×2 (09:35→13:56)
[2023-07-10] MEDS: Saccharomyces Boulardii (Probiotic) 250 MG Cap PO SCH ×2 (09:35→20:26)
[2023-07-10] MEDS: Colchicine 0.6 MG Tab PO SCH ×2 (09:35→20:27)
[2023-07-10] MEDS: Escitalopram 10 MG Tab PO SCH (09:35)
[2023-07-10] MEDS: guaiFENesin 600 MG Tab.ER PO SCH ×2 (09:36→20:26)
[2023-07-10] MEDS: Cholecalciferol (Vitamin D3) 25 MCG Tab PO SCH (09:42)
[2023-07-10] MEDS: Insulin Glarg,Human.Rec.Analog 100 Unit/ML 10 ML Vial SUBCUT SCH ×2 (09:45→20:32)
[2023-07-10] MEDS: Insulin Lispro 100 Units/ML 3 ML Vial SUBCUT SCH ×4 (09:45→20:33)
[2023-07-10] MEDS: Sodium Chloride 0.9% 10 ML Syringe FLUSH SCH ×2 (09:47→20:42)
[2023-07-10] MEDS: Potassium Chloride 10 MEQ Tab.ER PO SCH (09:48)
[2023-07-10] MEDS: amLODIPine 5 MG Tab PO SCH (09:48)
[2023-07-10] MEDS: Acetaminophen 325 MG Tab PO PRN ×2 (17:16→20:27)
[2023-07-10] MEDS: Pantoprazole 40 MG Tab.CR PO SCH (17:17)
[2023-07-10] MEDS: buPROPion 150 MG Tab.ER PO SCH (20:28)
[2023-07-11] MEDS: Formoterol/Mometasone 200-5 MCG 8.8 GM Inhaler IH SCH ×4 (00:01→18:04)
[2023-07-11] MEDS: Albuterol/Ipratropium 3.0-0.5 MG/3 ML Neb Soln NEB SCH ×5 (01:29→18:05)
[2023-07-11] MEDS: Tiotropium Bromide 4 GM Inhalation Spray (2.5mcg/1 dose; 10 doses) INH SCH (05:10)
[2023-07-11] MEDS: Levothyroxine 88 MCG Tab PO SCH ×2 (05:47→06:20)
[2023-07-11] MEDS: methylPREDNISolone Sodium Succinate 40 MG/1 ML SDV IVPUSH SCH ×4 (05:48→21:13)
[2023-07-11] MEDS ORDERED: Azithromycin 500 MG Vial ONE (09:55)
[2023-07-11] MEDS: Insulin Lispro 100 Units/ML 3 ML Vial SUBCUT SCH ×4 (10:05→21:13)
[2023-07-11] MEDS: Azithromycin 500 MG in Sodium Chloride 0.9% 250 ML IV SCH (10:08)
[2023-07-11] MEDS: Pramipexole 0.5 MG Tab PO SCH ×3 (10:14→21:19)
[2023-07-11] MEDS: Aspirin 81 MG Tab.Chew PO SCH (10:14)
[2023-07-11] MEDS: Escitalopram 10 MG Tab PO SCH (10:14)
[2023-07-11] MEDS: Cholecalciferol (Vitamin D3) 25 MCG Tab PO SCH (10:14)
[2023-07-11] MEDS: Calcitriol 0.25 MCG Cap PO SCH (10:15)
[2023-07-11] MEDS: Ascorbic Acid 500 MG Tab PO SCH ×2 (10:15→21:18)
[2023-07-11] MEDS: guaiFENesin 600 MG Tab.ER PO SCH ×2 (10:15→21:18)
[2023-07-11] MEDS: Spironolactone 25 MG Tab PO SCH ×2 (10:15→14:33)
[2023-07-11] MEDS: Modafinil 100 MG Tab PO SCH (10:15)
[2023-07-11] MEDS: Colchicine 0.6 MG Tab PO SCH ×2 (10:15→21:18)
[2023-07-11] MEDS: amLODIPine 5 MG Tab PO SCH (10:15)
[2023-07-11] MEDS: Sennosides/Docusate Sodium 50-8.6 MG Tab PO PRN (10:16)
[2023-07-11] MEDS: Sodium Chloride 0.9% 10 ML Syringe FLUSH SCH ×2 (10:16→21:19)
[2023-07-11] MEDS: Saccharomyces Boulardii (Probiotic) 250 MG Cap PO SCH ×2 (10:16→21:18)
[2023-07-11] MEDS: cefTRIAXone 1 GM Vial IVPUSH SCH (10:16)
[2023-07-11] MEDS: Insulin Glarg,Human.Rec.Analog 100 Unit/ML 10 ML Vial SUBCUT SCH ×2 (10:23→21:16)
[2023-07-11] MEDS: Pantoprazole 40 MG Tab.CR PO SCH (17:59)
[2023-07-11] MEDS ORDERED: Potassium Chloride 10 MEQ Tab.ER PO SCH (21:00)
[2023-07-11] MEDS: buPROPion 150 MG Tab.ER PO SCH (21:18)
[2023-07-11] MEDS: Melatonin 3 MG Tab PO PRN (21:19)
[2023-07-11] MEDS: Acetaminophen 325 MG Tab PO PRN (21:19)
[2023-07-12] MEDS: Albuterol/Ipratropium 3.0-0.5 MG/3 ML Neb Soln NEB SCH ×3 (00:49→12:05)
[2023-07-12] MEDS: Levothyroxine 88 MCG Tab PO SCH (06:38)
[2023-07-12] MEDS: methylPREDNISolone Sodium Succinate 40 MG/1 ML SDV IVPUSH SCH (06:38)
[2023-07-12] MEDS: Tiotropium Bromide 4 GM Inhalation Spray (2.5mcg/1 dose; 10 doses) INH SCH (06:45)
[2023-07-12] MEDS: Formoterol/Mometasone 200-5 MCG 8.8 GM Inhaler IH SCH (06:46)
[2023-07-12] MEDS: Insulin Glarg,Human.Rec.Analog 100 Unit/ML 10 ML Vial SUBCUT SCH (08:08)
[2023-07-12] MEDS: Insulin Lispro 100 Units/ML 3 ML Vial SUBCUT SCH ×2 (08:09→11:59)
[2023-07-12] MEDS: Escitalopram 10 MG Tab PO SCH (09:28)
[2023-07-12] MEDS: guaiFENesin 600 MG Tab.ER PO SCH (09:29)
[2023-07-12] MEDS: Calcitriol 0.25 MCG Cap PO SCH (09:29)
[2023-07-12] MEDS: Saccharomyces Boulardii (Probiotic) 250 MG Cap PO SCH (09:30)
[2023-07-12] MEDS: Pramipexole 0.5 MG Tab PO SCH ×2 (09:31→13:41)
[2023-07-12] MEDS: Colchicine 0.6 MG Tab PO SCH (09:31)
[2023-07-12] MEDS: Spironolactone 25 MG Tab PO SCH ×2 (09:31→13:41)
[2023-07-12] MEDS: Cholecalciferol (Vitamin D3) 25 MCG Tab PO SCH (09:33)
[2023-07-12] MEDS: Ascorbic Acid 500 MG Tab PO SCH (09:33)
[2023-07-12] MEDS: Modafinil 100 MG Tab PO SCH (09:34)
[2023-07-12] MEDS: Aspirin 81 MG Tab.Chew PO SCH (09:34)
[2023-07-12] MEDS: amLODIPine 5 MG Tab PO SCH (09:35)
[2023-07-12] MEDS: Sodium Chloride 0.9% 10 ML Syringe FLUSH SCH (09:45)
== END 2023-07-12 16:30 | disposition home or self-care (01) | DRG 191 ==
LOC: DL.ED 12:43 → UNDOADMOB 15:30 → DL.MS 15:30 → INTOOBSV 07-08 09:42 → OBSVTOIN 07-08 09:42 → UNDOADMOB 07-09 13:40 → DL.MS 07-09 13:40 → OBSVTOIN 07-09 13:40 → INTOOBSV 07-09 13:40
PROVIDERS: ADMIT Internal Medicine; ATTEND Internal Medicine
DX: J44.1 Chronic obstructive pulmonary disease with (acute) exacerbation (principal); E87.1 Hypo-osmolality and hyponatremia; N18.4 Chronic kidney disease, stage 4 (severe); I12.9 Hypertensive chronic kidney disease with stage 1 through stage 4 chronic kidney disease, or unspecified chronic kidney disease; E11.22 Type 2 diabetes mellitus with diabetic chronic kidney disease; Z66 Do not resuscitate; G47.33 Obstructive sleep apnea (adult) (pediatric); E03.9 Hypothyroidism, unspecified; E87.8 Other disorders of electrolyte and fluid balance, not elsewhere classified; R13.13 Dysphagia, pharyngeal phase; K21.9 Gastro-esophageal reflux disease without esophagitis; M10.9 Gout, unspecified; E78.00 Pure hypercholesterolemia, unspecified; G25.81 Restless legs syndrome; F32.A Depression, unspecified; G47.00 Insomnia, unspecified; E66.9 Obesity, unspecified; R06.89 Other abnormalities of breathing; G89.29 Other chronic pain; M54.9 Dorsalgia, unspecified; K44.9 Diaphragmatic hernia without obstruction or gangrene; R13.10 Dysphagia, unspecified; D72.829 Elevated white blood cell count, unspecified; E11.65 Type 2 diabetes mellitus with hyperglycemia; Z68.32 Body mass index [BMI] 32.0-32.9, adult; Z98.49 Cataract extraction status, unspecified eye; Z79.890 Hormone replacement therapy; Z79.51 Long term (current) use of inhaled steroids; Z79.4 Long term (current) use of insulin; Z79.82 Long term (current) use of aspirin; Z11.52 Encounter for screening for COVID-19; Z79.899 Other long term (current) drug therapy; Z88.0 Allergy status to penicillin; Z88.8 Allergy status to other drugs, medicaments and biological substances; Z98.890 Other specified postprocedural states; Z68.34 Body mass index [BMI] 34.0-34.9, adult
CPT/HCPCS: 0241U; 36415; 71045; 80053; 82947; 83735; 84484; 85025; 86140; 87070; 87205; 92610-GN; 94060; 94640; 94668; 94760; 94762; 97116-GP; 97161-GP; 97165-GO; 97530-GP; 99223; 99232; 99233; 99238; A9270-GY; J0456; J0696; J1200; J1815-GY; J2405; J2920; J3475; J3490; J7030; J7050; J7512; J7620-GY

== ENCOUNTER 2023-07-26 16:54 | Emergency (ER) | payer OTHER ==
[2023-07-26] MEDS ORDERED: Sodium Chloride 0.9% 10 ML Syringe FLUSH PRN (19:19)
[2023-07-26 19:50] LABS: EOSINOPHILS PERCENT AUTO 1.7 % (1.0-3.0); HEMATOCRIT 39.4 % (37.0-47.0); HEMOGLOBIN 12.2 g/dL (12.0-16.0); LYMPHOCYTES PERCENT AUTO 11.9 % (20.5-50.1); MEAN CORPUSCULAR HEMOGLOBIN 26.6 pg (27.0-34.0); MONOCYTES PERCENT AUTO 7.5 % (2-8); NEUTROPHILS PERCENT AUTO 77.9 % (42.2-75.2); PLATELET COUNT,PLT 252 10^3/uL (150-450); RED BLOOD CELL COUNT 4.58 10^6/uL (4.2-5.4); WHITE BLOOD CELL COUNT,WBC 9.2 10^3/uL (5.0-10.0)
[2023-07-26 20:09] LABS: A/G RATIO 0.9; ALBUMIN 3.4 g/dL (3.4-5.0); ANION GAP 6.9 mEq/L (7-13); BILIRUBIN TOTAL 0.3 mg/dL (0.2-1.0); BUN/CREATININE RATIO 18.7 (No establ ref range); CALCIUM 8.8 mg/dL (8.5-10.1); CREATININE 1.71 mg/dL (0.55-1.02); EST CRCL DRUG DOSING (CG) 21.05 mL/min; MAGNESIUM 2.4 mg/dL (1.8-2.4); POTASSIUM,K 3.9 mmol/L (3.5-5.1); PROTEIN TOTAL,TP 7.3 g/dL (6.4-8.2)
== END 2023-07-26 21:24 | disposition home or self-care (01) ==
LOC: DL.ED 16:54
DX: J96.11 Chronic respiratory failure with hypoxia (principal); R60.9 Edema, unspecified; N18.32 Chronic kidney disease, stage 3b; I10 Essential (primary) hypertension; E78.00 Pure hypercholesterolemia, unspecified; E66.9 Obesity, unspecified; E11.9 Type 2 diabetes mellitus without complications; M19.90 Unspecified osteoarthritis, unspecified site; Z68.30 Body mass index [BMI] 30.0-30.9, adult; Z79.82 Long term (current) use of aspirin; Z79.899 Other long term (current) drug therapy; Z79.4 Long term (current) use of insulin; Z88.8 Allergy status to other drugs, medicaments and biological substances
CPT/HCPCS: 36415; 80053; 83735; 85025; 99284; J3490

== ENCOUNTER 2023-09-20 14:24 | Inpatient (IN) | payer OTHER ==
[2023-09-20 14:51] LABS: HEMOGLOBIN 10.8 g/dL (12.0-16.0); MEAN CORPUSCULAR HEMOGLOBIN 24.7 pg (27.0-34.0); MEAN CORPUSCULAR VOLUME 82.4 fL (80-100); PLATELET COUNT,PLT 362 10^3/uL (150-450); RED BLOOD CELL COUNT 4.37 10^6/uL (4.2-5.4); WHITE BLOOD CELL COUNT,WBC 13.3 10^3/uL (5.0-10.0)
[2023-09-20] MEDS: methylPREDNISolone Sodium Succinate 125 MG/2 ML SDV IVPUSH ONE (14:55)
[2023-09-20] MEDS: Sodium Chloride 0.9% 10 ML Syringe FLUSH PRN (14:56)
[2023-09-20] MEDS: Morphine 2 MG/ML SYRINGE IVPUSH ONE (14:56)
[2023-09-20] MEDS: Albuterol/Ipratropium 3.0-0.5 MG/3 ML Neb Soln NEB ONE ×3 (14:56→16:20)
[2023-09-20 15:01] LABS: BASOPHILS PERCENT AUTO 0.5 % (0.0-1.0); EOSINOPHILS PERCENT AUTO 1.7 % (1.0-3.0); LYMPHOCYTES PERCENT AUTO 7.5 % (20.5-50.1); MONOCYTES PERCENT AUTO 3.7 % (2-8); NEUTROPHILS PERCENT AUTO 86.6 % (42.2-75.2)
[2023-09-20 15:02] LABS: O2 DELIVERY DEVICE NASAL CANNULA
[2023-09-20 15:03] LABS: BASE EXCESS ARTERIAL 8 mmol/L ((-2)-(+3)); O2 SATURATION ARTERIAL 92 % (95-100); PCO2 ARTERIAL 57 mmHg (35-45); PO2 ARTERIAL 71 mmHg (70-100)
[2023-09-20 15:04] LABS: ALLEN TEST positive
[2023-09-20 15:06] LABS: APPEARANCE,URINE CLEAR (CLEAR); BILIRUBIN,URINE NEGATIVE (NEGATIVE); COLOR,URINE YELLOW (YELLOW); GLUCOSE,URINE 500 (NEGATIVE); KETONES,URINE NEGATIVE (NEGATIVE); LEUKOCYTE ESTERASE,URINE NEGATIVE (NEGATIVE); NITRITE,URINE NEGATIVE (NEGATIVE); OCCULT BLOOD,URINE TRACE-LYSED (NEGATIVE); PH,URINE 7.5 (5.0-9.0); PROTEIN,URINE NEGATIVE (NEGATIVE); UROBILINOGEN,URINE 0.2 mg/dL (0.2-1.0)
[2023-09-20 15:14] LABS: LYMPHOCYTES PERCENT MAN 5 % (20-50); MONOCYTES PERCENT MAN 5 % (2-8); SEG NEUTROPHILS PERCENT MAN 90 % (42-75)
[2023-09-20 15:15] LABS: B-TYPE NATRIURETIC PEPTIDE,BNP 126 pg/ml (0-100)
[2023-09-20 15:20] LABS: AMORPHOUS SEDIMENT,URINE RARE /HPF (NOT SEEN); BACTERIA,URINE RARE /HPF (0-FEW/HPF); EPITHELIAL CELLS,URINE FEW /HPF (NOT SEEN); MUCUS,URINE FEW /LPF (NOT SEEN); RBC,URINE 0-5 /HPF (0-5); WBC,URINE 0-5 /HPF (0-5/HPF)
[2023-09-20 15:22] LABS: A/G RATIO 0.91; ALANINE AMINOTRANSFERASE,ALT 15 U/L (14-59); ALBUMIN 3.2 g/dL (3.4-5.0); ALKALINE PHOSPHATASE 71 U/L (46-116); ANION GAP 8.9 mEq/L (7-13); ASPARTATE AMNIOTRANSFERASE,AST 10 U/L (15-37); BILIRUBIN TOTAL 0.3 mg/dL (0.2-1.0); BLOOD UREA NITROGEN,BUN 24 mg/dL (7-18); BUN/CREATININE RATIO 16.8 (No establ ref range); CALCIUM 8.4 mg/dL (8.5-10.1); CARBON DIOXIDE,CO2 35 mmol/L (21-32); CHLORIDE,CL 93 mmol/L (98-107); CREATININE 1.43 mg/dL (0.55-1.02); EST CRCL DRUG DOSING (CG) 24.79 mL/min; ESTIMATED GFR 38 mL/min (>=60); GLUCOSE RANDOM 366 mg/dL (70-99); POTASSIUM,K 3.9 mmol/L (3.5-5.1); PROTEIN TOTAL,TP 6.7 g/dL (6.4-8.2); SODIUM,NA 133 mmol/L (136-145)
[2023-09-20] MEDS ORDERED: Ondansetron 4 MG/2 ML SDV IVPUSH PRN (18:43)
[2023-09-20] MEDS ORDERED: Naloxone 2 MG/2 ML Syringe IVPUSH PRN (18:43)
[2023-09-20] MEDS ORDERED: Magnesium Hydroxide 400 MG/5 ML Susp 30 ML Cup PO PRN (18:43)
[2023-09-20] MEDS ORDERED: HYDROmorphone 0.5 MG/0.5 ML Syringe IVPUSH PRN (18:43)
[2023-09-20] MEDS ORDERED: Metoprolol Tartrate 5 MG/5 ML SDV IVPUSH PRN (18:49)
[2023-09-20] MEDS ORDERED: hydrALAZINE 20 MG/ML SDV IVPUSH PRN (18:49)
[2023-09-20] MEDS ORDERED: 50% Dextrose in Water 50 ML Syringe IVPUSH PRN (18:54)
[2023-09-20] MEDS ORDERED: Glucagon,Human Recombinant 1 MG Vial IM PRN (18:54)
[2023-09-20 18:56] LABS: CORONAVIRUS COVID-19 NAA NEGATIVE (NEGATIVE); INFLUENZA A NAA NEGATIVE (NEGATIVE); INFLUENZA B NAA NEGATIVE (NEGATIVE); RESPIRATORY SYNCYTIAL VIR NAA NEGATIVE (NEGATIVE)
[2023-09-20] MEDS ORDERED: Benzonatate 100 MG Cap PO PRN (19:25)
[2023-09-20] MEDS ORDERED: METHOCARBAMOL 500 MG PO PRN (19:25)
[2023-09-20] MEDS: Pantoprazole 40 MG Tab.CR PO SCH (20:07)
[2023-09-20] MEDS: Magnesium Sulfate/Water 2 GM in Premix Bag 1 BAG IV ONE (20:07)
[2023-09-20] MEDS: Albuterol/Ipratropium 3.0-0.5 MG/3 ML Neb Soln NEB PRN (21:10)
[2023-09-20] MEDS: Sodium Chloride 0.9% 1,000 ML IV SCH (22:06)
[2023-09-20] MEDS: buPROPion 150 MG Tab.ER PO SCH (22:23)
[2023-09-20] MEDS: Zolpidem 5 MG Tab PO SCH (22:23)
[2023-09-20] MEDS: Melatonin 3 MG Tab PO SCH (22:23)
[2023-09-20] MEDS: Insulin Glarg,Human.Rec.Analog 100 Unit/ML 10 ML Vial SUBCUT SCH (22:23)
[2023-09-20] MEDS: Formoterol/Mometasone 200-5 MCG 8.8 GM Inhaler IH SCH (22:24)
[2023-09-21] MEDS: methylPREDNISolone Sodium Succinate 125 MG/2 ML SDV IVPUSH SCH ×2 (01:04→13:38)
[2023-09-21] MEDS: Sodium Chloride 0.65% Nasal Spray 45 ML Bottle NAS PRN (02:08)
[2023-09-21] MEDS: Acetaminophen/oxyCODONE 325-5 MG Tab PO PRN (03:46)
[2023-09-21] MEDS: Tiotropium Bromide 4 GM Inhalation Spray (2.5mcg/1 dose; 10 doses) INH SCH (05:20)
[2023-09-21] MEDS: Levothyroxine 88 MCG Tab PO SCH (05:23)
[2023-09-21] MEDS: Formoterol/Mometasone 200-5 MCG 8.8 GM Inhaler IH SCH (06:09)
[2023-09-21 06:40] LABS: HEMATOCRIT 33.7 % (37.0-47.0); HEMOGLOBIN 9.9 g/dL (12.0-16.0); MEAN CORPUSCULAR HEMOGLOBIN 23.9 pg (27.0-34.0); MEAN CORPUSCULAR HGB CONC 29.4 g/dL (33.0-35.0); MEAN CORPUSCULAR VOLUME 81.4 fL (80-100); PLATELET COUNT,PLT 334 10^3/uL (150-450); RED BLOOD CELL COUNT 4.14 10^6/uL (4.2-5.4); WHITE BLOOD CELL COUNT,WBC 10.8 10^3/uL (5.0-10.0)
[2023-09-21 06:54] LABS: NEUTROPHILS PERCENT AUTO 86.1 % (42.2-75.2)
[2023-09-21 06:55] LABS: BASOPHILS PERCENT AUTO 0.5 % (0.0-1.0); EOSINOPHILS PERCENT AUTO 0.2 % (1.0-3.0); MONOCYTES PERCENT AUTO 6.2 % (2-8)
[2023-09-21 07:10] LABS: ANISOCYTOSIS 1+ SLIGHT; EOSINOPHILS PERCENT MAN 1 % (1-3); HYPOCHROMASIA 1+ SLIGHT; LYMPHOCYTES PERCENT MAN 7 % (20-50); MONOCYTES PERCENT MAN 4 % (2-8); NRBC MANUAL 1 /100WBC; SEG NEUTROPHILS PERCENT MAN 88 % (42-75)
[2023-09-21 07:12] LABS: ALBUMIN 3.1 g/dL (3.4-5.0); ANION GAP 11.8 mEq/L (7-13); BILIRUBIN TOTAL 0.3 mg/dL (0.2-1.0); C-REACTIVE PROTEIN 1.61 ng/dL (<=0.50); CALCIUM 7.9 mg/dL (8.5-10.1); CREATININE 1.6 mg/dL (0.55-1.02); EST CRCL DRUG DOSING (CG) 22.16 mL/min; POTASSIUM,K 3.8 mmol/L (3.5-5.1); PROTEIN TOTAL,TP 6.4 g/dL (6.4-8.2)
[2023-09-21 07:23] LABS: A/G RATIO 0.94; BUN/CREATININE RATIO 21.3 (No establ ref range)
[2023-09-21] MEDS: Empagliflozin 25 MG Tab PO SCH (08:21)
[2023-09-21] MEDS: Modafinil 100 MG Tab PO SCH (08:21)
[2023-09-21] MEDS: Famotidine 20 MG Tab PO SCH (08:21)
[2023-09-21] MEDS: Escitalopram 10 MG Tab PO SCH (08:21)
[2023-09-21] MEDS: Insulin Lispro 100 Units/ML 3 ML Vial SUBCUT SCH (08:56)
[2023-09-21] MEDS: Albuterol/Ipratropium 3.0-0.5 MG/3 ML Neb Soln NEB SCH (09:30)
[2023-09-21] MEDS ORDERED: Non-Formulary Medication 1 Each (Nicotine Polacrilex 2 MG Gum) PO PRN (09:55)
[2023-09-21] MEDS ORDERED: Naloxone HCl 4 MG Spray 2 Pack NAS PRN (09:55)
[2023-09-21] MEDS ORDERED: BUPRENORPHINE TD SCH ×2 (10:00→17:20)
[2023-09-21] MEDS: Carboxymethylcellulose Sodium 1% Ophth Gel 0.4 ML UD EYEBOTH PRN (10:34)
[2023-09-21] MEDS ORDERED: METHOCARBAMOL PO PRN (17:20)
[2023-09-21] MEDS: Potassium Chloride 10 MEQ Tab.ER PO SCH (18:30)
[2023-09-21] MEDS ORDERED: Insulin Glarg,Human.Rec.Analog 100 Unit/ML 10 ML Vial SUBCUT SCH (21:00)
[2023-09-21] MEDS ORDERED: buPROPion 150 MG Tab.ER PO SCH (21:00)
[2023-09-21] MEDS: Sennosides/Docusate Sodium 50-8.6 MG Tab PO PRN (21:09)
[2023-09-21] MEDS: Primidone 50 MG Tab PO SCH (21:09)
[2023-09-21] MEDS: Spironolactone 25 MG Tab PO SCH (21:09)
[2023-09-21] MEDS: Insulin Glarg,Human.Rec.Analog 100 Unit/ML 10 ML Vial SUBCUT SCH (21:12)
[2023-09-21] MEDS: Non-Formulary Medication 1 Each (Fluticasone Propion/Salmeterol [Fluticasone-Salmeterol 50 INH SCH (21:55)
[2023-09-22] MEDS: Diclofenac Sodium 1% Gel 100 GM Tube TOP PRN (05:44)
[2023-09-22 06:49] LABS: BASOPHILS PERCENT AUTO 0.7 % (0.0-1.0); EOSINOPHILS PERCENT AUTO 3.2 % (1.0-3.0); HEMOGLOBIN 9.7 g/dL (12.0-16.0); LYMPHOCYTES PERCENT AUTO 13.7 % (20.5-50.1); MEAN CORPUSCULAR HEMOGLOBIN 24.3 pg (27.0-34.0); MEAN CORPUSCULAR HGB CONC 29.4 g/dL (33.0-35.0); MEAN CORPUSCULAR VOLUME 82.5 fL (80-100); NEUTROPHILS PERCENT AUTO 75.4 % (42.2-75.2); PLATELET COUNT,PLT 303 10^3/uL (150-450); WHITE BLOOD CELL COUNT,WBC 11.2 10^3/uL (5.0-10.0)
[2023-09-22 07:27] LABS: ANION GAP 10.7 mEq/L (7-13); BILIRUBIN TOTAL 0.3 mg/dL (0.2-1.0); BUN/CREATININE RATIO 17.8 (No establ ref range); C-REACTIVE PROTEIN 1.53 ng/dL (<=0.50); CALCIUM 7.8 mg/dL (8.5-10.1); CREATININE 1.35 mg/dL (0.55-1.02); EST CRCL DRUG DOSING (CG) 26.26 mL/min; MAGNESIUM 2.6 mg/dL (1.8-2.4); POTASSIUM,K 3.7 mmol/L (3.5-5.1)
[2023-09-22] MEDS: Acetaminophen 325 MG Tab PO PRN (08:45)
[2023-09-22] MEDS: Cholecalciferol (Vitamin D3) 25 MCG Tab PO SCH (08:45)
[2023-09-22] MEDS: Calcitriol 0.25 MCG Cap PO SCH (08:45)
[2023-09-22] MEDS: Aspirin 81 MG Tab.Chew PO SCH (08:46)
[2023-09-22] MEDS: Ascorbic Acid 500 MG Tab PO SCH (08:46)
[2023-09-22] MEDS: Magnesium Oxide 400 MG Tab PO SCH (08:46)
[2023-09-22] MEDS: amLODIPine 5 MG Tab PO SCH (08:46)
[2023-09-22] MEDS: Metolazone 2.5 MG Tab PO SCH (08:52)
[2023-09-22] MEDS: Lidocaine 5% 700 MG Patch TOP ONE (14:41)
[2023-09-23 06:51] LABS: BASOPHILS PERCENT AUTO 0.6 % (0.0-1.0); EOSINOPHILS PERCENT AUTO 3.2 % (1.0-3.0); HEMATOCRIT 33.5 % (37.0-47.0); MEAN CORPUSCULAR HEMOGLOBIN 24.9 pg (27.0-34.0); MEAN CORPUSCULAR HGB CONC 29.9 g/dL (33.0-35.0); MEAN CORPUSCULAR VOLUME 83.3 fL (80-100); MONOCYTES PERCENT AUTO 7.9 % (2-8); NEUTROPHILS PERCENT AUTO 76.3 % (42.2-75.2); PLATELET COUNT,PLT 316 10^3/uL (150-450); RED BLOOD CELL COUNT 4.02 10^6/uL (4.2-5.4); WHITE BLOOD CELL COUNT,WBC 12.7 10^3/uL (5.0-10.0)
[2023-09-23 07:15] LABS: ANION GAP 10.7 mEq/L (7-13); BILIRUBIN TOTAL 0.4 mg/dL (0.2-1.0); BUN/CREATININE RATIO 15.2 (No establ ref range); C-REACTIVE PROTEIN 3.42 ng/dL (<=0.50); CALCIUM 7.9 mg/dL (8.5-10.1); CREATININE 1.32 mg/dL (0.55-1.02); EST CRCL DRUG DOSING (CG) 26.86 mL/min; MAGNESIUM 2.6 mg/dL (1.8-2.4); POTASSIUM,K 4.7 mmol/L (3.5-5.1); PROTEIN TOTAL,TP 6.1 g/dL (6.4-8.2)
[2023-09-23 07:20] LABS: A/G RATIO 0.97
[2023-09-23] MEDS: Insulin Lispro 100 Units/ML 3 ML Vial SUBCUT SCH (08:03)
[2023-09-23] MEDS: Lidocaine 5% 700 MG Patch TOP SCH (11:05)
[2023-09-23] MEDS: guaiFENesin 600 MG Tab.ER PO ONE (11:06)
[2023-09-23] MEDS ORDERED: Furosemide 40 MG Tab PO PRN (18:23)
[2023-09-23] MEDS: guaiFENesin 600 MG Tab.ER PO SCH (20:14)
[2023-09-23] MEDS: Pramipexole 0.5 MG Tab PO SCH (20:15)
[2023-09-23] MEDS: Polyethylene Glycol 3350 Powder 17 GM Packet PO PRN (21:31)
[2023-09-24 06:26] LABS: BASOPHILS PERCENT AUTO 0.6 % (0.0-1.0); HEMATOCRIT 32.4 % (37.0-47.0); HEMOGLOBIN 9.6 g/dL (12.0-16.0); LYMPHOCYTES PERCENT AUTO 10.7 % (20.5-50.1); MEAN CORPUSCULAR HEMOGLOBIN 24.5 pg (27.0-34.0); MEAN CORPUSCULAR HGB CONC 29.6 g/dL (33.0-35.0); MEAN CORPUSCULAR VOLUME 82.7 fL (80-100); MONOCYTES PERCENT AUTO 9.8 % (2-8); NEUTROPHILS PERCENT AUTO 75.9 % (42.2-75.2); PLATELET COUNT,PLT 280 10^3/uL (150-450); RED BLOOD CELL COUNT 3.92 10^6/uL (4.2-5.4); WHITE BLOOD CELL COUNT,WBC 10.9 10^3/uL (5.0-10.0)
[2023-09-24 06:48] LABS: ALBUMIN 2.9 g/dL (3.4-5.0); ANION GAP 10.5 mEq/L (7-13); BILIRUBIN TOTAL 0.3 mg/dL (0.2-1.0); BUN/CREATININE RATIO 14.5 (No establ ref range); C-REACTIVE PROTEIN 4.61 ng/dL (<=0.50); CALCIUM 8.2 mg/dL (8.5-10.1); CREATININE 1.45 mg/dL (0.55-1.02); EST CRCL DRUG DOSING (CG) 24.45 mL/min; MAGNESIUM 2.5 mg/dL (1.8-2.4); POTASSIUM,K 4.5 mmol/L (3.5-5.1); PROTEIN TOTAL,TP 6.1 g/dL (6.4-8.2)
[2023-09-24 06:51] LABS: A/G RATIO 0.91
[2023-09-24] MEDS: Furosemide 40 MG Tab PO SCH (09:37)
== END 2023-09-24 11:40 | disposition home or self-care (01) | DRG 189 ==
LOC: DL.ED 14:24 → DL.MS 16:18
PROVIDERS: ADMIT Internal Medicine; ATTEND Internal Medicine
DX: J96.21 Acute and chronic respiratory failure with hypoxia (principal); M25.511 Pain in right shoulder; R53.1 Weakness; I10 Essential (primary) hypertension; E78.00 Pure hypercholesterolemia, unspecified; J44.9 Chronic obstructive pulmonary disease, unspecified; E87.1 Hypo-osmolality and hyponatremia; E11.9 Type 2 diabetes mellitus without complications; N18.4 Chronic kidney disease, stage 4 (severe); J44.1 Chronic obstructive pulmonary disease with (acute) exacerbation; J96.22 Acute and chronic respiratory failure with hypercapnia; E87.8 Other disorders of electrolyte and fluid balance, not elsewhere classified; Z88.8 Allergy status to other drugs, medicaments and biological substances; Z88.1 Allergy status to other antibiotic agents; Z68.31 Body mass index [BMI] 31.0-31.9, adult; W18.30XA Fall on same level, unspecified, initial encounter; Y92.009 Unspecified place in unspecified non-institutional (private) residence as the place of occurrence of the external cause; K44.9 Diaphragmatic hernia without obstruction or gangrene; E11.65 Type 2 diabetes mellitus with hyperglycemia; G47.33 Obstructive sleep apnea (adult) (pediatric); E83.41 Hypermagnesemia; E66.9 Obesity, unspecified; E78.5 Hyperlipidemia, unspecified; E11.22 Type 2 diabetes mellitus with diabetic chronic kidney disease; I12.9 Hypertensive chronic kidney disease with stage 1 through stage 4 chronic kidney disease, or unspecified chronic kidney disease; E03.9 Hypothyroidism, unspecified; K21.9 Gastro-esophageal reflux disease without esophagitis; M19.90 Unspecified osteoarthritis, unspecified site; G89.29 Other chronic pain; M54.9 Dorsalgia, unspecified; M81.0 Age-related osteoporosis without current pathological fracture; M10.9 Gout, unspecified; G25.81 Restless legs syndrome; F32.A Depression, unspecified; G47.00 Insomnia, unspecified; Z68.39 Body mass index [BMI] 39.0-39.9, adult; Z91.148 Patient's other noncompliance with medication regimen for other reason; Z98.49 Cataract extraction status, unspecified eye; Z79.890 Hormone replacement therapy; Z79.4 Long term (current) use of insulin; Z79.899 Other long term (current) drug therapy; Z79.82 Long term (current) use of aspirin
CPT/HCPCS: 0241U; 36415; 36600; 71045; 73030; 73502; 80053; 81001; 82550; 82803; 82947; 83605; 83735; 83880; 84145; 84484; 84550; 85025; 86140; 93005; 93010; 94010; 94060; 94640; 94664; 94667; 94668; 94760; 96374; 97161; 97165; 99285; 99223; 99232; 99233; 99238; A9270-GY; J1815-GY; J2270; J3475; J3490; J7030; J7620-GY

== ENCOUNTER 2023-09-26 03:29 | Inpatient (IN) | payer OTHER ==
[2023-09-26] MEDS: Sodium Chloride 0.9% 10 ML Syringe FLUSH PRN (03:57)
[2023-09-26 04:06] LABS: BASOPHILS PERCENT AUTO 0.6 % (0.0-1.0); EOSINOPHILS PERCENT AUTO 3.8 % (1.0-3.0); HEMATOCRIT 34.1 % (37.0-47.0); HEMOGLOBIN 10.1 g/dL (12.0-16.0); LYMPHOCYTES PERCENT AUTO 8.4 % (20.5-50.1); MEAN CORPUSCULAR HEMOGLOBIN 24.8 pg (27.0-34.0); MEAN CORPUSCULAR HGB CONC 29.6 g/dL (33.0-35.0); MEAN CORPUSCULAR VOLUME 83.6 fL (80-100); MONOCYTES PERCENT AUTO 9.4 % (2-8); NEUTROPHILS PERCENT AUTO 77.8 % (42.2-75.2); PLATELET COUNT,PLT 304 10^3/uL (150-450); RED BLOOD CELL COUNT 4.08 10^6/uL (4.2-5.4); WHITE BLOOD CELL COUNT,WBC 10.8 10^3/uL (5.0-10.0)
[2023-09-26 04:12] LABS: O2 DELIVERY DEVICE NASAL CANNULA
[2023-09-26 04:14] LABS: BASE EXCESS ARTERIAL 2 mmol/L ((-2)-(+3)); BICARBONATE,ARTERIAL 27.7 mmol/L (22-26); O2 SATURATION ARTERIAL 90 % (95-100); PCO2 ARTERIAL 52 mmHg (35-45); PH,ARTERIAL 7.35 (7.35-7.45); PO2 ARTERIAL 59 mmHg (70-100)
[2023-09-26 04:15] LABS: ALLEN TEST POSITIVE
[2023-09-26 04:27] LABS: A/G RATIO 0.86; ANION GAP 13.6 mEq/L (7-13); BILIRUBIN TOTAL 0.4 mg/dL (0.2-1.0); BUN/CREATININE RATIO 19.3 (No establ ref range); C-REACTIVE PROTEIN 8.21 ng/dL (<=0.50); CALCIUM 8.5 mg/dL (8.5-10.1); CREATININE 1.35 mg/dL (0.55-1.02); EST CRCL DRUG DOSING (CG) 26.26 mL/min; MAGNESIUM 2.4 mg/dL (1.8-2.4); POTASSIUM,K 4.6 mmol/L (3.5-5.1); PROTEIN TOTAL,TP 6.5 g/dL (6.4-8.2)
[2023-09-26 04:39] LABS: LACTIC ACID 0.7 mmol/L (0.4-2.0)
[2023-09-26] MEDS: Acetaminophen 325 MG Tab PO ONE (05:40)
[2023-09-26] MEDS: Piperacillin/Tazobactam 4.5 GM in Sodium Chloride 0.9% 100 ML IV ONE (06:45)
[2023-09-26 06:56] LABS: APPEARANCE,URINE CLEAR (CLEAR); BILIRUBIN,URINE NEGATIVE (NEGATIVE); COLOR,URINE YELLOW (YELLOW); GLUCOSE,URINE >=1000 (NEGATIVE); KETONES,URINE TRACE (NEGATIVE); LEUKOCYTE ESTERASE,URINE NEGATIVE (NEGATIVE); NITRITE,URINE NEGATIVE (NEGATIVE); OCCULT BLOOD,URINE TRACE-INTACT (NEGATIVE); PH,URINE 6.5 (5.0-9.0); PROTEIN,URINE NEGATIVE (NEGATIVE); UROBILINOGEN,URINE 0.2 mg/dL (0.2-1.0)
[2023-09-26 07:05] LABS: BACTERIA,URINE NOT SEEN /HPF (0-FEW/HPF); EPITHELIAL CELLS,URINE RARE /HPF (NOT SEEN); MUCUS,URINE NOT SEEN /LPF (NOT SEEN); RBC,URINE 0-5 /HPF (0-5); WBC,URINE NOT SEEN /HPF (0-5/HPF)
[2023-09-26] MEDS ORDERED: Docusate Sodium 100 MG Cap PO PRN (11:59)
[2023-09-26] MEDS ORDERED: Furosemide 40 MG Tab PO PRN (12:34)
[2023-09-26] MEDS ORDERED: Glucagon,Human Recombinant 1 MG Vial IM PRN (12:34)
[2023-09-26] MEDS ORDERED: Non-Formulary Medication 1 Each (Nicotine Polacrilex 2 MG Gum) PO PRN (12:34)
[2023-09-26] MEDS ORDERED: 50% Dextrose in Water 50 ML Syringe IVPUSH PRN (12:34)
[2023-09-26] MEDS ORDERED: Albuterol 0.083% 2.5 MG/3 ML Neb Soln NEB PRN (12:34)
[2023-09-26] MEDS ORDERED: Diclofenac Sodium 1% Gel 100 GM Tube TOP PRN (12:34)
[2023-09-26] MEDS ORDERED: Metolazone 2.5 MG Tab PO SCH (12:45)
[2023-09-26] MEDS ORDERED: BUPRENORPHINE TD SCH (12:45)
[2023-09-26] MEDS: predniSONE 10 MG Tab PO SCH (13:11)
[2023-09-26] MEDS: Piperacillin/Tazobactam 3.375 GM in Sodium Chloride 0.9% 100 ML IV SCH (15:37)
[2023-09-26] MEDS: Pramipexole 0.5 MG Tab PO SCH (15:37)
[2023-09-26] MEDS: Albuterol/Ipratropium 3.0-0.5 MG/3 ML Neb Soln NEB PRN (16:57)
[2023-09-26] MEDS: Formoterol/Mometasone 200-5 MCG 8.8 GM Inhaler IH SCH (16:57)
[2023-09-26] MEDS: Potassium Chloride 10 MEQ Tab.ER PO SCH (17:34)
[2023-09-26] MEDS: Insulin Lispro 100 Units/ML 3 ML Vial SUBCUT SCH (17:50)
[2023-09-26] MEDS: Insulin Glarg,Human.Rec.Analog 100 Unit/ML 10 ML Vial SUBCUT SCH (22:15)
[2023-09-26] MEDS: buPROPion 150 MG Tab.ER PO SCH (22:18)
[2023-09-26] MEDS: Melatonin 3 MG Tab PO PRN (22:19)
[2023-09-26] MEDS: Spironolactone 25 MG Tab PO SCH (22:19)
[2023-09-26] MEDS: Primidone 50 MG Tab PO SCH (22:21)
[2023-09-27] MEDS: Acetaminophen/HYDROcodone 325-5 MG Tab PO PRN (03:32)
[2023-09-27] MEDS: Tiotropium Bromide 4 GM Inhalation Spray (2.5mcg/1 dose; 10 doses) INH ONE (06:35)
[2023-09-27] MEDS: Albuterol/Ipratropium 3.0-0.5 MG/3 ML Neb Soln NEB SCH ×2 (06:45→10:33)
[2023-09-27] MEDS ORDERED: predniSONE 20 MG Tab PO SCH (08:00)
[2023-09-27] MEDS: Lidocaine 5% 700 MG Patch TOP SCH (08:17)
[2023-09-27] MEDS: Pantoprazole 40 MG Tab.CR PO SCH (08:19)
[2023-09-27] MEDS: Saccharomyces Boulardii (Probiotic) 250 MG Cap PO SCH (08:19)
[2023-09-27] MEDS: Citalopram 20 MG Tab PO SCH (08:21)
[2023-09-27] MEDS: Aspirin 81 MG Tab.Chew PO SCH (08:21)
[2023-09-27] MEDS: Modafinil 100 MG Tab PO SCH (08:21)
[2023-09-27] MEDS: Calcitriol 0.25 MCG Cap PO SCH (08:22)
[2023-09-27] MEDS: Levothyroxine 88 MCG Tab PO SCH (08:23)
[2023-09-27] MEDS: Azithromycin 250 MG Tab PO SCH (08:23)
[2023-09-27] MEDS: Magnesium Oxide 400 MG Tab PO SCH (08:23)
[2023-09-27] MEDS: amLODIPine 5 MG Tab PO SCH (08:27)
[2023-09-27] MEDS: Enoxaparin 30 MG/0.3 ML Syringe SUBCUT SCH (08:30)
[2023-09-27] MEDS ORDERED: Tiotropium Bromide 4 GM Inhalation Spray (2.5mcg/1 dose; 10 doses) INH SCH (09:00)
[2023-09-27] MEDS: Albuterol 0.083% 2.5 MG/3 ML Neb Soln NEB PRN (21:07)
[2023-09-28] MEDS: Magnesium Hydroxide 400 MG/5 ML Susp 30 ML Cup PO PRN (05:04)
[2023-09-28] MEDS: Tiotropium Bromide 4 GM Inhalation Spray (2.5mcg/1 dose; 10 doses) INH SCH (06:38)
[2023-09-28] MEDS: Docusate Sodium 100 MG Cap PO PRN (21:40)
[2023-09-28] MEDS: Sennosides/Docusate Sodium 50-8.6 MG Tab PO PRN (21:40)
[2023-09-29] MEDS: Ondansetron 4 MG/2 ML SDV IVPUSH PRN (01:07)
[2023-09-29 06:58] LABS: BASE EXCESS ARTERIAL 1 mmol/L ((-2)-(+3)); BICARBONATE,ARTERIAL 27.5 mmol/L (22-26); O2 DELIVERY DEVICE NASAL CANNULA; O2 SATURATION ARTERIAL 84 % (95-100); PCO2 ARTERIAL 60 mmHg (35-45); PH,ARTERIAL 7.28 (7.35-7.45); PO2 ARTERIAL 54 mmHg (70-100)
[2023-09-29 08:15] LABS: BASOPHILS PERCENT AUTO 0.6 % (0.0-1.0); EOSINOPHILS PERCENT AUTO 0.9 % (1.0-3.0); HEMATOCRIT 30.8 % (37.0-47.0); HEMOGLOBIN 8.9 g/dL (12.0-16.0); LYMPHOCYTES PERCENT AUTO 9.1 % (20.5-50.1); MEAN CORPUSCULAR HEMOGLOBIN 24.6 pg (27.0-34.0); MEAN CORPUSCULAR HGB CONC 28.9 g/dL (33.0-35.0); MEAN CORPUSCULAR VOLUME 85.1 fL (80-100); MONOCYTES PERCENT AUTO 9.9 % (2-8); NEUTROPHILS PERCENT AUTO 79.5 % (42.2-75.2); PLATELET COUNT,PLT 298 10^3/uL (150-450); RED BLOOD CELL COUNT 3.62 10^6/uL (4.2-5.4); WHITE BLOOD CELL COUNT,WBC 10.5 10^3/uL (5.0-10.0)
[2023-09-29 08:32] LABS: ANION GAP 8.4 mEq/L (7-13); CALCIUM 8.2 mg/dL (8.5-10.1); CREATININE 1.42 mg/dL (0.55-1.02); EST CRCL DRUG DOSING (CG) 24.97 mL/min; POTASSIUM,K 4.4 mmol/L (3.5-5.1)
[2023-09-29] MEDS: methylPREDNISolone Sodium Succinate 125 MG/2 ML SDV IV ONE (08:33)
[2023-09-29] MEDS: methylPREDNISolone Sodium Succinate 40 MG/1 ML SDV IVPUSH SCH (09:05)
[2023-09-29] MEDS: Insulin Lispro 100 Units/ML 3 ML Vial SUBCUT SCH (09:07)
[2023-09-29] MEDS: Furosemide 40 MG/4 ML VIAL IVPUSH ONE (10:56)
[2023-09-29] MEDS: POTASSIUM CHLORIDE 10 MEQ PO SCH (17:00)
[2023-09-29] MEDS: Benzonatate 100 MG Cap PO PRN (20:15)
[2023-09-30] MEDS: Bisacodyl 5 MG Tab PO PRN (03:00)
[2023-09-30 05:50] LABS: BASOPHILS PERCENT AUTO 0.3 % (0.0-1.0); HEMATOCRIT 31.3 % (37.0-47.0); HEMOGLOBIN 9.1 g/dL (12.0-16.0); LYMPHOCYTES PERCENT AUTO 3.4 % (20.5-50.1); MEAN CORPUSCULAR HEMOGLOBIN 24.7 pg (27.0-34.0); MEAN CORPUSCULAR HGB CONC 29.1 g/dL (33.0-35.0); MEAN CORPUSCULAR VOLUME 84.8 fL (80-100); MONOCYTES PERCENT AUTO 2.5 % (2-8); NEUTROPHILS PERCENT AUTO 93.8 % (42.2-75.2); PLATELET COUNT,PLT 296 10^3/uL (150-450); RED BLOOD CELL COUNT 3.69 10^6/uL (4.2-5.4)
[2023-09-30 06:23] LABS: ANION GAP 9.2 mEq/L (7-13); CREATININE 1.74 mg/dL (0.55-1.02); EST CRCL DRUG DOSING (CG) 20.37 mL/min; POTASSIUM,K 5.2 mmol/L (3.5-5.1)
[2023-09-30 08:19] LABS: ALLEN TEST PERFORMED
[2023-09-30 12:20] LABS: BASE EXCESS VENOUS 2.6 mmol/l ((-2)-(+3)); BICARBONATE,VENOUS 30 mmol/l (19-25); O2 DELIVERY DEVICE BIPAP; O2 SATURATION VENOUS 88.4 % (60-80); PH,VENOUS 7.29 (7.31-7.41); PO2 VENOUS 59 mmHg (35-42)
[2023-09-30 12:26] LABS: PCO2 VENOUS 64 mmHg (41-51)
[2023-09-30] MEDS: Furosemide 20 MG/2 ML VIAL IVPUSH SCH (13:41)
[2023-09-30] MEDS: Furosemide 20 MG Tab PO SCH (15:23)
[2023-10-01 06:27] LABS: HEMATOCRIT 33.6 % (37.0-47.0); HEMOGLOBIN 9.8 g/dL (12.0-16.0); MEAN CORPUSCULAR HEMOGLOBIN 24.6 pg (27.0-34.0); MEAN CORPUSCULAR HGB CONC 29.2 g/dL (33.0-35.0); MEAN CORPUSCULAR VOLUME 84.2 fL (80-100); PLATELET COUNT,PLT 306 10^3/uL (150-450); RED BLOOD CELL COUNT 3.99 10^6/uL (4.2-5.4)
[2023-10-01 06:42] LABS: CALCIUM 7.9 mg/dL (8.5-10.1); CREATININE 1.72 mg/dL (0.55-1.02); EST CRCL DRUG DOSING (CG) 20.61 mL/min
[2023-10-01 06:43] LABS: BASOPHILS PERCENT AUTO 0.5 % (0.0-1.0); MONOCYTES PERCENT AUTO 3.7 % (2-8); NEUTROPHILS PERCENT AUTO 92.8 % (42.2-75.2)
[2023-10-01] MEDS ORDERED: Benzocaine/Docusate Sodium 20-283 MG/5 ML Enema RECTAL ONE (07:18)
[2023-10-01 07:31] LABS: LYMPHOCYTES PERCENT MAN 3 % (20-50); METAMYELOCYTE PERCENT MAN 1; MONOCYTES PERCENT MAN 2 % (2-8); MYELOCYTE PERCENT MAN 1; SEG NEUTROPHILS PERCENT MAN 93 % (42-75)
[2023-10-01 07:32] LABS: NRBC MANUAL 1 /100WBC
[2023-10-01] MEDS: Ferrous Sulfate 325 MG Tab PO SCH (08:58)
[2023-10-01] MEDS: POTASSIUM CHLORIDE 10 MEQ PO SCH (09:12)
[2023-10-01] MEDS: Benzocaine/Docusate Sodium 20-283 MG/5 ML Enema RECTAL ONE (16:07)
[2023-10-01] MEDS: Insulin Lispro 100 Units/ML 3 ML Vial SUBCUT SCH (17:21)
[2023-10-02 06:37] LABS: BASOPHILS PERCENT AUTO 0.4 % (0.0-1.0); HEMATOCRIT 31.3 % (37.0-47.0); HEMOGLOBIN 9.4 g/dL (12.0-16.0); LYMPHOCYTES PERCENT AUTO 2.7 % (20.5-50.1); MEAN CORPUSCULAR HEMOGLOBIN 24.7 pg (27.0-34.0); MEAN CORPUSCULAR VOLUME 82.4 fL (80-100); MONOCYTES PERCENT AUTO 3.3 % (2-8); NEUTROPHILS PERCENT AUTO 93.6 % (42.2-75.2); PLATELET COUNT,PLT 287 10^3/uL (150-450); WHITE BLOOD CELL COUNT,WBC 10.7 10^3/uL (5.0-10.0)
[2023-10-02 07:04] LABS: ANION GAP 10.6 mEq/L (7-13); CALCIUM 8.1 mg/dL (8.5-10.1); CREATININE 1.47 mg/dL (0.55-1.02); EST CRCL DRUG DOSING (CG) 24.12 mL/min; POTASSIUM,K 4.6 mmol/L (3.5-5.1)
[2023-10-02] MEDS: Spironolactone 25 MG Tab PO SCH (08:54)
[2023-10-02] MEDS: amLODIPine 5 MG Tab PO SCH (08:55)
[2023-10-02] MEDS: methylPREDNISolone Sodium Succinate 40 MG/1 ML SDV IVPUSH SCH (09:48)
[2023-10-02] MEDS ORDERED: hydrALAZINE 20 MG/ML SDV IVPUSH PRN (17:24)
[2023-10-02] MEDS ORDERED: Mineral Oil/Petrolatum/Phenylephrine/Shark Liver Oil Oint 57 GM Tube RECTAL PRN (17:34)
[2023-10-02] MEDS: hydrALAZINE 25 MG Tab PO PRN (18:15)
[2023-10-03 06:35] LABS: BASOPHILS PERCENT AUTO 0.2 % (0.0-1.0); HEMATOCRIT 33.2 % (37.0-47.0); HEMOGLOBIN 10.1 g/dL (12.0-16.0); LYMPHOCYTES PERCENT AUTO 2.6 % (20.5-50.1); MEAN CORPUSCULAR HEMOGLOBIN 24.8 pg (27.0-34.0); MEAN CORPUSCULAR HGB CONC 30.4 g/dL (33.0-35.0); MEAN CORPUSCULAR VOLUME 81.4 fL (80-100); MONOCYTES PERCENT AUTO 3.7 % (2-8); NEUTROPHILS PERCENT AUTO 93.5 % (42.2-75.2); PLATELET COUNT,PLT 338 10^3/uL (150-450); RED BLOOD CELL COUNT 4.08 10^6/uL (4.2-5.4); WHITE BLOOD CELL COUNT,WBC 11.5 10^3/uL (5.0-10.0)
[2023-10-03 06:58] LABS: ANION GAP 10.4 mEq/L (7-13); CALCIUM 8.2 mg/dL (8.5-10.1); CREATININE 1.43 mg/dL (0.55-1.02); EST CRCL DRUG DOSING (CG) 24.79 mL/min; POTASSIUM,K 4.4 mmol/L (3.5-5.1)
[2023-10-03] MEDS ORDERED: predniSONE 20 MG Tab PO SCH (08:00)
[2023-10-04 06:13] LABS: BASOPHILS PERCENT AUTO 0.4 % (0.0-1.0); HEMATOCRIT 32.5 % (37.0-47.0); HEMOGLOBIN 9.9 g/dL (12.0-16.0); LYMPHOCYTES PERCENT AUTO 2.1 % (20.5-50.1); MEAN CORPUSCULAR HEMOGLOBIN 24.8 pg (27.0-34.0); MEAN CORPUSCULAR HGB CONC 30.5 g/dL (33.0-35.0); MEAN CORPUSCULAR VOLUME 81.5 fL (80-100); MONOCYTES PERCENT AUTO 3.2 % (2-8); NEUTROPHILS PERCENT AUTO 94.3 % (42.2-75.2); PLATELET COUNT,PLT 307 10^3/uL (150-450); RED BLOOD CELL COUNT 3.99 10^6/uL (4.2-5.4); WHITE BLOOD CELL COUNT,WBC 11.6 10^3/uL (5.0-10.0)
[2023-10-04 06:29] LABS: ANION GAP 8.5 mEq/L (7-13); CALCIUM 8.2 mg/dL (8.5-10.1); CREATININE 1.42 mg/dL (0.55-1.02); EST CRCL DRUG DOSING (CG) 24.97 mL/min; POTASSIUM,K 4.5 mmol/L (3.5-5.1)
[2023-10-04] MEDS: predniSONE 20 MG Tab PO SCH (09:52)
[2023-10-04] MEDS: Simethicone 80 MG Tab.Chew PO PRN (23:25)
[2023-10-05] MEDS: hydrALAZINE 25 MG Tab PO SCH (08:32)
[2023-10-05] MEDS: Acetaminophen 325 MG Tab PO PRN (22:05)
[2023-10-06] MEDS ORDERED: Furosemide 40 MG Tab PO SCH (21:00)
[2023-10-07 06:26] LABS: HEMATOCRIT 34.1 % (37.0-47.0); HEMOGLOBIN 10.3 g/dL (12.0-16.0); MEAN CORPUSCULAR HEMOGLOBIN 24.4 pg (27.0-34.0); MEAN CORPUSCULAR HGB CONC 30.2 g/dL (33.0-35.0); MEAN CORPUSCULAR VOLUME 80.8 fL (80-100); RED BLOOD CELL COUNT 4.22 10^6/uL (4.2-5.4); WHITE BLOOD CELL COUNT,WBC 10.2 10^3/uL (5.0-10.0)
[2023-10-07 06:45] LABS: ANION GAP 6.5 mEq/L (7-13); CALCIUM 8.1 mg/dL (8.5-10.1); CREATININE 1.28 mg/dL (0.55-1.02); EST CRCL DRUG DOSING (CG) 27.7 mL/min; POTASSIUM,K 3.5 mmol/L (3.5-5.1)
[2023-10-07] MEDS: Furosemide 40 MG Tab PO SCH (09:31)
[2023-10-07] MEDS: predniSONE 20 MG Tab PO SCH (09:33)
[2023-10-08] MEDS: predniSONE 20 MG Tab PO SCH (08:49)
[2023-10-08] MEDS: hydrALAZINE 25 MG Tab PO SCH (09:10)
[2023-10-08] MEDS: Insulin Lispro 100 Units/ML 3 ML Vial SUBCUT SCH (12:34)
[2023-10-08] MEDS ORDERED: Glucagon,Human Recombinant 1 MG Vial IM PRN (20:05)
[2023-10-08] MEDS ORDERED: 50% Dextrose in Water 50 ML Syringe IVPUSH PRN (20:05)
[2023-10-08] MEDS: Insulin Lispro 100 Units/ML 3 ML Vial SUBCUT ONE (20:12)
[2023-10-09] MEDS: predniSONE 20 MG Tab PO SCH (08:03)
[2023-10-10 07:55] VITALS: BP 159/71; PULSE 87
== END 2023-10-10 09:45 | DRG 193 ==
LOC: DL.ED 03:29 → DL.MS 07:58 → DL.ED 09:17
PROVIDERS: ADMIT Internal Medicine; ATTEND Internal Medicine
PROC: 4A133R1 Monitoring of Arterial Saturation, Peripheral, Percutaneous Approach (ICD-10-PCS; principal; 2023-09-26)
PROC: 5A09357 Assistance with Respiratory Ventilation, Less than 24 Consecutive Hours, Continuous Positive Airway Pressure (ICD-10-PCS; 2023-09-29)
DX: J18.9 Pneumonia, unspecified organism (principal); R09.02 Hypoxemia; I10 Essential (primary) hypertension; J44.9 Chronic obstructive pulmonary disease, unspecified; E11.9 Type 2 diabetes mellitus without complications; J96.21 Acute and chronic respiratory failure with hypoxia; Z68.32 Body mass index [BMI] 32.0-32.9, adult; J44.0 Chronic obstructive pulmonary disease with (acute) lower respiratory infection; F03.93 Unspecified dementia, unspecified severity, with mood disturbance; I12.9 Hypertensive chronic kidney disease with stage 1 through stage 4 chronic kidney disease, or unspecified chronic kidney disease; E11.22 Type 2 diabetes mellitus with diabetic chronic kidney disease; N18.30 Chronic kidney disease, stage 3 unspecified; E78.5 Hyperlipidemia, unspecified; G47.33 Obstructive sleep apnea (adult) (pediatric); R13.12 Dysphagia, oropharyngeal phase; G47.00 Insomnia, unspecified; E66.9 Obesity, unspecified; G25.81 Restless legs syndrome; E11.65 Type 2 diabetes mellitus with hyperglycemia; D63.1 Anemia in chronic kidney disease; D50.9 Iron deficiency anemia, unspecified; E78.00 Pure hypercholesterolemia, unspecified; K21.9 Gastro-esophageal reflux disease without esophagitis; M19.90 Unspecified osteoarthritis, unspecified site; G89.29 Other chronic pain; M54.9 Dorsalgia, unspecified; Z87.891 Personal history of nicotine dependence; Z79.82 Long term (current) use of aspirin; Z99.81 Dependence on supplemental oxygen; Z79.4 Long term (current) use of insulin; Z79.899 Other long term (current) drug therapy; Z68.30 Body mass index [BMI] 30.0-30.9, adult; Z79.890 Hormone replacement therapy; Z88.0 Allergy status to penicillin; Z88.1 Allergy status to other antibiotic agents; Z88.8 Allergy status to other drugs, medicaments and biological substances; Z98.49 Cataract extraction status, unspecified eye
CPT/HCPCS: 36415; 36600; 71045; 80048; 80053; 81001; 82140; 82803; 82947; 83605; 83735; 83880; 84145; 84484; 85025; 85027; 85379; 86140; 87040; 93005; 93010; 94640; 94660; 94664; 94760; 96365; 97110-GP; 97161-GP; 97164-GP; 97165-GO; 97168-GO; 99223; 99232; 99233; 99239; 99285; 99285-25; A9270-GY; J1650; J1815-GY; J1940; J2405; J2543; J2920; J2930; J3490; J7512; J7613-GY; J7620-GY

== ENCOUNTER 2023-10-21 21:29 | Emergency (ER) | payer OTHER ==
[2023-10-21] MEDS: Sodium Chloride 0.9% 10 ML Syringe FLUSH PRN (21:40)
[2023-10-21 21:46] LABS: BASOPHILS PERCENT AUTO 0.7 % (0.0-1.0); EOSINOPHILS PERCENT AUTO 3.6 % (1.0-3.0); HEMATOCRIT 33.2 % (37.0-47.0); HEMOGLOBIN 10.3 g/dL (12.0-16.0); LYMPHOCYTES PERCENT AUTO 4.9 % (20.5-50.1); MEAN CORPUSCULAR HEMOGLOBIN 25.5 pg (27.0-34.0); MEAN CORPUSCULAR VOLUME 82.2 fL (80-100); MONOCYTES PERCENT AUTO 9.5 % (2-8); NEUTROPHILS PERCENT AUTO 81.3 % (42.2-75.2); PLATELET COUNT,PLT 321 10^3/uL (150-450); RED BLOOD CELL COUNT 4.04 10^6/uL (4.2-5.4); WHITE BLOOD CELL COUNT,WBC 8.8 10^3/uL (5.0-10.0)
[2023-10-21 22:04] LABS: INR 0.9 (0.9-1.2); PROTHROMBIN TIME 9.7 SEC (9.0-12.0)
[2023-10-21 22:09] LABS: LACTIC ACID 1.4 mmol/L (0.4-2.0)
[2023-10-21 22:15] LABS: ALBUMIN 2.6 g/dL (3.4-5.0); BILIRUBIN TOTAL 0.3 mg/dL (0.2-1.0); BUN/CREATININE RATIO 17.8 (No establ ref range); C-REACTIVE PROTEIN 10.76 ng/dL (<=0.50); CALCIUM 8.7 mg/dL (8.5-10.1); CREATININE 1.63 mg/dL (0.55-1.02); PROTEIN TOTAL,TP 6.3 g/dL (6.4-8.2)
[2023-10-21 22:19] LABS: A/G RATIO 0.7; EST CRCL DRUG DOSING (CG) 21.75 mL/min
[2023-10-21 22:48] LABS: CORONAVIRUS COVID-19 NAA NEGATIVE (NEGATIVE); INFLUENZA A NAA NEGATIVE (NEGATIVE); INFLUENZA B NAA NEGATIVE (NEGATIVE); RESPIRATORY SYNCYTIAL VIR NAA NEGATIVE (NEGATIVE)
[2023-10-21] MEDS: Potassium Chloride 10 MEQ Tab.ER PO ONE (22:57)
== END 2023-10-21 23:42 | disposition home or self-care (01) ==
LOC: DL.ED 21:29
DX: I12.9 Hypertensive chronic kidney disease with stage 1 through stage 4 chronic kidney disease, or unspecified chronic kidney disease (principal); E87.6 Hypokalemia; R09.02 Hypoxemia; N18.32 Chronic kidney disease, stage 3b; J44.9 Chronic obstructive pulmonary disease, unspecified; K21.9 Gastro-esophageal reflux disease without esophagitis; E11.22 Type 2 diabetes mellitus with diabetic chronic kidney disease; E66.9 Obesity, unspecified; Z79.899 Other long term (current) drug therapy; Z79.82 Long term (current) use of aspirin; Z79.4 Long term (current) use of insulin; Z88.8 Allergy status to other drugs, medicaments and biological substances; Z88.1 Allergy status to other antibiotic agents; Z68.29 Body mass index [BMI] 29.0-29.9, adult
CPT/HCPCS: 0241U; 36415; 71045; 80053; 83605; 84484; 85025; 85610; 85730; 86140; 93005; 99285; A9270-GY; J3490

== ENCOUNTER 2024-01-29 12:07 | Emergency (ER) | payer MEDICARE ==
[2024-01-29 12:45] LABS: HEMATOCRIT 42.8 % (37.0-47.0); HEMOGLOBIN 13.9 g/dL (12.0-16.0); RED BLOOD CELL COUNT 4.66 10^6/uL (4.2-5.4)
[2024-01-29 12:46] LABS: BASOPHILS PERCENT AUTO 0.5 % (0.0-1.0); EOSINOPHILS PERCENT AUTO 3.2 % (1.0-3.0); LYMPHOCYTES PERCENT AUTO 11.2 % (20.5-50.1); MEAN CORPUSCULAR HEMOGLOBIN 29.8 pg (27.0-34.0); MEAN CORPUSCULAR HGB CONC 32.5 g/dL (33.0-35.0); MEAN CORPUSCULAR VOLUME 91.8 fL (80-100); MONOCYTES PERCENT AUTO 9.1 % (2-8); PLATELET COUNT,PLT 269 10^3/uL (150-450)
[2024-01-29] MEDS: Albuterol/Ipratropium 3.0-0.5 MG/3 ML Neb Soln NEB ONE (12:51)
[2024-01-29] MEDS: methylPREDNISolone Sodium Succinate 125 MG/2 ML SDV IVPUSH ONE (13:02)
[2024-01-29 13:04] LABS: ANION GAP 8.8 mEq/L (7-13); BLOOD UREA NITROGEN,BUN 32 mg/dL (7-18); BUN/CREATININE RATIO 21.2 (No establ ref range); CARBON DIOXIDE,CO2 37 mmol/L (21-32); CHLORIDE,CL 96 mmol/L (98-107); CREATININE 1.51 mg/dL (0.55-1.02); GLUCOSE RANDOM 82 mg/dL (70-99); POTASSIUM,K 3.8 mmol/L (3.5-5.1); SODIUM,NA 138 mmol/L (136-145)
[2024-01-29 13:05] LABS: ALANINE AMINOTRANSFERASE,ALT 14 U/L (14-59); ALBUMIN 3.5 g/dL (3.4-5.0); ALKALINE PHOSPHATASE 73 U/L (46-116); ASPARTATE AMNIOTRANSFERASE,AST 12 U/L (15-37); BILIRUBIN TOTAL 0.2 mg/dL (0.2-1.0); CALCIUM 9.3 mg/dL (8.5-10.1); ESTIMATED GFR 36 mL/min (>=60); MAGNESIUM 2.4 mg/dL (1.8-2.4)
== END 2024-01-29 14:07 | disposition home or self-care (01) ==
LOC: DL.ED 12:07
DX: J44.1 Chronic obstructive pulmonary disease with (acute) exacerbation (principal); I12.9 Hypertensive chronic kidney disease with stage 1 through stage 4 chronic kidney disease, or unspecified chronic kidney disease; N18.9 Chronic kidney disease, unspecified; E11.22 Type 2 diabetes mellitus with diabetic chronic kidney disease; E66.9 Obesity, unspecified; Z79.899 Other long term (current) drug therapy; Z79.4 Long term (current) use of insulin; Z88.8 Allergy status to other drugs, medicaments and biological substances; Z88.1 Allergy status to other antibiotic agents
CPT/HCPCS: 36415; 71250; 80053; 82947; 83735; 85025; 96374; 99285; J2919; J7620-GY

== ENCOUNTER 2024-02-23 02:44 | Emergency (ER) | payer MEDICARE ==
[2024-02-23] MEDS ORDERED: Nystatin Susp 100,000 Unit/ML 5 ML UD Cup PO ONE (02:45)
[2024-02-23] MEDS: Nystatin Susp 100,000 Unit/ML 5 ML UD Cup PO ONE (03:54)
[2024-02-23] MEDS: Nystatin Susp 100,000 Unit/ML 5 ML UD Cup ONE (04:29)
== END 2024-02-23 05:00 ==
LOC: DL.ED 02:44
DX: B37.0 Candidal stomatitis (principal); I10 Essential (primary) hypertension; J44.9 Chronic obstructive pulmonary disease, unspecified; M19.90 Unspecified osteoarthritis, unspecified site; K21.9 Gastro-esophageal reflux disease without esophagitis; E11.9 Type 2 diabetes mellitus without complications; E66.9 Obesity, unspecified; Z79.4 Long term (current) use of insulin; Z79.84 Long term (current) use of oral hypoglycemic drugs; Z79.82 Long term (current) use of aspirin; Z79.899 Other long term (current) drug therapy; Z88.1 Allergy status to other antibiotic agents; Z88.8 Allergy status to other drugs, medicaments and biological substances
CPT/HCPCS: 87081; 87430; 99284; A9270

== ENCOUNTER 2024-02-24 04:34 | Emergency (ER) | payer MEDICARE ==
[2024-02-24 04:52] LABS: BASOPHILS PERCENT AUTO 0.4 % (0.0-1.0); EOSINOPHILS PERCENT AUTO 2.1 % (1.0-3.0); HEMATOCRIT 43.4 % (37.0-47.0); HEMOGLOBIN 13.9 g/dL (12.0-16.0); MEAN CORPUSCULAR HEMOGLOBIN 30.2 pg (27.0-34.0); MEAN CORPUSCULAR VOLUME 94.3 fL (80-100); MONOCYTES PERCENT AUTO 7.6 % (2-8); NEUTROPHILS PERCENT AUTO 80.9 % (42.2-75.2); PLATELET COUNT,PLT 267 10^3/uL (150-450)
[2024-02-24 05:11] LABS: B-TYPE NATRIURETIC PEPTIDE,BNP 92 pg/ml (0-100)
[2024-02-24 05:12] LABS: INR 0.9 (0.9-1.2); PROTHROMBIN TIME 9.7 SEC (9.0-12.0); PTT,PARTIAL THROMBOPLSTIN TIME 25.9 SEC (22.0-34.0)
[2024-02-24 05:17] LABS: ALANINE AMINOTRANSFERASE,ALT 15 U/L (14-59); ALBUMIN 3.7 g/dL (3.4-5.0); ALKALINE PHOSPHATASE 84 U/L (46-116); ANION GAP 7.9 mEq/L (7-13); ASPARTATE AMNIOTRANSFERASE,AST 13 U/L (15-37); BILIRUBIN TOTAL 0.3 mg/dL (0.2-1.0); BLOOD UREA NITROGEN,BUN 31 mg/dL (7-18); BUN/CREATININE RATIO 19.1 (No establ ref range); CALCIUM 9.1 mg/dL (8.5-10.1); CARBON DIOXIDE,CO2 38 mmol/L (21-32); CHLORIDE,CL 95 mmol/L (98-107); CREATININE 1.62 mg/dL (0.55-1.02); GLUCOSE RANDOM 152 mg/dL (70-99); MAGNESIUM 2.3 mg/dL (1.8-2.4); POTASSIUM,K 3.9 mmol/L (3.5-5.1); PROTEIN TOTAL,TP 7.4 g/dL (6.4-8.2); SODIUM,NA 137 mmol/L (136-145)
[2024-02-24 05:19] LABS: ESTIMATED GFR 33 mL/min (>=60)
[2024-02-24] MEDS: Albuterol/Ipratropium 3.0-0.5 MG/3 ML Neb Soln NEB ONE (05:28)
[2024-02-24] MEDS: Nystatin Susp 100,000 Unit/ML 5 ML UD Cup PO ONE (05:48)
[2024-02-24] MEDS: Azithromycin 250 MG Tab PO ONE (06:08)
[2024-02-24] MEDS: predniSONE 20 MG Tab PO ONE (06:08)
== END 2024-02-24 06:33 ==
LOC: DL.ED 04:34
DX: J44.1 Chronic obstructive pulmonary disease with (acute) exacerbation (principal); I12.9 Hypertensive chronic kidney disease with stage 1 through stage 4 chronic kidney disease, or unspecified chronic kidney disease; N18.30 Chronic kidney disease, stage 3 unspecified; K21.9 Gastro-esophageal reflux disease without esophagitis; E11.22 Type 2 diabetes mellitus with diabetic chronic kidney disease; E66.9 Obesity, unspecified; Z79.4 Long term (current) use of insulin; Z88.8 Allergy status to other drugs, medicaments and biological substances; Z88.1 Allergy status to other antibiotic agents; Z79.899 Other long term (current) drug therapy
CPT/HCPCS: 36415; 71045; 80053; 83735; 83880; 84484; 85025; 85610; 85730; 93005; 99285; A9270; J7512; 93010; 99284; J7620-GY

== ENCOUNTER 2024-03-13 21:49 | Emergency (ER) | payer MEDICARE ==
[2024-03-13] MEDS ORDERED: Sodium Chloride 0.9% 10 ML Syringe FLUSH PRN (22:23)
[2024-03-13 22:38] LABS: BASOPHILS PERCENT AUTO 0.3 % (0.0-1.0); EOSINOPHILS PERCENT AUTO 2.4 % (1.0-3.0); HEMATOCRIT 40.1 % (37.0-47.0); HEMOGLOBIN 13.1 g/dL (12.0-16.0); LYMPHOCYTES PERCENT AUTO 9.4 % (20.5-50.1); MEAN CORPUSCULAR HGB CONC 32.7 g/dL (33.0-35.0); MONOCYTES PERCENT AUTO 10.8 % (2-8); NEUTROPHILS PERCENT AUTO 77.1 % (42.2-75.2); PLATELET COUNT,PLT 279 10^3/uL (150-450); RED BLOOD CELL COUNT 4.22 10^6/uL (4.2-5.4); WHITE BLOOD CELL COUNT,WBC 11.4 10^3/uL (5.0-10.0)
[2024-03-13 22:57] LABS: A/G RATIO 1.1; ALANINE AMINOTRANSFERASE,ALT 18 U/L (14-59); ALBUMIN 3.5 g/dL (3.4-5.0); ALKALINE PHOSPHATASE 71 U/L (46-116); ANION GAP 6.8 mEq/L (7-13); ASPARTATE AMNIOTRANSFERASE,AST 12 U/L (15-37); BILIRUBIN TOTAL 0.2 mg/dL (0.2-1.0); BLOOD UREA NITROGEN,BUN 25 mg/dL (7-18); BUN/CREATININE RATIO 15.7 (No establ ref range); CALCIUM 9.3 mg/dL (8.5-10.1); CARBON DIOXIDE,CO2 37 mmol/L (21-32); CHLORIDE,CL 98 mmol/L (98-107); CREATININE 1.59 mg/dL (0.55-1.02); GLUCOSE RANDOM 107 mg/dL (70-99); MAGNESIUM 2.3 mg/dL (1.8-2.4); POTASSIUM,K 3.8 mmol/L (3.5-5.1); PROTEIN TOTAL,TP 6.8 g/dL (6.4-8.2); SODIUM,NA 138 mmol/L (136-145)
[2024-03-13 22:58] LABS: B-TYPE NATRIURETIC PEPTIDE,BNP 37 pg/ml (0-100); ESTIMATED GFR 34 mL/min (>=60)
[2024-03-13 22:59] LABS: APPEARANCE,URINE SLIGHTLY CLOUDY (CLEAR); BILIRUBIN,URINE NEGATIVE (NEGATIVE); COLOR,URINE YELLOW (YELLOW); GLUCOSE,URINE NEGATIVE (NEGATIVE); KETONES,URINE NEGATIVE (NEGATIVE); LEUKOCYTE ESTERASE,URINE SMALL (NEGATIVE); NITRITE,URINE NEGATIVE (NEGATIVE); OCCULT BLOOD,URINE NEGATIVE (NEGATIVE); PROTEIN,URINE 30 (NEGATIVE); UROBILINOGEN,URINE 0.2 mg/dL (0.2-1.0)
[2024-03-13 23:11] LABS: BACTERIA,URINE MANY /HPF (0-FEW/HPF); EPITHELIAL CELLS,URINE FEW /HPF (NOT SEEN); RBC,URINE 0-5 /HPF (0-5); WBC,URINE 20-30 /HPF (0-5/HPF)
[2024-03-13] MEDS: Potassium Chloride 10 MEQ Tab.ER PO ONE (23:36)
[2024-03-13] MEDS: Bumetanide 1 MG Tab PO ONE (23:36)
== END 2024-03-14 00:20 ==
LOC: DL.ED 21:49
DX: R60.0 Localized edema (principal); I12.9 Hypertensive chronic kidney disease with stage 1 through stage 4 chronic kidney disease, or unspecified chronic kidney disease; N18.30 Chronic kidney disease, stage 3 unspecified; R82.71 Bacteriuria; Z91.148 Patient's other noncompliance with medication regimen for other reason; E78.00 Pure hypercholesterolemia, unspecified; K21.9 Gastro-esophageal reflux disease without esophagitis; E11.22 Type 2 diabetes mellitus with diabetic chronic kidney disease; J44.9 Chronic obstructive pulmonary disease, unspecified; Z87.891 Personal history of nicotine dependence; Z88.8 Allergy status to other drugs, medicaments and biological substances; Z88.1 Allergy status to other antibiotic agents; Z79.82 Long term (current) use of aspirin; Z79.899 Other long term (current) drug therapy; Z79.4 Long term (current) use of insulin; Z79.890 Hormone replacement therapy; Z79.51 Long term (current) use of inhaled steroids
CPT/HCPCS: 36415; 80053; 81001; 83735; 83880; 85025; 87086; 99284; A9270-GY

== ENCOUNTER 2024-06-28 22:25 | Emergency (ER) | payer MEDICARE ==
[2024-06-28 23:22] LABS: BASOPHILS PERCENT AUTO 0.5 % (0.0-1.0); EOSINOPHILS PERCENT AUTO 1.8 % (1.0-3.0); HEMATOCRIT 42.7 % (37.0-47.0); HEMOGLOBIN 14.2 g/dL (12.0-16.0); LYMPHOCYTES PERCENT AUTO 8.2 % (20.5-50.1); MEAN CORPUSCULAR HGB CONC 33.3 g/dL (33.0-35.0); MEAN CORPUSCULAR VOLUME 93.2 fL (80-100); MONOCYTES PERCENT AUTO 7.4 % (2-8); NEUTROPHILS PERCENT AUTO 82.1 % (42.2-75.2); PLATELET COUNT,PLT 271 10^3/uL (150-450); RED BLOOD CELL COUNT 4.58 10^6/uL (4.2-5.4); WHITE BLOOD CELL COUNT,WBC 15.2 10^3/uL (5.0-10.0)
[2024-06-28 23:44] LABS: A/G RATIO 1.1; ALANINE AMINOTRANSFERASE,ALT 12 U/L (14-59); ALBUMIN 3.6 g/dL (3.4-5.0); ALKALINE PHOSPHATASE 79 U/L (46-116); ANION GAP 9.4 mEq/L (7-13); ASPARTATE AMNIOTRANSFERASE,AST 16 U/L (15-37); BILIRUBIN TOTAL 0.3 mg/dL (0.2-1.0); BLOOD UREA NITROGEN,BUN 31 mg/dL (7-18); BUN/CREATININE RATIO 19.6 (No establ ref range); CALCIUM 9.3 mg/dL (8.5-10.1); CARBON DIOXIDE,CO2 36 mmol/L (21-32); CHLORIDE,CL 89 mmol/L (98-107); CREATINE KINASE,CK 144 U/L (16-191); CREATININE 1.58 mg/dL (0.55-1.02); GLUCOSE RANDOM 147 mg/dL (70-99); MAGNESIUM 2.2 mg/dL (1.8-2.4); POTASSIUM,K 3.4 mmol/L (3.5-5.1); PROTEIN TOTAL,TP 6.9 g/dL (6.4-8.2); SODIUM,NA 131 mmol/L (136-145)
[2024-06-28 23:46] LABS: ESTIMATED GFR 34 mL/min (>=60)
[2024-06-28] MEDS: Acetaminophen 325 MG Tab PO ONE (23:50)
[2024-06-29] MEDS: Potassium Chloride 10 MEQ Tab.ER PO ONE (00:29)
[2024-06-29 00:40] LABS: APPEARANCE,URINE SLIGHTLY CLOUDY (CLEAR); BILIRUBIN,URINE NEGATIVE (NEGATIVE); COLOR,URINE YELLOW (YELLOW); GLUCOSE,URINE NEGATIVE (NEGATIVE); KETONES,URINE NEGATIVE (NEGATIVE); LEUKOCYTE ESTERASE,URINE TRACE (NEGATIVE); NITRITE,URINE NEGATIVE (NEGATIVE); OCCULT BLOOD,URINE NEGATIVE (NEGATIVE); PROTEIN,URINE NEGATIVE (NEGATIVE); UROBILINOGEN,URINE 0.2 mg/dL (0.2-1.0)
[2024-06-29 01:05] LABS: AMORPHOUS SEDIMENT,URINE MODERATE /HPF (NOT SEEN); BACTERIA,URINE FEW /HPF (0-FEW/HPF); EPITHELIAL CELLS,URINE FEW /HPF (NOT SEEN); MUCUS,URINE FEW /LPF (NOT SEEN); RBC,URINE 0-5 /HPF (0-5)
[2024-06-29] MEDS ORDERED: cefTRIAXone 1 GM, Lidocaine 1% 2.1 ML IM ONE (01:54)
[2024-06-29] MEDS: cefTRIAXone 1 GM Vial IVPUSH ONE (02:27)
== END 2024-06-29 03:07 ==
LOC: DL.ED 22:25
DX: R25.2 Cramp and spasm (principal); N39.0 Urinary tract infection, site not specified; N18.9 Chronic kidney disease, unspecified; E87.6 Hypokalemia; E87.1 Hypo-osmolality and hyponatremia; I10 Essential (primary) hypertension; J44.89 Other specified chronic obstructive pulmonary disease; E78.00 Pure hypercholesterolemia, unspecified; E66.9 Obesity, unspecified; E11.9 Type 2 diabetes mellitus without complications; Z88.1 Allergy status to other antibiotic agents; Z88.8 Allergy status to other drugs, medicaments and biological substances; Z79.82 Long term (current) use of aspirin; Z79.4 Long term (current) use of insulin; Z79.890 Hormone replacement therapy; Z79.899 Other long term (current) drug therapy; Z87.891 Personal history of nicotine dependence
CPT/HCPCS: 36415; 71045; 80053; 81001; 82550; 83735; 85025; 87086; 87088; 87186; 96374; 99284; 99285; A9270; J0696

== ENCOUNTER 2024-07-24 18:18 | Emergency (ER) | payer MEDICARE ==
[~2024-07-24 18:18] MED LIST: Albuterol 0.083% 2.5 MG/3 ML Neb Soln ONE; Magnesium Sulfate/Water Premix 100 ML ONE
[2024-07-24] MEDS: Magnesium Sulfate/Water Premix 2 GM in Premix Bag 1 BAG IV ONE ×2 (18:20→18:23)
[2024-07-24] MEDS: Albuterol 0.083% 2.5 MG/3 ML Neb Soln NEB ONE (18:21)
[2024-07-24 18:27] LABS: HEMATOCRIT 42.6 % (37.0-47.0); HEMOGLOBIN 14.2 g/dL (12.0-16.0); MEAN CORPUSCULAR HEMOGLOBIN 31.3 pg (27.0-34.0); MEAN CORPUSCULAR HGB CONC 33.3 g/dL (33.0-35.0); MEAN CORPUSCULAR VOLUME 93.8 fL (80-100); PLATELET COUNT,PLT 263 10^3/uL (150-450); RED BLOOD CELL COUNT 4.54 10^6/uL (4.2-5.4); WHITE BLOOD CELL COUNT,WBC 12.2 10^3/uL (5.0-10.0)
[2024-07-24 18:32] LABS: BASOPHILS PERCENT AUTO 0.4 % (0.0-1.0); EOSINOPHILS PERCENT AUTO 2.4 % (1.0-3.0); LYMPHOCYTES PERCENT AUTO 11.7 % (20.5-50.1); MONOCYTES PERCENT AUTO 9.5 % (2-8)
[2024-07-24 18:45] LABS: EOSINOPHILS PERCENT MAN 1 % (1-3); LYMPHOCYTES PERCENT MAN 8 % (20-50); MONOCYTES PERCENT MAN 9 % (2-8); SEG NEUTROPHILS PERCENT MAN 82 % (42-75)
[2024-07-24 18:48] LABS: A/G RATIO 1.1; ALANINE AMINOTRANSFERASE,ALT 17 U/L (14-59); ALBUMIN 3.8 g/dL (3.4-5.0); ALKALINE PHOSPHATASE 76 U/L (46-116); ANION GAP 12.1 mEq/L (7-13); ASPARTATE AMNIOTRANSFERASE,AST 18 U/L (15-37); BILIRUBIN TOTAL 0.3 mg/dL (0.2-1.0); CARBON DIOXIDE,CO2 32 mmol/L (21-32); CHLORIDE,CL 94 mmol/L (98-107); CREATININE 1.59 mg/dL (0.55-1.02); GLUCOSE RANDOM 172 mg/dL (70-99); POTASSIUM,K 4.1 mmol/L (3.5-5.1); PROTEIN TOTAL,TP 7.3 g/dL (6.4-8.2); SODIUM,NA 134 mmol/L (136-145)
[2024-07-24 18:55] LABS: BLOOD UREA NITROGEN,BUN 30 mg/dL (7-18); BUN/CREATININE RATIO 18.9 (No establ ref range); CALCIUM 8.5 mg/dL (8.5-10.1); ESTIMATED GFR 34 mL/min (>=60)
== END 2024-07-24 20:13 | disposition home or self-care (01) ==
LOC: DL.ED 18:18
DX: T17.908A Unspecified foreign body in respiratory tract, part unspecified causing other injury, initial encounter (principal); J44.1 Chronic obstructive pulmonary disease with (acute) exacerbation; I10 Essential (primary) hypertension; K21.9 Gastro-esophageal reflux disease without esophagitis; E78.00 Pure hypercholesterolemia, unspecified; E66.9 Obesity, unspecified; E11.9 Type 2 diabetes mellitus without complications; Z88.1 Allergy status to other antibiotic agents; Z88.8 Allergy status to other drugs, medicaments and biological substances; Z79.82 Long term (current) use of aspirin; Z79.890 Hormone replacement therapy; Z79.899 Other long term (current) drug therapy
CPT/HCPCS: 36415; 71045; 80053; 85025; 94640; 96365; 99285; J3475; J7613-GY

== ENCOUNTER 2024-11-05 17:04 | Emergency (ER) | payer MEDICARE ==
[2024-11-05] MEDS ORDERED: Sodium Chloride 0.9% 10 ML Syringe FLUSH PRN (17:06)
[2024-11-05] MEDS: Magnesium Sulf/Wat 2 GM/50 mL 2 GM in Premix Bag 1 BAG IV ONE (17:20)
[2024-11-05 17:33] LABS: BASOPHILS PERCENT AUTO 0.5 % (0.0-1.0); HEMATOCRIT 45.5 % (37.0-47.0); HEMOGLOBIN 14.7 g/dL (12.0-16.0); LYMPHOCYTES PERCENT AUTO 10.9 % (20.5-50.1); MEAN CORPUSCULAR HEMOGLOBIN 30.6 pg (27.0-34.0); MEAN CORPUSCULAR HGB CONC 32.3 g/dL (33.0-35.0); MEAN CORPUSCULAR VOLUME 94.8 fL (80-100); MONOCYTES PERCENT AUTO 11.3 % (2-8); NEUTROPHILS PERCENT AUTO 73.3 % (42.2-75.2); PLATELET COUNT,PLT 243 10^3/uL (150-450); WHITE BLOOD CELL COUNT,WBC 7.8 10^3/uL (5.0-10.0)
[2024-11-05] MEDS: Albuterol/Ipratropium 3.0-0.5 MG/3 ML Neb Soln NEB ONE (17:35)
[2024-11-05] MEDS: cefTRIAXone 2 GM Vial IV ONE (17:45)
[2024-11-05] MEDS: Azithromycin 500 MG in Sodium Chloride 0.9% 250 ML IV ONE (17:50)
[2024-11-05 17:54] LABS: A/G RATIO 0.9; ALANINE AMINOTRANSFERASE,ALT 17 U/L (14-59); ALBUMIN 3.8 g/dL (3.4-5.0); ALKALINE PHOSPHATASE 85 U/L (46-116); ASPARTATE AMNIOTRANSFERASE,AST 19 U/L (15-37); BILIRUBIN TOTAL 0.2 mg/dL (0.2-1.0); BLOOD UREA NITROGEN,BUN 26 mg/dL (7-18); BUN/CREATININE RATIO 17.1 (No establ ref range); CARBON DIOXIDE,CO2 36 mmol/L (21-32); CHLORIDE,CL 93 mmol/L (98-107); CREATININE 1.52 mg/dL (0.55-1.02); GLUCOSE RANDOM 131 mg/dL (70-99); PROTEIN TOTAL,TP 7.8 g/dL (6.4-8.2); SODIUM,NA 134 mmol/L (136-145)
[2024-11-05 17:55] LABS: ESTIMATED GFR 36 mL/min (>=60)
[2024-11-05 17:56] LABS: LACTIC ACID 0.9 mmol/L (0.4-2.0)
[2024-11-05 17:58] LABS: APPEARANCE,URINE CLEAR (CLEAR); BILIRUBIN,URINE NEGATIVE (NEGATIVE); GLUCOSE,URINE NEGATIVE (NEGATIVE); KETONES,URINE NEGATIVE (NEGATIVE); LEUKOCYTE ESTERASE,URINE TRACE (NEGATIVE); NITRITE,URINE NEGATIVE (NEGATIVE); OCCULT BLOOD,URINE NEGATIVE (NEGATIVE); PROTEIN,URINE NEGATIVE (NEGATIVE); UROBILINOGEN,URINE 0.2 mg/dL (0.2-1.0)
[2024-11-05 18:00] LABS: COLOR,URINE LIGHT YELLOW (YELLOW)
[2024-11-05 18:07] LABS: AMORPHOUS SEDIMENT,URINE FEW /HPF (NOT SEEN); BACTERIA,URINE MANY /HPF (0-FEW/HPF); EPITHELIAL CELLS,URINE RARE /HPF (NOT SEEN); MUCUS,URINE RARE /LPF (NOT SEEN); RBC,URINE 0-5 /HPF (0-5); WBC,URINE 0-5 /HPF (0-5/HPF)
== END 2024-11-05 19:27 | disposition home or self-care (01) ==
LOC: DL.ED 17:04
DX: J44.1 Chronic obstructive pulmonary disease with (acute) exacerbation (principal); I10 Essential (primary) hypertension; E11.9 Type 2 diabetes mellitus without complications; Z79.899 Other long term (current) drug therapy; Z79.4 Long term (current) use of insulin; Z88.8 Allergy status to other drugs, medicaments and biological substances; Z88.1 Allergy status to other antibiotic agents
CPT/HCPCS: 36415; 71045; 80053; 81001; 83605; 85025; 87040; 87086; 87428; 96365; 96367; 96375; 99284; 99285; A9270; J0456; J0696; J3475; J7050

== ENCOUNTER 2024-11-07 13:23 | Emergency (ER) | payer MEDICARE ==
[2024-11-07] MEDS ORDERED: Sodium Chloride 0.9% 10 ML Syringe FLUSH PRN (13:29)
[2024-11-07] MEDS ORDERED: methylPREDNISolone Sod Succ 125 MG in Sodium Chloride 0.9% 100 ML IV ONE (13:29)
[2024-11-07] MEDS: methylPREDNISolone Sodium Succinate 125 MG/2 ML SDV IV ONE (13:39)
[2024-11-07] MEDS: Albuterol/Ipratropium 3.0-0.5 MG/3 ML Neb Soln NEB ONE (13:39)
[2024-11-07 14:01] LABS: HEMATOCRIT 41.9 % (37.0-47.0); HEMOGLOBIN 13.1 g/dL (12.0-16.0); MEAN CORPUSCULAR HEMOGLOBIN 29.8 pg (27.0-34.0); MEAN CORPUSCULAR HGB CONC 31.3 g/dL (33.0-35.0); MEAN CORPUSCULAR VOLUME 95.2 fL (80-100); O2 DELIVERY DEVICE NASAL CANNULA; PLATELET COUNT,PLT 237 10^3/uL (150-450); WHITE BLOOD CELL COUNT,WBC 12.5 10^3/uL (5.0-10.0)
[2024-11-07 14:04] LABS: BASOPHILS PERCENT AUTO 0.2 % (0.0-1.0); LYMPHOCYTES PERCENT AUTO 2.2 % (20.5-50.1); MONOCYTES PERCENT AUTO 2.1 % (2-8); NEUTROPHILS PERCENT AUTO 95.5 % (42.2-75.2)
[2024-11-07 14:06] LABS: BASE EXCESS VENOUS 5.6 mmol/l ((-2)-(+3)); BICARBONATE,VENOUS 32 mmol/l (19-25); PCO2 VENOUS 56 mmHg (41-51); PH,VENOUS 7.37 (7.31-7.41); PO2 VENOUS 124 mmHg (35-42)
[2024-11-07 14:21] LABS: INR 0.9 (0.9-1.2); PROTHROMBIN TIME 9.9 SEC (9.0-12.0); PTT,PARTIAL THROMBOPLSTIN TIME 24.6 SEC (22.0-34.0)
[2024-11-07 14:29] LABS: BAND PERCENT MAN 2 %; LYMPHOCYTES PERCENT MAN 2 % (20-50); MONOCYTES PERCENT MAN 4 % (2-8); SEG NEUTROPHILS PERCENT MAN 92 % (42-75)
[2024-11-07 14:32] LABS: LACTIC ACID 1.8 mmol/L (0.4-2.0)
[2024-11-07 14:42] LABS: ALBUMIN 3.7 g/dL (3.4-5.0); ANION GAP 15.2 mEq/L (7-13); BILIRUBIN TOTAL 0.2 mg/dL (0.2-1.0); BUN/CREATININE RATIO 24.6 (No establ ref range); CALCIUM 8.3 mg/dL (8.5-10.1); CREATININE 1.83 mg/dL (0.55-1.02); EST CRCL DRUG DOSING (CG) 19.08 mL/min; MAGNESIUM 2.4 mg/dL (1.8-2.4); POTASSIUM,K 4.2 mmol/L (3.5-5.1); PROTEIN TOTAL,TP 7.5 g/dL (6.4-8.2)
[2024-11-07] MEDS: Lactated Ringers 1,000 ML IV ONE (14:53)
== END 2024-11-07 15:17 | disposition left against medical advice (07) ==
LOC: DL.ED 13:23
DX: J44.1 Chronic obstructive pulmonary disease with (acute) exacerbation (principal); I10 Essential (primary) hypertension; E78.00 Pure hypercholesterolemia, unspecified; E11.9 Type 2 diabetes mellitus without complications; K21.9 Gastro-esophageal reflux disease without esophagitis; E66.9 Obesity, unspecified; Z79.84 Long term (current) use of oral hypoglycemic drugs; Z79.899 Other long term (current) drug therapy; Z88.8 Allergy status to other drugs, medicaments and biological substances; Z88.1 Allergy status to other antibiotic agents; Z68.30 Body mass index [BMI] 30.0-30.9, adult
CPT/HCPCS: 36415; 71045; 80053; 82803; 83605; 83735; 84484; 85025; 85610; 85730; 87040; 94660; 99285; 99291; A9270; J7120; J2919

== ENCOUNTER 2024-11-10 21:10 | Emergency (ER) | payer MEDICARE ==
[2024-11-10] MEDS: Albuterol/Ipratropium 3.0-0.5 MG/3 ML Neb Soln NEB ONE (20:38)
[2024-11-10] MEDS: predniSONE 20 MG Tab PO ONE (21:08)
[~2024-11-10 21:10] MED LIST changes: -Albuterol 0.083% 2.5 MG/3 ML Neb Soln ONE; -Magnesium Sulfate/Water Premix 100 ML ONE; +Potassium Chloride 10 MEQ Tab.ER PO ONE
== END 2024-11-10 22:00 ==
LOC: DL.ED 21:10
DX: J96.91 Respiratory failure, unspecified with hypoxia (principal); J44.89 Other specified chronic obstructive pulmonary disease; J45.901 Unspecified asthma with (acute) exacerbation; I10 Essential (primary) hypertension; E11.9 Type 2 diabetes mellitus without complications; E78.00 Pure hypercholesterolemia, unspecified; K21.9 Gastro-esophageal reflux disease without esophagitis; M19.90 Unspecified osteoarthritis, unspecified site; Z88.8 Allergy status to other drugs, medicaments and biological substances; Z88.1 Allergy status to other antibiotic agents; Z79.899 Other long term (current) drug therapy; Z79.51 Long term (current) use of inhaled steroids; Z79.4 Long term (current) use of insulin
CPT/HCPCS: 71045; 93005; 94640; 94762; 99285; A9270; J7512; 93010

== ENCOUNTER 2024-11-13 14:32 | Inpatient (IN) | payer MEDICARE ==
[2024-11-13 15:10] LABS: HEMATOCRIT 43.6 % (37.0-47.0); HEMOGLOBIN 14.2 g/dL (12.0-16.0); MEAN CORPUSCULAR HEMOGLOBIN 30.7 pg (27.0-34.0); MEAN CORPUSCULAR HGB CONC 32.6 g/dL (33.0-35.0); MEAN CORPUSCULAR VOLUME 94.4 fL (80-100); PLATELET COUNT,PLT 253 10^3/uL (150-450); RED BLOOD CELL COUNT 4.62 10^6/uL (4.2-5.4); WHITE BLOOD CELL COUNT,WBC 18.5 10^3/uL (5.0-10.0)
[2024-11-13] MEDS: Albuterol/Ipratropium 3.0-0.5 MG/3 ML Neb Soln NEB ONE (15:12)
[2024-11-13 15:16] LABS: BASOPHILS PERCENT AUTO 0.2 % (0.0-1.0); EOSINOPHILS PERCENT AUTO 0.2 % (1.0-3.0); LYMPHOCYTES PERCENT AUTO 2.4 % (20.5-50.1); MONOCYTES PERCENT AUTO 2.7 % (2-8); NEUTROPHILS PERCENT AUTO 94.5 % (42.2-75.2)
[2024-11-13 15:32] LABS: ALANINE AMINOTRANSFERASE,ALT 18 U/L (14-59); ALBUMIN 3.4 g/dL (3.4-5.0); ALKALINE PHOSPHATASE 62 U/L (46-116); ANION GAP 9.5 mEq/L (7-13); ASPARTATE AMNIOTRANSFERASE,AST 12 U/L (15-37); BILIRUBIN TOTAL 0.3 mg/dL (0.2-1.0); BLOOD UREA NITROGEN,BUN 31 mg/dL (7-18); BUN/CREATININE RATIO 21.5 (No establ ref range); CALCIUM 9.2 mg/dL (8.5-10.1); CARBON DIOXIDE,CO2 37 mmol/L (21-32); CHLORIDE,CL 97 mmol/L (98-107); CREATININE 1.44 mg/dL (0.55-1.02); GLUCOSE RANDOM 186 mg/dL (70-99); POTASSIUM,K 4.5 mmol/L (3.5-5.1); PROTEIN TOTAL,TP 6.9 g/dL (6.4-8.2); SODIUM,NA 139 mmol/L (136-145)
[2024-11-13 15:39] LABS: ESTIMATED GFR 38 mL/min (>=60)
[2024-11-13 15:50] LABS: BAND PERCENT MAN 1 %; EOSINOPHILS PERCENT MAN 1 % (1-3); LYMPHOCYTES PERCENT MAN 2 % (20-50); MONOCYTES PERCENT MAN 1 % (2-8); PLATELET COUNT ESTIMATE ADEQUATE; SEG NEUTROPHILS PERCENT MAN 95 % (42-75)
[2024-11-13] MEDS: Azithromycin 500 MG in Sodium Chloride 0.9% 250 ML IV ONE (16:22)
[2024-11-13] MEDS: Dexamethasone 4 MG/ML SDV IVPUSH ONE (16:31)
[2024-11-13] MEDS: cefTRIAXone 1 GM Vial IVPUSH ONE (16:31)
[2024-11-13] MEDS ORDERED: Albuterol/Ipratropium 3.0-0.5 MG/3 ML Neb Soln NEB PRN (18:40)
[2024-11-13] MEDS ORDERED: 50% Dextrose in Water 50 ML Syringe IVPUSH PRN (18:48)
[2024-11-13] MEDS ORDERED: Glucagon,Human Recombinant 1 MG Vial IM PRN (18:48)
[2024-11-13] MEDS: Heparin Sodium 5,000 Units/ML Vial SUBCUT SCH (21:40)
[2024-11-13] MEDS: Albuterol/Ipratropium 3.0-0.5 MG/3 ML Neb Soln NEB SCH (21:40)
[2024-11-13] MEDS: Insulin Lispro 100 Units/ML 3 ML Vial SUBCUT SCH (21:45)
[2024-11-13] MEDS: methylPREDNISolone Sodium Succinate 40 MG/1 ML SDV IVPUSH SCH (22:32)
[2024-11-14 01:59] LABS: CORONAVIRUS COVID-19 NAA NEGATIVE (NEGATIVE); INFLUENZA A NAA NEGATIVE (NEGATIVE); INFLUENZA B NAA NEGATIVE (NEGATIVE)
[2024-11-14] MEDS ORDERED: Glucagon,Human Recombinant 1 MG Vial IM PRN ×3 (08:57→11:25)
[2024-11-14] MEDS ORDERED: Diclofenac Sodium 1% Gel 100 GM Tube TOP PRN (08:57)
[2024-11-14] MEDS ORDERED: Loperamide 2 MG Cap PO PRN (08:57)
[2024-11-14] MEDS ORDERED: Bisacodyl 10 MG Supp RECTAL PRN (08:57)
[2024-11-14] MEDS ORDERED: 50% Dextrose in Water 50 ML Syringe IVPUSH PRN ×3 (08:57→11:25)
[2024-11-14] MEDS ORDERED: Carboxymethylcellulose Sodium 1% Ophth Gel 0.4 ML UD EYEBOTH PRN (08:57)
[2024-11-14] MEDS ORDERED: Magnesium Hydroxide 400 MG/5 ML Susp 30 ML Cup PO PRN (08:57)
[2024-11-14] MEDS ORDERED: CALCIUM GLUCONATE 500 MG PO PRN (08:57)
[2024-11-14] MEDS ORDERED: METHYLCELLULOSE 500 MG PO SCH (09:00)
[2024-11-14] MEDS: amLODIPine 5 MG Tab PO SCH ×2 (09:04→10:04)
[2024-11-14] MEDS: Potassium Chloride 10 MEQ Tab.ER PO SCH (10:02)
[2024-11-14] MEDS: hydrALAZINE 25 MG Tab PO SCH (10:02)
[2024-11-14] MEDS: Pantoprazole 40 MG Tab.CR PO SCH (10:03)
[2024-11-14] MEDS: Pramipexole 0.5 MG Tab PO SCH (10:03)
[2024-11-14] MEDS: Aspirin 81 MG Tab.Chew PO SCH (10:03)
[2024-11-14] MEDS: Cholecalciferol (Vitamin D3) 25 MCG Tab PO SCH (10:03)
[2024-11-14] MEDS: Spironolactone 25 MG Tab PO SCH (10:03)
[2024-11-14] MEDS: Calcitriol 0.25 MCG Cap PO SCH (10:04)
[2024-11-14] MEDS: Primidone 50 MG Tab PO SCH (10:07)
[2024-11-14] MEDS: Levothyroxine 88 MCG Tab PO SCH (10:07)
[2024-11-14] MEDS: Sennosides/Docusate Sodium 50-8.6 MG Tab PO SCH (10:12)
[2024-11-14] MEDS: Insulin Lispro 100 Units/ML 3 ML Vial SUBCUT SCH ×2 (10:19→12:14)
[2024-11-14] MEDS: Escitalopram 10 MG Tab PO SCH (10:35)
[2024-11-14] MEDS: Insulin Isophane NPH, Human 100 Units/ML 3 ML Vial SQ ONE (11:59)
[2024-11-14] MEDS: Insulin Regular, Human 100 Units/ML 10 ML Vial IV ONE (12:15)
[2024-11-14] MEDS: methylPREDNISolone Sodium Succinate 125 MG/2 ML SDV IVPUSH SCH ×2 (12:16→20:30)
[2024-11-14] MEDS: Magnesium Sulf/Wat 2 GM/50 mL 2 GM in Premix Bag 1 BAG IV SCH (12:17)
[2024-11-14] MEDS: Furosemide 40 MG Tab PO SCH (13:38)
[2024-11-14] MEDS ORDERED: Sodium Chloride 0.9% 50 ML IV SCH (14:15)
[2024-11-14] MEDS ORDERED: Sodium Chloride 0.9% 100 ML IV SCH (14:15)
[2024-11-14] MEDS: Azithromycin 250 MG in Sodium Chloride 0.9% 250 ML IV SCH (17:40)
[2024-11-14] MEDS: buPROPion 150 MG Tab.ER PO SCH (20:31)
[2024-11-14] MEDS: Insulin Glarg,Human.Rec.Analog 100 Unit/ML 10 ML Vial SUBCUT SCH (20:39)
[2024-11-15] MEDS: Acetaminophen 325 MG Tab PO PRN (05:18)
[2024-11-15] MEDS ORDERED: 50% Dextrose in Water 50 ML Syringe IVPUSH PRN (08:17)
[2024-11-15] MEDS ORDERED: Glucagon,Human Recombinant 1 MG Vial IM PRN (08:17)
[2024-11-15 08:25] LABS: HEMATOCRIT 42.1 % (37.0-47.0); HEMOGLOBIN 13.5 g/dL (12.0-16.0); MEAN CORPUSCULAR HEMOGLOBIN 30.3 pg (27.0-34.0); MEAN CORPUSCULAR HGB CONC 32.1 g/dL (33.0-35.0); MEAN CORPUSCULAR VOLUME 94.4 fL (80-100); PLATELET COUNT,PLT 268 10^3/uL (150-450); RED BLOOD CELL COUNT 4.46 10^6/uL (4.2-5.4)
[2024-11-15 08:38] LABS: LYMPHOCYTES PERCENT AUTO 1.6 % (20.5-50.1); NEUTROPHILS PERCENT AUTO 96.6 % (42.2-75.2)
[2024-11-15 08:39] LABS: BASOPHILS PERCENT AUTO 0.3 % (0.0-1.0); MONOCYTES PERCENT AUTO 1.5 % (2-8)
[2024-11-15 08:43] LABS: ANION GAP 15.6 mEq/L (7-13); CALCIUM 8.5 mg/dL (8.5-10.1); CREATININE 1.92 mg/dL (0.55-1.02); EST CRCL DRUG DOSING (CG) 18.18 mL/min; POTASSIUM,K 4.6 mmol/L (3.5-5.1)
[2024-11-15] MEDS: Fluticasone NASAL Spray 16 GM Bottle NAS SCH (09:50)
[2024-11-15] MEDS: Ferrous Sulfate 325 MG Tab PO SCH (09:51)
[2024-11-15] MEDS: predniSONE 20 MG Tab PO SCH (09:51)
[2024-11-15] MEDS: Insulin Glarg,Human.Rec.Analog 100 Unit/ML 10 ML Vial SUBCUT ONE (09:53)
[2024-11-15 09:59] LABS: LYMPHOCYTES PERCENT MAN 5 % (20-50); MONOCYTES PERCENT MAN 1 % (2-8); SEG NEUTROPHILS PERCENT MAN 94 % (42-75)
[2024-11-15] MEDS: Metolazone 2.5 MG Tab PO SCH (09:59)
[2024-11-15] MEDS: Insulin Regular, Human 100 Units/ML 10 ML Vial IV ONE (13:17)
[2024-11-15] MEDS: Azithromycin 250 MG in Sodium Chloride 0.9% 250 ML IV SCH (17:34)
[2024-11-16] MEDS ORDERED: Glucagon,Human Recombinant 1 MG Vial IM PRN ×2 (10:19→10:20)
[2024-11-16] MEDS ORDERED: 50% Dextrose in Water 50 ML Syringe IVPUSH PRN ×2 (10:19→10:20)
[2024-11-16] MEDS: Insulin Regular, Human 100 Units/ML 10 ML Vial IV ONE (11:36)
[2024-11-16] MEDS: Insulin Glarg,Human.Rec.Analog 100 Unit/ML 10 ML Vial SUBCUT ONE (11:37)
[2024-11-16] MEDS ORDERED: Ferrous Sulfate 325 MG Tab PO SCH (18:00)
== END 2024-11-16 12:00 | disposition home or self-care (01) | DRG 189 ==
LOC: DL.ED 14:32 → DL.MS 17:34 → OBSVTOIN 11-15 17:46
PROVIDERS: ADMIT Internal Medicine; ATTEND Internal Medicine
DX: J96.01 Acute respiratory failure with hypoxia (principal); J44.1 Chronic obstructive pulmonary disease with (acute) exacerbation; F03.93 Unspecified dementia, unspecified severity, with mood disturbance; J96.02 Acute respiratory failure with hypercapnia; J44.9 Chronic obstructive pulmonary disease, unspecified; J96.11 Chronic respiratory failure with hypoxia; J45.909 Unspecified asthma, uncomplicated; Z66 Do not resuscitate; I10 Essential (primary) hypertension; K21.9 Gastro-esophageal reflux disease without esophagitis; E66.01 Morbid (severe) obesity due to excess calories; K59.00 Constipation, unspecified; R25.1 Tremor, unspecified; G47.00 Insomnia, unspecified; E03.9 Hypothyroidism, unspecified; M19.90 Unspecified osteoarthritis, unspecified site; E78.00 Pure hypercholesterolemia, unspecified; G89.29 Other chronic pain; E66.9 Obesity, unspecified; E11.9 Type 2 diabetes mellitus without complications; E11.65 Type 2 diabetes mellitus with hyperglycemia; Z99.81 Dependence on supplemental oxygen; Z88.1 Allergy status to other antibiotic agents; Z79.52 Long term (current) use of systemic steroids; Z79.51 Long term (current) use of inhaled steroids; Z68.27 Body mass index [BMI] 27.0-27.9, adult; Z98.49 Cataract extraction status, unspecified eye; Z98.890 Other specified postprocedural states; Z87.891 Personal history of nicotine dependence; Z88.8 Allergy status to other drugs, medicaments and biological substances; Z79.890 Hormone replacement therapy; Z79.82 Long term (current) use of aspirin; Z79.4 Long term (current) use of insulin; Z79.899 Other long term (current) drug therapy
CPT/HCPCS: 0240U; 36415; 71045; 80048; 80053; 82947; 84484; 85025; 93005; 94010; 94640; 99223; 99232; 99233; 99239; 99285; A9270-GY; J0456; J0696; J1100; J1644; J1815-GY; J2919; J3475; J7050; J7512

== ENCOUNTER 2025-03-17 18:29 | Emergency (ER) | payer MEDICARE, MEDICAID ==
[2025-03-17 19:21] LABS: BASOPHILS PERCENT AUTO 0.3 % (0.0-1.0); EOSINOPHILS PERCENT AUTO 2.1 % (1.0-3.0); LYMPHOCYTES PERCENT AUTO 8.0 % (20.5-50.1); MONOCYTES PERCENT AUTO 9.1 % (2-8); NEUTROPHILS PERCENT AUTO 80.5 % (42.2-75.2); PLATELET COUNT,PLT 274 10^3/uL (150-450); RED BLOOD CELL COUNT 4.43 10^6/uL (4.2-5.4); WHITE BLOOD CELL COUNT,WBC 15.1 10^3/uL (5.0-10.0)
[2025-03-17] MEDS: methylPREDNISolone Sodium Succinate 125 MG/2 ML SDV IVPUSH ONE (19:33)
[2025-03-17] MEDS: Sodium Chloride 0.9% 10 ML Syringe FLUSH PRN (19:34)
[2025-03-17 19:37] LABS: INR 0.9 (0.9-1.2); PTT,PARTIAL THROMBOPLSTIN TIME 28.8 SEC (22.0-34.0)
[2025-03-17 19:39] LABS: B-TYPE NATRIURETIC PEPTIDE,BNP 89.0 pg/ml (0-100)
[2025-03-17 19:40] LABS: LACTIC ACID 0.7 mmol/L (0.4-2.0)
[2025-03-17 19:47] LABS: ALANINE AMINOTRANSFERASE,ALT 23.0 U/L (14-59); ASPARTATE AMNIOTRANSFERASE,AST 24.0 U/L (15-37); BILIRUBIN TOTAL 0.2 mg/dL (0.2-1.0); BLOOD UREA NITROGEN,BUN 23.0 mg/dL (7-18); CARBON DIOXIDE,CO2 34.0 mmol/L (21-32); CHLORIDE,CL 99.0 mmol/L (98-107); CREATININE 1.24 mg/dL (0.55-1.02); EST CRCL DRUG DOSING (CG) 28.16 mL/min; POTASSIUM,K 3.7 mmol/L (3.5-5.1); PROTEIN TOTAL,TP 7.2 g/dL (6.4-8.2); SODIUM,NA 139.0 mmol/L (136-145)
[2025-03-17 19:51] LABS: A/G RATIO 0.85; ESTIMATED GFR 45.0 mL/min (>=60)
[2025-03-17] MEDS: 50% Dextrose in Water 50 ML Syringe IVPUSH ONE (20:07)
[2025-03-17] MEDS: 50% Dextrose in Water 50 ML Syringe ONE (20:07)
[2025-03-17 21:04] LABS: GLUCOSE RANDOM 36.0 mg/dL (70-99)
== END 2025-03-17 22:00 | disposition home or self-care (01) ==
LOC: DL.ED 18:29
DX: J44.1 Chronic obstructive pulmonary disease with (acute) exacerbation (principal); I10 Essential (primary) hypertension; K21.9 Gastro-esophageal reflux disease without esophagitis; E78.00 Pure hypercholesterolemia, unspecified; E66.9 Obesity, unspecified; E11.9 Type 2 diabetes mellitus without complications; Z68.28 Body mass index [BMI] 28.0-28.9, adult; Z88.1 Allergy status to other antibiotic agents; Z88.8 Allergy status to other drugs, medicaments and biological substances; Z79.82 Long term (current) use of aspirin; Z79.4 Long term (current) use of insulin; Z79.890 Hormone replacement therapy; Z79.899 Other long term (current) drug therapy
CPT/HCPCS: 36415; 71045; 80053; 82947; 83605; 83880; 84484; 85025; 85610; 85730; 86140; 87040; 87070; 87205; 93005; 93010; 94640; 96374; 96375; 99284; 99285; A9270; J2919

== ENCOUNTER 2025-05-30 06:00 | Emergency (ER) | payer MEDICARE, MEDICAID | END 2025-05-30 06:58 | LOC: DL.ED 06:00 | DX: H61.21 Impacted cerumen, right ear (principal); I10 Essential (primary) hypertension; E78.00 Pure hypercholesterolemia, unspecified; E11.9 Type 2 diabetes mellitus without complications; Z88.8 Allergy status to other drugs, medicaments and biological substances; Z79.899 Other long term (current) drug therapy; Z79.890 Hormone replacement therapy | CPT/HCPCS: 69209; 99282; 99284-25; A9270-GY ==